=== PATIENT | male | born 1935 | race Caucasian/White ===

== ENCOUNTER → 2023-11-01 07:02 | Outpatient (REF) | payer MEDICARE, SELFPAY ==
[2023-11-01 10:55] LABS: Glycohemoglobin (HgbA1c) 6.3 % (4.0-5.6)
[2023-11-01 11:07] LABS: ALT (SGPT) 14 U/L (0-50); AST (SGOT) 21 U/L (17-59); Albumin 4.2 g/dl (3.5-5.0); Alkaline Phosphatase 99 U/L (38-126); Blood Urea Nitrogen 52 mg/dl (9-20); Carbon Dioxide 30 mmol/L (22-30); Chloride 99 mmol/L (98-107); Glucose 85 mg/dl (70-99); Potassium 3.8 mmol/L (3.5-5.1); Sodium 146 mmol/L (135-145); Total Bilirubin 0.6 mg/dl (0.2-1.3); Total Protein 7.4 g/dl (6.3-8.2); eGFR 8.48
== END ==
LOC: HWLAB 07:02
PROVIDERS: ATTENDING PHYSICIAN Internal Medicine Endocrinology, Diabetes & Metabolism; FAMILY PHYSICIAN Family Medicine
DX: E11.21 Type 2 diabetes mellitus with diabetic nephropathy (principal)
CPT/HCPCS: 36415; 80053; 83036

== ENCOUNTER → 2024-01-15 12:24 | Outpatient (REF) | payer MEDICARE, SELFPAY ==
[2024-01-15 16:26] LABS: % Basophils 0.5 % (0-2); % Eosinophils 5.8 % (0-6); % Immature Granulocytes 0.3 % (0-0.5); % Lymphocytes 18.8 % (20.5-51.1); % Monocytes 13.3 % (1.7-9.3); % Neutrophils 61.3 % (42.2-75.2); Absolute Eosinophils 0.4 10^3/uL (0-0.7); Absolute Lymphocytes 1.2 10^3/uL (1.2-3.4); Absolute Monocytes 0.9 10^3/uL (0.1-0.6); Absolute Neutrophils 3.9 10^3/uL (1.4-6.5); Hematocrit 33.4 % (39.0-52.0); Hemoglobin 10.6 g/dL (13.0-18.0); Mean Corp Hgb Conc. 31.7 g/dL (33.0-37.0); Mean Corpuscular Hgb 30.3 pg (27.0-31.0); Mean Corpuscular Volume 95.4 fL (80.0-94.0); Mean Platelet Volume 10.6 fL (7.4-10.4); Nucleated Red Blood Cells % 0 % (-); Platelet Count 210 10^3/uL (130-400); White Blood Cell Count 6.4 10^3/uL (4.8-10.8)
[2024-01-15 17:08] LABS: Erythrocyte Sed Rate 87 mm/hour (0-20)
[2024-01-18 01:30] LABS: ANA, IgG Reflex to HEp-2 None Detected (None Detected)
== END ==
LOC: HWLAB 12:24
PROVIDERS: ATTENDING PHYSICIAN Orthopaedic Surgery; FAMILY PHYSICIAN Family Medicine
DX: M25.562 Pain in left knee (principal); T84.84XA Pain due to internal orthopedic prosthetic devices, implants and grafts, initial encounter
CPT/HCPCS: 36415; 85025; 85652; 86038; 86140; 86618

== ENCOUNTER 2024-02-28 15:07 | Emergency (ER) | payer MEDICARE, SELFPAY ==
[2024-02-28 15:13] VITALS: BP 157/51
--- NOTE | 2024-02-28 16:09 | ED.GENMED ---
History of Present Illness
General
Chief Complaint: Skin Surface Trauma
Source: patient
Time Seen by Provider: 02/28/24 15:55
History of Present Illness
History of Present Illness:
88-year-old male brought to the emergency room by ambulance with a laceration to the left scalp. Patient states he was going with his to a doctor's appointment via ambulance. When he stepped up into the vehicle he hit the left side of his
head on a hinge of the door causing a laceration. He did not have loss of consciousness. He does not take any oral anticoagulation. He did not have a fall.
Past History
Past History
ED Past Medical History: HTN, Hypercholesterolemia, NIDDM, Renal failure and Other (Neuropathy, BPH, secondary hyperparathyroidism, anemia)
ED Past Surgical History: Orthopedic and Other (L arm fistula)
Social History
Tobacco: Former smoker
Living: with family
Phy Exam
Physical Exam
Physical Exam:
General: Awake, Alert, Oriented X3. No acute distress.
Vitals: Mildly hypotensive
Head: 2 cm laceration left parietal scalp
Eyes: Pupils equal, EOMI
Throat: Airway intact, no exudates
Neck: Trachea midline, no midline tenderness
Neuro: Nonfocal
Skin: Warm, dry, no rash
Extremities: pulses equal b/l, no edema
Course
Orders/Labs/Results
Orders:
Orders
02/28/24 16:09
Tetanus/Diphth/Acelpertussis [Adacel] 0.5 ml IM .ONCE ONE
Vital Signs
Initial and Last Documented VS:
Initial Vital Signs
Temp Pulse Resp BP Pulse Ox
98.0 F 54 16 157/51 98
02/28/24 15:13 02/28/24 15:13 02/28/24 15:13 02/28/24 15:13 02/28/24 15:13
Last Documented Vital Signs
Temp Pulse Resp BP Pulse Ox
98.0 F 54 16 157/51 98
02/28/24 15:13 02/28/24 15:13 02/28/24 15:13 02/28/24 15:13 02/28/24 15:13
Procedures
Laceration Closure
Left Scalp:
Status of Wound: clean
Size of Wound in cm: 2
Description of Wound Edges: sharp
Preparation: cleaned with saline
Anesthesia: 1% Lidocaine with epi
Revision/Debridement: routine- no revision
Wound exploration: explored to base- no FB
Type of Closure: single layer closure
Skin Closure Material: skin kayleen
Number of sutures: 6
MDM/Problems Addressed
Differential Diagnosis Includes:
Scalp laceration
MDM/Problems Addressed:
Matted hair cleaned with hydroperoxide to expose the full extent of the wound. No foreign body. Wound goes down into the subcutaneous tissue but not down to the galea. Wound closed with kayleen. Kayleen should be removed in 7 days.
*Pulse Oximetry
Patient hypoxic: no
*Critical Care Note
Total Time (30-74mins, 75-104mins- exclusive of procedures): Not Applicable
ED Attending Note
-
Portions of this chart may have been created with voice recognition software.� Occasional wrong word or��sound alike� substitutions may have occurred due to the inherent limitations of voice recognition software.
Discharge Plan
Departure
Patient Disposition: Home (Routine Discharge)
Date of Disposition: 02/28/24
Time of Disposition: 16:09
Patient with high blood pressure during this ER visit?: Yes
Condition: Good
Discharge Problem:
Laceration of scalp
Instructions: Laceration Repair With Hughes (DC), BLOOD PRESSURE
Prescriptions:
No Action
pantoprazole 40 MG tablet,delayed release (DR/EC)
40 mg PO DAILY
calcitriol 0.25 mcg Capsule
0.25 mcg PO MOFR
Rx Instructions:
2xweek
cyanocobalamin (vitamin B-12) 1,000 mcg Tablet
1,000 mcg PO DAILY
finasteride 5 mg Tablet
5 mg PO DAILY
omega 9-tcy-fht-fish oil [Fish Oil] 1,200 (144-216) mg Capsule
1 cap PO BID
pravastatin 40 mg Tablet
40 mg PO DAILY
gabapentin 100 mg Capsule
100 mg PO HS
cholecalciferol (vitamin D3) [Vitamin D3] 25 mcg (1,000 unit) Tablet
25 mcg PO DAILY
sevelamer carbonate 800 mg tablet
800 mg PO QPM
metoprolol succinate 50 mg Tablet Extended Release 24 Hr
50 mg PO DAILY 30 Days Qty: 30 0RF
Referrals:
Ramon Casas DO [Family Provider] -
Interventions
Interventions:
*Risk Screen - Suicide Last Done: 02/28/24 15:13
*Nursing Disposition Last Done: 02/28/24 16:42
ED-Skin Assessment Last Done: 02/28/24 16:41
Discharge Date and Time
Discharge Date/Time: 02/28/24 16:42
Print Language: MALTESE
[2024-02-28] MEDS: ADACEL 0.5 ML IM (16:37)
== END 2024-02-28 16:42 | disposition home or self-care (01) ==
LOC: EMR 15:07
PROVIDERS: EMERGENCY PHYSICIAN Emergency Medicine; FAMILY PHYSICIAN Family Medicine
DX: S01.01XA Laceration without foreign body of scalp, initial encounter (principal); V58.4XXA Person boarding or alighting a pick-up truck or van injured in noncollision transport accident, initial encounter; I10 Essential (primary) hypertension; E78.00 Pure hypercholesterolemia, unspecified; E11.9 Type 2 diabetes mellitus without complications; Z87.891 Personal history of nicotine dependence; Z23 Encounter for immunization
CPT/HCPCS: 12001; 90471; 99283; 90715

== ENCOUNTER 2024-03-04 20:04 | Emergency (ER) | payer BC, SELFPAY ==
[2024-03-04 20:09] VITALS: BP 150/55
[2024-03-04 20:27] LABS: % Basophils 0.4 % (0-2); % Immature Granulocytes 0.4 % (0-0.5); % Lymphocytes 4.8 % (20.5-51.1); % Neutrophils 85.4 % (42.2-75.2); Absolute Eosinophils 0.1 10^3/uL (0-0.7); Absolute Lymphocytes 0.4 10^3/uL (1.2-3.4); Absolute Monocytes 0.6 10^3/uL (0.1-0.6); Absolute Neutrophils 6.6 10^3/uL (1.4-6.5); Hematocrit 34.3 % (39.0-52.0); Hemoglobin 11.2 g/dL (13.0-18.0); Mean Corp Hgb Conc. 32.7 g/dL (33.0-37.0); Mean Corpuscular Hgb 30.2 pg (27.0-31.0); Mean Corpuscular Volume 92.5 fL (80.0-94.0); Mean Platelet Volume 9.9 fL (7.4-10.4); Nucleated Red Blood Cells % 0 % (-); Platelet Count 231 10^3/uL (130-400); Red Blood Cell Count 3.71 10^6/uL (4.70-6.10); Red Cell Dist. Width 13.7 % (11.5-14.5); White Blood Cell Count 7.7 10^3/uL (4.8-10.8)
[2024-03-04 20:50] LABS: ALT (SGPT) 15 U/L (0-50); AST (SGOT) 22 U/L (17-59); Albumin 4.4 g/dl (3.5-5.0); Alkaline Phosphatase 98 U/L (38-126); Blood Urea Nitrogen 101 mg/dl (9-20); Calcium 9.9 mg/dl (8.4-10.2); Carbon Dioxide 17 mmol/L (22-30); Chloride 102 mmol/L (98-107); Glucose 203 mg/dl (70-99); Lipase 216 U/L (23-300); Potassium 5.1 mmol/L (3.5-5.1); Sodium 140 mmol/L (135-145); Total Bilirubin 0.3 mg/dl (0.2-1.3); Total Protein 8.1 g/dl (6.3-8.2); eGFR 4.68
[2024-03-04 21:47] VITALS: BP 149/52
[2024-03-04 22:00] VITALS: BP 127/50
--- NOTE | 2024-03-04 22:16 | ED.GENMED ---
History of Present Illness
General
Chief Complaint: Abdominal Symptoms
Source: patient and family (Daughter)
Time Seen by Provider: 03/04/24 22:01
History of Present Illness
History of Present Illness:
88-year-old male presents to the emergency room complaining of nausea, vomiting, diarrhea and generalized weakness. Symptoms began this morning. Last time he vomited was shortly before he came to the emergency room at about 715. No sick contacts
that he knows of. Patient has end-stage renal disease and is on hemodialysis. He receives dialysis Tuesdays and . He did receive dialysis on Saturdays but has discontinued that day so only twice a week. Daughter states the patient did
have a temperature of 100.9. No blood in the vomitus or stool.
Past History
Past History
ED Past Medical History: HTN, Hypercholesterolemia, NIDDM, Renal failure and Other (Neuropathy, BPH, secondary hyperparathyroidism, anemia)
ED Past Surgical History: Orthopedic and Other (L arm fistula)
Social History
Tobacco: Former smoker
Living: with family
Phy Exam
Physical Exam
Physical Exam:
General: Awake, Alert, Oriented X3. No acute distress.
Vitals: unremarkable
Head: Atraumatic
Eyes: Pupils equal, EOMI
Throat: Airway intact, dry mucosa
Neck: Trachea midline
Lungs: Clear and equal b/l
Heart: Regular rate, no murmurs
Abd: Soft, Nontender, No pulsatile mass
Neuro: Nonfocal
Skin: Warm, dry, no rash
Extremities: pulses equal b/l, no edema
Course
Orders/Labs/Results
Orders:
Orders
03/04/24 20:20
Complete Blood Count/With Diff Urgent
Comprehensive Metabolic Panel Urgent
Lipase Urgent
Magnesium Urgent
Comment: ADD ON
Phosphorus Urgent
Comment: ADD ON
03/04/24 22:13
Ondansetron Injectable [Zofran] 4 mg IV NOW STA
03/04/24 22:14
Add On- LAB Urgent
Tests Added?: mag, phos
03/04/24 22:15
0.9% Sodium Chloride 1000 ml [Nss] 1,000 ml IV BOLUS
03/04/24 22:16
CR Chest - 2 Views Urgent
Comment:
Reason For Exam: fever, nausea/vomiting
03/04/24 22:18
Electrocardiogram (*1) Urgent
Reason for Study: Fatigue / Weakness
EKG- Treatment ONCE
03/04/24 22:54
COVID-19 Antigen Urgent
Source: Nasal Swab
Influenza A+B Rapid Molecular Urgent
ROB Source: Nasal Swab
Specimen Description:
03/04/24 22:55
Urinalysis Reflex To Culture Urgent
Date Specimen was Collected: 03/04/24
Time Specimen was Collected: 22:54
Urine Microscopic Reflex Cult Urgent
Abnormal Lab Results
03/04/24 03/04/24
20:20 22:55
RBC 3.71 L 10^6/uL
(4.70-6.10)
Hgb 11.2 L g/dL
(13.0-18.0)
Hct 34.3 L %
(39.0-52.0)
MCHC 32.7 L g/dL
(33.0-37.0)
Absolute Neuts (auto) 6.6 H 10^3/uL
(1.4-6.5)
Absolute Lymphs (auto) 0.4 L 10^3/uL
(1.2-3.4)
Neutrophils % 85.4 H %
(42.2-75.2)
Lymphocytes % 4.8 L %
(20.5-51.1)
Carbon Dioxide 17 L mmol/L
(22-30)
BUN 101 H* mg/dl
(9-20)
Creatinine 9.8 H* mg/dL
(0.7-1.3)
Glucose 203 H mg/dl
(70-99)
Phosphorus 5.6 H mg/dl
(2.5-4.5)
Ur Occult Blood Reflex 1+ A
(Negative)
Urine RBC 21-25 A /HPF
(0-2)
Urine Bacteria (Reflex) Few A
(Negative)
Urine Glucose 1+ A
(Negative)
Urine Albumin (Reflex) 3+ A
(Neg - Trace)
03/04/24 20:20
03/04/24 20:20
Vital Signs
Initial and Last Documented VS:
Initial Vital Signs
Temp Pulse Resp BP Pulse Ox
97.6 F 63 16 150/55 96
03/04/24 20:09 03/04/24 20:09 03/04/24 20:09 03/04/24 20:09 03/04/24 20:09
Last Documented Vital Signs
Temp Pulse Resp BP Pulse Ox
97.8 F 57 16 130/53 98
03/04/24 21:50 03/05/24 02:00 03/05/24 02:00 03/05/24 02:00 03/05/24 02:00
MDM/Problems Addressed
Differential Diagnosis Includes:
Viral gastroenteritis, uremia, dehydration, electrolyte abnormalities, COVID, flu
MDM/Problems Addressed:
Patient presents with nausea from diarrhea. He feels better after some IV fluids here. Labs show significant uremia. Potassium is not elevated. Patient is due for dialysis Monday morning. Given he does not have significantly elevated
potassium, he is tolerating oral intake and his mental status is intact I do not believe hospitalization would be beneficial. The patient is likely to get dialysis sooner if he is discharged and goes to his normal dialysis appointment. Patient
understands he should return if he starts feeling worse in any way.
*Radiology
Radiology exam reviewed: preliminary read by ED provider (Unchanged from chest x-ray of January 03, 2023)
*Pulse Oximetry
Patient hypoxic: no
*EKG
Interpreted by ED Provider?: Yes
Heart Rate: 60
Rate: normal
Rhythm: sinus
QRS Pattern: left vent hypertrophy
Ischemia: no ischemia
*Weight And Test Bar Clerk Interpretation
Rate: normal
Interpretation: normal
Rhythm: sinus
*Critical Care Note
Total Time (30-74mins, 75-104mins- exclusive of procedures): Not Applicable
Patient Management
Social determinants of health affecting care: Strong social support
ED Attending Note
-
Portions of this chart may have been created with voice recognition software.� Occasional wrong word or��sound alike� substitutions may have occurred due to the inherent limitations of voice recognition software.
Discharge Plan
Departure
Patient Disposition: Home (Routine Discharge)
Date of Disposition: 03/05/24
Time of Disposition: 01:39
Patient with high blood pressure during this ER visit?: No
Condition: Good
Discharge Problem:
Nausea & vomiting, Diarrhea, ESRD (end stage renal disease)
Instructions: Dehydration, Adult (DC), End-stage kidney disease (kidney failure)
Prescriptions:
No Action
pantoprazole 40 MG tablet,delayed release (DR/EC)
40 mg PO DAILY
cyanocobalamin (vitamin B-12) 1,000 mcg Tablet
1,000 mcg PO DAILY
finasteride 5 mg Tablet
5 mg PO DAILY
omega 0-lao-oup-fish oil [Fish Oil] 1,200 (144-216) mg Capsule
1 cap PO BID
pravastatin 40 mg Tablet
40 mg PO DAILY
gabapentin 100 mg Capsule
100 mg PO DAILY
cholecalciferol (vitamin D3) [Vitamin D3] 25 mcg (1,000 unit) Tablet
25 mcg PO DAILY
sevelamer carbonate 800 mg tablet
800 mg PO DAILY
metoprolol succinate 50 mg Tablet Extended Release 24 Hr
50 mg PO DAILY 30 Days Qty: 30 0RF
Rx Instructions:
take with 100mg for total of 150mg
metoprolol succinate 100 mg Tablet Extended Release 24 Hr
100 mg PO DAILY
Rx Instructions:
take with 50mg for total of 150mg
terazosin 1 mg Capsule
1 mg PO HS
amlodipine 5 mg Tablet
5 mg PO BID
furosemide 80 mg Tablet
80 mg PO DAILY
losartan 100 mg Tablet
100 mg PO DAILY
Referrals:
Ramon Casas DO [Family Provider] -
Activity Restrictions/Additional Instructions:
Your blood work shows that your kidney function test are high. I suspect this is due to some dehydration in combination with the being several days since her last dialysis treatment. Your potassium level is okay. Because you are able to tolerate
oral intake I think you will likely get dialysis more quickly by going to your dialysis center tomorrow then if you stayed in the hospital. Return if you are unable to get dialysis tomorrow for some reason or if you are getting worse.
Interventions
Interventions:
*Risk Screen - Suicide Last Done: 03/04/24 22:00
*General Assessment Last Done: 03/04/24 22:00
*Neglect/Abuse Screening Last Done: 03/04/24 22:00
ED- Fall Risk Assessment Last Done: 03/04/24 22:00
*ED COVID-19 Vaccine History Last Done: 03/04/24 22:00
*Nursing Disposition Last Done: 03/05/24 02:00
UR-Jvpscs-Pffnpvieql Assessment Last Done: 03/04/24 22:00
Discharge Date and Time
Discharge Date/Time: 03/05/24 02:00
Print Language: TAJIK
[2024-03-04 22:47] VITALS: BMI 24.7
[2024-03-04] MEDS: NSS 1000 IV (22:52)
[2024-03-04] MEDS: ZOFRAN 4 MG IV (22:53)
[2024-03-04 23:00] LABS: Magnesium 2.1 mg/dl (1.6-2.3); Phosphorus 5.6 mg/dl (2.5-4.5)
[2024-03-04 23:07] LABS: Urine Albumin 3+ (Neg - Trace); Urine Bilirubin Negative (Negative); Urine Character Clear (Clear); Urine Color Yellow; Urine Glucose 1+ (Negative); Urine Ketone Negative (Negative); Urine Leukocyte Negative (Negative); Urine Nitrite Negative (Negative); Urine Occult Blood 1+ (Negative); Urine Urobilinogen Negative (Neg - 1+); Urine pH 6.5 (5.0-9.0)
[2024-03-04 23:51] LABS: COVID-19 Antigen Negative (Negative)
[2024-03-05 00:17] LABS: Urine Amorphous Seen
[2024-03-05 00:18] LABS: Urine Bacteria Few (Negative); Urine Red Blood Cell 21-25 /HPF (0-2); Urine White Cell 0-2 /HPF (0-5)
[2024-03-05 00:19] LABS: Urine Mucus Few; Urine Urothelial Cell 0-2 /LPF (FEW)
[2024-03-05 00:56] VITALS: BP 133/55
[2024-03-05 01:00] VITALS: BP 138/53
[2024-03-05 02:00] VITALS: BP 130/53
== END 2024-03-05 02:00 | disposition home or self-care (01) ==
LOC: EMR 20:04
PROVIDERS: Emergency Medicine; EMERGENCY PHYSICIAN Emergency Medicine; FAMILY PHYSICIAN Family Medicine
DX: R11.2 Nausea with vomiting, unspecified (principal); R19.7 Diarrhea, unspecified; N18.6 End stage renal disease; R53.1 Weakness; I10 Essential (primary) hypertension; E78.00 Pure hypercholesterolemia, unspecified; E11.9 Type 2 diabetes mellitus without complications; N40.0 Benign prostatic hyperplasia without lower urinary tract symptoms; I12.0 Hypertensive chronic kidney disease with stage 5 chronic kidney disease or end stage renal disease; E11.22 Type 2 diabetes mellitus with diabetic chronic kidney disease; N25.81 Secondary hyperparathyroidism of renal origin; Z87.891 Personal history of nicotine dependence; Z99.2 Dependence on renal dialysis
CPT/HCPCS: 99283; 96374; 71046; 80053; 81003; 81015; 83690; 83735; 84100; 85025; 87502; 87811; 93005

== ENCOUNTER 2024-03-05 16:58 | Inpatient (IN) | payer OTHER, SELFPAY ==
[2024-03-05] VITALS (9 sets, daily range): BP systolic 100–150; BP diastolic 43–96
--- NOTE | 2024-03-05 12:28 | ED.GENMED ---
History of Present Illness
General
Chief Complaint: Fever
Time Seen by Provider: 03/05/24 12:28
History of Present Illness
History of Present Illness:
TIME OF INITIAL ENCOUNTER:
HPI: Patient came in by ambulance with concerns for fever. Seen in our ED last night. He apparently was at dialysis today and was sent here related to fever. I called [facility] to obtain history. I spoke to one of the
nurses there. The nurse that I spoke to is a pig lead melter helper nurse and does not know his baseline but when she spoke to another nurse she was told that he does not have any dementia. The patient was here in the emergency room till 3 in the morning
overnight went home and then went to dialysis at 8:30 AM. He was not feeling well. He had shaking chills had a Tmax at dialysis of 99+ and appeared lethargic. He could not stand. He was sent in here for further evaluation. I then called son,
Thomas, , no h/o dementia.
EXAM:
GENERAL: The patient is ill-appearing, appears encephalopathic, she is febrile
HEENT: Moist oral mucosa
CARDIOVASCULAR: No murmurs, normal heart rate, regular rhythm, No chest wall tenderness
PULMONARY: No respiratory distress, breath sounds are clear and equal
ABDOMEN: Soft with no peritoneal signs, no tenderness
NEUROLOGIC: Generalized weakness in all extremities, does not participate much with examination
PSYCHIATRIC: The patient cannot name the month, He is a very poor historian, he is very limited insight and judgment
EXTREMITIES: Nontender, no edema, moves all extremities equally, the patient has a fistula in the left upper extremity at the , he has no ports
SKIN: No rash, no lesions
NUMBER AND COMPLEXITY OF PROBLEMS ADDRESSED AT THE ENCOUNTER
� Chronic conditions affecting care: High blood pressure, GERD, CKD, IDDM
� Acute Exacerbation and/or Progression of Chronic Illness: This is an acute problem
� Differential Diagnosis includes: Viral syndrome, sepsis, bacteremia, no evidence of UTI based on last night's evaluation
AMOUNT AND/OR COMPLEXITY OF DATA TO BE REVIEWED AND ANALYZED
� I performed an independent evaluation of and my interpretation is:
EKG:
CT:
X-rays: Chest x-ray suggests right pleural effusion along with possible of pneumonia however it does not appear to be significant change from February 2022
Laboratory Studies: White count 8.2, hemoglobin 9.9, creatinine 5.9 which is lower than prior, lactic is 1.8
Other:
� Review of other/old records: I reviewed the notes from last night which indicated the patient had nausea, vomiting, and diarrhea along with generalized weakness. He was given some IV fluids last night.
� Clinical information was obtained by an independent historian: I spoke to sons at bedside as well as dialysis facility
� Prescriptions/Medications Considered but not given:
� Further testing considered but not performed:
RISK OF COMPLICATIONS AND/OR MORBIDITY OR MORTALITY OF PATIENT MANAGEMENT
� Social determinants of health affecting care: Lives at home, attends dialysis twice a week
� Discussion with other providers: I discussed case with Dr. Turner at 3 PM who accepts to his service
� Escalation of care including admission/observation vs risk of discharge considered: I spoke to the brother, Thomas over the phone, , he tells me that the patient does not have a history of dementia. However he did,
on his own decrease his dialysis frequency from 3 times a week to 2 times per week.
ANY OTHER UPDATES:
On reassessment, we talked about the possibly of pneumonia however the patient denies any shortness of breath or cough. Despite giving Tylenol for fever, he still appears encephalopathic. He appears very confused and has a headache and has
decreased range of motion of the flexion of the neck. I did voice some concern for the possible of meningitis. I spoke to the son at bedside who gives informed signed written consent.
2:50 PM: I am concerned for the possibility of sepsis due to the fever and change in mental status. He was only given a 250 mL fluid bolus as he is a dialysis patient. He was not tachycardic and never hypotensive. His lactic is normal.
Broad-spectrum antibiotics were given given his ill appearance.
6:30 PM: No evidence for meningitis on lumbar puncture results
Past History
Past History
ED Past Medical History: HTN, Hypercholesterolemia, NIDDM, Renal failure and Other (Neuropathy, BPH, secondary hyperparathyroidism, anemia)
ED Past Surgical History: Orthopedic and Other (L arm fistula)
Social History
Tobacco: Former smoker
Living: with family
Phy Exam
Physical Exam
Physical Exam:
See HPI
Sepsis
Sepsis Screening
Sepsis Assessment: Sepsis
Sepsis Screen
Sepsis Screen: Sepsis
Date: 03/05/24
Time: 20:00
Course
Orders/Labs/Results
Orders:
Orders
03/05/24 12:41
Acetaminophen [Tylenol] 1,000 mg PO NOW STA
03/05/24 12:51
Complete Blood Count/With Diff Urgent
Comprehensive Metabolic Panel Urgent
Lactic Acid Q4H
Comment: CANCEL 2nd LACTIC ACID IF 1st LACTIC ACID IS LESS THAN 2
Blood Culture Q30M
ROB Source: Blood/Venous
Specimen Description:
Blood Culture Q30M
ROB Source: Blood/Venous
Specimen Description:
03/05/24 12:52
CR Chest - 2 Views Urgent
Comment:
Reason For Exam: worse fever
03/05/24 12:54
0.9% Sodium Chloride 250 ml [Nss] 250 ml IV BOLUS
03/05/24 14:03
Cefepime HCl [Maxipime] 1,000 mg IV NOW STA
03/05/24 14:53
Vancomycin [Vancocin] 1,500 mg 0.9% Sodium Chloride 500 ml [Nss] 500 ml IV NOW
03/05/24 15:18
CSF Cell Count Urgent
Date Specimen was Collected: 03/05/24
Time Specimen was Collected: 15:09
CSF Tube Number: 1
Comment: Tube #1
Cryptococcal Antigen, CSF [S] Urgent
Date Specimen was Collected: 03/05/24
Time Specimen was Collected: 15:09
Spinal Fluid Glucose Urgent
Date Specimen was Collected: 03/05/24
Time Specimen was Collected: 15:09
CSF Tube Number: 1
Spinal Fluid Protein Urgent
Date Specimen was Collected: 03/05/24
Time Specimen was Collected: 15:09
CSF Tube Number: 1
CSF Culture with Gram Stain Urgent
ROB Source: Csf
Specimen Description:
Date Specimen was Collected: 03/05/24
Time Specimen was Collected: 15:09
03/05/24 16:21
Admit/Transfer Patient As Directed
Co-Sign Provider:
Level of Care: Inpatient admission
Assign to:: Telemetry
Physician / Group: Hospitalist
Diagnosis: Change of mental status
Reason for Telemetry: Chest Pain syndromes
Date to Stop Telemetry: 03/07/24
Time to Stop Telemetry: 11:00
Reason for Hospitalization: Change of mental status
Expected length of stay greater than two midnights?: Yes
ELOS- Estimated Length of Stay in days: 5
I certify the patient meets the requirements for IP care: Yes
PRN Pain Medication Management As Directed
May give lesser potent ordered pain med per pt: Yes
preference::
Protocol:: Medication orders for pain may be administered in a
manner that supports deferring to patient preference
when the pt is:
- Requesting an ordered lesser potent pain medication.
Least to most potent pain medications are defined
as: acetaminophen < NSAID < tramadol < opioids
(morphine, oxycodone, hydromorphone).
- Requesting a lesser dose of the same medication IF
ORDERED.
- Requesting a less intrusive route of administration
if both routes are prescribed by the provider (PO <
IV).
03/05/24 16:23
Code Status As Directed
Resuscitation Status: Full Code
03/05/24 17:52
Blood Culture Q30M
ROB Source: Blood/Venous
Specimen Description:
Comment: IF NOT OBTAINED IN ED
03/05/24 17:52
Consult Nephrology [NEPHROLOGY CONSULT] Routine
Consulting Provider: Kaz Lowe
Was physician already notified: Yes
Reason for consult: HD three days per week.
Urinalysis Reflex To Culture Urgent
Urinalysis Reflex To Culture Urgent
Respiratory Culture/Gram Stain Routine
ROB Source: Sputum
Specimen Description:
Comment: IF NOT OBTAINED IN ED
Activity As Directed
Activity Level: With Assistance
Intake/ Output As Directed
Frequency: Per unit guidelines
Vital Signs As Directed
Frequency: Per unit guidelines
DX Deep Vein Thrombosis Video Routine
03/05/24 18:22
Blood Culture Q30M
ROB Source: Blood/Venous
Specimen Description:
Comment: IF NOT OBTAINED IN ED
03/05/24 20:00
Amlodipine [Norvasc] 5 mg PO BID
Heparin 5,000 units SC Q12
03/05/24 22:00
Terazosin [Hytrin] 1 mg PO HS
03/06/24 Breakfast
NPO
Allow oral meds: Yes
Allow clear liquids: Sips of Clears
NPO with Ice Chips: Yes
Complete Blood Count/No Diff IN AM
Comprehensive Metabolic Panel IN AM
03/06/24 08:00
Finasteride [Proscar] 5 mg PO DAILY
Furosemide [Lasix] 80 mg PO DAILY
Metoprolol Xl [Toprol Xl] 100 mg PO DAILY
Metoprolol Xl [Toprol Xl] 50 mg PO DAILY
Pantoprazole [Protonix] 40 mg PO DAILY
Sevelamer Carbonate [Renvela] 800 mg PO DAILY
03/06/24 16:00
Cefepime HCl [Maxipime] 1,000 mg IV Q24H
03/07/24 11:00
DC Protocol for Telemetry ONCE
Abnormal Lab Results
03/05/24 03/05/24
12:51 15:18
RBC 3.32 L 10^6/uL
(4.70-6.10)
Hgb 9.9 L g/dL
(13.0-18.0)
Hct 29.9 L %
(39.0-52.0)
Absolute Lymphs (auto) 0.7 L 10^3/uL
(1.2-3.4)
Absolute Monos (auto) 1.1 H 10^3/uL
(0.1-0.6)
Neutrophils % 77.8 H %
(42.2-75.2)
Lymphocytes % 8.2 L %
(20.5-51.1)
Monocytes % 13.0 H %
(1.7-9.3)
Chloride 94 L mmol/L
(98-107)
BUN 59 H mg/dl
(9-20)
Creatinine 5.9 H* mg/dL
(0.7-1.3)
Glucose 142 H mg/dl
(70-99)
CSF Glucose 79 H mg/dl
(40-70)
CSF Total Protein 109 H mg/dl
(12-60)
03/05/24 12:51
03/05/24 12:51
Vital Signs
Initial and Last Documented VS:
Initial Vital Signs
Temp Pulse Resp BP Pulse Ox
39.6 C H 80 27 150/50 95
03/05/24 12:24 03/05/24 12:24 03/05/24 12:24 03/05/24 12:24 03/05/24 12:24
Last Documented Vital Signs
Temp Pulse Resp BP Pulse Ox
36.7 C 72 20 100/96 96
03/05/24 17:53 03/05/24 17:53 03/05/24 17:53 03/05/24 17:53 03/05/24 17:53
Procedures
Lumbar Puncture
Indication for procedure:: Fever, altered mental status
Procedure completed by: De, Dr. Degroot
Consent form signed: Yes
Anesthesia/sedation: 1% Lidocaine
Preparation: cleaned with Betadine
Position: decubitis
Needle Size: 22 gauge
Needle Type: Lumbar Needle
Number of attempts: 2
Dressing applied to puncture site: bandaid
Complications: none
*Critical Care Note
Total Time (30-74mins, 75-104mins- exclusive of procedures): Not Applicable
ED Attending Note
-
Portions of this chart may have been created with voice recognition software.� Occasional wrong word or��sound alike� substitutions may have occurred due to the inherent limitations of voice recognition software.
Discharge Plan
Departure
Patient Disposition: Admit
Date of Disposition: 03/05/24
Time of Disposition: 14:33
Presentation/result/management discussed w/ accepting MD/DO: Hospitalist
Discharge Problem:
Sepsis
Interventions
Interventions:
*Risk Screen - Suicide Last Done: 03/05/24 12:24
*General Assessment Last Done: 03/05/24 12:24
*Neglect/Abuse Screening Last Done: 03/05/24 12:24
ED- Fall Risk Assessment Last Done: 03/05/24 18:01
*ED COVID-19 Vaccine History Last Done: 03/05/24 17:50
*Nursing Disposition Last Done: 03/05/24 18:01
ED- Neurological Assessment Last Done: 03/05/24 12:39
ED-Skin Assessment Last Done: 03/05/24 12:39
Discharge Date and Time
Discharge Date/Time: 03/05/24 18:04
[2024-03-05] MEDS: TYLENOL 1000 MG PO (12:50)
[2024-03-05 13:05] LABS: % Basophils 0.4 % (0-2); % Eosinophils 0.2 % (0-6); % Immature Granulocytes 0.4 % (0-0.5); % Lymphocytes 8.2 % (20.5-51.1); % Neutrophils 77.8 % (42.2-75.2); Absolute Lymphocytes 0.7 10^3/uL (1.2-3.4); Absolute Monocytes 1.1 10^3/uL (0.1-0.6); Absolute Neutrophils 6.4 10^3/uL (1.4-6.5); Hematocrit 29.9 % (39.0-52.0); Hemoglobin 9.9 g/dL (13.0-18.0); Mean Corp Hgb Conc. 33.1 g/dL (33.0-37.0); Mean Corpuscular Hgb 29.8 pg (27.0-31.0); Mean Corpuscular Volume 90.1 fL (80.0-94.0); Mean Platelet Volume 10.1 fL (7.4-10.4); Nucleated Red Blood Cells % 0 % (-); Platelet Count 210 10^3/uL (130-400); Red Blood Cell Count 3.32 10^6/uL (4.70-6.10); Red Cell Dist. Width 13.9 % (11.5-14.5); White Blood Cell Count 8.2 10^3/uL (4.8-10.8)
[2024-03-05 13:17] LABS: Lactic Acid 1.8 mmol/L (0.7-2.0)
[2024-03-05 13:20] LABS: ALT (SGPT) 16 U/L (0-50); AST (SGOT) 25 U/L (17-59); Albumin 4.3 g/dl (3.5-5.0); Alkaline Phosphatase 85 U/L (38-126); Blood Urea Nitrogen 59 mg/dl (9-20); Calcium 9.2 mg/dl (8.4-10.2); Carbon Dioxide 27 mmol/L (22-30); Chloride 94 mmol/L (98-107); Glucose 142 mg/dl (70-99); Potassium 4.3 mmol/L (3.5-5.1); Sodium 136 mmol/L (135-145); Total Bilirubin 0.5 mg/dl (0.2-1.3); Total Protein 7.9 g/dl (6.3-8.2)
[2024-03-05] MEDS: NSS 250 IV (13:38)
--- NOTE | 2024-03-05 14:10 | PHANOTE ---
med rec note- patient not answer question properly and dandre his son in room does not know patient medication, called son Thomas and daughter marian but they do not know patient medication. patient has no ecw and [facility] does not know his
primary pcp
[2024-03-05] MEDS: MAXIPIME 1000 MG IV (15:09)
[2024-03-05] MEDS: VANCOCIN 530 MG IV (15:10)
--- NOTE | 2024-03-05 15:16 | HPS.HSE ---
Family Physician
-
Family Physician: INTERVIEWE UNKNOWN - PT NOT
Chief Complaint
-
Change of mental status
History of Present Illness
88 man with change of mental status. The Patient came in by ambulance today with concerns for fever. Of note, he was seen in our ED last night. He was discharged and went to dialysis today and was sent back here because of a fever. He also had
shaking chills had a Tmax at dialysis of 99+ and appeared lethargic. He could not stand. The patient has no h/o dementia. At the time of my exam, he was awake and responded to touch, but was not able to answer any questions. ER ordered lumbar
tap. Results of tap are pending. Patient was then placed on broad spectrum antibiotics, CXR showed:
There is moderate right-sided pleural effusion with associated pneumonia versus compressive atelectasis at the right lung base, stable compared with the prior study
The lungs are otherwise clear
Medical History
Past Medical History
Past Medical History: Reports Other
Additional Past Medical History:
Frequency of micturition
Neuromuscular dysfunction of bladder, unspecified
Chronic kidney disease (CKD) stage G5/A1, glomerular filtration rate (GFR) less than or equal to 15 mL/min
Breath shortness
Nocturia
Diabetes
Accelerated hypertension
Benign enlargement of prostate
btkr
knee surgery 2017
LUE AVF creation ([facility])
pneumonia 05/2022
heart rate problem 06/27/22
Past Surgical History: Reports Other
Additional Past Surgical History:
See above
Social History
Unable to obtain full social history at this time due to: Acuity
Family History
Family History: Not pertinent
Allergies / Home Medications
Allergies reflects when Allergies were last updated in [facility].
Home Medications with original date entered in [facility]
Allergy/Medication List:
Allergies
Allergy/AdvReac Type Severity Reaction Status Date / Time
No Known Allergies Allergy Verified 03/05/24 12:24
Home Medications
pantoprazole 40 mg tablet,delayed release 40 mg PO DAILY Gastrointestinal issue 02/08/12
cyanocobalamin (vitamin B-12) 1,000 mcg tablet 1,000 mcg PO DAILY Supplement 05/04/22
finasteride 5 mg tablet 5 mg PO DAILY Urinary issue 05/04/22
gabapentin 100 mg capsule 100 mg PO DAILY Pain 05/04/22
omega 2-ncv-xkr-fish oil 1,200 mg (144 mg-216 mg) capsule (Fish Oil) 1 cap PO BID High cholesterol 05/04/22
pravastatin 40 mg tablet 40 mg PO DAILY High cholesterol 05/04/22
cholecalciferol (vitamin D3) 25 mcg (1,000 unit) tablet (Vitamin D3) 25 mcg PO DAILY Supplement 07/29/22
sevelamer carbonate 800 mg tablet 800 mg PO DAILY Kidney Disease 01/03/23
metoprolol succinate 50 mg tablet,extended release 24 hr 50 mg PO DAILY 30 days #30 tabs 01/07/23
amlodipine 5 mg tablet 5 mg PO BID 03/04/24
furosemide 80 mg tablet 80 mg PO DAILY 03/04/24
losartan 100 mg tablet 100 mg PO DAILY 03/04/24
metoprolol succinate 100 mg tablet,extended release 24 hr 100 mg PO DAILY 03/04/24
terazosin 1 mg capsule 1 mg PO HS 03/04/24
Review of Systems
-
Unable to obtain full review of systems at this time due to: Acuity
Physical Exam
Vital Signs
Vital Signs
Temp Pulse Resp BP Pulse Ox
103.3 F H 73 34 128/43 94
03/05/24 12:24 03/05/24 14:15 03/05/24 14:15 03/05/24 14:00 03/05/24 14:15
Physical Exam
General: Well Developed, Well Nourished, No Apparent Distress, Comfortable and Other (confused and not answering questions or following commands)
HEENT: NormoCephalic, Nose Appears Normal and Ears Appear Normal
Respiratory: Clear and Decreased Breath Sounds
Cardiac: S1/S2 and Regular Rhythm
GI: Soft
Musculoskeletal: No Clubbing, No Cyanosis and No Edema
Skin: Warm and Dry
Neuro: Awake
Psych: Confused
Laboratory Results
-
03/05/24 12:51
03/05/24 12:51
Laboratory Results
Lactic Acid 1.8 mmol/L (0.7-2.0) 03/05/24 12:51
Total Bilirubin 0.5 mg/dl (0.2-1.3) 03/05/24 12:51
AST 25 U/L (17-59) 03/05/24 12:51
ALT 16 U/L (0-50) 03/05/24 12:51
Alkaline Phosphatase 85 U/L (38-126) 03/05/24 12:51
Data Reviewed
-
Lab Data: Labs Reviewed by me
Impression/Plan
-
IMPRESSION:
88 man on HD for ESRD comes with change of mental status and fever. Source and type of infection not obvious at this time.
Temp in ER 103.3
H/H 9.9/29.9
BUN/Creat 59/9.9
WBC 8.2
PLAN:
1. Change of mental status, likely delirium from metabolic encephalopathy from infection. No h/o dementia.
Await results of blood, urine and CSF cultures
In meantime, cover with broad spectrum antibiotics
Echo of heart
He has h/o enlarged prostate and bladder dysfunction.
2. ESRD on HD. Had HD today. Needs HD 3 days per week
Nephrology consult
3. H/O risk factors for CAD, inability to provide history
Check troponins
Telemetry monitoring
Code status: Full
VCD for DVTp
[2024-03-05 16:17] LABS: CSF Tube # 4
[2024-03-05 16:18] LABS: CSF Clarity Clear; CSF Color Colorless
[2024-03-05 16:30] LABS: Spinal Fluid Glucose 79 mg/dl (40-70); Spinal Fluid Protein 109 mg/dl (12-60)
[2024-03-05 16:58] LABS: Red Cell Count/CSF 3 mm^3; White Cell Count/CSF 1 mm^3 (0-5)
--- NOTE | 2024-03-05 17:04 | W.CON.NEPH ---
Consultation
-
Date/Time Consultation Requested: 03/05/2024 4 PM
Date/Time Consultation Performed: 03/05/2024 5 PM
Requesting Provider: Dr. Turner
Performing Provider: Dr. Lowe
Reason for Consultation: ESRD
Medical History
-
Chief Complaint: Mental status change, fever
History of Present Illness:
This is an 88-year-old gentleman who has end-stage renal disease on hemodialysis at [facility] Saturdays. His last dialysis was this morning from 10 12-01 12 by his report. He states that he had no issues on dialysis today
and did well. He does not recall any issues or being told to come to the emergency room. He actually has no recollection of how he got from dialysis to the emergency room today. He was in the ER yesterday complaining of nausea vomiting diarrhea.
He was not confused at that time and was able to maintain oral intake and was discharged ultimately at that time so that he could go to dialysis today.
Past Medical History
ESRD, hypertension, diabetes mellitus type 2, left upper extremity AV fistula, secondary hyperparathyroidism, hyperlipidemia, neuropathy, BPH
Social History
Tobacco: Former Smoker
Alcohol: None
Family History
Family History: Not Pertinent
Allergies / Home Medications
Allergy/AdvReac Type Severity Reaction Status Date / Time
No Known Allergies Allergy Verified 03/05/24 12:24
�Medication �Instructions �Recorded �Confirmed �Type
pantoprazole 40 mg tablet,delayed 40 mg PO DAILY Gastrointestinal 02/08/12 03/05/24 History
release issue
cyanocobalamin (vitamin B-12) 1,000 mcg PO DAILY Supplement 05/04/22 03/05/24 History
1,000 mcg tablet
finasteride 5 mg tablet 5 mg PO DAILY Urinary issue 05/04/22 03/05/24 History
gabapentin 100 mg capsule 100 mg PO DAILY Pain 05/04/22 03/05/24 History
omega 6-poc-ukf-fish oil 1,200 mg 1 cap PO BID High cholesterol 05/04/22 03/05/24 History
(144 mg-216 mg) capsule (Fish Oil)
pravastatin 40 mg tablet 40 mg PO DAILY High cholesterol 05/04/22 03/05/24 History
cholecalciferol (vitamin D3) 25 25 mcg PO DAILY Supplement 07/29/22 03/05/24 History
mcg (1,000 unit) tablet (Vitamin
D3)
sevelamer carbonate 800 mg tablet 800 mg PO DAILY Kidney Disease 01/03/23 03/05/24 History
metoprolol succinate 50 mg 50 mg PO DAILY 30 days #30 tabs 01/07/23 03/05/24 Rx
tablet,extended release 24 hr
amlodipine 5 mg tablet 5 mg PO BID 03/04/24 03/05/24 History
furosemide 80 mg tablet 80 mg PO DAILY 03/04/24 03/05/24 History
losartan 100 mg tablet 100 mg PO DAILY 03/04/24 03/05/24 History
metoprolol succinate 100 mg 100 mg PO DAILY 03/04/24 03/05/24 History
tablet,extended release 24 hr
terazosin 1 mg capsule 1 mg PO HS 03/04/24 03/05/24 History
Review of Systems
-
No chest pain or shortness of breath. He denies any issues with dialysis. No issues with his AV fistula. He still makes urine. No dysuria. No diarrhea.
All other systems: Negative unless noted
Physical Exam
Vital Signs
Vital Signs
Temp Pulse Resp BP Pulse Ox
103.3 F H 69 18 124/51 92
03/05/24 12:24 03/05/24 16:15 03/05/24 16:15 03/05/24 16:00 03/05/24 16:15
Lab Results
WBC 8.2 10^3/uL (4.8-10.8) 03/05/24 12:51
RBC 3.32 10^6/uL (4.70-6.10) L 03/05/24 12:51
Hgb 9.9 g/dL (13.0-18.0) L 03/05/24 12:51
Hct 29.9 % (39.0-52.0) L 03/05/24 12:51
Plt Count 210 10^3/uL (130-400) 03/05/24 12:51
Sodium 136 mmol/L (135-145) 03/05/24 12:51
Potassium 4.3 mmol/L (3.5-5.1) 03/05/24 12:51
Chloride 94 mmol/L (98-107) L 03/05/24 12:51
Carbon Dioxide 27 mmol/L (22-30) 03/05/24 12:51
BUN 59 mg/dl (9-20) H 03/05/24 12:51
Creatinine 5.9 mg/dL (0.7-1.3) H* 03/05/24 12:51
eGFR 8.60 03/05/24 12:51
Glucose 142 mg/dl (70-99) H 03/05/24 12:51
Calcium 9.2 mg/dl (8.4-10.2) 03/05/24 12:51
Albumin 4.3 g/dl (3.5-5.0) 03/05/24 12:51
Laboratory Tests
03/04/24 03/05/24
22:55 15:18
Urine RBC 21-25 A
Urine WBC (Reflex) 0-2
CSF Glucose 79 H
CSF Total Protein 109 H
Physical Exam
Patient is awake alert not oriented to place and in no distress. Mood and affect were pleasant, insight and judgment were poor. Pupils are equal round and reactive to light, extraocular movements are intact, sclera were anicteric. Hearing was
normal, ears and nose are intact. Oropharynx was clear. Neck was supple with trachea midline and no thyromegaly. Heart was regular rate and rhythm without rubs. Lower extremities without edema. Lungs were with decreased breath sounds at the base
to auscultation bilaterally and with normal excursion. Abdomen was soft, nontender, with normal active bowel sounds, and no hepatosplenomegaly. Skin was without rash and with normal turgor.
Data Reviewed
-
Radiology: Image Personally Visualized and interpreted (Chest x-ray on 03/05/2024 by my reading shows right-sided effusion, unchanged from prior x-rays)
Medical Tests (Nuc Med, Echo etc): Image Personally Visualized and interpreted (EKG on 03/04/2024 by read shows normal sinus rhythm first AV block)
Labs: Labs Reviewed by me
Old Records: Reviewed
Assessment/Plan
-
Assessment
ESRD
Right-sided effusion
Fever
Mental status change
BPH
Hypertension
Hyperlipidemia
Plan
Electrolytes are stable, next dialysis
Empiric antibiotics per primary team
Await results of spinal tap
Await culture results
--- NOTE | 2024-03-05 17:50 | PTCARENOTE ---
03/05- Patient transferred and oriented to unit without issue. AAOX3, flat affect, forgetful. Mild hand tremors observed. Skin CDI but pale. Telemetry #44, NSR currently. Patient denies any needs at this time.
[2024-03-05] MEDS: RENVELA 1600 MG PO (18:34)
[2024-03-05] MEDS: HEPARIN 5000 UNITS SC (20:06)
[2024-03-05] MEDS: NORVASC 5 MG PO (20:08)
[2024-03-05 22:10] LABS: Urine Albumin 3+ (Neg - Trace); Urine Bilirubin Negative (Negative); Urine Character Clear (Clear); Urine Color Yellow; Urine Glucose Trace (Negative); Urine Ketone Negative (Negative); Urine Leukocyte Negative (Negative); Urine Nitrite Negative (Negative); Urine Occult Blood 2+ (Negative); Urine Urobilinogen Negative (Neg - 1+)
[2024-03-05 22:17] LABS: Glucose - Point of Care 111 mg/dl (70-99)
[2024-03-05 22:29] LABS: Urine Red Blood Cell 16-20 /HPF (0-2); Urine White Cell 0-2 /HPF (0-5)
[2024-03-05] MEDS: HYTRIN 1 MG PO (22:36)
[2024-03-06] VITALS (7 sets, daily range): BP systolic 131–171; BP diastolic 55–72; PULSE 57; O2SAT 96; BMI 24.5
--- NOTE | 2024-03-06 00:45 | PTCARENOTE ---
Pt has had 3 instances of diarrhea since admission. Pt placed on enhanced precautions.
--- NOTE | 2024-03-06 02:10 | DOWNTIME ---
There was a [employer] Client Email Marketing Manager Downtime on 03/06/2024 from 0100 to 03/06/2023 at 0205 . Downtime documentation of patient's care, including medication administrations, has been reconciled in the electronic record per guidelines. Refer to the
patient's paper chart under the miscellaneous tab to see printed paper medication records and downtime forms.
[2024-03-06 06:19] LABS: Glucose - Point of Care 102 mg/dl (70-99)
[2024-03-06 07:28] LABS: Hematocrit 29.5 % (39.0-52.0); Hemoglobin 9.8 g/dL (13.0-18.0); Mean Corp Hgb Conc. 33.2 g/dL (33.0-37.0); Mean Corpuscular Hgb 30.2 pg (27.0-31.0); Mean Corpuscular Volume 90.8 fL (80.0-94.0); Mean Platelet Volume 9.8 fL (7.4-10.4); Platelet Count 176 10^3/uL (130-400); Red Blood Cell Count 3.25 10^6/uL (4.70-6.10); Red Cell Dist. Width 13.8 % (11.5-14.5); White Blood Cell Count 5.7 10^3/uL (4.8-10.8)
[2024-03-06] MEDS: HEPARIN 5000 UNITS SC ×2 (08:10→19:40)
[2024-03-06] MEDS: RENVELA 800 MG PO ×2 (08:10→11:56)
[2024-03-06] MEDS: PROTONIX 40 MG PO (08:11)
[2024-03-06] MEDS: PROSCAR 5 MG PO (08:11)
[2024-03-06] MEDS: TOPROL XL 50 MG PO (08:11)
[2024-03-06] MEDS: TOPROL XL 100 MG PO (08:11)
[2024-03-06] MEDS: NORVASC 5 MG PO ×2 (08:11→19:39)
[2024-03-06] MEDS: LASIX 80 MG PO (08:11)
[2024-03-06 08:26] LABS: ALT (SGPT) 14 U/L (0-50); AST (SGOT) 36 U/L (17-59); Albumin 3.5 g/dl (3.5-5.0); Alkaline Phosphatase 65 U/L (38-126); Blood Urea Nitrogen 65 mg/dl (9-20); Calcium 8.9 mg/dl (8.4-10.2); Carbon Dioxide 26 mmol/L (22-30); Chloride 97 mmol/L (98-107); Estimated Creatinine Clearance 6 ml/min; Glucose 94 mg/dl (70-99); Potassium 4.1 mmol/L (3.5-5.1); Sodium 137 mmol/L (135-145); Total Bilirubin 0.3 mg/dl (0.2-1.3); Total Protein 6.6 g/dl (6.3-8.2); eGFR 6.15
--- NOTE | 2024-03-06 11:08 | CHAP ---
Agricultural Economics Teacher request relayed to Monsignor Hammond who anticipates arriving today around noon. Mr. Buchanan is aware and grateful.
--- NOTE | 2024-03-06 12:15 | W.PN.HOSP.TC ---
Addendum entered and electronically signed by Maia Olivares MD 03/06/24 14:52:
I saw and evaluated the patient. I reviewed the resident�s note and agree with findings and plan as documented in the resident�s note.
A/P:
# Change in mental status, resolved. Likely acute metabolic encephalopathy with acute infection versus missed dialysis
MS returned to baseline, AOx3
concern for meningitis in the ED. S/p LP and CSF analysis was largely unrevealing, noted elevated CSF protein. CSF culture pending
CXR with persistent right pleural effusion, no change from prior in February 2022
Follow blood culture
Unclear cause of acute infection, patient was started on cefepime, continue
ID CS
Of note, C. diff neg, norovirus neg, COVID neg, Flu neg
# ESRD on HD TTS
Per family, patient has skipped dialysis himself, occasionally would go once or twice a week instead of his usual 3 times weekly schedule
Nephrology CS for HS needs
# Hypertension
Continue metoprolol, amlodipine and losartan
# Hyperlipidemia
Continue statin
# Scalp laceration
Patient is due for removal of his kayleen. Wound care consult
# BPH
Continue finasteride and terazosin
Original Note:
Today's Communication/Plan
-
Continue antibiotic for now
Monitor mental status
Cultures pending
Appreciate ID consult
Dialysis tomorrow
Assessment / Plan
Assessment / Plan
*88 y/o male with CKD on HD presenting with fever, diarrhea and change in mental status:
#Change in mental status
- Unclear etiology -- likely metabolic encephalopathy
- concern for meningitis in the ED -- CSF analysis shows no evidence for meningitis--CSF culture pending
- CXR -- right pleural effusion, no change from prior in February 2022 - PNA? - currently on cefepime -- appreciate ID consult
- lactic acid normal, no leukocytosis
- B/Cx, S/cx pending
- C. diff neg, norovirus neg, COVID neg, Flu neg
- Pt is alert and oriented to place, person and time this AM.
- Cr 9.8-->5.9-->7.8. last dialysis on Monday. Next dialysis scheduled tomorrow.
#CKD on HD
- Cr 9.8-->5.9-->7.8. last dialysis on Monday. Next dialysis scheduled tomorrow.
- Nephrology following
# Hypertension
- Continue metoprolol, amlodipine and losartan
# Hyperlipidemia
- Continue statin
Scalp laceration
- Patient is due for removal of his kayleen today
- Wound care consult
#BPH
- Continue finasteride and terazosin
Patient has been missing dialysis appointments on Saturdays for the past couple months. Family at bedside concerned about this, answered their questions, would like to see the coin box inspector as well. Nephrology informed.
Anticipated Discharge: 24 - 48 hours
Subjective/Interval History
-
Date of Service: March 06, 2024
Objective Data
-
Labs:
Laboratory Results
03/06/24
07:14
WBC 5.7
Hgb 9.8 L
Hct 29.5 L
Plt Count 176
Sodium 137
Potassium 4.1
Chloride 97 L
Carbon Dioxide 26
BUN 65 H
Creatinine 7.8 H*
Glucose 94
Calcium 8.9
Total Bilirubin 0.3
AST 36
ALT 14
Alkaline Phosphatase 65
Vital Signs:
Vital Signs
Temp Pulse Resp BP Pulse Ox
98.5 F 56 18 144/57 95
03/06/24 11:09 03/06/24 11:09 03/06/24 11:09 03/06/24 11:09 03/06/24 11:09
I&O
03/05/24 03/06/24 03/07/24
06:59 06:59 06:59
Output Total
Balance -
Review of Systems
-
History Source: Patient
Constitutional: Reports No Symptoms
EENT: Reports No Symptoms Reported
Respiratory: Reports No Symptoms
Cardiac: Reports No Symptoms
Abdomen/GI: Reports Diarrhea
Breast: Reports No Symptoms
Genitourinary: Reports No Symptoms
Musculoskeletal: Reports No Symptoms
Skin: Reports No Symptoms
Neuro: Reports No Symptoms
Endocrine: Reports No Symptoms
Hematologic / Lymphatic: Reports No Symptoms
Allergy / Immunology: Reports No Symptoms
Physical Exam
-
General: Well Developed, Well Nourished, No Apparent Distress and Comfortable
HEENT: Normocephalic
Respiratory: Decreased Breath Sounds (on lower right lung)
Cardiac: Regular Rhythm and S1/S2
GI: Soft, Nontender, Nondistended and Normal Bowel Sounds
Genito-urinary: No Costovertebral Tender
Musculoskeletal: No Clubbing, No Cyanosis and No Edema
Neuro: Awake, Alert and Oriented
Hematologic / Lymphatic: No Lymphadenopathy
Psych: Calm
--- NOTE | 2024-03-06 12:31 | CM ---
CM reviewed chart, patient seen bedside. Patient two children visiting, stepped in hallway for privacy. Patient reports he resides with his in a bi-level home, no steps to enter, chair lift to second floor. Patient reports he has two walkers at
home, multiple canes. Patient reports he goes to HD twice a week, (not , , Sat 8:30-11:30 ) patient reports he goes 6:30-10:30/11:00 a.m . Patient reports VN in past after knee surgery, unsure with who, denies SNF. Patient
reports his is currently at [facility] for SNF. Patient PCP Dr. Ramon Casas, pharmacy [facility] in [place], confirms prescription coverage.
CM met with patients son (Dylon Nieves) and daughter in the hallway. Family concerned about patient returning home, reports patient is supposed to go to HD three times a week, patient only going twice a week, concerned about patient falling at home, does
not use DME, is still driving and has noticed several dings on patients car. Son reports patient is a vet and [facility] is meeting with [facility]. Patients is currently at [facility] for rehab after surgery, hopeful patient will qualify for SNF
and then look into options for patient/. TT to Resident for PT orders. CM will continue to follow for all discharge planning needs.
Plan; family hopeful for SNF, watch for PT evaluations.
--- NOTE | 2024-03-06 14:00 | CHAP ---
Msgr. Thomas Hammond of [facility] in [place] anointed Mr. Buchanan and gave him Holy Communion. Time uncertain.
--- NOTE | 2024-03-06 15:30 | W.PN.NEPH.PH ---
Today's Communication / Plan
-
dialysis tomorrow
Assessment/Plan
-
Assessment
ESRD
Right-sided effusion
Fever
Mental status change
BPH
Hypertension
Hyperlipidemia
Plan
Electrolytes are stable, next dialysis
Empiric antibiotics per primary team
Status post spinal tap not convincing of infection
Await culture results.
no acute for dialysis today
-
-
Date of Service: March 06, 2024
CC / HPI / ROS
-
Chief Complaint:
altered mental status
History of Present Illness:
ESRD presents with altered mental status
appears to have improved
awaiting final cultures
Review of Systems: .
No chest pain shortness of breath nausea or vomiting
Labs
-
Labs:
WBC 5.7 10^3/uL (4.8-10.8) 03/06/24 07:14
RBC 3.25 10^6/uL (4.70-6.10) L 03/06/24 07:14
Hgb 9.8 g/dL (13.0-18.0) L 03/06/24 07:14
Hct 29.5 % (39.0-52.0) L 03/06/24 07:14
Plt Count 176 10^3/uL (130-400) 03/06/24 07:14
Sodium 137 mmol/L (135-145) 03/06/24 07:14
Potassium 4.1 mmol/L (3.5-5.1) 03/06/24 07:14
Chloride 97 mmol/L (98-107) L 03/06/24 07:14
Carbon Dioxide 26 mmol/L (22-30) 03/06/24 07:14
BUN 65 mg/dl (9-20) H 03/06/24 07:14
Creatinine 7.8 mg/dL (0.7-1.3) H* 03/06/24 07:14
eGFR 6.15 03/06/24 07:14
Glucose 94 mg/dl (70-99) 03/06/24 07:14
Calcium 8.9 mg/dl (8.4-10.2) 03/06/24 07:14
Albumin 3.5 g/dl (3.5-5.0) 03/06/24 07:14
Physical Exam
-
Vital Signs:
Vital Signs
Temp Pulse Resp BP Pulse Ox
98.3 F 58 18 141/64 99
03/06/24 15:21 03/06/24 15:21 03/06/24 15:21 03/06/24 15:21 03/06/24 15:21
Cardiovascular:: Regular rate and rhythm
Respiratory:: Bilateral: Coarse
Lung Excursion:: Normal
Abdomen:: Nontender and Soft
Bowel Sounds:: Normal
Extremity Edema:: None: Bilateral:
[2024-03-06] MEDS: RENVELA 1600 MG PO (16:34)
[2024-03-06] MEDS: MAXIPIME 1000 MG IV (16:35)
[2024-03-06] MEDS: STERILE WATER FOR INJECTION 10 ML IV (16:35)
[2024-03-06] MEDS: HYTRIN 1 MG PO (19:40)
[2024-03-06] MEDS: TYLENOL 650 MG PO (19:41)
[2024-03-07] VITALS (7 sets, daily range): BP systolic 129–184; BP diastolic 57–80; BMI 23.8
--- NOTE | 2024-03-07 07:46 | W.PN.HOSP.TC ---
Addendum entered and electronically signed by Maia Olivares MD 03/07/24 11:16:
I saw and evaluated the patient. I reviewed the resident�s note and agree with findings and plan as documented in the resident�s note.
A/P:
# Change in mental status, resolved. Likely acute metabolic encephalopathy with acute infection versus missed dialysis
MS returned to baseline, AOx3
Concern for meningitis in the ED. S/p LP and CSF analysis was largely unrevealing, noted elevated CSF protein. CSF culture no growth.
CXR with persistent right pleural effusion, no change from prior in February 2022
Follow blood cultures, so far no growth.
Unclear source of acute infection, patient was started on cefepime, continue for now
ID CS
Of note, C. diff neg, norovirus neg, COVID neg, Flu neg
# ESRD on HD TTS
Per family, patient has skipped dialysis himself, occasionally would go once or twice a week (instead of his usual 3 times weekly schedule)
Nephrology on board for HD needs
# Hypertension
Continue metoprolol, amlodipine and losartan
# Hyperlipidemia
Continue statin
# Scalp laceration
Patient is due for removal of his kayleen. Wound care consult
# BPH
Continue finasteride and terazosin
Original Note:
Today's Communication/Plan
-
Appreciate ID consult
Continue Antibiotic
Dialysis today
Assessment / Plan
Assessment / Plan
*88 y/o male with CKD on HD presenting with fever, diarrhea and change in mental status:
#Change in mental status
- Unclear etiology -- likely metabolic encephalopathy
- concern for meningitis in the ED -- CSF analysis shows no evidence for meningitis--CSF culture no growth in 24 hrs
- CXR -- right pleural effusion, no change from prior in February 2022 - PNA? - currently on cefepime -- appreciate ID consult
- lactic acid normal, no leukocytosis
- B/Cx no grwoth in 24 hrs, S/cx pending
- C. diff neg, norovirus neg, COVID neg, Flu neg
- Pt is awake, alert and oriented
- Cr 9.8-->5.9-->7.8. last dialysis on Monday. Dialysis scheduled today.
#CKD on HD
- Cr 9.8-->5.9-->7.8 --> 8.6. last dialysis on Monday. Dialysis scheduled today.
- Nephrology following
# Hypertension
- Continue metoprolol, amlodipine and losartan
# Hyperlipidemia
- Continue statin
# Scalp laceration
- Wound care consulted
- kayleen removed
# Headache
- pt states headache is similar to his usual headaches
- Tylenol
#BPH
- Continue finasteride and terazosin
Patient has been missing dialysis appointments on Saturdays for the past couple months. Family at bedside concerned about this, answered their questions, would like to see the signaling project engineer as well. Nephrology informed.
Anticipated Discharge: Within 24 hours
Subjective/Interval History
-
Date of Service: March 07, 2024
Objective Data
-
Labs:
Laboratory Results
03/07/24
07:05
WBC Pending
Hgb Pending
Hct Pending
Plt Count Pending
Sodium Pending
Potassium Pending
Chloride Pending
Carbon Dioxide Pending
BUN Pending
Creatinine Pending
Glucose Pending
Calcium Pending
Vital Signs:
Vital Signs
Temp Pulse Resp BP Pulse Ox
97.7 F 54 16 169/66 98
03/07/24 07:26 03/07/24 07:26 03/07/24 07:26 03/07/24 07:26 03/07/24 07:26
I&O
03/06/24 03/07/24 03/08/24
06:59 06:59 06:59
Intake Total 480 / 480
Output Total
Balance - / -4 480 / 480
[2024-03-07 08:11] LABS: Hemoglobin 10.1 g/dL (13.0-18.0); Mean Corp Hgb Conc. 32.6 g/dL (33.0-37.0); Mean Corpuscular Hgb 29.4 pg (27.0-31.0); Mean Corpuscular Volume 90.4 fL (80.0-94.0); Platelet Count 163 10^3/uL (130-400); Red Blood Cell Count 3.43 10^6/uL (4.70-6.10); Red Cell Dist. Width 13.9 % (11.5-14.5); White Blood Cell Count 5.4 10^3/uL (4.8-10.8)
[2024-03-07 08:25] LABS: Blood Urea Nitrogen 77 mg/dl (9-20); Carbon Dioxide 21 mmol/L (22-30); Chloride 99 mmol/L (98-107); Estimated Creatinine Clearance 5 ml/min; Glucose 93 mg/dl (70-99); Potassium 3.8 mmol/L (3.5-5.1); Sodium 136 mmol/L (135-145); eGFR 5.47
[2024-03-07 09:25] LABS: Absolute Neutrophils -Man Diff 3.4 10^3/uL (1.4-6.5); Band Neutrophils 8 % (0-3); Lymphocytes 26 % (20-51); Monocytes 11 % (2-9); Normal RBC Morphology Yes; Platelets Checked Yes; Segmented Neutrophils 55 % (42-75); Total Cells Counted 100
[2024-03-07] MEDS: RENVELA 800 MG PO (09:28)
[2024-03-07] MEDS: HEPARIN 5000 UNITS SC ×2 (09:28→19:41)
[2024-03-07] MEDS: PROTONIX 40 MG PO (09:28)
[2024-03-07] MEDS: TOPROL XL PO ×2 (10:14)
[2024-03-07] MEDS: NORVASC PO (10:14)
[2024-03-07] MEDS: TYLENOL 650 MG PO ×3 (10:20→19:43)
--- NOTE | 2024-03-07 10:55 | PN.CDI ---
CDI
- -
CDI:
Physician Documentation Request
Admit Date: 03/05/24 16:58
Dear Doctor Johanna,
Please review the following and provide your response in the progress notes.
Clinical Indicators:
Documentation in the ER record on 03/05/24 includes the diagnosis of sepsis. The following clinical information was noted in the record:
Selected Entries
03/05/24
12:24 03/05/24
17:00 03/05/24
17:25
Temp 103.3 F H 100.4 F H
Resp Rate 27 31
Sepsis
- Systemic manifestations of infection, with 2 or more SIRS criteria which include:
- Fever >100.4 degrees F or hypothermia < 96.8 degrees F
- Leukocytosis - WBC > 12,000 or leukopenia - WBC < 4,000 or > 10% bands
- Tachycardia > 90 beats per minute
- Tachypnea - RR > 20 breaths per minute or PaCO2 , 32mmHg
Source: Merck Manual 2013
- Indicate if a suspected bacterial infection of unknown source
Based on the above information and the recognized standard SIRS criteria, please clarify if sepsis is still an accurate diagnosis, and reflective of the patient�s condition, to ensure quality of the medical record.
Please clarify in the Progress Notes:
Sepsis is/was present and is a clinical diagnosis
After study sepsis has been ruled out
Other
Use of terms such as suspected, likely, concern for, or probable (associated with a specific diagnosis that is being evaluated, monitored, or treated as if it exists) are acceptable and can be coded in the inpatient setting, when documented at the
time of discharge.
Thank you,
Faith Daigle RN, BSN
CDI Specialist
Available via [employer]
Please use your independent medical judgment in providing your response.
[2024-03-07] MEDS: RENVELA PO ×2 (11:28→18:08)
--- NOTE | 2024-03-07 11:40 | CM ---
CM reviewed chart, spoke with patients son, Dylon, regarding PT recommendation of SNF. Son requesting referral to [facility] as patients is there. Per [facility], family would be responsible for transportation (financially) to/from HD, no beds
available at this time until likely next week. Son updated, would like patient to be added to wait list at [facility]. Son agreeable to referrals placed to [facility], [facility], and [facility]. Patient will need insurance auth for
SNF. CM will continue to follow for all discharge planning needs.
Plan; SNF once facility found, will require insurance auth, HD at facility.
--- NOTE | 2024-03-07 15:07 | W.PN.NEPH.HD ---
Progress Note - Hemodialysis
-
Date of Service: March 07, 2024
Duration: 30 minutes and 3 hours
Potassium Bath: 3
Calcium Bath: 2.5
Opti-Dialyzer: 160
Ultrafiltration: Other (u/f .5kg)
Blood Flow: 350
Dialysate Flow: 600
Heparin: 500 times two
EPO: 2K plus iron
--- NOTE | 2024-03-07 17:05 | CON.ID ---
Consultation
-
Date/Time Consultation Requested: 03/06/2024 0901
Date/Time Consultation Performed: 03/07/2024 1600
Requesting Provider: Dr. Spencer
Performing Provider: Dr. Wang
Reason for Consultation: Change in mental status
Chief Complaint / Past History
History of Present Illness
Thomas Buchanan is an 88-year-old man with a significant past medical history of ESRD on HD being evaluated regarding change in mental status. History is obtained from chart review, along with patient interview.
The patient was seen in the ER on the evening of 03/08 significant nausea, vomiting and diarrhea, along with feeling quite weak. Symptoms began earlier that a.m. After some time in the emergency room, he ultimately was discharged to home early in
the morning of 03/05. Per reviewed notes, the patient was up early the next day and was at dialysis at 8:30 AM, where he reportedly developed shaking chills. He was transported to the emergency room, where a rectal temperature was obtained and was
found to be 103 degrees. He defervesced quickly, and has remained afebrile since that time. He evidently did not recall being brought over to the emergency room, and there was concern for central encephalopathy, and an LP was performed.
At this time, he reports feeling well, although tired following his dialysis session today. He denies any current fevers or chills. He denies any headache. He denies any cough or congestion. Denies any abdominal pain, nausea or vomiting present.
Past History
Additional Past Medical History:
ESRD�HD
DM
Dyslipidemia
HTN
Secondary hyperparathyroidism
Neuropathy
Additional Past Surgical History:
Left arm AV fistula
Bilateral knee replacement
Allergy History:
No Known Allergies Allergy (Verified 03/05/24 12:24)
Medications Reviewed: Yes
Current Antibiotics:
Cefepime 1 g IV every 24 hours
Social History
Tobacco: Former Smoker
Alcohol: None
Drug: None
Personal:
Living: With Family
Family History
Family History: Not Pertinent
Review of Systems
Vital Signs
Temp Pulse Resp BP Pulse Ox
97.4 F 51 16 129/57 98
03/07/24 15:19 03/07/24 15:19 03/07/24 15:19 03/07/24 15:19 03/07/24 15:19
Physical Exam
Physical Exam
Constitutional: No Acute Distress, Comfortable and Non-toxic
Eyes: Pupils Equal, Pupils Round, No Conjunctival Hemorrhage and Sclera Anicteric
Oral: No Thrush and No Ulcers
Cardiovascular: Regular Rate and S1/S2; Negative S3/S4
Pulmonary: Clear; Negative Wheezes, Rales or Rhonchi
Gastrointestinal: Soft, Non Tender, Non Distended and Normal Bowel Sounds
Extremities: Other (Left upper extremity AV fistula with positive bruit and thrill); Negative Edema, Cyanosis or Erythema
Skin: Warm and Dry; Negative Rash or Jaundice
Neurological: Awake and Alert; Negative Meningeal Signs
Lab / Diagnostic Study Results
03/07/24 07:05
03/07/24 07:05
Abs Immat Gran (auto) 0.0 10^3/uL (0-0.05) 03/05/24 12:51
Absolute Neuts (auto) 6.4 10^3/uL (1.4-6.5) 03/05/24 12:51
Absolute Lymphs (auto) 0.7 10^3/uL (1.2-3.4) L 03/05/24 12:51
Absolute Monos (auto) 1.1 10^3/uL (0.1-0.6) H 03/05/24 12:51
Absolute Basos (auto) 0.0 10^3/uL (0-0.2) 03/05/24 12:51
Total Counted 100 03/07/24 07:05
Immature Gran % 0.4 % (0-0.5) 03/05/24 12:51
Neutrophils % 77.8 % (42.2-75.2) H 03/05/24 12:51
Lymphocytes % 8.2 % (20.5-51.1) L 03/05/24 12:51
Monocytes % 13.0 % (1.7-9.3) H 03/05/24 12:51
Eosinophils % 0.2 % (0-6) 03/05/24 12:51
Basophils % 0.4 % (0-2) 03/05/24 12:51
Abs Neuts (Manual) 3.4 10^3/uL (1.4-6.5) 03/07/24 07:05
Segmented Neutrophils 55 % (42-75) 03/07/24 07:05
Band Neutrophils 8 % (0-3) H 03/07/24 07:05
Lymphocytes (Manual) 26 % (20-51) 03/07/24 07:05
Lactic Acid Cancelled 03/05/24 21:52
Ur Squamous Epith Cells 3-5 /LPF (Few) 03/05/24 21:53
Microbiology Results
Micro:
03/05/24 12:51 Blood Culture - Preliminary
Blood/Venous No Growth in 48 hours- Final report to follow
03/05/24 12:51 Blood Culture - Preliminary
Blood/Venous No Growth in 48 hours- Final report to follow
03/05/24 15:18 CSF Culture - Preliminary
Csf No Growth After 48 Hours
Gram Stain - Preliminary
03/05/24 18:41 MRSA Screen - Final
Nose No Methicillin Resistant Staphylococcus aureus isolated.
03/05/24 21:15 Blood Culture - Preliminary
Blood/Venous No Growth in 24 hours- Final report to follow
03/05/24 21:01 Blood Culture - Preliminary
Blood/Venous No Growth in 24 hours- Final report to follow
03/06/24 06:12 C. difficile GDH Antigen & Toxins - Final
Feces/Stool Negative for toxigenic C.difficile
- Final
Negative for Norovirus GI and GII.
Laboratory Tests
03/05/24
15:18
CSF Appearance Clear
CSF Color Colorless
CSF WBC 1
CSF RBC 3
CSF Cell Count Tube # 4
CSF Glucose 79 H
CSF Total Protein 109 H
Imaging:
03/05/2024 CXR (2 view): Moderate right-sided pleural effusion with associated pneumonia versus compressive atelectasis of the right lung base, stable when compared to prior studies. Lungs are otherwise clear.
Assessment / Plan
Change in mental status; improved
Fever; resolved
ESRD�HD
DM
Dyslipidemia
HTN
Secondary hyperparathyroidism
Neuropathy
Recommendations:
Fevers have resolved. Cultures are negative (including CSF), and patient appears cognitively intact, although not sure of baseline.
Would discontinue further cefepime and observe.
Monitor white count and temperature curve.
[2024-03-07] MEDS: LASIX PO (18:07)
[2024-03-07] MEDS: PROSCAR PO (18:07)
[2024-03-07] MEDS: MAXIPIME IV (18:09)
[2024-03-07] MEDS: STERILE WATER FOR INJECTION IV (18:09)
--- NOTE | 2024-03-07 18:40 | W.DCSUMMARY ---
Addendum entered and electronically signed by Inga Stevenson MD 03/14/24 19:04:
Read, reviewed, and agree. See same day progress note for additional details. Time spent coordinating care, DC planning, review of DC plan of care with resident, transition of care, review of records in EMR, med rec, consults, notes, d/w
consultants, nursing, family, and CM = 29 minutes
Original Note:
Discharge Summary
Discharge Data
Date of Admission: 03/05/24
Date of Discharge: 03/13/24
-
Pending Results: No
Hospital Course
Discharging Physician : Dr. Inga Stevenson, Dr. Estrella Spencer
Disposition : Home
Principal Discharge diagnosis :
Altered mental status, likely acute metabolic encephalopathy
End-stage renal disease on hemodialysis
Chronic Discharge diagnosis :
Hypertension
Secondary hyperparathyroidism
Neuropathy
Hyperlipidemia
Benign prostate hyperplasia
Gastroesophageal reflux disease
Hospital Course : 88-year-old male with past medical history of ESRD on hemodialysis (Monday) who was brought to the ED due to change in mental status, fever and diarrhea. Chest x-ray showed right pleural effusion similar to
prior in February 2022. Patient was febrile but did not meet criteria for sepsis upon arrival to the ED. There was concern for meningitis. Lumbar puncture was performed in the ED, however CSF analysis was not suggestive of an infection. CSF
culture, blood culture, COVID, flu, C. difficile and norovirus were all negative. Patient was started on antibiotics (cefepime). Infectious disease was consulted. Patient was alert awake and oriented on the second day of his hospital day. With
improvement in cognitive status and fevers resolving, antibiotics were DC'd. Patient underwent hemodialysis on , 03/07/2024. Per family, patient has skipped dialysis himself on Saturdays. Patient was advised to complete 3 days of dialysis
each week. Per PT OT evaluation, patient will need skilled rehab after discharge.
With overall improvement in patient's cognitive status and stable hemodynamics, patient is medically stable for discharge to SNF with no change in [employer]IV[employer] CONTRO[employer] home medications. Hemodialysis was switched to MWF in anticipation of discharge to [facility].
Important imaging findings :
CXR (03/04/24): There is small-moderate right pleural effusion with underlying pneumonia versus atelectasis at the right base. Cardiomegaly without associated pulmonary edema.
Discharge Plan
-
Patient Disposition: [facility]NF
Discharge Diagnosis/Procedures: Altered mental status, likely acute metabolic encephalopathy
End-stage renal disease on hemodialysis
Hypertension
Secondary hyperparathyroidism
Neuropathy
Hyperlipidemia
Benign prostate hyperplasia
Gastroesophageal reflux disease
Diet: Low Cholesterol and Low Sodium
Activity: As tolerated
Driving Restrictions: As prior to admission
Bathing Restrictions: OK to Shower
Referrals:
UNKNOWN - PT NOT,INTERVIEWE [Family Provider] -
Prescriptions:
Continued
pantoprazole 40 MG tablet,delayed release (DR/EC)
40 mg PO DAILY
cyanocobalamin (vitamin B-12) 1,000 mcg Tablet
1,000 mcg PO DAILY
finasteride 5 mg Tablet
5 mg PO DAILY
omega [id number]-[id number]-fish oil [Fish Oil] 1,200 (144-216) mg Capsule
1 cap PO BID
pravastatin 40 mg Tablet
40 mg PO DAILY
gabapentin 100 mg Capsule
100 mg PO DAILY
cholecalciferol (vitamin D3) [Vitamin D3] 25 mcg (1,000 unit) Tablet
25 mcg PO DAILY
sevelamer carbonate 800 mg tablet
800 mg PO DAILY
metoprolol succinate 50 mg Tablet Extended Release 24 Hr
50 mg PO DAILY 30 Days Qty: 30 0RF
Rx Instructions:
take with 100mg for total of 150mg
metoprolol succinate 100 mg Tablet Extended Release 24 Hr
100 mg PO DAILY
Rx Instructions:
take with 50mg for total of 150mg
terazosin 1 mg Capsule
1 mg PO HS
amlodipine 5 mg Tablet
5 mg PO BID
furosemide 80 mg Tablet
80 mg PO DAILY
losartan 100 mg Tablet
100 mg PO DAILY
Discharge Orders:
Discharge Patient (As Directed); Ordered 03/13/24
Ordered By: Estrella Brooke
Discharge Date and Time
Discharge Date/Time: 03/13/24 17:45
Print Language: KAZAKH
[2024-03-07] MEDS: NORVASC 5 MG PO (19:42)
[2024-03-07] MEDS: HYTRIN 1 MG PO (22:21)
[2024-03-07] MEDS: MELATONIN 5 MG PO (22:27)
[2024-03-08 03:30] VITALS: BP 146/70
[2024-03-08 04:26] LABS: C.neoformans Antigen Negative (Negative)
[2024-03-08 06:00] VITALS: BMI 23.2
[2024-03-08 07:23] LABS: % Basophils 0.3 % (0-2); % Eosinophils 0.8 % (0-6); % Immature Granulocytes 0.5 % (0-0.5); % Lymphocytes 24.9 % (20.5-51.1); % Monocytes 18.6 % (1.7-9.3); % Neutrophils 54.9 % (42.2-75.2); Absolute Monocytes 0.7 10^3/uL (0.1-0.6); Absolute Neutrophils 2.2 10^3/uL (1.4-6.5); Hematocrit 31.6 % (39.0-52.0); Hemoglobin 10.9 g/dL (13.0-18.0); Mean Corp Hgb Conc. 34.5 g/dL (33.0-37.0); Mean Corpuscular Hgb 29.9 pg (27.0-31.0); Mean Corpuscular Volume 86.6 fL (80.0-94.0); Mean Platelet Volume 9.9 fL (7.4-10.4); Nucleated Red Blood Cells % 0 % (-); Platelet Count 140 10^3/uL (130-400); Red Blood Cell Count 3.65 10^6/uL (4.70-6.10); Red Cell Dist. Width 13.7 % (11.5-14.5)
[2024-03-08 08:03] VITALS: BP 146/58
[2024-03-08 08:04] LABS: Blood Urea Nitrogen 42 mg/dl (9-20); Calcium 8.9 mg/dl (8.4-10.2); Carbon Dioxide 26 mmol/L (22-30); Chloride 94 mmol/L (98-107); Estimated Creatinine Clearance 9 ml/min; Glucose 99 mg/dl (70-99); Potassium 3.5 mmol/L (3.5-5.1); Sodium 134 mmol/L (135-145); eGFR 9.78
[2024-03-08] MEDS: HEPARIN 5000 UNITS SC ×2 (09:48→20:27)
[2024-03-08] MEDS: RENVELA 800 MG PO ×2 (09:49→12:27)
[2024-03-08] MEDS: NORVASC 5 MG PO ×2 (09:50→20:27)
[2024-03-08] MEDS: LASIX 80 MG PO (09:50)
[2024-03-08] MEDS: PROTONIX 40 MG PO (09:51)
[2024-03-08] MEDS: PROSCAR 5 MG PO (09:51)
[2024-03-08] MEDS: TOPROL XL 50 MG PO (09:51)
[2024-03-08] MEDS: TOPROL XL 100 MG PO (09:52)
[2024-03-08 12:55] VITALS: BP 152/108; PULSE 55; O2SAT 99
--- NOTE | 2024-03-08 13:00 | W.PN.HOSP.TC ---
Today's Communication/Plan
-
see A/P
Assessment / Plan
Assessment / Plan
A/P:
# Change in mental status, resolved.
# Likely acute metabolic encephalopathy 2/2 missed dialysis
MS returned to baseline, AOx3
Initial concern for meningitis in the ED, hence s/p LP and CSF analysis largely unrevealing, CSF culture no growth.
CXR with persistent right pleural effusion, no change from prior in February 2022
blood cultures x2 negative.
Initial diarrhea resolved; C. diff neg, norovirus neg, COVID neg, Flu neg
No clear evidence of acute infection, empiric cefepime stopped by ID
Appreciate ID
# ESRD on HD TTS
Per family, patient has skipped dialysis himself, occasionally would go once or twice a week (instead of his usual 3 times weekly schedule) for months.
Counselled pt on the importance of continuing regular HD schedule.
Nephrology on board for HD needs
# Hypertension
Continue INCIDENT MANAGER metoprolol, amlodipine, losartan, lasix with holding parameters
# Hyperlipidemia
Continue statin
# Scalp laceration
Angela removed by planer setter
# BPH
Continue finasteride and terazosin
DVT ppx: HSQ
FC
Dipso: SNF per PT OT recc
Anticipated Discharge: 24 - 48 hours
Subjective/Interval History
-
Date of Service: March 08, 2024
Objective Data
-
Labs:
Laboratory Results
03/08/24
07:06
WBC 4.0 L
Hgb 10.9 L
Hct 31.6 L
Plt Count 140
Sodium 134 L
Potassium 3.5
Chloride 94 L
Carbon Dioxide 26
BUN 42 H
Creatinine 5.3 H*
Glucose 99
Calcium 8.9
Vital Signs:
Vital Signs
Temp Pulse Resp BP Pulse Ox
36.4 C 55 15 146/58 97
03/08/24 11:55 03/08/24 11:55 03/08/24 11:55 03/08/24 09:50 03/08/24 11:55
I&O
03/07/24 03/08/24 03/09/24
06:59 06:59 06:59
Intake Total 480 / 480 420 / 420
Balance 480 / 480 420 / 420
Review of Systems
-
All other systems: Reviewed and negative
Physical Exam
-
General: Well Developed, Well Nourished, No Apparent Distress, Comfortable and Conversant
HEENT: Normocephalic
Respiratory: Clear to Auscultation and Non Labored Respirations; Negative Accessory Resp Muscle Use
Cardiac: Regular Rhythm and S1/S2
GI: Soft, Nontender, Nondistended and Normal Bowel Sounds
Genito-urinary: No Costovertebral Tender
Musculoskeletal: No Clubbing, No Cyanosis and No Edema
Neuro: Awake and Alert
Psych: Calm and Intact Judgement/Insight
Data Reviewed
-
Labs: Labs Reviewed by me
--- NOTE | 2024-03-08 13:05 | CM ---
Addendum entered by Fatou Clifton 03/08/24 14:58:
CM spoke with [facility], will fax patients labs to CM to provide to SNF.
Addendum entered by Fatou Clifton 03/08/24 13:54:
[facility]
Original Note:
CM reviewed chart, patient seen bedside with daughter and son. Discussed accepting SNF at this time, [facility]. Family and patient agreeable to [facility] SNF and would like to transition patient to [facility] once able. Patient will
require insurance auth for SNF approval. CM discussed with admissions at [facility], will need dialysis information/clinicals sent to [facility], will fax. [facility] able to accept Monday. Family asking if MA-51 form can be
signed/completed by Physician for patient to transition to [facility], TT to Resident. CM will continue to follow for all discharge planning needs.
Plan; [facility] SNF can accept Monday, will need insurance auth.
--- NOTE | 2024-03-08 13:06 | W.PN.NEPH.PH ---
Today's Communication / Plan
-
HD tomorrow
Assessment/Plan
-
Assessment
ESRD
Right-sided effusion
Fever
Mental status change
BPH
Hypertension
Hyperlipidemia
Plan
HD tomorrow
rehab placement
I told patient he should not skip treatments
-
-
Date of Service: March 08, 2024
CC / HPI / ROS
-
Chief Complaint:
altered mental status
History of Present Illness:
BP stable
tolerated HD yesterday
off abx
Review of Systems: .
No chest pain shortness of breath nausea or vomiting
Labs
-
Labs:
WBC 4.0 10^3/uL (4.8-10.8) L 03/08/24 07:06
RBC 3.65 10^6/uL (4.70-6.10) L 03/08/24 07:06
Hgb 10.9 g/dL (13.0-18.0) L 03/08/24 07:06
Hct 31.6 % (39.0-52.0) L 03/08/24 07:06
Plt Count 140 10^3/uL (130-400) 03/08/24 07:06
Sodium 134 mmol/L (135-145) L 03/08/24 07:06
Potassium 3.5 mmol/L (3.5-5.1) 03/08/24 07:06
Chloride 94 mmol/L (98-107) L 03/08/24 07:06
Carbon Dioxide 26 mmol/L (22-30) 03/08/24 07:06
BUN 42 mg/dl (9-20) H 03/08/24 07:06
Creatinine 5.3 mg/dL (0.7-1.3) H* 03/08/24 07:06
eGFR 9.78 01/24/25 07:06
Glucose 99 mg/dl (70-99) 03/08/24 07:06
Calcium 8.9 mg/dl (8.4-10.2) 03/08/24 07:06
Albumin 3.5 g/dl (3.5-5.0) 03/06/24 07:14
Physical Exam
-
Vital Signs:
Vital Signs
Temp Pulse Resp BP Pulse Ox
97.5 F 55 15 146/58 97
03/08/24 11:55 03/08/24 11:55 03/08/24 11:55 03/08/24 09:50 03/08/24 11:55
Cardiovascular:: Regular rate and rhythm
Respiratory:: Bilateral: CTA
Lung Excursion:: Normal
Abdomen:: Nontender and Soft
Bowel Sounds:: Normal
Extremity Edema:: None: Bilateral:
[2024-03-08] MEDS: TYLENOL 650 MG PO (13:49)
[2024-03-08 15:00] VITALS: BP 142/58
--- NOTE | 2024-03-08 15:01 | W.PN.ID1 ---
Date of Service
Date of Service: March 08, 2024
Today's Communication
Observe off abx.
Assessment / Plan
Change in mental status; improved
Fever; resolved
ESRD�HD
DM
Dyslipidemia
HTN
Secondary hyperparathyroidism
Neuropathy
Recommendations:
Fevers have resolved. Cultures are negative (including CSF), and patient appears cognitively intact, although not sure of baseline.
Observe off abx.
Monitor white count and temperature curve.
Chief Complaint
-: Other (Weakness)
Subjective / Review of Systems
Feels weak.
No cough.
Had diarrhea this morning, but now soft.
Vital Signs / Physical Exam
Vital Signs
Vital Signs
Temp Pulse Resp BP Pulse Ox
97.3 F 54 18 142/58 99
03/08/24 15:00 03/08/24 15:00 03/08/24 15:00 03/08/24 15:00 03/08/24 15:00
Physical Exam
Constitutional: Chronically Ill
Cardiovascular: Regular Rate and S1/S2
Pulmonary: Clear
Gastrointestinal: Soft, Non Tender, Non Distended and Normal Bowel Sounds
Extremities: Negative Edema
Neurological: AO x 3
Objective Data
Lab Data
Lab Results
03/08/24 07:06
03/08/24 07:06
Estimated Creat Clear 9 ml/min 03/08/24 07:06
Lactic Acid Cancelled 03/05/24 21:52
Total Bilirubin 0.3 mg/dl (0.2-1.3) 03/06/24 07:14
AST 36 U/L (17-59) 03/06/24 07:14
ALT 14 U/L (0-50) 03/06/24 07:14
Alkaline Phosphatase 65 U/L (38-126) 03/06/24 07:14
Most recent labs reviewed.
Micro Results:
03/08/24 13:16 Salmonella/Shigella Culture - Pending
Feces/Stool Campylobacter Culture - Pending
Shiga Toxin Test - Pending
03/05/24 12:51 Blood Culture - Preliminary
Blood/Venous No Growth in 72 hours- Final report to follow
03/05/24 12:51 Blood Culture - Preliminary
Blood/Venous No Growth in 72 hours- Final report to follow
03/05/24 15:18 CSF Culture - Preliminary
Csf No Growth After 72 Hours
Gram Stain - Preliminary
03/05/24 21:01 Blood Culture - Preliminary
Blood/Venous No Growth in 48 hours- Final report to follow
03/05/24 21:15 Blood Culture - Preliminary
Blood/Venous No Growth in 48 hours- Final report to follow
03/05/24 18:41 MRSA Screen - Final
Nose No Methicillin Resistant Staphylococcus aureus isolated.
03/06/24 06:12 C. difficile GDH Antigen & Toxins - Final
Feces/Stool Negative for toxigenic C.difficile
- Final
Negative for Norovirus GI and GII.
Laboratory Tests
03/05/24
15:18
CSF Appearance Clear
CSF Color Colorless
CSF WBC 1
CSF RBC 3
CSF Cell Count Tube # 4
CSF Glucose 79 H
CSF Total Protein 109 H
Imaging:
03/05/2024 CXR (2 view): Moderate right-sided pleural effusion with associated pneumonia versus compressive atelectasis of the right lung base, stable when compared to prior studies. Lungs are otherwise clear.
[2024-03-08] MEDS: ZOFRAN 4 MG PO (17:13)
[2024-03-08] MEDS: RENVELA 1600 MG PO (17:13)
[2024-03-08 19:45] VITALS: BP 141/65
[2024-03-08] MEDS: MELATONIN 5 MG PO (22:09)
[2024-03-08] MEDS: HYTRIN 1 MG PO (22:09)
[2024-03-08 23:22] VITALS: BP 140/57
[2024-03-09 06:00] VITALS: BMI 22.6
[2024-03-09 07:15] VITALS: BP 144/57
[2024-03-09] MEDS: PROTONIX 40 MG PO (09:06)
[2024-03-09] MEDS: RENVELA 800 MG PO (09:06)
[2024-03-09] MEDS: HEPARIN 5000 UNITS SC ×2 (09:07→21:13)
[2024-03-09] MEDS: LASIX 80 MG PO (09:07)
[2024-03-09] MEDS: COZAAR 100 MG PO (09:08)
[2024-03-09] MEDS: NORVASC 5 MG PO ×2 (09:08→21:13)
[2024-03-09] MEDS: TOPROL XL PO ×2 (09:17)
[2024-03-09] MEDS: PROSCAR 5 MG PO (09:18)
[2024-03-09] MEDS: TYLENOL 650 MG PO (09:20)
--- NOTE | 2024-03-09 09:46 | W.PN.HOSP.TC ---
Today's Communication/Plan
-
dispo planning
Assessment / Plan
Assessment / Plan
A/P:
# Change in mental status, resolved.
# Likely acute metabolic encephalopathy 2/2 missed dialysis
MS returned to baseline, AOx3
There was initial concern for meningitis in the ED, hence LP performed; CSF analysis largely unrevealing, CSF culture no growth.
CXR with persistent right pleural effusion, no change from prior in February 2022
blood cultures x2 negative.
Initial diarrhea resolved; C. diff neg, norovirus neg, COVID neg, Flu neg
No clear evidence of acute infection, empiric cefepime stopped by ID
Appreciate ID
# ESRD on HD TTS
Per family, patient has skipped dialysis himself, occasionally would go once or twice a week (instead of his usual 3 times weekly schedule) for months.
Counselled pt on the importance of continuing regular HD schedule.
Nephrology on board for HD needs
# Hypertension
Continue CREDIT CARD ASSOCIATE metoprolol, amlodipine, losartan, lasix with holding parameters
# Hyperlipidemia
Continue statin
# Scalp laceration
Angela removed by children's lunchroom supervisor
# BPH
Continue finasteride and terazosin
DVT ppx: HSQ
FC
Dipso: SNF per PT OT recc
Anticipated Discharge: 24 - 48 hours
Subjective/Interval History
-
Date of Service: March 09, 2024
Objective Data
-
Labs:
Laboratory Results
03/09/24
07:00
Hgb Pending
Hct Pending
Sodium Pending
Potassium Pending
Chloride Pending
Carbon Dioxide Pending
BUN Pending
Creatinine Pending
Glucose Pending
Calcium Pending
Vital Signs:
Vital Signs
Temp Pulse Resp BP Pulse Ox
36.4 C 50 18 144/57 97
03/09/24 07:15 03/09/24 09:17 03/09/24 07:15 03/09/24 09:17 03/09/24 07:15
I&O
03/08/24 03/09/24 03/10/24
06:59 06:59 06:59
Intake Total 420 / 420 240 / 240
Balance 420 / 420 240 / 240
Review of Systems
-
All other systems: Reviewed and negative
Physical Exam
-
General: Well Developed, Well Nourished, No Apparent Distress, Comfortable and Conversant
HEENT: Normocephalic
Respiratory: Clear to Auscultation and Non Labored Respirations; Negative Accessory Resp Muscle Use
Cardiac: Regular Rhythm and S1/S2
GI: Soft, Nontender, Nondistended and Normal Bowel Sounds
Musculoskeletal: No Clubbing, No Cyanosis and No Edema
Neuro: Awake and Alert
Psych: Calm and Intact Judgement/Insight
Data Reviewed
-
Labs: Labs Reviewed by me
[2024-03-09] MEDS: RENVELA PO (12:44)
--- NOTE | 2024-03-09 12:58 | CM ---
Spoke with Nereida kowalski from from [facility]
They are still awaiting Approval from [facility] and they are closed over weekend.
per previous note information/clinicals were sent to [facility].
MA-51 forms signed inside chart
PLAN: [facility] can accept Monday, PENDING APPROVAL FROM [facility] - WILL NEED TO OBTAIN AUTH
Report #: [phone]
Fax #: [phone]
[2024-03-09 13:03] LABS: Hematocrit 31.1 % (39.0-52.0); Hemoglobin 10.4 g/dL (13.0-18.0)
[2024-03-09 13:29] LABS: Blood Urea Nitrogen 57 mg/dl (9-20); Carbon Dioxide 25 mmol/L (22-30); Chloride 98 mmol/L (98-107); Estimated Creatinine Clearance 7 ml/min; Glucose 140 mg/dl (70-99); Potassium 3.6 mmol/L (3.5-5.1); Sodium 137 mmol/L (135-145); eGFR 7.13
[2024-03-09 15:15] VITALS: BP 128/56
--- NOTE | 2024-03-09 16:07 | W.PN.NEPH.HD ---
Assessment
-
Seen on dialysis, no complaints, vital signs stable, Access good
Progress Note - Hemodialysis
-
Date of Service: March 09, 2024
Duration: 30 minutes and 3 hours
Potassium Bath: 2
Calcium Bath: 2.5
Opti-Dialyzer: 160
Ultrafiltration: Other (2kg)
Blood Flow: 400
Dialysate Flow: 600
Heparin: no
EPO: no
[2024-03-09] MEDS: RENVELA 1600 MG PO (17:08)
[2024-03-09] MEDS: HYTRIN 1 MG PO (21:13)
[2024-03-09] MEDS: MELATONIN PO (21:21)
[2024-03-09 23:00] VITALS: BP 115/44
[2024-03-10 07:58] VITALS: BP 161/64
[2024-03-10 08:47] LABS: Blood Urea Nitrogen 33 mg/dl (9-20); Calcium 9.2 mg/dl (8.4-10.2); Carbon Dioxide 29 mmol/L (22-30); Chloride 96 mmol/L (98-107); Estimated Creatinine Clearance 9 ml/min; Glucose 100 mg/dl (70-99); Potassium 3.8 mmol/L (3.5-5.1); Sodium 138 mmol/L (135-145); eGFR 10.49
--- NOTE | 2024-03-10 09:18 | W.PN.HOSP.TC ---
Today's Communication/Plan
-
pending SNF
Assessment / Plan
Assessment / Plan
A/P:
# Change in mental status, resolved.
# Likely acute metabolic encephalopathy 2/2 missed dialysis
MS returned to baseline, AOx3
There was initial concern for meningitis in the ED, hence LP performed; CSF analysis largely unrevealing, CSF culture no growth.
CXR with persistent right pleural effusion, no change from prior in February 2022
blood cultures x2 negative.
Initial diarrhea resolved; C. diff neg, norovirus neg, COVID neg, Flu neg
No clear evidence of acute infection, empiric cefepime stopped by ID
Appreciate ID
# ESRD on HD TTS
Per family, patient has skipped dialysis himself, occasionally would go once or twice a week (instead of his usual 3 times weekly schedule) for months.
Counselled pt on the importance of continuing regular HD schedule.
Nephrology on board for HD needs
# Hypertension
Continue DISTANCE LEARNING TECHNICIAN metoprolol, amlodipine, losartan, lasix with holding parameters
# Hyperlipidemia
Continue statin
# Scalp laceration
[place] removed by virtualization engineer
# BPH
Continue finasteride and terazosin
DVT ppx: HSQ
FC
Dispo: SNF per PT OT recc
Anticipated Discharge: 24 - 48 hours
Subjective/Interval History
-
Date of Service: March 10, 2024
Objective Data
-
Labs:
Laboratory Results
03/10/24
07:46
Sodium 138
Potassium 3.8
Chloride 96 L
Carbon Dioxide 29
BUN 33 H
Creatinine 5.0 H*
Glucose 100 H
Calcium 9.2
Vital Signs:
Vital Signs
Temp Pulse Resp BP Pulse Ox
37.0 C 53 14 115/44 97
03/09/24 23:00 03/09/24 23:00 03/09/24 23:00 03/09/24 23:00 03/09/24 23:00
I&O
03/09/24 03/10/24 03/11/24
06:59 06:59 06:59
Intake Total 240 / 240 300 / 300
Balance 240 / 240 300 / 300
Review of Systems
-
All other systems: Reviewed and negative
Physical Exam
-
General: Well Developed, Well Nourished, No Apparent Distress, Comfortable and Conversant
HEENT: Normocephalic
Respiratory: Clear to Auscultation and Non Labored Respirations; Negative Accessory Resp Muscle Use
Cardiac: Regular Rhythm and S1/S2
GI: Soft, Nontender, Nondistended and Normal Bowel Sounds
Musculoskeletal: No Clubbing, No Cyanosis and No Edema
Neuro: Awake and Alert
Psych: Calm and Intact Judgement/Insight
Data Reviewed
-
Labs: Labs Reviewed by me
[2024-03-10] MEDS: TOPROL XL 100 MG PO (09:45)
[2024-03-10] MEDS: TOPROL XL 50 MG PO (09:45)
[2024-03-10] MEDS: COZAAR 100 MG PO (09:45)
[2024-03-10] MEDS: LASIX 80 MG PO (09:45)
[2024-03-10] MEDS: NORVASC 5 MG PO ×2 (09:45→21:24)
[2024-03-10] MEDS: HEPARIN 5000 UNITS SC ×2 (09:45→21:24)
[2024-03-10] MEDS: PROTONIX 40 MG PO (09:45)
[2024-03-10] MEDS: RENVELA 800 MG PO ×2 (09:45→14:23)
[2024-03-10] MEDS: PROSCAR 5 MG PO (09:46)
--- NOTE | 2024-03-10 11:43 | W.PN.NEPH.PH ---
Today's Communication / Plan
-
HD tomorrow
Assessment/Plan
-
Assessment
ESRD
Right-sided effusion
Fever
Mental status change
BPH
Hypertension
Hyperlipidemia
Plan
HD tomorrow, switch to MWF in anticipation of [facility]
rehab placement
I told patient he should not skip treatments
-
-
Date of Service: March 10, 2024
CC / HPI / ROS
-
Chief Complaint:
altered mental status
History of Present Illness:
BP stable
tolerated HD yesterday
off abx
Review of Systems: .
No chest pain shortness of breath nausea or vomiting
Labs
-
Labs:
WBC 4.0 10^3/uL (4.8-10.8) L 03/08/24 07:06
RBC 3.65 10^6/uL (4.70-6.10) L 03/08/24 07:06
Hgb 10.4 g/dL (13.0-18.0) L 03/09/24 12:30
Hct 31.1 % (39.0-52.0) L 03/09/24 12:30
Plt Count 140 10^3/uL (130-400) 03/08/24 07:06
Sodium 138 mmol/L (135-145) 03/10/24 07:46
Potassium 3.8 mmol/L (3.5-5.1) 03/10/24 07:46
Chloride 96 mmol/L (98-107) L 03/10/24 07:46
Carbon Dioxide 29 mmol/L (22-30) 03/10/24 07:46
BUN 33 mg/dl (9-20) H 03/10/24 07:46
Creatinine 5.0 mg/dL (0.7-1.3) H* 03/10/24 07:46
eGFR 10.49 03/10/24 07:46
Glucose 100 mg/dl (70-99) H 03/10/24 07:46
Calcium 9.2 mg/dl (8.4-10.2) 03/10/24 07:46
Albumin 3.5 g/dl (3.5-5.0) 03/06/24 07:14
Physical Exam
-
Vital Signs:
Vital Signs
Temp Pulse Resp BP Pulse Ox
98.3 F 56 16 161/64 99
03/10/24 07:58 03/10/24 07:58 03/10/24 07:58 03/10/24 07:58 03/10/24 07:58
Cardiovascular:: Regular rate and rhythm
Respiratory:: Bilateral: Coarse
Lung Excursion:: Normal
Abdomen:: Nontender and Soft
Bowel Sounds:: Normal
Extremity Edema:: None: Bilateral:
[2024-03-10 15:57] VITALS: BP 163/58
[2024-03-10] MEDS: RENVELA 1600 MG PO (17:27)
[2024-03-10] MEDS: MELATONIN PO (21:20)
[2024-03-10] MEDS: HYTRIN 1 MG PO (21:24)
[2024-03-10 23:26] VITALS: BP 142/60
[2024-03-11 06:00] VITALS: BMI 22.5
[2024-03-11 08:10] VITALS: BP 171/66
[2024-03-11 08:59] LABS: Blood Urea Nitrogen 53 mg/dl (9-20); Calcium 9.6 mg/dl (8.4-10.2); Carbon Dioxide 27 mmol/L (22-30); Chloride 97 mmol/L (98-107); Estimated Creatinine Clearance 8 ml/min; Glucose 136 mg/dl (70-99); Potassium 3.8 mmol/L (3.5-5.1); Sodium 136 mmol/L (135-145); eGFR 8.78
--- NOTE | 2024-03-11 09:02 | PN.CDI ---
CDI
- -
CDI:
Physician Documentation Request
Admit Date: 03/05/24 16:58
Dear Doctor,
Please review the following and provide your response in the progress notes.
Clinical Indicators:
Documentation in the ER record on 03/05/24 includes the diagnosis of sepsis. The following clinical information was noted in the record:
Selected Entries
03/05/24
12:24 03/05/24
17:00 03/05/24
17:25
Temp 103.3 F H 100.4 F H
Resp Rate 27 31
Sepsis
- Systemic manifestations of infection, with 2 or more SIRS criteria which include:
- Fever >100.4 degrees F or hypothermia < 96.8 degrees F
- Leukocytosis - WBC > 12,000 or leukopenia - WBC < 4,000 or > 10% bands
- Tachycardia > 90 beats per minute
- Tachypnea - RR > 20 breaths per minute or PaCO2 , 32mmHg
Source: Merck Manual 2013
- Indicate if a suspected bacterial infection of unknown source
Based on the above information and the recognized standard SIRS criteria, please clarify if sepsis is still an accurate diagnosis, and reflective of the patient�s condition, to ensure quality of the medical record.
Please clarify in the Progress Notes:
Sepsis is/was present and is a clinical diagnosis
After study sepsis has been ruled out
Other
Use of terms such as suspected, likely, concern for, or probable (associated with a specific diagnosis that is being evaluated, monitored, or treated as if it exists) are acceptable and can be coded in the inpatient setting, when documented at the
time of discharge.
Thank you,
Faith Daigle RN, BSN
CDI Specialist
[place] [facility]
Please use your independent medical judgment in providing your response.
--- NOTE | 2024-03-11 09:51 | W.PN.NEPH.HD ---
Assessment
-
pt seen during HD
vital stable
UF as tolerates
AVF functions well
plan rehab at [facility] schedule
Progress Note - Hemodialysis
-
Date of Service: March 11, 2024
Duration: 30 minutes and 3 hours
Potassium Bath: 3
Calcium Bath: 2.5
Opti-Dialyzer: 160
Ultrafiltration: Other (1-1.5kg)
Blood Flow: 400
Dialysate Flow: 600
Heparin: no
EPO: no
[2024-03-11] MEDS: TYLENOL 650 MG PO ×2 (11:43→18:07)
[2024-03-11] MEDS: LASIX 80 MG PO (11:49)
[2024-03-11] MEDS: NORVASC 5 MG PO ×2 (11:50→20:21)
[2024-03-11] MEDS: COZAAR 100 MG PO (11:50)
[2024-03-11] MEDS: TOPROL XL 50 MG PO (11:50)
[2024-03-11] MEDS: TOPROL XL 100 MG PO (11:52)
[2024-03-11] MEDS: PROTONIX 40 MG PO (11:52)
[2024-03-11] MEDS: PROSCAR 5 MG PO (11:52)
[2024-03-11] MEDS: HEPARIN 5000 UNITS SC ×2 (11:53→20:16)
[2024-03-11] MEDS: RENVELA 800 MG PO (11:56)
--- NOTE | 2024-03-11 13:22 | W.PN.HOSP.TC ---
Addendum entered and electronically signed by Maia Olivares MD 03/11/24 14:29:
I saw and evaluated the patient. I reviewed the resident�s note and agree with findings and plan as documented in the resident�s note.
A/P:
# Change in mental status, resolved.
# Likely acute metabolic encephalopathy 2/2 missed dialysis
MS returned to baseline, AOx3
There was initial concern for meningitis in the ED, hence LP performed; CSF analysis largely unrevealing, CSF culture no growth.
CXR with persistent right pleural effusion, no change from prior in February 2022
blood cultures x2 negative.
Initial diarrhea resolved; C. diff neg, norovirus neg, COVID neg, Flu neg
No clear evidence of acute infection, empiric Abx cefepime stopped by ID
Appreciate ID
# ESRD on HD TTS
Per family, patient has skipped dialysis himself, occasionally would go once or twice a week (instead of his usual 3 times weekly schedule) for months.
Counselled pt on the importance of continuing regular HD schedule.
Nephrology on board for HD needs
# Hypertension
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
# Hyperlipidemia
Continue statin
# Scalp laceration
Angela removed by pulmonary function technician
# BPH
Continue finasteride and terazosin
DVT ppx: HSQ
FC
Dispo: SNF per PT OT recc
Original Note:
Today's Communication/Plan
-
Discharge planning
Awaiting HepB panel for SNF placement per caser in
Hemodialysis today
Assessment / Plan
Assessment / Plan
88 y/o male with CKD on HD with:
# Change in mental status
- Now resolved
- Likely acute metabolic encephalopathy 2/2 missed dialysis
- MS returned to baseline, AOx3
- No clear evidence of acute infection, empiric cefepime stopped by ID
- Dialysis scheduled for today
# ESRD on HD
- TTS INHALATION THERAPY AIDES TEACHER
- Per family, patient has skipped dialysis himself, occasionally would go once or twice a week (instead of his usual 3 times weekly schedule) for months.
- Counselled pt on the importance of continuing regular HD schedule.
- Nephrology on board, dialysis scheduled for today
- Switch to MWF in anticipation of [facility]
# Hypertension
- Continue INHALATION THERAPY AIDES TEACHER metoprolol, amlodipine, losartan, lasix with holding parameters
# Hyperlipidemia
- Continue statin
# BPH
- Continue finasteride and terazosin
DVT ppx: HSQ
Full code
Anticipated Discharge: Today
Subjective/Interval History
-
Date of Service: March 11, 2024
Objective Data
-
Labs:
Laboratory Results
03/11/24
07:38
Sodium 136
Potassium 3.8
Chloride 97 L
Carbon Dioxide 27
BUN 53 H
Creatinine 5.8 H*
Glucose 136 H
Calcium 9.6
Vital Signs:
Vital Signs
Temp Pulse Resp BP Pulse Ox
97.4 F 48 18 158/62 99
03/11/24 08:10 03/11/24 08:10 03/11/24 08:10 03/11/24 11:49 03/11/24 08:10
I&O
03/10/24 03/11/24 03/12/24
06:59 06:59 06:59
Intake Total 300 / 300 240 / 240
Balance 300 / 300 240 / 240
Review of Systems
-
History Source: Patient
Constitutional: Reports No Symptoms
EENT: Reports No Symptoms Reported
Respiratory: Reports No Symptoms
Cardiac: Reports No Symptoms
Abdomen/GI: Reports No Symptoms
Breast: Reports No Symptoms
Genitourinary: Reports No Symptoms
Musculoskeletal: Reports No Symptoms
Skin: Reports No Symptoms
Neuro: Reports No Symptoms
Endocrine: Reports No Symptoms
Hematologic / Lymphatic: Reports No Symptoms
Allergy / Immunology: Reports No Symptoms
Physical Exam
-
General: Well Developed and Well Nourished
HEENT: Normocephalic
Respiratory: Clear to Auscultation
Cardiac: Regular Rhythm and S1/S2
GI: Soft, Nontender, Nondistended and Normal Bowel Sounds
Genito-urinary: No Costovertebral Tender
Musculoskeletal: No Clubbing, No Cyanosis and No Edema
Skin: Warm
Neuro: Awake, Alert and Oriented
Hematologic / Lymphatic: No Lymphadenopathy
Psych: Calm
[2024-03-11 16:04] VITALS: BP 146/64
[2024-03-11] MEDS: RENVELA PO (18:04)
[2024-03-11] MEDS: RENVELA 1600 MG PO (18:07)
[2024-03-11 18:21] LABS: Hepatitis B Surface Antigen Negative (Negative)
[2024-03-11 18:38] LABS: Hepatitis B Surface Antibody Positive
[2024-03-11] MEDS: HYTRIN 1 MG PO (22:43)
[2024-03-11] MEDS: MELATONIN 5 MG PO (22:43)
[2024-03-11 23:25] VITALS: BP 128/56
[2024-03-12 06:00] VITALS: BMI 22.4
[2024-03-12 07:10] VITALS: BP 130/59
--- NOTE | 2024-03-12 08:19 | W.PN.HOSP.TC ---
Addendum entered and electronically signed by Inga Stevenson MD 03/12/24 17:24:
I saw and evaluated the patient independently. I reviewed the resident�s note and agree with findings and plan as documented by Dr. Spencer.
GENERAL: well developed, well nourished, male in no apparent distress
HEENT: NC/AT
HEART: regular rate and rhythm, +S1, +S2
LUNGS : clear to auscultation bilaterally
ABDOM: soft, nontender, nondistended, + bowel sounds
EXT: no cyanosis, clubbing, or edema
NEUROLOGIC: grossly intact
Change in mental status--likely due to missed HD with acute metabolic encephalopathy--doing well--no signs infection--stopping abx--hopeful back to SNF after HD tomorrow
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
continuing regular HD schedule- Nephrology on board, dialysis tomorrow
Essential Hypertension- Continue MUSIC VIDEO PRODUCER metoprolol, amlodipine, losartan, lasix with holding parameters
Hyperlipidemia- Continue statin
BPH- Continue finasteride and terazosin
DVT proph
code status--Full code
Original Note:
Today's Communication/Plan
-
Discharge planning
OT eval
Assessment / Plan
Assessment / Plan
88 y/o male with CKD on HD with:
# Change in mental status
- Now resolved
- Likely acute metabolic encephalopathy 2/2 missed dialysis
- MS returned to baseline, AOx3
- No clear evidence of acute infection, empiric cefepime stopped by ID
- Dialysis tomorrow
# ESRD on HD
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
- Per family, patient has skipped dialysis himself, occasionally would go once or twice a week (instead of his usual 3 times weekly schedule) for months.
- Counselled pt on the importance of continuing regular HD schedule.
- Nephrology on board, dialysis tomorrow
# Hypertension
- Continue MUSIC VIDEO PRODUCER metoprolol, amlodipine, losartan, lasix with holding parameters
# Hyperlipidemia
- Continue statin
# BPH
- Continue finasteride and terazosin
DVT ppx: HSQ
Full code
Anticipated Discharge: Within 24 hours
Subjective/Interval History
-
Date of Service: March 12, 2024
Objective Data
-
Labs:
Laboratory Results
03/12/24
07:39
Sodium Pending
Potassium Pending
Chloride Pending
Carbon Dioxide Pending
BUN Pending
Creatinine Pending
Glucose Pending
Calcium Pending
Vital Signs:
Vital Signs
Temp Pulse Resp BP Pulse Ox
97.7 F 51 18 130/59 98
03/12/24 07:10 03/12/24 07:10 03/12/24 07:10 03/12/24 07:10 03/12/24 07:10
I&O
03/11/24 03/12/24 03/13/24
06:59 06:59 06:59
Intake Total 240 / 240 420 / 420
Balance 240 / 240 420 / 420
Review of Systems
-
History Source: Patient
Constitutional: Reports No Symptoms
EENT: Reports No Symptoms Reported
Respiratory: Reports No Symptoms
Cardiac: Reports No Symptoms
Abdomen/GI: Reports No Symptoms
Breast: Reports No Symptoms
Genitourinary: Reports No Symptoms
Musculoskeletal: Reports No Symptoms
Skin: Reports No Symptoms
Neuro: Reports No Symptoms
Endocrine: Reports No Symptoms
Hematologic / Lymphatic: Reports No Symptoms
Allergy / Immunology: Reports No Symptoms
Physical Exam
-
General: Well Developed, Well Nourished, No Apparent Distress and Comfortable
HEENT: Normocephalic
Respiratory: Clear to Auscultation
Cardiac: Regular Rhythm and S1/S2
GI: Soft, Nontender, Nondistended and Normal Bowel Sounds
Genito-urinary: No Costovertebral Tender
Musculoskeletal: No Clubbing, No Cyanosis and No Edema
Skin: Warm
Neuro: Awake, Alert and Oriented
Hematologic / Lymphatic: No Lymphadenopathy
Psych: Calm
[2024-03-12 08:56] LABS: Blood Urea Nitrogen 40 mg/dl (9-20); Calcium 9.5 mg/dl (8.4-10.2); Carbon Dioxide 29 mmol/L (22-30); Chloride 96 mmol/L (98-107); Estimated Creatinine Clearance 8 ml/min; Glucose 119 mg/dl (70-99); Potassium 3.8 mmol/L (3.5-5.1); Sodium 136 mmol/L (135-145); eGFR 9.36
[2024-03-12] MEDS: TOPROL XL 100 MG PO (08:59)
[2024-03-12] MEDS: TOPROL XL 50 MG PO (09:00)
[2024-03-12] MEDS: RENVELA 800 MG PO ×2 (09:00→15:08)
[2024-03-12] MEDS: PROSCAR 5 MG PO (09:00)
[2024-03-12] MEDS: HEPARIN 5000 UNITS SC ×2 (09:01→20:12)
[2024-03-12] MEDS: PROTONIX 40 MG PO (09:02)
[2024-03-12] MEDS: LASIX 80 MG PO (09:05)
[2024-03-12] MEDS: COZAAR 100 MG PO (09:05)
[2024-03-12] MEDS: NORVASC 5 MG PO ×2 (09:05→20:11)
[2024-03-12 12:04] VITALS: BP 120/51; PULSE 51; O2SAT 99
[2024-03-12 14:42] VITALS: BP 120/52; PULSE 50; O2SAT 99
--- NOTE | 2024-03-12 15:01 | CM ---
Patient accepted at [facility] for Skilled rehab.
Insurance authorization initiated with [facility] ([facility])
Clinicals faxed to [phone]
Await determination.
--- NOTE | 2024-03-12 15:22 | W.PN.ID1 ---
Date of Service
Date of Service: March 12, 2024
Today's Communication
Sign off
Assessment / Plan
Change in mental status; improved
Fever; resolved
ESRD�HD
DM
Dyslipidemia
HTN
Secondary hyperparathyroidism
Neuropathy
Recommendations:
Fevers have resolved. Cultures are negative (including CSF), and patient appears cognitively intact, although not sure of baseline.
Continue off antibiotics.
Little more to offer from a Infectious Disease standpoint.
Will see again at your request.
Chief Complaint
-: Other (Weakness)
Subjective / Review of Systems
Review of Systems: No Fever
Vital Signs / Physical Exam
Vital Signs
Vital Signs
Temp Pulse Resp BP Pulse Ox
97.7 F 60 18 130/59 98
03/12/24 07:10 03/12/24 08:59 03/12/24 07:10 03/12/24 07:10 03/12/24 07:10
Physical Exam
Constitutional: Chronically Ill
Pulmonary: Non Labored
Gastrointestinal: Non Distended
Extremities: Negative Edema
Psychological: Calm
Objective Data
Lab Data
Lab Results
03/09/24 12:30
03/12/24 07:39
Estimated Creat Clear 8 ml/min 03/12/24 07:39
Lactic Acid Cancelled 03/05/24 21:52
Total Bilirubin 0.3 mg/dl (0.2-1.3) 03/06/24 07:14
AST 36 U/L (17-59) 03/06/24 07:14
ALT 14 U/L (0-50) 03/06/24 07:14
Alkaline Phosphatase 65 U/L (38-126) 03/06/24 07:14
Most recent labs reviewed.
Micro Results:
03/08/24 13:16 Salmonella/Shigella Culture - Final
Feces/Stool No Salmonella, Shigella, Aeromonas or Plesiomonas species
isolated.
Campylobacter Culture - Final
No Campylobacter species isolated.
Shiga Toxin Test - Final
No E. coli Shiga Toxin 1 or 2 detected.
03/05/24 21:01 Blood Culture - Final
Blood/Venous No Growth - Final Report
03/05/24 21:15 Blood Culture - Final
Blood/Venous No Growth - Final Report
03/05/24 15:18 CSF Culture - Final
Csf NO GROWTH-FINAL REPORT
Gram Stain - Final
03/05/24 12:51 Blood Culture - Final
Blood/Venous No Growth - Final Report
03/05/24 12:51 Blood Culture - Final
Blood/Venous No Growth - Final Report
03/05/24 18:41 MRSA Screen - Final
Nose No Methicillin Resistant Staphylococcus aureus isolated.
03/06/24 06:12 C. difficile GDH Antigen & Toxins - Final
Feces/Stool Negative for toxigenic C.difficile
- Final
Negative for Norovirus GI and GII.
Laboratory Tests
03/05/24
15:18
CSF Appearance Clear
CSF Color Colorless
CSF WBC 1
CSF RBC 3
CSF Cell Count Tube # 4
CSF Glucose 79 H
CSF Total Protein 109 H
Imaging:
03/05/2024 CXR (2 view): Moderate right-sided pleural effusion with associated pneumonia versus compressive atelectasis of the right lung base, stable when compared to prior studies. Lungs are otherwise clear.
[2024-03-12 15:41] VITALS: BP 123/49
--- NOTE | 2024-03-12 15:58 | CM ---
Patient seen at bedside with physicians. Patient son also present and CM provided IMM form to review. Patient updated about need for OT and authorization. Per OT note in chart and auth started per Colleague. CM will continue to follow for discharge
planning needs.
Plan; pending auth and accepted [facility]
--- NOTE | 2024-03-12 16:01 | CM ---
Patient seen at bedside with physicians. Patient son also present and CM provided IMM form to review. Patient updated about need for OT and authorization. Per OT note in chart and auth started per Colleague. Liaison updated regarding need for care.
CM will continue to follow for discharge planning needs.
Plan; pending auth and accepted to [facility]
--- NOTE | 2024-03-12 16:20 | W.PN.NEPH.PH ---
Today's Communication / Plan
-
HD tomorrow
Assessment/Plan
-
Assessment
ESRD
Right-sided effusion
Fever
Mental status change
BPH
Hypertension
Hyperlipidemia
Plan
HD tomorrow, switched to MWF in anticipation of [facility] at d/c
BP stable on meds
-
-
Date of Service: March 12, 2024
CC / HPI / ROS
-
Chief Complaint:
altered mental status
History of Present Illness:
BP stable
tolerated HD yesterday
no fever
Review of Systems: .
No chest pain shortness of breath nausea or vomiting
Labs
-
Labs:
WBC 4.0 10^3/uL (4.8-10.8) L 03/08/24 07:06
RBC 3.65 10^6/uL (4.70-6.10) L 03/08/24 07:06
Hgb 10.4 g/dL (13.0-18.0) L 03/09/24 12:30
Hct 31.1 % (39.0-52.0) L 03/09/24 12:30
Plt Count 140 10^3/uL (130-400) 03/08/24 07:06
Sodium 136 mmol/L (135-145) 03/12/24 07:39
Potassium 3.8 mmol/L (3.5-5.1) 03/12/24 07:39
Chloride 96 mmol/L (98-107) L 03/12/24 07:39
Carbon Dioxide 29 mmol/L (22-30) 03/12/24 07:39
BUN 40 mg/dl (9-20) H 03/12/24 07:39
Creatinine 5.5 mg/dL (0.7-1.3) H* 03/12/24 07:39
eGFR 9.36 03/12/24 07:39
Glucose 119 mg/dl (70-99) H 03/12/24 07:39
Calcium 9.5 mg/dl (8.4-10.2) 03/12/24 07:39
Albumin 3.5 g/dl (3.5-5.0) 03/06/24 07:14
Physical Exam
-
Vital Signs:
Vital Signs
Temp Pulse Resp BP Pulse Ox
98.6 F 50 18 123/49 99
03/12/24 15:41 03/12/24 15:41 03/12/24 15:41 03/12/24 15:41 03/12/24 15:41
Cardiovascular:: Regular rate and rhythm
Respiratory:: Bilateral: CTA
Lung Excursion:: Normal
Abdomen:: Nontender and Soft
Extremity Edema:: None: Bilateral:
Carrillo Catheter: No
[2024-03-12] MEDS: RENVELA 1600 MG PO (18:27)
[2024-03-12 19:36] VITALS: BP 128/52
[2024-03-12] MEDS: HYTRIN 1 MG PO (22:11)
[2024-03-12] MEDS: MELATONIN 5 MG PO (22:11)
[2024-03-12 23:43] VITALS: BP 138/54
[2024-03-13 03:54] VITALS: BMI 22.9
[2024-03-13 07:30] VITALS: BP 155/62
[2024-03-13 08:41] LABS: Hematocrit 31.9 % (39.0-52.0); Hemoglobin 10.6 g/dL (13.0-18.0); Mean Corp Hgb Conc. 33.2 g/dL (33.0-37.0); Mean Corpuscular Hgb 29.3 pg (27.0-31.0); Mean Corpuscular Volume 88.1 fL (80.0-94.0); Mean Platelet Volume 10.3 fL (7.4-10.4); Platelet Count 203 10^3/uL (130-400); Red Blood Cell Count 3.62 10^6/uL (4.70-6.10); Red Cell Dist. Width 13.8 % (11.5-14.5); White Blood Cell Count 8.2 10^3/uL (4.8-10.8)
[2024-03-13] MEDS: MANNITOL 25% 12.5 GRAMS IV ×2 (09:05→10:25)
--- NOTE | 2024-03-13 09:05 | W.PN.HOSP.TC ---
Addendum entered and electronically signed by Inga Stevenson MD 03/13/24 16:19:
I saw and evaluated the patient independently. I reviewed the resident�s note and agree with findings and plan as documented by Dr. Spencer.
GENERAL: well developed, well nourished, male in no apparent distress
HEENT: NC/AT
HEART: regular rate and rhythm, +S1, +S2
LUNGS : clear to auscultation bilaterally
ABDOM: soft, nontender, nondistended, + bowel sounds
EXT: no cyanosis, clubbing, or edema
NEUROLOGIC: grossly intact
Change in mental status--likely due to missed HD with acute metabolic encephalopathy--doing well--no signs infection--stopping abx--hopeful back to SNF after HD tomorrow
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- Per family, patient has skipped dialysis himself, occasionally would go once or twice a week (instead of his usual 3 times weekly schedule) for months- Counselled pt on the importance of
continuing regular HD schedule- Nephrology on board, dialysis tomorrow
Essential Hypertension- Continue CATALYST OPERATOR GASOLINE metoprolol, amlodipine, losartan, lasix with holding parameters
Hyperlipidemia- Continue statin
BPH- Continue finasteride and terazosin
DVT proph
code status--Full code
OK for D/C
Original Note:
Today's Communication/Plan
-
Bed available at [facility]
Discharge today after hemodialysis
Assessment / Plan
Assessment / Plan
88 y/o male with CKD on HD with:
# Change in mental status
- Now resolved
- Likely acute metabolic encephalopathy 2/2 missed dialysis
- MS returned to baseline, AOx3
- No clear evidence of acute infection, empiric cefepime stopped by ID
- Patient on dialysis this morning
# ESRD on HD
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
- Per family, patient has skipped dialysis himself, occasionally would go once or twice a week (instead of his usual 3 times weekly schedule) for months.
- Counselled pt on the importance of continuing regular HD schedule.
- Nephrology on board, patient on dialysis this morning
# Hypertension
- Continue CATALYST OPERATOR GASOLINE metoprolol, amlodipine, losartan, lasix with holding parameters
# Hyperlipidemia
- Continue statin
# BPH
- Continue finasteride and terazosin
DVT ppx: HSQ
Full code
Anticipated Discharge: Today
Subjective/Interval History
-
Date of Service: March 13, 2024
Objective Data
-
Labs:
Laboratory Results
03/13/24
08:20
WBC 8.2
Hgb 10.6 L
Hct 31.9 L
Plt Count 203 D
Sodium Pending
Potassium Pending
Chloride Pending
Carbon Dioxide Pending
BUN Pending
Creatinine Pending
Glucose Pending
Calcium Pending
Vital Signs:
Vital Signs
Temp Pulse Resp BP Pulse Ox
97.5 F 49 22 155/62 96
03/13/24 07:30 03/13/24 07:30 03/13/24 07:30 03/13/24 07:30 03/13/24 07:30
I&O
03/12/24 03/13/24 03/14/24
06:59 06:59 06:59
Intake Total 420 / 420 900 / 900
Balance 420 / 420 900 / 900
Physical Exam
-
General: Well Developed, Well Nourished, No Apparent Distress and Comfortable
HEENT: Normocephalic
Respiratory: Clear to Auscultation
Cardiac: Regular Rhythm and S1/S2
GI: Soft, Nontender, Nondistended and Normal Bowel Sounds
Genito-urinary: No Costovertebral Tender
Musculoskeletal: No Clubbing, No Cyanosis and No Edema
Skin: Warm
Neuro: Awake, Alert and Oriented
Hematologic / Lymphatic: No Lymphadenopathy
Psych: Calm
[2024-03-13] MEDS: FLEXBUMIN 25% FOR HEMODIALYSIS 12.5 GRAMS IV ×2 (09:10→10:33)
[2024-03-13 09:18] LABS: Blood Urea Nitrogen 56 mg/dl (9-20); Calcium 9.7 mg/dl (8.4-10.2); Carbon Dioxide 23 mmol/L (22-30); Chloride 97 mmol/L (98-107); Estimated Creatinine Clearance 7 ml/min; Glucose 192 mg/dl (70-99); Potassium 4.1 mmol/L (3.5-5.1); Sodium 134 mmol/L (135-145); eGFR 7.26
[2024-03-13] MEDS: TYLENOL 650 MG PO (09:22)
--- NOTE | 2024-03-13 10:56 | W.PN.NEPH.HD ---
Assessment
-
Seen on HD> no complaints. VSS< access ok
says he wants to go home instead of rehab
Progress Note - Hemodialysis
-
Date of Service: March 13, 2024
Duration: 30 minutes and 3 hours
Potassium Bath: 3
Calcium Bath: 2.5
Opti-Dialyzer: 160
Ultrafiltration: Other (kg)
Blood Flow: 400
Dialysate Flow: 600
Heparin: no
EPO: no
[2024-03-13] MEDS: COZAAR PO (12:40)
[2024-03-13] MEDS: LASIX PO (12:40)
[2024-03-13] MEDS: HEPARIN SC (12:40)
[2024-03-13] MEDS: RENVELA PO (12:41)
[2024-03-13] MEDS: TOPROL XL PO ×2 (12:41→12:42)
[2024-03-13] MEDS: NORVASC PO (12:41)
[2024-03-13] MEDS: PROTONIX PO (12:42)
[2024-03-13] MEDS: PROSCAR PO (12:42)
[2024-03-13] MEDS: RENVELA 800 MG PO (12:42)
--- NOTE | 2024-03-13 13:32 | CM ---
Patient seen at bedside with physicians. Patient pending auth. CM will review IMM and arrange for transfer to [facility] today. CM will continue to follow for discharge planning needs.
Plan; SNF when medically appropriate
--- NOTE | 2024-03-13 13:33 | CM ---
TC from [facility] from [employer].
Approved skilled rehab, appr 14 days
Auth number [id number]
Updates on admission to facility to [facility] at [phone] x [phone]
Approved 03/13/24 with NRD 03/26/24
Updates to [facility] at above number and fax# [phone]
Nereida from [facility] updated.
--- NOTE | 2024-03-13 13:36 | CM ---
Addendum entered by Tanya Gastelum 03/13/24 15:17:
Patient for wheelchair transfer and CM called to patient son and he was given phone numbers for payment. awaiting time for transfer. CM will continue to follow for discharge planning needs.
Addendum entered by Tanya Gastelum 03/13/24 13:41:
please call report to [phone]/fax [phone].
Original Note:
Patient seen at bedside with physicians. CM spoke with patient son Dylon and he reviewed IMM with CM. email for to [email or web address]. Patient for transfer via ambulance. CM will send ambulance forms to floor. CM will continue to follow for
discharge planning needs.
Plan; [facility]
[2024-03-13 15:00] VITALS: BP 160/62
[2024-03-13] MEDS: RENVELA 1600 MG PO (16:14)
== END 2024-03-13 17:45 | DRG 70 ==
LOC: 4 WEST ACU 16:58
PROVIDERS: Internal Medicine; Internal Medicine Nephrology; ADMITTING PHYSICIAN Internal Medicine; ATTENDING PHYSICIAN Internal Medicine; CONSULT PHYSICIAN Specialist; EMERGENCY PHYSICIAN Emergency Medicine; OTHER PHYSICIAN Internal Medicine Infectious Disease
PROC: 5A1D70Z Performance of Urinary Filtration, Intermittent, Less than 6 Hours Per Day (ICD-10-PCS; 2024-03-07)
DX: G93.41 Metabolic encephalopathy (principal); N18.6 End stage renal disease; N25.81 Secondary hyperparathyroidism of renal origin; J90 Pleural effusion, not elsewhere classified; Z87.891 Personal history of nicotine dependence; E78.00 Pure hypercholesterolemia, unspecified
CPT/HCPCS: 62270; 71046; 80048; 80053; 81003; 81015; 82945; 82962; 83605; 84157; 85014; 85018; 85025; 85027; 86706; 87015; 87040; 87045; 87046; 87070; 87205; 87324; 87327; 87340; 87427; 87449; 87798; 89051; 96365; 96366; 96375; 97116; 97162; 97166; 99285; G0257; P9047

== ENCOUNTER → 2024-04-08 06:02 | Outpatient (REF) | payer OTHER, SELFPAY ==
[2024-04-08 09:54] LABS: ALT (SGPT) 13 U/L (0-50); AST (SGOT) 22 U/L (17-59); Albumin 4.3 g/dl (3.5-5.0); Alkaline Phosphatase 126 U/L (38-126); Blood Urea Nitrogen 52 mg/dl (9-20); Calcium 10.1 mg/dl (8.4-10.2); Carbon Dioxide 32 mmol/L (22-30); Chloride 94 mmol/L (98-107); Glucose 181 mg/dl (70-99); Potassium 4.8 mmol/L (3.5-5.1); Sodium 137 mmol/L (135-145); Total Bilirubin 0.8 mg/dl (0.2-1.3); Total Protein 7.6 g/dl (6.3-8.2); eGFR 7.39
[2024-04-08 09:54] LABS: Glycohemoglobin (HgbA1c) 6.3 % (4.0-5.6)
== END ==
LOC: HWLAB 06:02
PROVIDERS: ATTENDING PHYSICIAN Internal Medicine Endocrinology, Diabetes & Metabolism; FAMILY PHYSICIAN Family Medicine
DX: E11.21 Type 2 diabetes mellitus with diabetic nephropathy (principal)
CPT/HCPCS: 36415; 80053; 83036

== ENCOUNTER 2024-06-18 15:07 | Inpatient (IN) | payer OTHER, SELFPAY ==
[2024-06-18] VITALS (11 sets, daily range): BP systolic 130–163; BP diastolic 56–77; BMI 25.1; BMI 21.4
--- NOTE | 2024-06-18 09:59 | ED.GENMED ---
History of Present Illness
<Flip Bradley PA-C - Last Filed: 06/18/24 14:50>
General
Chief Complaint: Abdominal Symptoms
Source: patient
Time Seen by Provider: 06/18/24 09:47
History of Present Illness
History of Present Illness:
88-year-old male with past medical history of end-stage renal disease (dialysis Monday, , Monday), insulin-dependent diabetes, hypertension presenting to the emergency department via EMS from his dialysis center where 1 hour into his
dialysis session patient became acutely ill with EMS reporting nausea and vomiting and patient stating 'I just do not feel well' patient missed his dialysis on Monday due to what he reports as needing to take care of his at home who is
disabled. When asked in particular if patient is having any chest pain, shortness of breath, abdominal pain, current nausea, urinary symptoms, bowel changes, bloody stools or dark stools patient states no to all of this. No reported fevers at
home. Patient reports that prior to his dialysis he felt well and drove himself to the facility
Past History
<Flip Bradley PA-C - Last Filed: 06/18/24 14:50>
Past History
ED Past Medical History: HTN, Hypercholesterolemia, NIDDM, Renal failure and Other (Neuropathy, BPH, secondary hyperparathyroidism, anemia)
ED Past Surgical History: Orthopedic and Other (L arm fistula)
Social History
Tobacco: Former smoker
Alcohol: None
Drug: None
Personal:
Living: with family
Review of Systems
<Flip Bradley PA-C - Last Filed: 06/18/24 14:50>
Review of Systems
All Other Systems: ROS reviewed and negative except as documented in HPI and ROS
Phy Exam
<Flip Bradley PA-C - Last Filed: 06/18/24 14:50>
Physical Exam
Physical Exam:
GENERAL: Alert , in no apparent distress, Somewhat pale, seems a little lethargic but awakens to verbal and tactile stimuli
HEAD: NCAT
EYE: clear conjunctiva
NECK: Supple
ENT: mmm.
CARDIAC: Regular rate and rhythm .
LUNGS: Clear breath sounds bilaterally, no acute respiratory distress, no wheezes/rales/rhonchi
ABDOMEN: Soft, without focal tenderness, no r/g, no cvat
NEUROLOGICAL: Alert and oriented
SKIN: Warm and dry, skin intact.
MUSCULOSKELETAL: No edema, well perfused. 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
PSYCH: Normal and appropriate interaction.
Scores
<Flip Bradley PA-C - Last Filed: 06/18/24 14:50>
Heart Failure Risk
Heart Failure Risk Score: Not Applicable
Heart Score for Chest Pain Patients
STEMI patient?: Not applicable
Withdrawal Assessment of Alcohol
Withdrawal Assessment Completed?: Not applicable
Course
<Flip Bradley PA-C - Last Filed: 06/18/24 14:50>
Orders/Labs/Results
Orders:
Orders
06/18/24 09:54
Bedside Glucose- Treatment ONCE
06/18/24 09:56
Electrocardiogram (*1) Urgent
Reason for Study: Abnormal EKG
EKG- Treatment ONCE
06/18/24 09:57
Urinalysis Reflex To Culture Urgent
06/18/24 10:05
COVID-19 Antigen Urgent
Source: Nasal Swab
Complete Blood Count/With Diff Urgent
Comprehensive Metabolic Panel Urgent
Magnesium Urgent
Troponin I Urgent
Influenza A+B Rapid Molecular Urgent
ROB Source: Nasal Swab
Specimen Description:
06/18/24 10:32
Lactic Acid Q4H
Comment: CANCEL 2nd LACTIC ACID IF 1st LACTIC ACID IS LESS THAN 2
Blood Culture Q30M
ROB Source: Blood/Venous
Specimen Description:
Blood Culture Q30M
ROB Source: Blood/Venous
Specimen Description:
06/18/24 10:59
Heparin 4,000 units IV NOW STA
Nursing to Place Non Medication Order As Directed
Physician Order: PTT 6 hours after initial start of Heparin infusion
06/18/24 11:00
Heparin [id number] Units/250 ml 25,000 units in 250 ml IV PER PROTOCOL
Weight to be used for heparin protocol in kilograms (kg):: 70.4
Protocol:: Cardiac Tx/Acute Coronary
PTT Goal Range to be used:: PTT 73 to 111 seconds
Order type:: Initial
INITIAL Infusion Dose (UNITS/KG/hr) & then follow protocol:: 12 units/kg/hr
Infusion Dose in UNITS/hr & then follow protocol (UNITS/hr):: 850
INFUSION RATE in mL/hr & then follow protocol (mL/hr):: 8.5
PTT less than or equal to 64 seconds:: Increase rate by 200 units/hr (+ 2 mL/hr)
PTT 64.1 to 72.9 seconds:: Increase rate by 100 units/hr (+ 1 mL/hr)
PTT 73 to 111 seconds:: Target Range. No change in rate.
PTT 111.1 to 130.9 seconds:: Decrease rate by 100 units/hr (- 1 mL/hr)
PTT 131 to 199.9 seconds:: HOLD for 1 hr. Then decrease rate by 200 units/hr (- 2 mL/hr)
PTT greater than or equal to 200 seconds:: HOLD for 2 hrs & Notify Provider. Then decrease by 200 units/hr (-
2 mL/hr)
Lab follow-up:: Each change, PTT q6h until 2 consecutive are therapeutic. Then PTT
daily.
06/18/24 11:06
Aspirin Chewable [Low Strength Aspirin] 324 mg PO NOW STA
06/18/24 11:14
Aspirin 325 mg PO NOW STA
06/18/24 11:22
PTT Urgent
Comment: Obtain baseline before beginning heparin infusion if not already collected
06/18/24 12:12
Echo 2D MMode Color/Doppler [Echo 2D MMode Color/Doppler] Urgent
Reason for Study: Troponin elevation
06/18/24 12:21
EKG [Electrocardiogram (*1)] Urgent
Reason for Study: Abnormal EKG
06/18/24 16:00
Troponin I Q6H
06/18/24 17:45
PTT Urgent
06/18/24 22:00
Troponin I Q6H
Abnormal Lab Results
06/18/24 06/18/24
10:05 10:08
RBC 3.39 L 10^6/uL
(4.70-6.10)
Hgb 10.3 L g/dL
(13.0-18.0)
Hct 30.6 L %
(39.0-52.0)
RDW 14.6 H %
(11.5-14.5)
MPV 10.8 H fL
(7.4-10.4)
Absolute Lymphs (auto) 0.6 L 10^3/uL
(1.2-3.4)
Lymphocytes % 12.0 L %
(20.5-51.1)
Monocytes % 9.6 H %
(1.7-9.3)
BUN 48 H mg/dl
(9-20)
Creatinine 5.4 H* mg/dL
(0.7-1.3)
Glucose 164 H mg/dl
(70-99)
Troponin I 0.330 H* ng/ml
Albumin 3.4 L g/dl
(3.5-5.0)
POC Glucose 163 H mg/dl
(70-99)
06/18/24 10:05
06/18/24 10:05
Vital Signs
Initial and Last Documented VS:
Initial Vital Signs
Pulse Resp BP Pulse Ox
68 16 163/68 97
06/18/24 09:50 06/18/24 09:50 06/18/24 09:50 06/18/24 09:50
Last Documented Vital Signs
Pulse Resp BP Pulse Ox
56 12 130/60 98
06/18/24 11:30 06/18/24 11:30 06/18/24 11:00 06/18/24 11:30
Cruise Consultant consulted with Physician
Cruise Consultant consulted with physician?: Yes
Name of Physician Consulted: Parmjit
<Calvin Parnell MD - Last Filed: 06/18/24 11:06>
Orders/Labs/Results
Orders:
Orders
06/18/24 09:54
Bedside Glucose- Treatment ONCE
06/18/24 09:56
Electrocardiogram (*1) Urgent
Reason for Study: Abnormal EKG
EKG- Treatment ONCE
06/18/24 09:57
Urinalysis Reflex To Culture Urgent
06/18/24 10:05
COVID-19 Antigen Urgent
Source: Nasal Swab
Complete Blood Count/With Diff Urgent
Comprehensive Metabolic Panel Urgent
Magnesium Urgent
Troponin I Urgent
Influenza A+B Rapid Molecular Urgent
ROB Source: Nasal Swab
Specimen Description:
06/18/24 10:32
Lactic Acid Q4H
Comment: CANCEL 2nd LACTIC ACID IF 1st LACTIC ACID IS LESS THAN 2
Blood Culture Q30M
ROB Source: Blood/Venous
Specimen Description:
Blood Culture Q30M
ROB Source: Blood/Venous
Specimen Description:
06/18/24 10:59
Heparin 4,000 units IV NOW STA
Nursing to Place Non Medication Order As Directed
Physician Order: PTT 6 hours after initial start of Heparin infusion
06/18/24 11:00
Heparin [id number] Units/250 ml 25,000 units in 250 ml IV PER PROTOCOL
Weight to be used for heparin protocol in kilograms (kg):: 70.4
Protocol:: Cardiac Tx/Acute Coronary
PTT Goal Range to be used:: PTT 73 to 111 seconds
Order type:: Initial
INITIAL Infusion Dose (UNITS/KG/hr) & then follow protocol:: 12 units/kg/hr
Infusion Dose in UNITS/hr & then follow protocol (UNITS/hr):: 850
INFUSION RATE in mL/hr & then follow protocol (mL/hr):: 8.5
PTT less than or equal to 64 seconds:: Increase rate by 200 units/hr (+ 2 mL/hr)
PTT 64.1 to 72.9 seconds:: Increase rate by 100 units/hr (+ 1 mL/hr)
PTT 73 to 111 seconds:: Target Range. No change in rate.
PTT 111.1 to 130.9 seconds:: Decrease rate by 100 units/hr (- 1 mL/hr)
PTT 131 to 199.9 seconds:: HOLD for 1 hr. Then decrease rate by 200 units/hr (- 2 mL/hr)
PTT greater than or equal to 200 seconds:: HOLD for 2 hrs & Notify Provider. Then decrease by 200 units/hr (-
2 mL/hr)
Lab follow-up:: Each change, PTT q6h until 2 consecutive are therapeutic. Then PTT
daily.
06/18/24 11:06
Aspirin Chewable [Low Strength Aspirin] 324 mg PO NOW STA
06/18/24 11:14
Aspirin 325 mg PO NOW STA
06/18/24 11:22
PTT Urgent
Comment: Obtain baseline before beginning heparin infusion if not already collected
06/18/24 12:12
Echo 2D MMode Color/Doppler [Echo 2D MMode Color/Doppler] Urgent
Reason for Study: Troponin elevation
06/18/24 12:21
EKG [Electrocardiogram (*1)] Urgent
Reason for Study: Abnormal EKG
06/18/24 16:00
Troponin I Q6H
06/18/24 17:45
PTT Urgent
06/18/24 22:00
Troponin I Q6H
Abnormal Lab Results
06/18/24 06/18/24
10:05 10:08
RBC 3.39 L 10^6/uL
(4.70-6.10)
Hgb 10.3 L g/dL
(13.0-18.0)
Hct 30.6 L %
(39.0-52.0)
RDW 14.6 H %
(11.5-14.5)
MPV 10.8 H fL
(7.4-10.4)
Absolute Lymphs (auto) 0.6 L 10^3/uL
(1.2-3.4)
Lymphocytes % 12.0 L %
(20.5-51.1)
Monocytes % 9.6 H %
(1.7-9.3)
BUN 48 H mg/dl
(9-20)
Creatinine 5.4 H* mg/dL
(0.7-1.3)
Glucose 164 H mg/dl
(70-99)
Troponin I 0.330 H* ng/ml
Albumin 3.4 L g/dl
(3.5-5.0)
POC Glucose 163 H mg/dl
(70-99)
06/18/24 10:05
06/18/24 10:05
Vital Signs
Initial and Last Documented VS:
Initial Vital Signs
Pulse Resp BP Pulse Ox
68 16 163/68 97
06/18/24 09:50 06/18/24 09:50 06/18/24 09:50 06/18/24 09:50
Last Documented Vital Signs
Pulse Resp BP Pulse Ox
56 12 130/60 98
06/18/24 11:30 06/18/24 11:30 06/18/24 11:00 06/18/24 11:30
<Flip Bradley PA-C - Last Filed: 06/18/24 14:50>
MDM/Problems Addressed
Differential Diagnosis Includes:
Hyperkalemia or other electrolyte disturbance, viral syndrome, urinary tract infection, pneumonia
MDM/Problems Addressed:
88-year-old male presenting to the ER via EMS from his dialysis center due to sudden onset of nausea and vomiting 1 hour into his dialysis session. EMS found the patient to be bradycardic although noted his heart rate was around 54 and gave him a
dose of atropine as well as a dose of droperidol for the vomiting noting that he had a QTc of 496 and wanted to avoid Zofran. No reported fevers. Patient without a specific complaint other than just states 'I do not feel well'. Noted to be mildly
hypothermic at 95.8. Will initiate septic workup. COVID and flu ordered. Disposition pending.
Chronic conditions affecting care: Kidney disease
Acute Exacerbation and/or Progression of Chronic Illness: Kidney disease
<Flip Bradley PA-C - Last Filed: 06/18/24 14:50>
*Pulse Oximetry
Patient hypoxic: no
*Critical Care Note
Total Time (30-74mins, 75-104mins- exclusive of procedures): 30
comment:
Critical care statement: A total of 30 minutes of critical care time was provided for this patient. This includes management of unstable vital signs, evaluation of the patient at bedside, reviewing the patient's pertinent medical records, discussion
with consultants, review of old EKGs and review of pertinent medical records. This time with separate from time utilized to perform the aforementioned documented procedures
Data Reviewed
Review of Other/Old Records Reveals: Labs and Records
<Flip Bradley PA-C - Last Filed: 06/18/24 14:50>
Patient Management
Discussion with other providers: Hospitalist and General Warehouse Worker
Escalation/DeEscalation of care consider admission/obs:
Patient had a significantly elevated troponin at 0.330. Only troponin on record previously was back in 2022 which was 0.08. Given patient's presenting symptoms combined with chronic medical condition concern for NSTEMI. I discussed with
cardiology who is in agreement to initiate treatment with heparin and 325 mg of aspirin. They will see the patient in consult. Hospitalist team was also notified and accepts for continued evaluation and treatment. Patient remained stable, without
any chest pain at this time.
ED Attending Note
<Flip Bradley PA-C - Last Filed: 06/18/24 14:50>
-
Portions of this chart may have been created with voice recognition software.� Occasional wrong word or��sound alike� substitutions may have occurred due to the inherent limitations of voice recognition software.
<Calvin Parnell MD - Last Filed: 06/18/24 11:06>
ED Attending Note
Patient seen and examined by attending physician: Yes
I performed the substantive portion of visit, reviewed & personally made and approve the management plan that is documented in note by myself or [facility].: Yes
ED Attending Note:
88-year-old male history of dialysis. [place] perfectly fine going to dialysis. About an hour and developed sudden severe diaphoresis some nausea and general weakness. No chest pain shortness of breath unusual headache or other symptoms. Patient
was mildly bradycardic however typically is bradycardic. Was given atropine prehospital. Also given droperidol for nausea. Currently states he feels at baseline
GENERAL: Alert and oriented in no apparent distress
EYE: Orbits normal.
NECK: Supple
CARDIAC: Regular rate and rhythm without any obvious murmurs.
LUNGS: Clear breath sounds,normal
ABDOMEN: Soft, without focal tenderness or distention
NEUROLOGICAL: Alert and oriented , grossly non-focal
SKIN: Warm and dry
PSYCH: Normal and appropriate interaction.
Nonspecific sudden symptoms during dialysis. Possible near syncope. Possible cardiac. Nothing clinically to support infection but would have to consider sepsis. Workup in progress. Medically stable at this time
1100... Troponin indeterminant but near positive. With patient's history and symptoms warrants inpatient management for presumed non-STEMI VT.
Discharge Plan
Departure
Patient Disposition: Admit
Date of Disposition: 06/18/24
Time of Disposition: 11:00
Presentation/result/management discussed w/ accepting MD/DO: Hospitalist
Discharge Problem:
Acute non-ST elevation myocardial infarction (NSTEMI), CKD (chronic kidney disease)
Prescriptions:
No Action
pantoprazole 40 MG tablet,delayed release (DR/EC)
40 mg PO DAILY
cyanocobalamin (vitamin B-12) 1,000 mcg Tablet
1,000 mcg PO DAILY
finasteride 5 mg Tablet
5 mg PO DAILY
omega 8-[id number]-sjl-fish oil [Fish Oil] 1,200 (144-216) mg Capsule
1 cap PO BID
pravastatin 40 mg Tablet
40 mg PO DAILY
gabapentin 100 mg Capsule
100 mg PO DAILY
cholecalciferol (vitamin D3) [Vitamin D3] 25 mcg (1,000 unit) Tablet
25 mcg PO DAILY
sevelamer carbonate 800 mg tablet
800 mg PO AC
metoprolol succinate 50 mg Tablet Extended Release 24 Hr
50 mg PO DAILY 30 Days Qty: 30 0RF
Rx Instructions:
take with 100mg for total of 150mg
metoprolol succinate 100 mg Tablet Extended Release 24 Hr
100 mg PO DAILY
Rx Instructions:
take with 50mg for total of 150mg
terazosin 1 mg Capsule
1 mg PO HS
amlodipine 5 mg Tablet
5 mg PO BID
furosemide 80 mg Tablet
80 mg PO SUTUTHSA
losartan 100 mg Tablet
100 mg PO DAILY
Referrals:
UNKNOWN,NO INTERVIEW [Family Provider] -
Interventions
Interventions:
*Risk Screen - Suicide Last Done: 06/18/24 09:50
*General Assessment Last Done: 06/18/24 09:50
*Neglect/Abuse Screening Last Done: 06/18/24 09:50
*ED COVID-19 Vaccine History Last Done: 06/18/24 09:50
KB-Jedk[facility]-Ijocxbngym Assessment Last Done: 06/18/24 09:50
Discharge Date and Time
Print Language: RUSSIAN
[2024-06-18 10:09] LABS: Glucose - Point of Care 163 mg/dl (70-99)
[2024-06-18 10:19] LABS: % Basophils 0.6 % (0-2); % Eosinophils 3.1 % (0-6); % Immature Granulocytes 0.4 % (0-0.5); % Monocytes 9.6 % (1.7-9.3); % Neutrophils 74.3 % (42.2-75.2); Absolute Eosinophils 0.2 10^3/uL (0-0.7); Absolute Lymphocytes 0.6 10^3/uL (1.2-3.4); Absolute Monocytes 0.5 10^3/uL (0.1-0.6); Absolute Neutrophils 3.6 10^3/uL (1.4-6.5); Hematocrit 30.6 % (39.0-52.0); Hemoglobin 10.3 g/dL (13.0-18.0); Mean Corp Hgb Conc. 33.7 g/dL (33.0-37.0); Mean Corpuscular Hgb 30.4 pg (27.0-31.0); Mean Corpuscular Volume 90.3 fL (80.0-94.0); Mean Platelet Volume 10.8 fL (7.4-10.4); Nucleated Red Blood Cells % 0 % (-); Platelet Count 153 10^3/uL (130-400); Red Blood Cell Count 3.39 10^6/uL (4.70-6.10); Red Cell Dist. Width 14.6 % (11.5-14.5); White Blood Cell Count 4.9 10^3/uL (4.8-10.8)
[2024-06-18 10:39] LABS: ALT (SGPT) 14 U/L (0-50); AST (SGOT) 28 U/L (17-59); Albumin 3.4 g/dl (3.5-5.0); Alkaline Phosphatase 77 U/L (38-126); Blood Urea Nitrogen 48 mg/dl (9-20); Calcium 8.6 mg/dl (8.4-10.2); Carbon Dioxide 30 mmol/L (22-30); Chloride 98 mmol/L (98-107); Estimated Creatinine Clearance 9 ml/min; Glucose 164 mg/dl (70-99); Magnesium 1.9 mg/dl (1.6-2.3); Potassium 3.6 mmol/L (3.5-5.1); Sodium 139 mmol/L (135-145); Total Bilirubin 0.8 mg/dl (0.2-1.3); Total Protein 6.8 g/dl (6.3-8.2); eGFR 9.57
[2024-06-18 10:49] LABS: COVID-19 Antigen Negative (Negative)
[2024-06-18 10:58] LABS: Lactic Acid 1.5 mmol/L (0.7-2.0)
[2024-06-18] MEDS: ASPIRIN 325 MG PO (11:25)
[2024-06-18] MEDS: HEPARIN 4000 UNITS IV (11:44)
[2024-06-18] MEDS: HEPARIN 25000 UNITS/250 ML IV (11:45)
--- NOTE | 2024-06-18 12:25 | CON.CAR ---
Addendum entered and electronically signed by Domingo Valdez MD 06/18/24 14:13:
I saw and examined the patient.
Dr. Box's note was reviewed and I agree with the note.
Comment:
88-year-old man with ESRD on HD, diabetes, hyperlipidemia who presents from dialysis after an episode of profuse sweating, nausea and vomiting. He missed dialysis on Monday due to 's illness and when he got dialysis today he developed
sweating, nausea, and vomiting. He denies chest pain, shortness of breath, or palpitations at that time. He has never had this happen before. It resolved in the ambulance on the way to the ER. EMS reported he was also bradycardic and required 1
dose of atropine. Prior to today he had been in his usual state of health. At the time of my exam he reports he is back to baseline. Physical exam reveals RRR, no murmurs, no lower extremity edema, bilateral crackles at the lung bases. Labs are
notable for initial troponin 0.330. ECG shows normal sinus rhythm, LVH with repolarization abnormalities, and mild [address] depressions in the lateral leads with T wave flattening in the inferior leads. Differential for his elevated troponin
includes NSTEMI versus nonischemic myocardial injury in the setting of ESRD. We will trend his troponins to peak with ECGs. In the meantime, we will medically manage for possible NSTEMI with IV heparin. He has already received aspirin 325 mg. He
will continue on his pravastatin for now. Add on lipids and A1c to admission labs. We will get an echocardiogram to look for any changes in EF or new regional wall motion abnormalities. Depending on his troponin trend, echocardiogram, and
symptoms we will decide about further management.
Original Note:
Consultation
Consultation Request
Date/Time Consultation Requested: 06/18/2024/10:59am
Date/Time Consultation Performed: 06/18/2024/11:00am
Requesting Provider: Barak Hines PA-C
Performing Provider: Dr. Domingo Valdez
Reason for Consultation: Elevated troponin, abnormal EKG
Medical History
-
Chief Complaint: Malaise, nausea/vomiting
History of Present Illness:
88-year-old male with history of ESRD on HD TuThSa, hypertension, hyperlipidemia, diabetes mellitus, secondary hyperparathyroidism, neuropathy, BPH, GERD, who was brought to [facility] from dialysis center after he started to feel unwell during dialysis
session. He reported nausea/vomiting, diaphoresis, and generally feeling unwell. He did not feel any pain at the time. He missed dialysis on Monday because he had to take care of his who recently returned from rehab. He has missed dialysis
in the past before without suffering similar illness. He states that his BP device at home would occasionally report irregular heartbeats without further information, and this happened when he took his BP this morning. He has never had chest pain or
palpitations, has no known cardiac history, denies history of stroke/PAD/CAD, does not see a bleaching machine operator, and has had no specific cardiac testing to his knowledge. Not on PDE inhibitor.
He currently denies chest pain/pressure, palpitations, nausea/vomiting.
Past Medical History
Past Medical History: GERD, HTN, Hypercholesterolemia, Renal Failure (on HD TuThSa) and Other (Diabetes mellitus, neuropathy, secondary hyperparathyroidism)
Past Surgical History: Orthopedic (Bilateral total knee replacement)
Social History
Personal:
Family History
Family History: Reviewed & Not Pertinent
Allergies / Home Medications
Allergy/AdvReac Type Severity Reaction Status Date / Time
No Known Allergies Allergy Verified 03/05/24 12:24
�Medication �Instructions �Recorded �Confirmed �Type
pantoprazole 40 mg tablet,delayed 40 mg PO DAILY Gastrointestinal 02/08/12 06/18/24 History
release issue
cyanocobalamin (vitamin B-12) 1,000 mcg PO DAILY Supplement 05/04/22 06/18/24 History
1,000 mcg tablet
finasteride 5 mg tablet 5 mg PO DAILY Urinary issue 05/04/22 06/18/24 History
gabapentin 100 mg capsule 100 mg PO DAILY Pain 05/04/22 06/18/24 History
omega 9-iqh-hrp-fish oil 1,200 mg 1 cap PO BID High cholesterol 05/04/22 06/18/24 History
(144 mg-216 mg) capsule (Fish Oil)
pravastatin 40 mg tablet 40 mg PO DAILY High cholesterol 05/04/22 06/18/24 History
cholecalciferol (vitamin D3) 25 25 mcg PO DAILY Supplement 07/29/22 06/18/24 History
mcg (1,000 unit) tablet (Vitamin
D3)
sevelamer carbonate 800 mg tablet 800 mg PO AC Kidney Disease 01/03/23 06/18/24 History
metoprolol succinate 50 mg 50 mg PO DAILY 30 days #30 tabs 01/07/23 06/18/24 Rx
tablet,extended release 24 hr
amlodipine 5 mg tablet 5 mg PO BID 03/04/24 06/18/24 History
furosemide 80 mg tablet 80 mg PO SUTUTHSA 03/04/24 06/18/24 History
losartan 100 mg tablet 100 mg PO DAILY 03/04/24 06/18/24 History
metoprolol succinate 100 mg 100 mg PO DAILY 03/04/24 06/18/24 History
tablet,extended release 24 hr
terazosin 1 mg capsule 1 mg PO HS 03/04/24 06/18/24 History
Review of Systems
-
History Source: Patient
Constitutional: Fever and Fatigue
Respiratory: Other (no dyspnea)
Cardiac: Other (No chest pain, no palpitations, no lightheadedness)
Abdomen/GI: Other (No abdominal pain, no nausea/vomiting)
Physical Exam
Vital Signs
Pulse Resp BP Pulse Ox
56 12 130/60 98
06/18/24 11:30 06/18/24 11:30 06/18/24 11:00 06/18/24 11:30
Lab Results
06/18/24 10:05
06/18/24 10:05
Troponin I 0.330 ng/ml H* 06/18/24 10:05
Physical Exam
General: Well Developed, Well Nourished, No Apparent Distress, Comfortable and Other (Appears tired)
HEENT: Normocephalic, Anicteric and Moist Mucous Membranes
Respiratory: Clear and Non Labored Respirations; Negative Wheezes, Crackles or Rhonchi
Cardiac: S1/S2 and Regular Rhythm; Negative Murmur, Rub, Peripheral Edema, Calf Tenderness, Daniel's Sign or JVD
GI: Soft, Non Tender, Non Distended and Normal Bowel Sounds
Musculoskeletal: No Clubbing, No Cyanosis and No Edema
Skin: Warm and Dry
Neuro: Awake and Alert
Psych: Calm
Impression / Plan
-
88-year-old male with history of ESRD on HD TuThSa, hypertension, hyperlipidemia, diabetes mellitus, secondary hyperparathyroidism, neuropathy, BPH, GERD, who presents with malaise/nausea/vomiting, elevated troponin with abnormal EKG. Trop 0.330
Elevated troponin:
T-wave inversion in lateral leads
- Atypical symptoms
- Remains hemodynamically stable. In sinus rhythm. No ongoing chest pain
- Was given Asp 325mg, Start heparin drip. will treat as NSTEMI at this time and monitor.
- Serial EKGs, trend trops
- Get echo
- Continue metoprolol and statin
Hypertension:
- Continue metoprolol succinate home dosing, amlodipine
ESRD:
- On HD TuThSa
- Does not appear currently fluid overloaded
Pulmonary artery hypertension:
Noted on prior Echo
Data
EKG 06/18/2024: Normal sinus rhythm, left ventricular hypertrophy with liberalization abnormality, prolonged QT, nonspecific T wave abnormality.
Echo 01/04/23:
1. Left ventricle: Normal size and function. The estimated ejection fraction
is 55-60%. Stage II diastolic dysfunction.
2. Right ventricle: Normal
3. Atria: Mild biatrial dilation
4. Mitral valve: Mild to moderate mitral regurgitation
5. Aortic valve: No aortic stenosis or aortic insufficiency
6. Tricuspid valve: Moderate tricuspid regurgitation with estimated pulmonary
artery systolic pressures of 62 mmHg consistent with severe pulmonary
hypertension
--- NOTE | 2024-06-18 14:56 | HPS.HSE ---
Family Physician
-
Family Physician: NO INTERVIEW UNKNOWN
Chief Complaint
-
Diaphoresis, nausea, vomiting
History of Present Illness
88-year-old male with past medical history of ESRD on HD, diabetes, hyperlipidemia, hypertension secondary hyperparathyroidism, BPH, GERD now presents from dialysis center after feeling unwell with reports of nausea/vomiting and diaphoresis during
HD. Patient did miss dialysis on Monday, due to taking care of his who returned from rehab. Denies chest pain, palpitations, shortness of breath. Patient symptoms resolved en route to hospital. Did require 1 dose atropine for bradycardia.
Pulse 53, respiratory rate low teens, blood pressure 141/56, 97% on room air. Patient appears to be in no acute distress although has mild bilateral crackles at the bases. No lower extremity edema. ECG shows normal sinus rhythm, LVH with
repolarization abnormalities, and mild [address] depressions in the lateral leads with T wave flattening in the inferior leads. Initial troponin 0.33, creatinine elevated at 5.4. Cardiology consulted. Started on heparin drip, given aspirin.
Medical History
Past Medical History
Past Medical History: Reports Other
Additional Past Medical History:
Frequency of micturition
Neuromuscular dysfunction of bladder, unspecified
Chronic kidney disease (CKD) stage G5/A1, glomerular filtration rate (GFR) less than or equal to 15 mL/min
Breath shortness
Nocturia
Diabetes
Accelerated hypertension
Benign enlargement of prostate
btkr
knee surgery 2017
LUE AVF creation ([facility])
pneumonia 05/2022
heart rate problem 06/27/22
Past Surgical History: Reports Other
Additional Past Surgical History:
See above
Social History
Tobacco: Former Smoker
Alcohol: None
Personal:
Family History
Family History: Not pertinent
Allergies / Home Medications
Allergies reflects when Allergies were last updated in [facility].
Home Medications with original date entered in [facility]
Allergy/Medication List:
Allergies
Allergy/AdvReac Type Severity Reaction Status Date / Time
No Known Allergies Allergy Verified 03/05/24 12:24
Home Medications
pantoprazole 40 mg tablet,delayed release 40 mg PO DAILY Gastrointestinal issue 02/08/12
cyanocobalamin (vitamin B-12) 1,000 mcg tablet 1,000 mcg PO DAILY Supplement 05/04/22
finasteride 5 mg tablet 5 mg PO DAILY Urinary issue 05/04/22
gabapentin 100 mg capsule 100 mg PO DAILY Pain 05/04/22
omega 3-lsa-nvz-fish oil 1,200 mg (144 mg-216 mg) capsule (Fish Oil) 1 cap PO BID High cholesterol 05/04/22
pravastatin 40 mg tablet 40 mg PO DAILY High cholesterol 05/04/22
cholecalciferol (vitamin D3) 25 mcg (1,000 unit) tablet (Vitamin D3) 25 mcg PO DAILY Supplement 07/29/22
sevelamer carbonate 800 mg tablet 800 mg PO AC Kidney Disease 01/03/23
metoprolol succinate 50 mg tablet,extended release 24 hr 50 mg PO DAILY 30 days #30 tabs 01/07/23
amlodipine 5 mg tablet 5 mg PO BID 03/04/24
furosemide 80 mg tablet 80 mg PO SUTUTHSA 03/04/24
losartan 100 mg tablet 100 mg PO DAILY 03/04/24
metoprolol succinate 100 mg tablet,extended release 24 hr 100 mg PO DAILY 03/04/24
terazosin 1 mg capsule 1 mg PO HS 03/04/24
Review of Systems
-
History Source: Patient
A 12 point ROS was completed and negative except as noted: Yes
Physical Exam
Vital Signs
Vital Signs
Pulse Resp BP Pulse Ox
53 9 141/56 97
06/18/24 14:45 06/18/24 14:45 06/18/24 14:00 06/18/24 14:45
Physical Exam
General: Well Developed and Well Nourished
HEENT: NormoCephalic
Respiratory: Crackles (bases bilaterally)
Cardiac: S1/S2 and Bradycardia
GI: Non Tender
Musculoskeletal: No Clubbing
Skin: Warm and Dry
Neuro: Awake, Alert, Oriented and AO x 3
Hematologic/Lymphatic: No Lymphadenopathy
Laboratory Results
-
06/18/24 10:05
06/18/24 10:05
Laboratory Results
APTT 29.0 Sec (23.4-35.0) 06/18/24 11:22
Lactic Acid Cancelled 06/18/24 14:00
Total Bilirubin 0.8 mg/dl (0.2-1.3) 06/18/24 10:05
AST 28 U/L (17-59) 06/18/24 10:05
ALT 14 U/L (0-50) 06/18/24 10:05
Alkaline Phosphatase 77 U/L (38-126) 06/18/24 10:05
Troponin I 0.330 ng/ml H* 06/18/24 10:05
Data Reviewed
-
Lab Data: Labs Reviewed by me
Impression/Plan
-
IMPRESSION:
88-year-old male with past medical history of ESRD on HD, diabetes, hyperlipidemia, hypertension secondary hyperparathyroidism, BPH, GERD now presents from dialysis center after feeling unwell with reports of nausea/vomiting and diaphoresis during
HD. Troponin noted to be elevated.
PLAN:
# Elevated troponin
� Most likely nonischemic microinjury in setting of ESRD versus NSTEMI
-ECG shows normal sinus rhythm, LVH with repolarization abnormalities, and mild [address] depressions in the lateral leads with T wave flattening in the inferior leads.
� Trend troponins
� Heparin drip for now
� Aspirin 325 mg given, continue aspirin 81 mg
� Continue statin
� Follow-up echo
� Follow-up A1c, lipid panel
� Continue beta-martín for now, monitor blood pressure
� Cardiology consulted
#Nausea/vomiting/diaphoresis
� Possibly vagal reaction versus cardiac issue
� Trend troponins
� See plan as above
� Continue to monitor on telemetry
� Symptomatic control if continues
�Follow-up chest x-ray and abdominal imaging
# ESRD on HD
� Consulted nephro for dialysis needed
#Essential hypertension
� Continue metoprolol
Hold amlodipine, losartan, diuretics for now
#Hyperlipidemia
#BPH
� Continue home regimen
#DVT prophylaxis
� Heparin drip
#Full code
[2024-06-18 15:37] LABS: HDL Cholesterol 33 mg/dl; LDL Cholesterol, Calculated 50 mg/dl; Total Cholesterol 99 mg/dl (50-199); Triglyceride 84 mg/dl (10-149); Very Low Density Lipoprotein 16 mg/dl (0-30)
[2024-06-18 17:04] LABS: Urine Albumin 3+ (Neg - Trace); Urine Bilirubin Negative (Negative); Urine Character Clear (Clear); Urine Color Yellow; Urine Glucose 2+ (Negative); Urine Ketone Negative (Negative); Urine Leukocyte Negative (Negative); Urine Nitrite Negative (Negative); Urine Occult Blood 2+ (Negative); Urine Specific Gravity 1.015 (<1.030); Urine Urobilinogen Negative (Neg - 1+)
[2024-06-18 17:20] LABS: Urine Bacteria Few (Negative); Urine White Cell 0-2 /HPF (0-5)
[2024-06-18 18:43] LABS: APTT 179.8 Sec (23.4-35.0)
[2024-06-18 18:53] LABS: Troponin I 0.323 ng/ml
--- NOTE | 2024-06-18 20:02 | W.CON.NEPH ---
Consultation
-
Date/Time Consultation Requested: 06/18/2024 3 PM
Date/Time Consultation Performed: 06/18/2024 4 PM
Requesting Provider: Dr. Whitten
Performing Provider: Dr. Lowe
Reason for Consultation: ESRD
Medical History
-
Chief Complaint: Mental status change, fever
History of Present Illness:
This is an 88-year-old gentleman who has end-stage renal disease on hemodialysis at [facility] Saturdays. He has been only going for 2 and half hours each treatment because he is concerned that his is home alone with
dementia. His son tries to tell him that he needs to complete his full treatment each time but he still leaves early. He did not go to dialysis on Monday because he was taking care of his . He did go today but about 1 hour into treatment he
apparently became confused hemodynamically unstable. There is report that he may have been nauseous and vomited. He was taken off dialysis and sent to emergency room. Here he is cognizant and awake. He does not recall the events at dialysis
clearly. Evaluation in the emergency room disclosed laterally depression on the EKG with elevated troponin 0.33. Heparin drip was started.
Past Medical History
ESRD, hypertension, diabetes mellitus type 2, left upper extremity AV fistula, secondary hyperparathyroidism, hyperlipidemia, neuropathy, BPH
Social History
Tobacco: Former Smoker
Alcohol: None
Family History
Family History: Not Pertinent
Allergies / Home Medications
Allergy/AdvReac Type Severity Reaction Status Date / Time
No Known Allergies Allergy Verified 03/05/24 12:24
�Medication �Instructions �Recorded �Confirmed �Type
pantoprazole 40 mg tablet,delayed 40 mg PO DAILY Gastrointestinal 02/08/12 06/18/24 History
release issue
cyanocobalamin (vitamin B-12) 1,000 mcg PO DAILY Supplement 05/04/22 06/18/24 History
1,000 mcg tablet
finasteride 5 mg tablet 5 mg PO DAILY Urinary issue 05/04/22 06/18/24 History
gabapentin 100 mg capsule 100 mg PO DAILY Pain 05/04/22 06/18/24 History
omega 5-ksv-qut-fish oil 1,200 mg 1 cap PO BID High cholesterol 05/04/22 06/18/24 History
(144 mg-216 mg) capsule (Fish Oil)
pravastatin 40 mg tablet 40 mg PO DAILY High cholesterol 05/04/22 06/18/24 History
cholecalciferol (vitamin D3) 25 25 mcg PO DAILY Supplement 07/29/22 06/18/24 History
mcg (1,000 unit) tablet (Vitamin
D3)
sevelamer carbonate 800 mg tablet 800 mg PO AC Kidney Disease 01/03/23 06/18/24 History
metoprolol succinate 50 mg 50 mg PO DAILY 30 days #30 tabs 01/07/23 06/18/24 Rx
tablet,extended release 24 hr
amlodipine 5 mg tablet 5 mg PO BID 03/04/24 06/18/24 History
furosemide 80 mg tablet 80 mg PO SUTUTHSA 03/04/24 06/18/24 History
losartan 100 mg tablet 100 mg PO DAILY 03/04/24 06/18/24 History
metoprolol succinate 100 mg 100 mg PO DAILY 03/04/24 06/18/24 History
tablet,extended release 24 hr
terazosin 1 mg capsule 1 mg PO HS 03/04/24 06/18/24 History
Review of Systems
-
No chest pain or shortness of breath
No issues with oral intake
All other systems: Negative unless noted
Physical Exam
Vital Signs
Vital Signs
Temp Pulse Resp BP Pulse Ox
97.6 F 48 11 146/63 97
06/18/24 17:08 06/18/24 17:45 06/18/24 17:45 06/18/24 17:08 06/18/24 17:45
Lab Results
WBC 4.9 10^3/uL (4.8-10.8) 06/18/24 10:05
RBC 3.39 10^6/uL (4.70-6.10) L 06/18/24 10:05
Hgb 10.3 g/dL (13.0-18.0) L 06/18/24 10:05
Hct 30.6 % (39.0-52.0) L 06/18/24 10:05
Plt Count 153 10^3/uL (130-400) 06/18/24 10:05
Sodium 139 mmol/L (135-145) 06/18/24 10:05
Potassium 3.6 mmol/L (3.5-5.1) 06/18/24 10:05
Chloride 98 mmol/L (98-107) 06/18/24 10:05
Carbon Dioxide 30 mmol/L (22-30) 06/18/24 10:05
BUN 48 mg/dl (9-20) H 06/18/24 10:05
Creatinine 5.4 mg/dL (0.7-1.3) H* 06/18/24 10:05
eGFR 9.57 06/18/24 10:05
Glucose 164 mg/dl (70-99) H 06/18/24 10:05
Calcium 8.6 mg/dl (8.4-10.2) 06/18/24 10:05
Albumin 3.4 g/dl (3.5-5.0) L 06/18/24 10:05
Laboratory Tests
04/08/24 06/18/24
06:13 10:05
Potassium 4.8
Troponin I 0.330 H*
Physical Exam
Patient is awake alert oriented and in no distress. Mood and affect were pleasant, insight and judgment were good. Pupils are equal round and reactive to light, extraocular movements are intact, sclera were anicteric. Hearing was normal, ears and
nose are intact. Oropharynx was clear. Neck was supple with trachea midline and no thyromegaly. Heart was regular rate and rhythm without rubs. Lower extremities without edema. Lungs were clear to auscultation bilaterally and with normal
excursion. Abdomen was soft, nontender, with normal active bowel sounds, and no hepatosplenomegaly. Skin was without rash and with normal turgor. Left upper extremity AV fistula with good thrill and bruit
Data Reviewed
-
Radiology: Image Personally Visualized and interpreted (Chest x-ray 06/18/2024 by my reading low lung volumes, cardiomegaly lower lobe atelectasis)
Medical Tests (Nuc Med, Echo etc): Image Personally Visualized and interpreted (EKG 06/18/2024 tolerating sinus bradycardia septal Q) and Report Reviewed by me (Echocardiogram 06/18/2024 EF 50% global hypokinesis moderate MR TR MN)
Labs: Labs Reviewed by me
Old Records: Reviewed
Assessment/Plan
-
Assessment
ESRD
Confusion at dialysis
BPH
Hypertension
Hyperlipidemia
Noncompliance with dialysis treatments
Elevated troponin
Plan
Labs currently stable
Cardiology evaluation progress for elevated troponin and initial abnormal EKG
No urgent dialysis required at this time
Will determine timing of next treatment based on cardiology evaluation
Discussed with patient and son
[2024-06-18] MEDS: PRAVACHOL 40 MG PO (20:21)
[2024-06-18] MEDS: RENVELA 800 MG PO (20:21)
--- NOTE | 2024-06-18 21:53 | PTCARENOTE ---
Rec'd pt as admission at change of shift from ED. Pt AAO*3, VSS, and sinus ruiz on TELE monitor. Admission complete. Pt denies any pain or discomfort. Pt updated on plan of care. Pt resting with call barry in reach and plan of care ongoing.
[2024-06-18] MEDS: HYTRIN 1 MG PO (23:06)
[2024-06-18 23:46] LABS: Troponin I 0.306 ng/ml
[2024-06-19] VITALS (8 sets, daily range): BP systolic 152–173; BP diastolic 65–91; BMI 21.4
[2024-06-19 00:37] LABS: Glucose - Point of Care 153 mg/dl (70-99)
[2024-06-19 02:35] LABS: Hematocrit 31.6 % (39.0-52.0); Hemoglobin 10.4 g/dL (13.0-18.0); Mean Corp Hgb Conc. 32.9 g/dL (33.0-37.0); Mean Corpuscular Hgb 29.8 pg (27.0-31.0); Mean Corpuscular Volume 90.5 fL (80.0-94.0); Mean Platelet Volume 10.5 fL (7.4-10.4); Platelet Count 154 10^3/uL (130-400); Red Blood Cell Count 3.49 10^6/uL (4.70-6.10); Red Cell Dist. Width 14.6 % (11.5-14.5); White Blood Cell Count 5.7 10^3/uL (4.8-10.8)
[2024-06-19 02:45] LABS: APTT 65.6 Sec (23.4-35.0)
[2024-06-19 03:13] LABS: ALT (SGPT) 14 U/L (0-50); AST (SGOT) 28 U/L (17-59); Albumin 3.8 g/dl (3.5-5.0); Alkaline Phosphatase 80 U/L (38-126); Blood Urea Nitrogen 56 mg/dl (9-20); Calcium 9.2 mg/dl (8.4-10.2); Carbon Dioxide 28 mmol/L (22-30); Chloride 101 mmol/L (98-107); Estimated Creatinine Clearance 6 ml/min; Glucose 133 mg/dl (70-99); Potassium 4.3 mmol/L (3.5-5.1); Sodium 140 mmol/L (135-145); Total Bilirubin 0.6 mg/dl (0.2-1.3); eGFR 6.66
[2024-06-19 06:56] LABS: Glucose - Point of Care 108 mg/dl (70-99)
--- NOTE | 2024-06-19 09:16 | W.PN.CD ---
Addendum entered and electronically signed by Jose Allen MD 06/19/24 10:43:
I interviewed and examined the patient with resident MD Dr Box present. I agree with the assessment/plan, with any changes/additions noted.
88 yo male with PMH of ESRD on HD, HTN, DM, is admitted following malaise/n/v during HD. We are consulted for abnormal troponin. There is no chest pain. Exam with RRR, II/ systolic murmur at apex, no edema. TnI peak was 0.33. EKG: shows sinus
and nonspecific ST abnormality. Echo shows normal LVEF, normal wall motion, moderate valve disease.
Elevated troponin. Acute nonischemic myocardial injury. Likely in setting of missed HD and hemodynamic shifts at following session. Stop heparin drip.
HTN. Chronic. Continue metoprolol.
Original Note:
Today's Communication / Plan
-
Stop heparin drip.
LDL at goal with pravastatin 40mg daily. Continue
Continue Metoprolol at current dose
Add Asp 81mg
Okay to discharge from cardiology perspective.
Impression / Plan
-
88-year-old male with history of ESRD on HD [facility], hypertension, hyperlipidemia, diabetes mellitus, secondary hyperparathyroidism, neuropathy, BPH, GERD, who presents with malaise/nausea/vomiting, elevated troponin with abnormal EKG. Trop 0.330
Nonischemic myocardial injury:
Likely from dialysis after missing prior scheduled HD
Trop peak 0.330, no EKG evidence of ischemia. No recurrent symptoms
- Remains hemodynamically stable. no chest pain. Echo with no new wall motion abnormality
- Okay to stop heparin drip
- Continue metoprolol and statin
- DC with Asp 81mg daily
Hypertension:
- Continue metoprolol succinate home dosing, amlodipine
ESRD:
- On HD Tu[facility]
- Does not appear currently fluid overloaded. HD need per nephro
Pulmonary artery hypertension
Data
EKG 06/18/2024: Normal sinus rhythm, left ventricular hypertrophy with liberalization abnormality, prolonged QT, nonspecific T wave abnormality.
Echo 06/18/2022:
Normal left ventricular chamber size.
Mild concentric left ventricular hypertrophy.
Low normal left ventricular systolic function.
Left ventricular ejection fraction is 50-55% by Lawrence's method of discs.
Mild global hypokinesis.
Normal right ventricular size and function.
Severely dilated left atrium.
Indexed LA volume is severely abnormal (> 48 mL/m2).
Mildly dilated right atrium.
Moderate mitral regurgitation.
Moderate tricuspid regurgitation.
Estimated pulmonary artery pressure of 64 mmHg assuming a right atrial pressure
of 8 mmHg.
Moderate pulmonic regurgitation.
Normal pericardium without effusion.
Mildly dilated aortic root.
Sinus of Valsalva measures 3.9 cm.
The IVC is of normal size but does not collapse.
Since 2022 echocardiogram valvular regurgitationis now moderate in the mitral
valve and the atrial dilation is now severe in the left atrium.
Physical Exam
Vital Signs/Labs
Vital Signs
Temp Pulse Resp BP Pulse Ox
97.5 F 58 18 152/82 98
06/19/24 08:03 06/19/24 08:04 06/19/24 08:03 06/19/24 08:04 06/19/24 08:03
06/18/24 06/19/24 06/20/24
06:59 06:59 06:59
Actual Weight 65.6 kg
06/19/24 02:24
06/19/24 02:24
APTT 65.6 Sec (23.4-35.0) H 06/19/24 02:24
Magnesium 1.9 mg/dl (1.6-2.3) 06/18/24 10:05
Triglycerides 84 mg/dl (10-149) 06/18/24 10:05
LDL Cholesterol, Calc 50 mg/dl 06/18/24 10:05
VLDL Cholesterol, Calc 16 mg/dl (0-30) 06/18/24 10:05
HDL Cholesterol 33 mg/dl 06/18/24 10:05
LAB Results
06/18/24 06/18/24 06/18/24
10:05 18:18 23:08
Troponin I 0.330 H* 0.323 H* 0.306 H*
Physical Exam
Constitutional: No acute distress and Comfortable
EENT: Anicteric and Moist mucous membranes
Cardiovascular: S1S2 is normal, Murmur/rub/gallop absent and Other (HR mildly ruiz, normal rhythm)
Respiratory: Respiratory effort normal, Lungs clear to auscul., Wheeze Absent, Crackles Absent and Rhonchi Absent
GI: Soft, Distention absent, Flat, Non tender and Normal bowel sounds
Neuro/Psych: Alert and Oriented
Data Reviewed
-
Date of Service: June 19, 2024
[2024-06-19 09:44] LABS: APTT 66.9 Sec (23.4-35.0)
[2024-06-19] MEDS: RENVELA 800 MG PO ×2 (09:58→14:10)
[2024-06-19] MEDS: PROTONIX 40 MG PO (09:58)
[2024-06-19] MEDS: NEURONTIN 100 MG PO (09:58)
[2024-06-19] MEDS: VITAMIN D3 (cholecalciferol) 25 MCG PO (09:58)
[2024-06-19] MEDS: PRAVACHOL 40 MG PO (09:58)
[2024-06-19] MEDS: TOPROL XL 100 MG PO (09:59)
[2024-06-19] MEDS: VITAMIN B-12 1000 MCG PO (09:59)
[2024-06-19] MEDS: ASPIR LOW (ENTERIC COATED) 81 MG PO (09:59)
[2024-06-19] MEDS: PROSCAR 5 MG PO (09:59)
--- NOTE | 2024-06-19 10:14 | W.PN.NEPH.PH ---
Today's Communication / Plan
-
Dialysis tomorrow
Assessment/Plan
-
Assessment
ESRD
Confusion at dialysis
BPH
Hypertension
Hyperlipidemia
Noncompliance with dialysis treatments
Elevated troponin
Plan
Labs currently stable
Off heparin drip
Dialysis tomorrow
No acute need for dialysis today
-
-
Date of Service: June 19, 2024
CC / HPI / ROS
-
Chief Complaint:
Altered mental status
History of Present Illness:
ESRD elevated troponins
Review of Systems:
No chest pain or shortness of breath
Labs
-
Labs:
WBC 5.7 10^3/uL (4.8-10.8) 06/19/24 02:24
RBC 3.49 10^6/uL (4.70-6.10) L 06/19/24 02:24
Hgb 10.4 g/dL (13.0-18.0) L 06/19/24 02:24
Hct 31.6 % (39.0-52.0) L 06/19/24 02:24
Plt Count 154 10^3/uL (130-400) 06/19/24 02:24
Sodium 140 mmol/L (135-145) 06/19/24 02:24
Potassium 4.3 mmol/L (3.5-5.1) 06/19/24 02:24
Chloride 101 mmol/L (98-107) 06/19/24 02:24
Carbon Dioxide 28 mmol/L (22-30) 06/19/24 02:24
BUN 56 mg/dl (9-20) H 06/19/24 02:24
Creatinine 7.3 mg/dL (0.7-1.3) H* 06/19/24 02:24
eGFR 6.66 06/19/24 02:24
Glucose 133 mg/dl (70-99) H 06/19/24 02:24
Calcium 9.2 mg/dl (8.4-10.2) 06/19/24 02:24
Albumin 3.8 g/dl (3.5-5.0) 06/19/24 02:24
Physical Exam
-
Vital Signs:
Vital Signs
Temp Pulse Resp BP Pulse Ox
97.5 F 58 18 152/80 98
06/19/24 08:03 06/19/24 08:04 06/19/24 08:03 06/19/24 09:59 06/19/24 09:53
Cardiovascular:: Regular rate and rhythm
Respiratory:: Bilateral: CTA
Lung Excursion:: Normal
Abdomen:: Nontender and Soft
Extremity Edema:: None: Bilateral:
Carrillo Catheter: No
[2024-06-19 10:19] LABS: Glycohemoglobin (HgbA1c) 7.1 % (4.0-5.6)
--- NOTE | 2024-06-19 11:16 | CM ---
Chart reviewed. 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 Patient goes to [facility] , Mon. Plan is for the patient to return home. CM to follow
[2024-06-19] MEDS: TOPROL XL 50 MG PO (11:28)
[2024-06-19 12:07] LABS: Glucose - Point of Care 222 mg/dl (70-99)
--- NOTE | 2024-06-19 13:37 | W.PN.HOSP.TC ---
Addendum entered and electronically signed by Moo Whitten MD 06/19/24 16:07:
[id number]
Original Note:
Today's Communication/Plan
-
ASA 81
f/u CBC, CMP outpt
F/u nephro, HD, PCP, cards outpt
Assessment / Plan
Assessment / Plan
Physical Exam
Constitutional: No acute distress and Comfortable
EENT: Anicteric and Moist mucous membranes
Cardiovascular: S1S2 is normal, Murmur/rub/gallop absent and Other (HR mildly ruiz, normal rhythm)
Respiratory: Respiratory effort normal, Lungs clear to auscul., Wheeze Absent, Crackles Absent and Rhonchi Absent
GI: Soft, Distention absent, Flat, Non tender and Normal bowel sounds
Neuro/Psych: Alert and Oriented
# Elevated troponin
� Most likely nonischemic microinjury in setting of ESRD
-ECG shows normal sinus rhythm, LVH with repolarization abnormalities, and mild [address] depressions in the lateral leads with T wave flattening in the inferior leads.
� Trend troponins - flat
� Heparin drip can be dced
� Aspirin 325 mg given, continue aspirin 81 mg on DC
� Continue statin
� F/u Cards outpt
Echo shows normal LVEF, normal wall motion, moderate valve disease.
� Follow-up A1c 7.1, lipid panel - 50 LDL
� Continue beta-martín for now, monitor blood pressure
� Cardiology consulted - F/u Outpatient
#Nausea/vomiting/diaphoresis
� Possibly vagal reaction with missed HD and rapid fluid shifts v GI viral illness
-improved
-no issues on tele
� See plan as above
� Continue to monitor on telemetry
� Symptomatic control if continues
�Follow-up chest x-ray and abdominal imaging - grossly unremarkable; no clinical symptoms of pneumonia
# ESRD on HD
� Consulted nephro for dialysis needed
#Essential hypertension
� Continue metoprolol
- amlodipine, losartan, diuretics for now
#Hyperlipidemia
#BPH
� Continue home regimen
#DVT prophylaxis
#Full code
More than 30 minutes spent in discharge including
Final examination of the patient
Summarizing hospital stay
Instructions for continuing care to all relevant caregivers
Preparation of discharge records, prescriptions, and referral forms
Total time spent (in minutes): 36
Anticipated Discharge: Today
Subjective/Interval History
-
Date of Service: June 19, 2024
no acute events. feels well
Objective Data
-
Labs:
Laboratory Results
06/19/24 06/19/24
02:24 09:26
WBC 5.7
Hgb 10.4 L
Hct 31.6 L
Plt Count 154
APTT 65.6 H 66.9 H
Sodium 140
Potassium 4.3
Chloride 101
Carbon Dioxide 28
BUN 56 H
Creatinine 7.3 H*
Glucose 133 H
Calcium 9.2
Total Bilirubin 0.6
AST 28
ALT 14
Alkaline Phosphatase 80
Vital Signs:
Vital Signs
Temp Pulse Resp BP Pulse Ox
98.4 F 62 18 157/59 98
06/19/24 11:03 06/19/24 12:00 06/19/24 11:03 06/19/24 11:28 06/19/24 11:03
I&O
06/18/24 06/19/24 06/20/24
06:59 06:59 06:59
Intake Total 480 / 480
Output Total 300 / 300 700 / 700
Balance 180 / 180 -700 / -700
Review of Systems
-
History Source: Patient
All other systems: Not reviewed unless documented
Physical Exam
-
General: Well Developed, Well Nourished, No Apparent Distress and Comfortable
HEENT: Normocephalic
Respiratory: Clear to Auscultation
Cardiac: Regular Rhythm and S1/S2
GI: Soft, Nontender, Nondistended and Normal Bowel Sounds
Genito-urinary: No Costovertebral Tender
Musculoskeletal: No Clubbing, No Cyanosis and No Edema
Skin: Warm
Neuro: Awake, Alert and Oriented
Hematologic / Lymphatic: No Lymphadenopathy
Psych: Calm
--- NOTE | 2024-06-19 13:46 | W.DS.TRANS ---
DC Summary - Control Room Agent
-
Discharge Instructions:
Discharge Diagnosis/Procedures Nausea, Vomiting
nonischemic myocardial injury
Diet Low Cholesterol,Low Fat,Restrict fluids to 48 oz
Activity As tolerated
Blood Work cbc and CMP in 2-3 days with PCP
Instructions:
Stand-Alone Forms:
Changes to Home Medications: Yes
Discharge Medications:
DC Medications w/original date entered in [facility]
pantoprazole 40 mg tablet,delayed release 40 mg PO DAILY Gastrointestinal issue 02/08/12
cyanocobalamin (vitamin B-12) 1,000 mcg tablet 1,000 mcg PO DAILY Supplement 05/04/22
finasteride 5 mg tablet 5 mg PO DAILY Urinary issue 05/04/22
gabapentin 100 mg capsule 100 mg PO DAILY Pain 05/04/22
omega 6-olk-rms-fish oil 1,200 mg (144 mg-216 mg) capsule (Fish Oil) 1 cap PO BID High cholesterol 05/04/22
pravastatin 40 mg tablet 40 mg PO DAILY High cholesterol 05/04/22
cholecalciferol (vitamin D3) 25 mcg (1,000 unit) tablet (Vitamin D3) 25 mcg PO DAILY Supplement 07/29/22
sevelamer carbonate 800 mg tablet 800 mg PO AC Kidney Disease 01/03/23
metoprolol succinate 50 mg tablet,extended release 24 hr 50 mg PO DAILY 30 days #30 tabs 01/07/23
amlodipine 5 mg tablet 5 mg PO BID 03/04/24
furosemide 80 mg tablet 80 mg PO SUTUTHSA 03/04/24
losartan 100 mg tablet 100 mg PO DAILY 03/04/24
metoprolol succinate 100 mg tablet,extended release 24 hr 100 mg PO DAILY 03/04/24
terazosin 1 mg capsule 1 mg PO HS 03/04/24
aspirin 81 mg tablet,delayed release 81 mg PO DAILY 30 days #30 tabs 06/19/24
Home Medication Changes
aspirin 81 mg tablet,delayed release 81 mg PO DAILY 30 days #30 tabs 06/19/24
Pending Results: No
--- NOTE | 2024-06-19 17:10 | PTCARENOTE ---
Pt seen by Garfield Corcoran and Alejandro. Telemetry and IV devices removed.Pt assisted to take a shower. Discharge instructions reviewed with pt regarding medications and their doses and possible side effects, activity guidelines, reproting
cares and concerns and follow up appt's. Pt very hazy on prior doses of his meds, he was unable to name a single Dr. All this information separately reviewed with his daughter who stated excellent understanding and she stated she will oversee all
the instructions. Pt escorted out via wheelchair and discharged to home.
== END 2024-06-19 16:20 | disposition home or self-care (01) | DRG 280 ==
LOC: IVU 15:07
PROVIDERS: Physician Assistant Medical; Student in an Organized Health Care Education/Training Program; ADMITTING PHYSICIAN Internal Medicine; CONSULT PHYSICIAN Specialist; CONSULT PHYSICIAN Student in an Organized Health Care Education/Training Program; EMERGENCY PHYSICIAN Emergency Medicine
DX: I21.4 Non-ST elevation (NSTEMI) myocardial infarction (principal); N18.6 End stage renal disease; I12.0 Hypertensive chronic kidney disease with stage 5 chronic kidney disease or end stage renal disease; N25.81 Secondary hyperparathyroidism of renal origin; E11.22 Type 2 diabetes mellitus with diabetic chronic kidney disease; Z99.2 Dependence on renal dialysis; E78.00 Pure hypercholesterolemia, unspecified; K21.9 Gastro-esophageal reflux disease without esophagitis; N40.0 Benign prostatic hyperplasia without lower urinary tract symptoms; Z87.891 Personal history of nicotine dependence; Z79.82 Long term (current) use of aspirin; Z79.899 Other long term (current) drug therapy; Z91.158 Patient's noncompliance with renal dialysis for other reason; D63.1 Anemia in chronic kidney disease; E11.40 Type 2 diabetes mellitus with diabetic neuropathy, unspecified; Z96.653 Presence of artificial knee joint, bilateral; Z11.52 Encounter for screening for COVID-19
CPT/HCPCS: 71046; 74018; 80053; 80061; 81003; 81015; 82962; 83036; 83605; 83735; 84484; 85025; 85027; 85730; 87040; 87070; 87502; 87811; 93005; 93306; 96374; 96376; 99291; Q5106

== ENCOUNTER → 2024-09-04 10:04 | Outpatient (REF) | payer OTHER, SELFPAY ==
[2024-09-04 12:23] LABS: Urine Character Clear (Clear)
[2024-09-04 12:52] LABS: Urine Squamous Cell 0-2 /LPF (Few)
== END ==
LOC: HWLAB 10:04
DX: R30.0 Dysuria (principal)
CPT/HCPCS: 81003; 81015; 87086

== ENCOUNTER 2024-11-07 08:15 | Emergency (ER) | payer OTHER, SELFPAY ==
--- NOTE | 2024-11-07 08:25 | ED.GENMED ---
Addendum entered and electronically signed by Héctor Pickett, 11/07/24 12:42:
Patient seen evaluated by admitting team he feels well enough to go home. No signs of UTI patient has dialysis scheduled for tomorrow. Stable for discharge. Unclear elevation of troponin but doubt ACS or PE.
Original Note:
History of Present Illness
General
Chief Complaint: Fatigue
Source: patient and ambulance crew
Exam Limitations: none
Time Seen by Provider: 11/07/24 08:24
Nursing documentation reviewed up to this point in time: agreed with
History of Present Illness
History of Present Illness:
Note:
CHIEF COMPLAINT(S)
Shortness of breath and headache.
HISTORY OF PRESENT ILLNESS
The patient is an 88-year-old male who presented with complaints of shortness of breath and headache. He has been experiencing these symptoms prior to the visit and has not had any episodes of falls or head trauma. The patient has a history of
dialysis, performed thrice weekly on Monday, , and Monday. During the examination, the patient appeared oriented and capable of following commands, such as lifting arms, opening eyes, and showing teeth, which suggests an intact
neurological status. The patient mentioned his headache, but did not specify the exact location or characteristic. There was no indication of any recent medication intake for these symptoms.
CHRONIC MEDICAL CONDITIONS SIGNIFICANTLY AFFECTING CARE
End-stage renal disease on dialysis.
REVIEW OF SYSTEMS
- Respiratory: Shortness of breath.
- Neurological: Headache, patient oriented to person and place, some confusion about the year.
PHYSICAL EXAM
General: Alert, no acute distress.
Skin: Warm, dry.
Head: Normocephalic, atraumatic.
Neck: Supple, trachea midline.
Eye Ears, nose, mouth and throat: Oral mucosa moist.
Cardiovascular: Normal peripheral perfusion, no edema.
Respiratory: Respirations are non-labored.
Gastrointestinal: Abdomen nondistended.
Back: Normal range of motion, Normal alignment.
Musculoskeletal: Normal range of motion, normal strength. palpable thrill left arm, av fistula noted
Neurological: Alert and oriented to person and place, no focal neurological deficit observed, able to follow commands.
Psychiatric: Cooperative, appropriate mood and affect.
PLAN
1. Check the patients electrolytes to assess for any imbalances due to dialysis.
2. Perform a chest X-ray to evaluate respiratory status.
3. Conduct a CT scan of the head to investigate the cause of the headache.
4. Administer medication for headache relief.
DIFFERENTIAL DIAGNOSIS
The Differential Diagnosis includes, in no particular order and is not limited to:
1. Electrolyte imbalance
2. Dehydration
3. Hypertension
4. Anemia
5. Hypertensive encephalopathy
6. Intracranial lesion
7. Chronic kidney disease complications
8. Urinary tract infection
9. Congestive heart failure
10. Pulmonary embolism
CARE-UPDATE
11/07/24 - 10:15
The patients electrolytes are stable despite kidney failure. Troponin levels show a slight elevation, consistent with previous records from two years ago, suggesting possible cardiac stress. The head CT scan is unremarkable, and no clear explanation
for the patients weakness was identified; chronic conditions and kidney failure are considered contributing factors. The plan is to admit the patient overnight for observation and dialysis management. Despite initial concern about a urinary tract
infection, the urinalysis is negative, and there is confusion about current antibiotic use; it appears there is no need for antibiotics at this time. Confirm with the patients records to ensure accuracy regarding any prescribed medications.
EKG
My independent EKG interpretation is:
- Rhythm: Sinus rhythm with occasional premature ventricular contractions (PVCs)
- Heart Rate: 76 beats per minute
- [employer]: Left axis deviation
- Abnormalities: Left ventricular hypertrophy
- Note: Change from June 19, 2024 due to the presence of PVCs
Disposition:
SUMMARY OF ENCOUNTER
The patient, an 88-year-old male with a known history of end-stage renal disease on dialysis, presented to the emergency department with complaints of shortness of breath and headache. During the evaluation, no signs of acute distress or focal
neurological deficits were observed. Troponin levels were slightly elevated, suggestive of potential cardiac stress, but consistent with prior findings from two years ago. A CT scan of the head was unremarkable. Concerns of urinary tract infection
were dismissed following a negative urinalysis. After the initial assessment, the decision was made to admit the patient for observation and dialysis management.
DISPOSITION
Admit
ASSESSMENT
The patients condition suggests weakness and possible fluid overload secondary to chronic kidney disease and hypertension. Elevated troponin levels may indicate cardiac stress. Given his chronic conditions and the current presentation, admission for
further evaluation and management is warranted.
PLAN
The patient will be admitted for further evaluation and management, including dialysis and observation. Careful monitoring of his condition, withhold anticoagulation therapy such as heparin until further lab results are available.
INDEPENDENT REVIEW OF LABS AND INTERPRETATION OF TESTS
My independent review indicates stable electrolytes despite kidney failure. Slightly elevated troponin levels are consistent with previous records.
My independent CT scan of the head interpretation is unremarkable, with no indication of intracranial hemorrhage.
MEDICATION RECONCILIATION
Medications include withholding heparin pending repeat lab evaluations.
MEDICAL DECISION MAKING
-Complexity of Data Reviewed: Chronic conditions affecting care [end-stage renal disease on dialysis, hypertension]. Differential diagnosis includes: Electrolyte imbalance, dehydration, hypertension, anemia, hypertensive encephalopathy, intracranial
lesion, chronic kidney disease complications, urinary tract infection, congestive heart failure, pulmonary embolism.
-Data:
Category 1
My independent interpretation of labs shows a slight elevation in troponin levels, consistent with prior results from two years ago.
My independent review of CT scan of the head is unremarkable.
Category 3
Discussion of management with hospitalist for patient admission.
DIAGNOSIS
-Fluid overload (ICD-10: E87.70)
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
-Hypertension (ICD-10: I10)
-Elevated troponin (ICD-10: R74.8)
Past History
Past History
ED Past Medical History: HTN, Hypercholesterolemia, NIDDM, Renal failure and Other (Neuropathy, BPH, secondary hyperparathyroidism, anemia)
ED Past Surgical History: Orthopedic and Other (L arm fistula)
Social History
Tobacco: Former smoker
Alcohol: None
Drug: None
Personal:
Living: with family
Phy Exam
Physical Exam
Physical Exam:
.
Course
Orders/Labs/Results
Orders:
Orders
11/07/24 08:24
Electrocardiogram (*1) Urgent
Reason for Study: Fatigue / Weakness
11/07/24 08:25
EKG- Treatment ONCE
11/07/24 08:33
IV Insert/Care/Rem.- Treatment PRN
11/07/24 08:34
CT Head W/o Iv Contrast Urgent
Comment:
Reason For Exam: frontal headache
11/07/24 08:35
CR Chest - 2 Views Urgent
Comment:
Reason For Exam: lethargic
11/07/24 08:41
Complete Blood Count/With Diff Urgent
Comprehensive Metabolic Panel Urgent
NT-proBNP Urgent
Troponin I Urgent
11/07/24 09:16
Acetaminophen [Tylenol] 650 mg .ROUTE .STK-MED ONE
Acetaminophen [Tylenol] 650 mg PO NOW STA
11/07/24 09:19
Urinalysis Reflex To Culture Urgent
Date Specimen was Collected: 11/07/24
Time Specimen was Collected: 09:17
Urine Microscopic Reflex Cult Urgent
Abnormal Lab Results
11/07/24 11/07/24
08:41 09:19
RBC 4.08 L 10^6/uL
(4.70-6.10)
Hgb 12.5 L g/dL
(13.0-18.0)
Hct 37.1 L %
(39.0-52.0)
MPV 11.0 H fL
(7.4-10.4)
Absolute Lymphs (auto) 1.1 L 10^3/uL
(1.2-3.4)
Absolute Monos (auto) 0.9 H 10^3/uL
(0.1-0.6)
Lymphocytes % 17.2 L %
(20.5-51.1)
Monocytes % 14.6 H %
(1.7-9.3)
BUN 52 H mg/dl
(9-20)
Creatinine 6.3 H* mg/dL
(0.7-1.3)
Glucose 100 H mg/dl
(70-99)
Calcium 10.3 H mg/dl
(8.4-10.2)
Troponin I 0.257 H* ng/ml
Ur Occult Blood Reflex 2+ A
(Negative)
Urine RBC 7-10 A /HPF
(0-2)
Urine Bacteria (Reflex) Few A
(Negative)
Urine Glucose 2+ A
(Negative)
Urine Albumin (Reflex) 3+ A
(Neg - Trace)
11/07/24 08:41
11/07/24 08:41
Vital Signs
Initial and Last Documented VS:
Initial Vital Signs
Temp Pulse Resp BP Pulse Ox
97.6 F 75 17 164/85 98
11/07/24 08:28 11/07/24 08:28 11/07/24 08:28 11/07/24 08:28 11/07/24 08:28
Last Documented Vital Signs
Temp Pulse Resp BP Pulse Ox
97.6 F 75 17 164/85 98
11/07/24 08:28 11/07/24 08:28 11/07/24 08:28 11/07/24 08:28 11/07/24 08:28
*Pulse Oximetry
SaO2: 98
Patient hypoxic: no
*Critical Care Note
Total Time (30-74mins, 75-104mins- exclusive of procedures): Not Applicable
ED Attending Note
-
Portions of this chart may have been created with voice recognition software.� Occasional wrong word or��sound alike� substitutions may have occurred due to the inherent limitations of voice recognition software.
Discharge Plan
Departure
Patient Disposition: Admit
Date of Disposition: 11/07/24
Time of Disposition: 10:09
Admit to: Telemetry
Presentation/result/management discussed w/ accepting MD/DO: Hospitalist
Patient with high blood pressure during this ER visit?: Yes
Condition: Fair
Discharge Problem:
Weakness, Fluid overload, CKD (chronic kidney disease) stage 5, GFR less than 15 ml/min, Hypertension, Elevated troponin, Headache
Prescriptions:
No Action
pantoprazole 40 MG tablet,delayed release (DR/EC)
40 mg PO DAILY
cyanocobalamin (vitamin B-12) 1,000 mcg Tablet
1,000 mcg PO DAILY
finasteride 5 mg Tablet
5 mg PO DAILY
pravastatin 40 mg Tablet
40 mg PO DAILY
gabapentin 100 mg Capsule
100 mg PO DAILY
cholecalciferol (vitamin D3) [Vitamin D3] 25 mcg (1,000 unit) Tablet
25 mcg PO DAILY
terazosin 1 mg Capsule
1 mg PO HS
amlodipine 5 mg Tablet
5 mg PO BID
furosemide 80 mg Tablet
80 mg PO SUMOWEFR
losartan 100 mg Tablet
100 mg PO DAILY
aspirin 81 mg Tablet,Delayed Release (Dr/Ec)
81 mg PO DAILY 30 Days Qty: 30 0RF
levofloxacin 250 mg Tablet
500 mg PO DIRECTED
Rx Instructions:
take 2 tablets q48h for 7 days on non diaylsis days starting after diaylsis
Referrals:
UNKNOWN - PT DOES,NOT KNOW [Family Provider]
Interventions
Interventions:
*Risk Screen - Suicide Last Done: 11/07/24 08:28
*General Assessment Last Done: 11/07/24 08:28
*Neglect/Abuse Screening Last Done: 11/07/24 08:28
*ED- Fall Risk Assessment Last Done: 11/07/24 08:38
Discharge Date and Time
Print Language: AMHARIC
[2024-11-07 08:28] VITALS: BP 164/85
[2024-11-07 08:37] VITALS: BMI 20.4
[2024-11-07 08:48] LABS: Hematocrit 37.1 % (39.0-52.0); Hemoglobin 12.5 g/dL (13.0-18.0); Mean Corp Hgb Conc. 33.7 g/dL (33.0-37.0); Mean Corpuscular Volume 90.9 fL (80.0-94.0); Nucleated Red Blood Cells % 0 % (-); Platelet Count 149 10^3/uL (130-400); Red Cell Dist. Width 13.0 % (11.5-14.5)
[2024-11-07 09:16] LABS: AST (SGOT) 19 U/L (17-59); Albumin 3.6 g/dl (3.5-5.0); Alkaline Phosphatase 65 U/L (38-126); Blood Urea Nitrogen 52 mg/dl (9-20); Calcium 10.3 mg/dl (8.4-10.2); Carbon Dioxide 23 mmol/L (22-30); Chloride 106 mmol/L (98-107); Estimated Creatinine Clearance 7 ml/min; Glucose 100 mg/dl (70-99); Potassium 4.8 mmol/L (3.5-5.1); Sodium 139 mmol/L (135-145); Total Protein 6.9 g/dl (6.3-8.2); eGFR 7.95
[2024-11-07] MEDS: TYLENOL 650 MG PO (09:18)
[2024-11-07 09:19] LABS: Troponin I 0.257 ng/ml
[2024-11-07 09:39] LABS: Urine Character Clear (Clear)
[2024-11-07 09:47] LABS: ALT (SGPT) < 10 U/L (0-50)
[2024-11-07 09:51] LABS: Urine White Cell 0-2 /HPF (0-5)
[2024-11-07 10:00] VITALS: BP 163/58
[2024-11-07 11:00] VITALS: BP 166/62
--- NOTE | 2024-11-07 11:40 | EDCM ---
CM reviewed chart and met with pt and his bedside in ED. Lives with his , bilevel home, no FIDE through garage.
Independent in ADLs, personal care and ambulation at baseline. Uses cane, also has RW and wheelchair. Has stair glide.
Receives dialysis T-TH-S at [facility], chair time 530, drives himself to treatments.
Confirms prescription coverage.
HX VN [facility], also hx SNF at [facility] and [facility]
PCP: Warren Carrasco
Pharmacy: [facility]
CM will continue to follow for all discharge planning needs.
--- NOTE | 2024-11-07 11:52 | CON.HOSP ---
Addendum entered and electronically signed by Elfego Rosenberg MD 11/07/24 22:25:
addendum-
ACP
Patient consented to discuss, was with daughter and , time spent explanation of advance directives, changes in health status, patient�s health care wishes if the patient becomes unable to make health decisions, goals of care, code status, and
prognosis 'yes i want to be DNR'- 16 minutes
total time documented for consult is exclusive of any additional time listed that was spent in advance care planning discussion.
Addendum entered and electronically signed by Elfego Rosenberg MD 11/07/24 22:19:
Attending Addendum-
I performed a history and physical exam of the patient and discussed his management with the resident. I reviewed the resident's note and agree with the documented findings and plan of care CC/HPI- came to ED due to not sleeping well and having
headache with mild nausea. currently resolved. [place] SOB palps CP Full 12 point ROS reviewed and negative except as documented Exam- vitals reviewed in EMR GEN-NAD heart RRR lungs clear abd soft LE no edema
Plan:
# Nausea- f/u as OP with PCP resolved cont pantoprazole
# ESRD- no urgent need for HD, missed HD today TTS schedule
- euvolemic with elevated BNP (due to ESRD)
- patient set up for HD in am as OP
# PN- cont gabpentin
# HTN- cont amlodipine and losartan
# BPH-cont finasteride
# HLD cont pravastatin
# DM- not on meds
Overall patient non toxic appearing no obvious reason for IP admission.
Time spent coordinating care, DC from ED planning, review of DC plan of care with resident, transition of group home, review of records, med rec/scripts sent electronically, notes, D/W nursing, family, and ED physician�82 mins >50% of this time was
devoted to counseling and coordination of care
Original Note:
Consultation
-
Date/Time Consultation Requested: 11/07/2024, 10:30 AM.
Date/Time Consultation Performed: 11/07/2024, 11:00 AM
Requesting Provider: Héctor Pickett DO
Performing Provider: Melissa Fishman MD, for Elfego Rosenberg MD
Reason for Consultation: Elevated troponins
Family Physician
-
Family Physician: NOT KNOW UNKNOWN - PT DOES
Homes services - Warren Arcos MD
Chief Complaint
-
Fatigue, weakness.
History of Present Illness
88-year-old male with PMHx significant for ESRD on hemodialysis, type 2 diabetes mellitus, essential hypertension, BPH with LUTS, GERD, neurogenic bladder, hyperlipidemia, secondary hyperparathyroidism presents for evaluation of generalized weakness
and headache. Patient reports feeling fatigued since yesterday night, per daughter -mother called the son saying patient had an episode of vomiting and 2 episodes of diarrhea, and experiences overall fatigue. Patient does not recall having an
episode of vomiting and or diarrhea. When inquired into the number of bowel movements he had yesterday, he states to in 24 hours, and solid and well-formed. He reports to have headaches that started yesterday night, his headaches are frontal, and
are not associated with any nausea, blurring of vision, vomitings, sore throat, runny nose, fevers, chills, jaw pain. He reports no specific triggers for these headaches, and states his headaches are intermittent. Extra-strength Tylenol helped
improve his headaches in the ER.
He states that his generalized fatigue is chronic and has been progressively worse over the last 1 year. Nothing changed overnight except for ' vomiting and diarrhea' that they do not recall now. Upon review of systems he denies having chest pain,
abdominal pain, shortness of breath on exertion or shortness of breath, orthopnea, PND, palpitations, change in bowel habits, blood in the stool, change in bladder habits, focal weakness.
He admits to having numbness in his left hand for about 2 weeks now with decreased sensation. However he denies having any falls or injuries.
He has Occupational Therapy, and home care coming and helping him. His baseline mobility status is with a walker.
Unfortunately patient and his both have cognitive impairment and both live together independently in the same house.
Medical History
Past Medical History
Past Medical History: Reports Other (ESRD on hemodialysis, (Monday and Monday), essential hypertension, BPH with LUTS, GERD, neurogenic bladder, hyperlipidemia, secondary hyperparathyroidism.)
Past Surgical History: Reports Other (Bilateral knee replacements, knee arthroscopy, left upper extremity AVF creation,-December 2022)
Social History
Tobacco: Non-smoker
Alcohol: Occasional
Drug: None
Personal:
Living: With Family
Employment: Retired
Family History
Family History: Reviewed & Not Pertinent
Allergies / Home Medications
Allergies reflects when Allergies were last updated in [facility].
Home Medications with original date entered in [facility]
Allergy/Medication List:
Allergies
Allergy/AdvReac Type Severity Reaction Status Date / Time
No Known Allergies Allergy Verified 11/07/24 08:27
Home Medications
pantoprazole 40 mg tablet,delayed release 40 mg PO DAILY Gastrointestinal issue 02/08/12
cyanocobalamin (vitamin B-12) 1,000 mcg tablet 1,000 mcg PO DAILY Supplement 05/04/22
finasteride 5 mg tablet 5 mg PO DAILY Urinary issue 05/04/22
gabapentin 100 mg capsule 100 mg PO DAILY Pain 05/04/22
pravastatin 40 mg tablet 40 mg PO DAILY High cholesterol 05/04/22
cholecalciferol (vitamin D3) 25 mcg (1,000 unit) tablet (Vitamin D3) 25 mcg PO DAILY Supplement 07/29/22
amlodipine 5 mg tablet 5 mg PO BID 03/04/24
furosemide 80 mg tablet 80 mg PO SUMOWEFR 03/04/24
losartan 100 mg tablet 100 mg PO DAILY 03/04/24
terazosin 1 mg capsule 1 mg PO HS 03/04/24
aspirin 81 mg tablet,delayed release 81 mg PO DAILY 30 days #30 tabs 06/19/24
levofloxacin 250 mg tablet 500 mg PO DIRECTED 11/07/24
Review of Systems
-
Constitutional: Reports Fatigue
EENT: Reports No Symptoms
Respiratory: Reports No Symptoms
Cardiac: Reports No Symptoms
Abdomen/GI: Reports No Symptoms
: Reports No Symptoms
Musculoskeletal: Reports No Symptoms
Skin: Reports No Symptoms
Neurological: Reports Numbness (In left hand.)
Hematologic/Lymphatic: Reports No Symptoms
Psych: Reports No Symptoms
Physical Exam
Vital Signs
Vital Signs
Temp Pulse Resp BP Pulse Ox
97.6 F 75 17 164/85 98
11/07/24 08:28 11/07/24 08:28 11/07/24 08:28 11/07/24 08:28 11/07/24 10:23
Physical Exam
General: No Apparent Distress and Comfortable
HEENT: Moist Mucous Membranes
Respiratory: Clear; Negative Wheezes, Rales or Rhonchi
Cardiac: S1/S2, Regular Rhythm and Murmur (2/6 systolic murmur best heard in the apex); Negative Rub, Peripheral Edema, JVD or HJR
GI: Soft, Non Tender, Non Distended and Normal Bowel Sounds
Genito-urinary: No Costovertebral Tend
Musculoskeletal: Other (Tinel sign negative, osteoarthritic changes in the wrist and first metacarpal joint of left hand, possibly carpal tunnel from osteoarthritis.)
Skin: Warm
Neuro: AO x 3, No Motor Deficits and Other (Decreased cold touch sensation in left hand compared to right hand, strength 5/5 in bilateral upper and lower lower extremities, )
Psych: Calm
Laboratory Results
-
Laboratory Results
11/07/24 08:41
11/07/24 08:41
Total Bilirubin 0.7 mg/dl (0.2-1.3) 11/07/24 08:41
AST 19 U/L (17-59) 11/07/24 08:41
ALT < 10 U/L (0-50) 11/07/24 08:41
Alkaline Phosphatase 65 U/L (38-126) 11/07/24 08:41
Troponin I 0.257 ng/ml H* 11/07/24 08:41
Data Reviewed
-
Diagnostic Radiology: Image personally visualized and interpreted, Report Reviewed by Me, Discussed with Physician, Discussed with Patient and Discussed with Family
Medical Tests (Nuc Med, Echo, EKG etc): Image personally visualized and interpreted, Report Reviewed by Me, Discussed with Physician, Discussed with Patient and Discussed with Family
Lab Data: Labs Reviewed, Discussed with Physician, Discussed with Patient and Discussed with Family
Impression / Plan
-
IMPRESSION: 88-year-old male with PMHx significant for ESRD on hemodialysis, BPH with LUTS, GERD, neurogenic bladder, hyperlipidemia, secondary hyperparathyroidism, GERD presents for evaluation of fatigue and headaches.
PLAN:
His symptomatology is vague, all his laboratory values including electrolytes look stable. Troponin is elevated at 0.257, proBNP > 27,000. Patient is due for his dialysis today. It is common for proBNP elevation in dialysis patients as proBNP is
not actively being cleared by kidneys. Patient still makes some urine but is unclear about his urine output. He never quantified his urine output. Lasix 80 mg at this point of time is less likely beneficial for this patient given patient is on
hemodialysis.
EKG changes are nonspecific except for left ventricular hypertrophy.
We reviewed clinical presentation, lack of pertinent positive physical examination findings-currently euvolemic, and chest x-ray, EKG, lab findings with the patient and the family. We reviewed the risks versus benefits of admitting the patient to
the hospital, and there is no significant indication for inpatient management of patient's health condition at this point of time. We also recommended that the patient should add physical therapy for fatigue and strength training, stay compliant
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
Syncope, near syncopal episodes, chest pain, shortness of breath on exertion, orthopnea, PND, pedal edema would be some of the indications for the patient to present back to the ER. Reviewed the symptoms with patient and his family who are in
agreement with the plan.
[2024-11-07 12:00] VITALS: BP 162/73
== END 2024-11-07 13:27 | disposition home or self-care (01) ==
LOC: EMR 08:15
PROVIDERS: EMERGENCY PHYSICIAN Emergency Medicine
DX: R53.1 Weakness (principal); E87.70 Fluid overload, unspecified; R51.9 Headache, unspecified; R79.89 Other specified abnormal findings of blood chemistry; I13.11 Hypertensive heart and chronic kidney disease without heart failure, with stage 5 chronic kidney disease, or end stage renal disease; E11.22 Type 2 diabetes mellitus with diabetic chronic kidney disease; N18.6 End stage renal disease; Z99.2 Dependence on renal dialysis
CPT/HCPCS: 99285; 70450; 71046; 80053; 81003; 81015; 83880; 84484; 85025; 93005

== ENCOUNTER 2024-11-22 13:24 | Emergency (ER) | payer OTHER, SELFPAY ==
[2024-11-22 13:33] VITALS: BP 170/73
[2024-11-22 13:36] VITALS: BMI 21.5
[2024-11-22 13:50] LABS: Urine Character Clear (Clear)
[2024-11-22 13:51] LABS: Hematocrit 36.1 % (39.0-52.0); Hemoglobin 12.3 g/dL (13.0-18.0); Mean Corp Hgb Conc. 34.1 g/dL (33.0-37.0); Mean Corpuscular Volume 88.0 fL (80.0-94.0); Nucleated Red Blood Cells % 0 % (-); Platelet Count 175 10^3/uL (130-400); Red Cell Dist. Width 13.1 % (11.5-14.5)
[2024-11-22 14:04] LABS: Urine Red Blood Cell 0-2 /HPF (0-2); Urine Squamous Cell 0-2 /LPF (Few); Urine Urothelial Cell 0-2 /LPF (FEW); Urine White Cell 0-2 /HPF (0-5)
[2024-11-22 14:07] LABS: Blood Urea Nitrogen 49 mg/dl (9-20); Estimated Creatinine Clearance 10 ml/min; Glucose 127 mg/dl (70-99); eGFR 11.60
[2024-11-22 14:08] LABS: Calcium 10.4 mg/dl (8.4-10.2); Carbon Dioxide 30 mmol/L (22-30); Chloride 99 mmol/L (98-107); Sodium 137 mmol/L (135-145)
[2024-11-22] MEDS: OMNIPAQUE 50 ML PO (14:42)
--- NOTE | 2024-11-22 14:45 | ED.GENMED ---
History of Present Illness
General
Chief Complaint: Abdominal Pain
Source: patient and records
Time Seen by Provider: 11/22/24 14:13
History of Present Illness
History of Present Illness:
88-year-old male with past medical history of end-stage renal disease (dialysis Monday, and Monday), insulin-dependent diabetes, hypertension and hyperlipidemia presenting to the emergency department reporting that he has had abdominal
pain over the course of the last month, symptoms slightly worse today and when asked what exactly was worse about the symptoms patient stated the quality of the pain, denies any change in oral intake, nausea or vomiting, bowel changes or urinary
symptoms. Patient states that he was here for similar about 2-1/2 weeks ago but upon record review patient record had discussed he was experiencing headache and chest discomfort, denies any chest discomfort today and states still will
intermittently have headaches but does not have any currently. Patient states that the pain is in the lower abdomen when he presses on his abdomen but is feeling the pain also within the sternal region/upper abdomen. Has not attempted any
medications for relief. Did not follow-up with his medical providers following initial ER visit.
Past History
Past History
ED Past Medical History: HTN, Hypercholesterolemia, NIDDM, Renal failure and Other (Neuropathy, BPH, secondary hyperparathyroidism, anemia)
ED Past Surgical History: Orthopedic and Other (L arm fistula)
Social History
Tobacco: Former smoker
Alcohol: None
Drug: None
Personal:
Living: with family
Review of Systems
Review of Systems
All Other Systems: ROS reviewed and negative except as documented in HPI and ROS
Phy Exam
Physical Exam
Physical Exam:
GENERAL: Alert , in no apparent distress
HEAD: Normocephalic atraumatic
EYE: clear conjunctiva
NECK: Supple
ENT: o/p clr, mmm.
CARDIAC: Regular rate and rhythm .
LUNGS: Clear breath sounds bilaterally, no acute respiratory distress, no wheezes/rales/rhonchi
ABDOMEN: Soft, left lower quadrant tenderness, no r/g, no cvat
NEUROLOGICAL: Alert and oriented
SKIN: Warm and dry, skin intact.
MUSCULOSKELETAL: well perfused.
PSYCH: Normal and appropriate interaction.
Scores
Heart Failure Risk
Heart Failure Risk Score: Not Applicable
Heart Score for Chest Pain Patients
STEMI patient?: Not applicable
Withdrawal Assessment of Alcohol
Withdrawal Assessment Completed?: Not applicable
Course
Orders/Labs/Results
Orders:
Orders
11/22/24 13:39
Basic Metabolic Panel Urgent
Complete Blood Count/With Diff Urgent
Lipase Urgent
Urinalysis Reflex To Culture Urgent
Date Specimen was Collected: 11/22/24
Time Specimen was Collected: 13:37
Urine Microscopic Reflex Cult Urgent
11/22/24 14:19
Electrocardiogram (*1) Urgent
Reason for Study: Abdominal Pain
CT Abd/pel (oral only)-DH Only Urgent
Comment:
Reason For Exam: upper abd pain and LLQ abd pain
EKG- Treatment ONCE
Iohexol [Omnipaque] See Protocol PO NOW STA
11/22/24 14:53
Troponin I Urgent
Abnormal Lab Results
11/22/24 11/22/24
13:39 14:53
RBC 4.10 L 10^6/uL
(4.70-6.10)
Hgb 12.3 L g/dL
(13.0-18.0)
Hct 36.1 L %
(39.0-52.0)
MPV 10.8 H fL
(7.4-10.4)
Absolute Lymphs (auto) 0.9 L 10^3/uL
(1.2-3.4)
Absolute Monos (auto) 1.0 H 10^3/uL
(0.1-0.6)
Lymphocytes % 12.5 L %
(20.5-51.1)
Monocytes % 13.2 H %
(1.7-9.3)
BUN 49 H mg/dl
(9-20)
Creatinine 4.6 H* mg/dL
(0.7-1.3)
Glucose 127 H mg/dl
(70-99)
Calcium 10.4 H mg/dl
(8.4-10.2)
Troponin I 0.363 H* ng/ml
Urine Glucose 3+ A
(Negative)
Urine Albumin (Reflex) 3+ A
(Neg - Trace)
11/22/24 13:39
11/22/24 13:39
Vital Signs
Initial and Last Documented VS:
Initial Vital Signs
Temp Pulse Resp BP Pulse Ox
98.1 F 73 18 170/73 97
11/22/24 13:33 11/22/24 13:33 11/22/24 13:33 11/22/24 13:33 11/22/24 13:33
Last Documented Vital Signs
Temp Pulse Resp BP Pulse Ox
98.1 F 72 16 183/76 99
11/22/24 13:33 11/22/24 18:00 11/22/24 18:00 11/22/24 18:00 11/22/24 18:00
MDM/Problems Addressed
Differential Diagnosis Includes:
GERD
Gastritis
Pancreatitis
Diverticulitis
atypical ACS
PUD
Colitis
MDM/Problems Addressed:
88-year-old male presented to the ER for evaluation of abdominal discomfort, states that he feels a pain in the upper part of his abdomen but when palpating the pain is in the left lower quadrant. Patient was recently seen at this facility couple
of weeks ago, reports that his symptoms were the same but did not discuss any abdominal pain at the time of that evaluation. He was noted to have a slightly elevated troponin which was thought to be related to demand ischemia/chronically elevated
from his end-stage renal disease. Will repeat labs including troponin. Given the left lower quadrant abdominal pain will obtain CT scan with oral contrast only given patient's known end-stage renal disease
Chronic conditions affecting care: Kidney disease
*Pulse Oximetry
SaO2: 97
Oxygen Mode of Delivery: Room air
Patient hypoxic: no
*EKG
Heart Rate: 68
Rate: normal
Rhythm: sinus and PVC's
[place]: left axis deviation
Ischemia: no ischemia
*Inspector Automatic Typewriter Interpretation
Rate: normal
Heart Rate: 65
Rhythm: sinus
*Critical Care Note
Total Time (30-74mins, 75-104mins- exclusive of procedures): Not Applicable
Data Reviewed
Review of Other/Old Records Reveals: Labs and Records
Comment
Comment:
Patient's troponin elevated at 0.363. He has had similar troponin elevation in the past, again do not suspect ACS as cause for patient's symptoms and suspect this is related to patient's known renal disease
ED Attending Note
-
Portions of this chart may have been created with voice recognition software.� Occasional wrong word or��sound alike� substitutions may have occurred due to the inherent limitations of voice recognition software.
Discharge Plan
Departure
Patient Disposition: Home (Routine Discharge)
Date of Disposition: 11/22/24
Time of Disposition: 18:05
Patient with high blood pressure during this ER visit?: Yes
Discharge Problem:
Abdominal pain, CKD (chronic kidney disease)
Instructions: Abdominal Pain
Prescriptions:
No Action
pantoprazole 40 MG tablet,delayed release (DR/EC)
40 mg PO DAILY
cyanocobalamin (vitamin B-12) 1,000 mcg Tablet
1,000 mcg PO DAILY
finasteride 5 mg Tablet
5 mg PO DAILY
pravastatin 40 mg Tablet
40 mg PO DAILY
gabapentin 100 mg Capsule
100 mg PO DAILY
cholecalciferol (vitamin D3) [Vitamin D3] 25 mcg (1,000 unit) Tablet
25 mcg PO DAILY
terazosin 1 mg Capsule
1 mg PO HS
amlodipine 5 mg Tablet
5 mg PO BID
furosemide 80 mg Tablet
80 mg PO SUMOWEFR
losartan 100 mg Tablet
100 mg PO DAILY
aspirin 81 mg Tablet,Delayed Release (Dr/Ec)
81 mg PO DAILY 30 Days Qty: 30 0RF
levofloxacin 250 mg Tablet
500 mg PO DIRECTED
Rx Instructions:
take 2 tablets q48h for 7 days on non diaylsis days starting after diaylsis
Referrals:
UNKNOWN - PT DOES,NOT KNOW [Family Provider]
Interventions
Interventions:
*Risk Screen - Suicide Last Done: 11/22/24 13:33
*General Assessment Last Done: 11/22/24 13:33
*Neglect/Abuse Screening Last Done: 11/22/24 13:33
*Nursing Disposition Last Done: 11/22/24 22:41
MT-Gqbips-Xnrsogirnv Assessment Last Done: 11/22/24 14:10
Discharge Date and Time
Discharge Date/Time: 11/22/24 22:42
Print Language: NICARAGUAN
[2024-11-22 15:07] LABS: Lipase 173 U/L (23-300)
[2024-11-22 15:33] LABS: Troponin I 0.363 ng/ml
[2024-11-22 16:28] VITALS: BP 188/76
[2024-11-22 18:00] VITALS: BP 183/76
== END 2024-11-22 22:42 | disposition home or self-care (01) ==
LOC: EMR 13:24
PROVIDERS: Physician Assistant Medical; EMERGENCY PHYSICIAN Emergency Medicine
DX: R10.9 Unspecified abdominal pain (principal); I13.11 Hypertensive heart and chronic kidney disease without heart failure, with stage 5 chronic kidney disease, or end stage renal disease; N18.6 End stage renal disease; E11.22 Type 2 diabetes mellitus with diabetic chronic kidney disease; E11.40 Type 2 diabetes mellitus with diabetic neuropathy, unspecified; E78.00 Pure hypercholesterolemia, unspecified; N25.81 Secondary hyperparathyroidism of renal origin; N40.0 Benign prostatic hyperplasia without lower urinary tract symptoms; Z87.891 Personal history of nicotine dependence; Z99.2 Dependence on renal dialysis
CPT/HCPCS: 99284; 74176; 80048; 81003; 81015; 83690; 84484; 85025; 93005

== ENCOUNTER 2024-11-23 13:48 | Observation (INO) | payer OTHER, SELFPAY ==
[2024-11-23] VITALS (9 sets, daily range): BP systolic 121–178; BP diastolic 58–93; BMI 20.4
--- NOTE | 2024-11-23 09:19 | ED.GENMED ---
History of Present Illness
General
Chief Complaint: Abdominal Pain
Source: patient
Exam Limitations: none
Time Seen by Provider: 11/23/24 09:04
History of Present Illness
History of Present Illness:
88-year-old male recurrent episodes of abdominal pain. This episode occurred during dialysis. Was here yesterday for same. Does not always happen during dialysis however. Describes it as vague mid abdominal area. No radiation. No chest pain or
shortness of breath. States he was somewhat out of it during this episode. Feels moderately improved at this time no definitive cause on previous workups would include a CT scan done yesterday
Past History
Past History
ED Past Medical History: HTN, Hypercholesterolemia, NIDDM, Renal failure and Other (Neuropathy, BPH, secondary hyperparathyroidism, anemia)
ED Past Surgical History: Orthopedic and Other (L arm fistula)
Social History
Tobacco: Former smoker
Alcohol: None
Drug: None
Personal:
Living: with family
Review of Systems
Review of Systems
All Other Systems: Not applicable
Constitutional: Denies fever
Respiratory: Reports no symptoms
Cardiac: Reports no symptoms
Phy Exam
Physical Exam
Physical Exam:
GENERAL: Alert and oriented in no apparent distress
EYE: Orbits normal.
NECK: Supple
CARDIAC: Regular rate and rhythm without any obvious murmurs.
LUNGS: Clear breath sounds,normal
ABDOMEN: Soft, very minimal mid abdominal tenderness. Nonlocalizing. No rebound or guarding no mass or hernia
NEUROLOGICAL: Alert and oriented , grossly non-focal
SKIN: Warm and dry, no rash or lesion, no discoloration, skin intact.
MUSCULOSKELETAL: No edema,no deformity.Good color. Shunt left arm. Good thrill.
PSYCH: Normal and appropriate interaction.
Course
Orders/Labs/Results
Orders:
Orders
11/23/24 09:18
Cardiac Monitoring- Treatment ONCE
IV Insert/Care/Rem.- Treatment PRN
11/23/24 09:19
Electrocardiogram (*1) Stat
Reason for Study: Abdominal Pain
EKG- Treatment ONCE
11/23/24 09:33
Urinalysis Reflex To Culture Urgent
Date Specimen was Collected: 11/23/24
Time Specimen was Collected: 09:24
Urine Microscopic Reflex Cult Urgent
11/23/24 09:41
Complete Blood Count/With Diff Urgent
Comprehensive Metabolic Panel Urgent
Lactic Acid Urgent
Lipase Urgent
Troponin I Urgent
11/23/24 13:25
Admit/Transfer Patient As Directed
Co-Sign Provider:
Level of Care: Observation services
Assign to:: Telemetry
Physician / Group: Dannie
Diagnosis: abdominal pain
Reason for Telemetry: Chest Pain syndromes
Date to Stop Telemetry: 11/25/24
Time to Stop Telemetry: 11:00
CARDIOLOGY CONSULT Routine
Consulting Provider: Shravan Huston
Was physician already notified: Yes
Reason for consult: elevated trop
11/23/24 13:26
PRN Pain Medication Management As Directed
May give lesser potent ordered pain med per pt: Yes
preference::
Protocol:: Medication orders for pain may be administered in a
manner that supports deferring to patient preference
when the pt is:
- Requesting an ordered lesser potent pain medication.
Least to most potent pain medications are defined
as: acetaminophen < NSAID < tramadol < opioids
(morphine, oxycodone, hydromorphone).
- Requesting a lesser dose of the same medication IF
ORDERED.
- Requesting a less intrusive route of administration
if both routes are prescribed by the provider (PO <
IV).
11/23/24 13:27
Code Status As Directed
Resuscitation Status: Full Code
11/23/24 13:32
NEPHROLOGY CONSULT Routine
Consulting Provider: Kaz Lowe
Was physician already notified: Yes
Reason for consult: ESRD for CTA
11/23/24 13:34
Aspirin 325 mg PO NOW STA
11/23/24 13:35
Echo 2D MMode Color/Doppler Routine
Reason for Study: elevated trop
Heparin Protocol- PTT Orders As Directed
PTT per Heparin protocol: -Obtain CBC and baseline PTT - if not already collected.
-Obtain PTT 6 hours from start of infusion. Then, every 6 hours until 2 consecutive
PTT's are therapeutic. Then, PTT Daily.
-With each rate change, obtain PTT every 6 hours until 2 consecutive PTT's are
therapeutic. Then, PTT Daily.
Notify MD As Directed
Notify physician if: PTT is greater than or equal to 200.
11/23/24 13:38
Complete Blood Count/No Diff Urgent
Comment: Obtain baseline before beginning heparin infusion if not already collected
PTT Urgent
Comment: Obtain baseline before beginning heparin infusion if not already collected
Troponin I Urgent
11/23/24 13:45
Heparin 46107 Units/250 ml 25,000 units in 250 ml IV PER PROTOCOL
Weight to be used for heparin protocol in kilograms (kg):: 60.7
Protocol:: Cardiac Tx/Acute Coronary
PTT Goal Range to be used:: PTT 73 to 111 seconds
Order type:: Initial
INITIAL Infusion Dose (UNITS/KG/hr) & then follow protocol:: 12 units/kg/hr
Infusion Dose in UNITS/hr & then follow protocol (UNITS/hr):: 750
INFUSION RATE in mL/hr & then follow protocol (mL/hr):: 7.5
PTT less than or equal to 64 seconds:: Increase rate by 200 units/hr (+ 2 mL/hr)
PTT 64.1 to 72.9 seconds:: Increase rate by 100 units/hr (+ 1 mL/hr)
PTT 73 to 111 seconds:: Target Range. No change in rate.
PTT 111.1 to 130.9 seconds:: Decrease rate by 100 units/hr (- 1 mL/hr)
PTT 131 to 199.9 seconds:: HOLD for 1 hr. Then decrease rate by 200 units/hr (- 2 mL/hr)
PTT greater than or equal to 200 seconds:: HOLD for 2 hrs & Notify Provider. Then decrease by 200 units/hr (-
2 mL/hr)
Lab follow-up:: Each change, PTT q6h until 2 consecutive are therapeutic. Then PTT
daily.
11/25/24 06:00
Complete Blood Count/No Diff Q2D
Comment: Notify MD if platelet count is <130,000 or decreases by 50% from baseline
11/25/24 11:00
DC Protocol for Telemetry ONCE
11/27/24 06:00
Complete Blood Count/No Diff Q2D
Comment: Notify MD if platelet count is <130,000 or decreases by 50% from baseline
11/29/24 06:00
Complete Blood Count/No Diff Q2D
Comment: Notify MD if platelet count is <130,000 or decreases by 50% from baseline
12/01/24 06:00
Complete Blood Count/No Diff Q2D
Comment: Notify MD if platelet count is <130,000 or decreases by 50% from baseline
12/03/24 06:00
Complete Blood Count/No Diff Q2D
Comment: Notify MD if platelet count is <130,000 or decreases by 50% from baseline
12/05/24 06:00
Complete Blood Count/No Diff Q2D
Comment: Notify MD if platelet count is <130,000 or decreases by 50% from baseline
12/07/24 06:00
Complete Blood Count/No Diff Q2D
Comment: Notify MD if platelet count is <130,000 or decreases by 50% from baseline
12/09/24 06:00
Complete Blood Count/No Diff Q2D
Comment: Notify MD if platelet count is <130,000 or decreases by 50% from baseline
Abnormal Lab Results
11/23/24 11/23/24 11/23/24
09:41 13:38
RBC 4.16 L 10^6/uL 3.70 L 10^6/uL
(4.70-6.10) (4.70-6.10)
Hgb 12.4 L g/dL 11.0 L g/dL
(13.0-18.0) (13.0-18.0)
Hct 37.1 L % 32.8 L %
(39.0-52.0) (39.0-52.0)
Absolute Lymphs (auto) 1.0 L 10^3/uL
(1.2-3.4)
Absolute Monos (auto) 0.8 H 10^3/uL
(0.1-0.6)
Lymphocytes % 14.8 L %
(20.5-51.1)
Monocytes % 12.0 H %
(1.7-9.3)
Chloride 95 L mmol/L
(98-107)
Carbon Dioxide 35 H mmol/L
(22-30)
BUN 36 H mg/dl
(9-20)
Creatinine 4.0 H mg/dL
(0.7-1.3)
Glucose 129 H mg/dl
(70-99)
Troponin I 0.416 H* ng/ml 0.375 H* ng/ml
Ur Occult Blood Reflex 1+ A
(Negative)
Urine Glucose 2+ A
(Negative)
Urine Albumin (Reflex) 3+ A
(Neg - Trace)
11/23/24 13:38
11/23/24 09:41
Vital Signs
Initial and Last Documented VS:
Initial Vital Signs
Pulse Pulse Ox
78 98
11/23/24 09:07 11/23/24 09:07
Last Documented Vital Signs
Temp Pulse Resp BP Pulse Ox
97.9 F 68 12 159/93 98
11/23/24 09:11 11/23/24 13:00 11/23/24 13:00 11/23/24 13:00 11/23/24 11:45
MDM/Problems Addressed
Differential Diagnosis Includes:
Patient with recurrent mid abdominal symptoms that wax and wane. Clinically a nonsurgical abdomen at this time. Previous CT scan done yesterday was unremarkable. Labs have shown a colonic troponin elevation. Differential would include clued
atypical cardiac symptoms, nonspecific abdominal pain. Would have to consider bowel ischemia. Will check lactic acid labs cardiac testing. Check urine. No indication for emergent radiologic testing at this moment
*Pulse Oximetry
Patient hypoxic: no (98)
*EKG
Interpreted by ED Provider?: Yes
Interpretation: abnormal
Comparison EKG: changes noted
Heart Rate: 76
Rate: normal
Rhythm: sinus and PVC's
[place]: left axis deviation
Interval: normal interval
QRS Pattern: normal QRS
Ischemia: non-specific ST changes
*Mobile Ui Designer Interpretation
Rate: normal
Interpretation: normal
Heart Rate: 78
Rhythm: sinus
*Critical Care Note
Total Time (30-74mins, 75-104mins- exclusive of procedures): Not Applicable
Data Reviewed
Review of Other/Old Records Reveals: Labs, Records, Radiology Studies and Testing
ED Attending Note
-
Portions of this chart may have been created with voice recognition software.� Occasional wrong word or��sound alike� substitutions may have occurred due to the inherent limitations of voice recognition software.
Discharge Plan
Departure
Patient Disposition: Admit
Date of Disposition: 11/23/24
Time of Disposition: 11:00
Presentation/result/management discussed w/ accepting MD/DO: Hospitalist
Discharge Problem:
Recurrent vague abdominal pain/nausea, Elevated troponin, History of renal failure
Interventions
Interventions:
*Risk Screen - Suicide Last Done: 11/23/24 09:11
*General Assessment Last Done: 11/23/24 09:11
*Neglect/Abuse Screening Last Done: 11/23/24 09:11
*ED- Fall Risk Assessment Last Done: 11/23/24 09:11
FC-Azmmuf-Tmovibanso Assessment Last Done: 11/23/24 09:11
[2024-11-23 09:53] LABS: Hematocrit 37.1 % (39.0-52.0); Hemoglobin 12.4 g/dL (13.0-18.0); Mean Corp Hgb Conc. 33.4 g/dL (33.0-37.0); Mean Corpuscular Volume 89.2 fL (80.0-94.0); Nucleated Red Blood Cells % 0 % (-); Platelet Count 174 10^3/uL (130-400); Red Cell Dist. Width 13.2 % (11.5-14.5)
[2024-11-23 09:58] LABS: Urine Character Clear (Clear)
[2024-11-23 10:06] LABS: ALT (SGPT) 14 U/L (0-50); AST (SGOT) 25 U/L (17-59); Albumin 3.9 g/dl (3.5-5.0); Alkaline Phosphatase 75 U/L (38-126); Blood Urea Nitrogen 36 mg/dl (9-20); Calcium 10.0 mg/dl (8.4-10.2); Carbon Dioxide 35 mmol/L (22-30); Chloride 95 mmol/L (98-107); Estimated Creatinine Clearance 11 ml/min; Glucose 129 mg/dl (70-99); Lipase 185 U/L (23-300); Potassium 3.8 mmol/L (3.5-5.1); Sodium 138 mmol/L (135-145); Total Protein 7.4 g/dl (6.3-8.2); eGFR 13.72
[2024-11-23 10:24] LABS: Troponin I 0.416 ng/ml
[2024-11-23 10:26] LABS: Urine Red Blood Cell 0-2 /HPF (0-2); Urine Squamous Cell 0-2 /LPF (Few); Urine White Cell 0-2 /HPF (0-5)
--- NOTE | 2024-11-23 13:29 | HPS.HSE ---
Family Physician
-
Family Physician: NOT KNOW UNKNOWN - PT DOES
Chief Complaint
-
abdominal pain
History of Present Illness
88yo M with ESRD on HD (TTS), HTN, HLD, DM sent from HD [facility] unit with onset of L lower abdominal pain similar to the one thqat he had a day prior. Pain non-radiating. Resolved upon arrival to ED. On exam - pain is reproducible when palpating
small abdominal hernias on LLQ of abdominal wall, however size of the hernias are subcentimeter and not striangulated. Lipase WNL, lactate WNL - no concern for acute pancreatitis or acute ischemic bowel. As per patient this pain is recurrent,
happening 2-3 times per week and started approximately 2 years before.
Also c/o burning during urination however UA showed no signs of infection.
Troponin elevated to 0.416 with uptrend previous numbers in June 2024 0.330-0.323-0.306, however no SOB and no chest pain noted
ALso c/o cold feet b/l for past year. He thought that its normal.
Medical History
Past Medical History
Past Medical History: Reports Other
Additional Past Medical History:
See above
Past Surgical History: Reports Other
Additional Past Surgical History:
see above
Social History
Tobacco: Non-smoker
Alcohol: None
Drug: None
Family History
Family History: Not pertinent
Allergies / Home Medications
Allergies reflects when Allergies were last updated in [facility].
Home Medications with original date entered in [facility]
Allergy/Medication List:
Allergies
Allergy/AdvReac Type Severity Reaction Status Date / Time
No Known Allergies Allergy Verified 11/07/24 08:27
Home Medications
pantoprazole 40 mg tablet,delayed release 40 mg PO DAILY Gastrointestinal issue 02/08/12
cyanocobalamin (vitamin B-12) 1,000 mcg tablet 1,000 mcg PO DAILY Supplement 05/04/22
finasteride 5 mg tablet 5 mg PO DAILY Urinary issue 05/04/22
gabapentin 100 mg capsule 100 mg PO DAILY Pain 05/04/22
pravastatin 40 mg tablet 40 mg PO DAILY High cholesterol 05/04/22
cholecalciferol (vitamin D3) 25 mcg (1,000 unit) tablet (Vitamin D3) 25 mcg PO DAILY Supplement 07/29/22
amlodipine 5 mg tablet 5 mg PO BID 03/04/24
furosemide 80 mg tablet 80 mg PO SUMOWEFR 03/04/24
losartan 100 mg tablet 100 mg PO DAILY 03/04/24
terazosin 1 mg capsule 1 mg PO HS 03/04/24
aspirin 81 mg tablet,delayed release 81 mg PO DAILY 30 days #30 tabs 06/19/24
levofloxacin 250 mg tablet 500 mg PO DIRECTED 11/07/24
Review of Systems
-
History Source: Patient
A 12 point ROS was completed and negative except as noted: Yes
Physical Exam
Vital Signs
Vital Signs
Temp Pulse Resp BP Pulse Ox
97.9 F 68 12 159/93 98
11/23/24 09:11 11/23/24 13:00 11/23/24 13:00 11/23/24 13:00 11/23/24 11:45
Physical Exam
General: Well Developed, Well Nourished and No Apparent Distress
HEENT: NormoCephalic, Anicteric and Moist mucous membranes
Respiratory: Clear; No Wheezes or Crackles
Cardiac: S1/S2 and Regular Rhythm; No Tachycardia
GI: Soft, Non Tender, Non Distended and Normal Bowel Sounds
Musculoskeletal: No Clubbing, No Cyanosis and No Edema
Skin: Warm; No Jaundice
Neuro: Awake, Alert, Oriented and AO x 3
Psych: Calm
Laboratory Results
-
11/23/24 09:41
11/23/24 09:41
Laboratory Results
Lactic Acid 1.8 mmol/L (0.7-2.0) 11/23/24 09:41
Total Bilirubin 0.9 mg/dl (0.2-1.3) 11/23/24 09:41
AST 25 U/L (17-59) 11/23/24 09:41
ALT 14 U/L (0-50) 11/23/24 09:41
Alkaline Phosphatase 75 U/L (38-126) 11/23/24 09:41
Troponin I 0.416 ng/ml H* 11/23/24 09:41
Lipase 185 U/L (23-300) 11/23/24 09:41
Data Reviewed
-
Lab Data: Labs Reviewed by me
Impression/Plan
-
A/P:
#Recurrent chronic abdominal pain most likely 2/2 abdominal hernia, cannot r/o chronic bowel ischemia
no clinical signs of acute ischemia
avoid hypoperfusion
cont ASA, statin
CTA abd if agreed with special needs nanny
#Troponin elevation
without chest pain and in the settings ESRD - no direct indication of ACS
follow serial trop and cardiology consult
#b/l LE numbness
cronic
Recommend outpatient US arteial - son bedside agreeable and understanding instrcutions
#ESRD on HD
cont HD - nephro consult
Had only 1 hour into HD on the day of admisison
#BPH
#Essential HTN
#Neuropathy
#HLD
Cont home meds
DVT ppx hep
FUll code
I have spent at least 78min reviewing chart, test results, communication with consultants and providing direct patient care
--- NOTE | 2024-11-23 13:34 | W.PN.UPDATE ---
Update Note
Progress Note Update
As per communication with cardiology - will currently treat as NSTEMI
[2024-11-23 13:58] LABS: Hematocrit 32.8 % (39.0-52.0); Hemoglobin 11.0 g/dL (13.0-18.0); Mean Corp Hgb Conc. 33.5 g/dL (33.0-37.0); Mean Corpuscular Volume 88.6 fL (80.0-94.0); Platelet Count 159 10^3/uL (130-400); Red Cell Dist. Width 13.1 % (11.5-14.5)
[2024-11-23 14:03] LABS: APTT 30.4 Sec (23.4-35.0)
[2024-11-23 14:17] LABS: Troponin I 0.375 ng/ml
--- NOTE | 2024-11-23 14:21 | CM ---
Addendum entered by Tanya Gastelum 11/23/24 15:37:
OBS form provided and signed form placed with ED in file.
Original Note:
Patient seen at bedside in ED with patient son. Patient states that he does not know why he is staying in the hospital. Patient does not remember name of his PCP. Patient lives with in a split level home. Patient has a walker and a wheelchair.
Patient was here recently for assessment in ED and referral made to [facility] who is to start next week per patient. CM spoke with son and he indicated that he would call insurance to clarify costs for patient as obs/javier status. Patient given
OBS/JAVIER form and form reviewed with patient and son both. Patient indicated that [facility] was to come to see him next week. CM will continue to follow for discharge planning needs.
Plan; SNF vs home with VN; [facility] for [facility]; need referral to confirm patient status if VN needed.
--- NOTE | 2024-11-23 14:45 | CON.CAR ---
Consultation
Consultation Request
Date/Time Consultation Requested: 11/23/2024 1330
Date/Time Consultation Performed: 11/23/2024 1400
Requesting Provider: Dannie
Performing Provider: Betzaida
Reason for Consultation: Troponin
Medical History
-
Chief Complaint: Abdominal pain
History of Present Illness:
Patient is an 88-year-old male with a past medical history significant for hypertension, diabetes mellitus type 2, end-stage renal disease on dialysis, dyslipidemia who presented from dialysis due to left lower quadrant abdominal pain. He reported
experiencing that pain which was nonradiating and reproducible to palpation. Additionally, he had reported burning with urination and foul-smelling urine which have been going on for 1-2 weeks as well as shaking chills during dialysis. On
evaluation in the emergency department, patient's EKG demonstrated sinus rhythm with PVC without significant ST-T abnormality; LVH noted repeat EKG today demonstrates sinus rhythm with PAC PVC with evidence of LVH again. Initial troponin was
elevated at 0.363 which increased to 0.416 and down trended to 0.375. Patient's prior admissions demonstrated elevated troponin in a similar range with prior peaks of 0.330. In discussion with patient, he denies any chest pain, shortness of
breath, palpitations, lightheadedness, dizziness, near-syncope, syncope, weakness. Patient had undergone echocardiography 06/18/2024 which demonstrated mild concentric LVH EF of 50-55% with mild global hypokinesis and severely dilated left atrium
with moderate MR moderate TR and a PASP of 64 mmHg. Patient is a non-smoker, rare alcohol, no illicits. Patient admitted by hospitalist service for treatment of abdominal discomfort and possible infection. Cardiology consulted for abnormal
troponin.
Past Medical History
Past Medical History: Other (See HPI)
Past Surgical History: Other (AVF creation, knee surgery, tendinitis, BTKR)
Social History
Tobacco: Non-Smoker
Alcohol: None
Drug: None
Personal:
Living: With Family
Employment: Retired
Family History
Family History: Reviewed & Not Pertinent
Allergies / Home Medications
Allergy/AdvReac Type Severity Reaction Status Date / Time
No Known Allergies Allergy Verified 11/07/24 08:27
�Medication �Instructions �Recorded �Confirmed �Type
pantoprazole 40 mg tablet,delayed 40 mg PO DAILY Gastrointestinal 02/08/12 11/23/24 History
release issue
cyanocobalamin (vitamin B-12) 1,000 mcg PO DAILY Supplement 05/04/22 11/23/24 History
1,000 mcg tablet
finasteride 5 mg tablet 5 mg PO DAILY Urinary issue 05/04/22 11/23/24 History
gabapentin 100 mg capsule 100 mg PO DAILY Pain 05/04/22 11/23/24 History
pravastatin 40 mg tablet 40 mg PO DAILY High cholesterol 05/04/22 11/23/24 History
cholecalciferol (vitamin D3) 25 25 mcg PO DAILY Supplement 07/29/22 11/23/24 History
mcg (1,000 unit) tablet (Vitamin
D3)
amlodipine 5 mg tablet 5 mg PO BID 03/04/24 11/23/24 History
furosemide 80 mg tablet 80 mg PO SUMOWEFR 03/04/24 11/23/24 History
losartan 100 mg tablet 100 mg PO DAILY 03/04/24 11/23/24 History
terazosin 1 mg capsule 1 mg PO HS 03/04/24 11/23/24 History
aspirin 81 mg tablet,delayed 81 mg PO DAILY 30 days #30 tabs 06/19/24 11/23/24 Rx
release
levofloxacin 250 mg tablet 500 mg PO DIRECTED 11/07/24 11/23/24 History
Review of Systems
-
History Source: Patient and Family
Constitutional: No Symptoms
EENT: No Symptoms
Respiratory: No Symptoms
Cardiac: No Symptoms
Abdomen/GI: Abdominal Pain
: No Symptoms
Musculoskeletal: No Symptoms
Skin: No Symptoms
Neurological: No Symptoms
Endocrine: No Symptoms
Hematologic/Lymphatic: No Symptoms
Physical Exam
Vital Signs
Temp Pulse Resp BP Pulse Ox
97.9 F 68 12 159/93 98
11/23/24 09:11 11/23/24 13:00 11/23/24 13:00 11/23/24 13:00 11/23/24 11:45
Lab Results
11/23/24 13:38
11/23/24 09:41
Troponin I 0.375 ng/ml H* 11/23/24 13:38
GENERAL: no acute distress
EYE: sclera anicteric
NECK: Supple, no JVD, no carotid bruit appreciated
ENT: normal nose, moist mucosal membranes
CARDIAC: Regular rate and rhythm, +S1/S2, no murmur, rubs, or gallops
CHEST/PULMONARY: Normal effort, clear breath sounds
ABDOMEN: Soft, left lower quadrant tenderness, no distention
NEUROLOGICAL: Alert and oriented x3
SKIN: Warm and dry, no rash
PSYCH: Normal and appropriate interaction.
Telemetry shows sinus rhythm
Impression / Plan
-
PCP: Dr. Calvin Pollard
Home School Liaison Officer: Dr. Matthew Stout
Impression:
Nonischemic myocardial injury likely related to incomplete hemodialysis
� EKG sinus rhythm with LVH no significant ST-T abnormality
� Troponin peak 0.416 downtrending
� No reported chest pain, shortness of breath, palpitations, syncope
� Echocardiogram June 2024 LVEF 50-55% without regional wall motion abnormality noted valvular heart disease
� On aspirin, amlodipine, losartan, pravastatin; not on beta-martín due to prior bradycardia
Severe pulmonary pretension likely related to end-stage renal disease
End-stage renal disease on hemodialysis, managed by nephrology
Hypertension
Hyperlipidemia
Diabetes mellitus type 2
Echo 01/04/2023: Normal LV size and function, EF 55 to 60%, grade 2 diastolic dysfunction, normal RV size and function, mild biatrial dilation, mild to moderate MR, moderate TR PASP 62 mmHg
Echo 06/18/2024: Normal LV size, mild concentric LVH, low normal LV systolic function EF 50 to 55%, mild global hypokinesis, normal RV size and function, severe left atrial dilation, mild right atrial dilation, moderate MR, moderate TR with PASP 64
mmHg
Recommendations:
� Repeat echocardiogram to assess cardiac size, shape, function, and valvular anatomy
� Workup regarding abdominal discomfort, abnormal urine per primary service
� Troponin downtrending from peak likely again nonischemic myocardial injury as no reported chest pain or shortness of breath at rest or with activity or exertion; will likely need ischemic evaluation given repeat admission for similar complaint
� Monitor on telemetry
� Resume home medications when able per primary service
� Defer fluid management and electrolytes to nephrology with dialysis
Discussed with patient, family, hospitalist
Data Reviewed
-
EKG: Tracing Personally Visualized and interpreted
Radiology: Report Reviewed by me
Medical Tests (Nuc Med, Echo etc): Report Reviewed by me
Labs: Labs Reviewed by me
Old Records: Reviewed
--- NOTE | 2024-11-23 15:20 | W.CON.NEPH ---
Consultation
-
Date/Time Consultation Requested: 11/23/2024 1 PM
Date/Time Consultation Performed: 11/23/2024 2 PM
Requesting Provider: Dr. Pelaez
Performing Provider: Dr. Lowe
Reason for Consultation: ESRD
Medical History
-
Chief Complaint: Mental status change, fever
History of Present Illness:
This is an 88-year-old gentleman who has end-stage renal disease on hemodialysis at [facility] S[facility]. He has been only going for 2 and half hours each treatment because he is concerned that his is home alone with
dementia. His son tries to tell him that he needs to complete his full treatment each time but he still leaves early. He was at dialysis today but only got into an hour of treatment before he complained of significant abdominal pain. This was
apparently severe enough that they took him off the machine and sent him to the emergency room. He says that he does have abdominal pain intermittently and this is not unusual for him. He downplayed the events of this morning at the dialysis unit.
He does feel somewhat disoriented however at this time as he is trying to figure out how he will be able to go home to return to taking care of his . He is on a multidrug regimen for hypertension which is typically well-controlled, statin
therapy for hyperlipidemia which is well-controlled. He still makes some urine and takes Lasix on nondialysis days.
Past Medical History
ESRD, hypertension, diabetes mellitus type 2, left upper extremity AV fistula, secondary hyperparathyroidism, hyperlipidemia, neuropathy, BPH
Social History
Tobacco: Former Smoker
Alcohol: None
Family History
Family History: Not Pertinent
Allergies / Home Medications
Allergy/AdvReac Type Severity Reaction Status Date / Time
No Known Allergies Allergy Verified 11/07/24 08:27
�Medication �Instructions �Recorded �Confirmed �Type
pantoprazole 40 mg tablet,delayed 40 mg PO DAILY Gastrointestinal 02/08/12 11/23/24 History
release issue
cyanocobalamin (vitamin B-12) 1,000 mcg PO DAILY Supplement 05/04/22 11/23/24 History
1,000 mcg tablet
finasteride 5 mg tablet 5 mg PO DAILY Urinary issue 05/04/22 11/23/24 History
gabapentin 100 mg capsule 100 mg PO DAILY Pain 05/04/22 11/23/24 History
pravastatin 40 mg tablet 40 mg PO DAILY High cholesterol 05/04/22 11/23/24 History
cholecalciferol (vitamin D3) 25 25 mcg PO DAILY Supplement 07/29/22 11/23/24 History
mcg (1,000 unit) tablet (Vitamin
D3)
amlodipine 5 mg tablet 5 mg PO BID 03/04/24 11/23/24 History
furosemide 80 mg tablet 80 mg PO SUMOWEFR 03/04/24 11/23/24 History
losartan 100 mg tablet 100 mg PO DAILY 03/04/24 11/23/24 History
terazosin 1 mg capsule 1 mg PO HS 03/04/24 11/23/24 History
aspirin 81 mg tablet,delayed 81 mg PO DAILY 30 days #30 tabs 06/19/24 11/23/24 Rx
release
levofloxacin 250 mg tablet 500 mg PO DIRECTED 11/07/24 11/23/24 History
Review of Systems
-
Mild abdominal pain
All other systems: Negative unless noted
Physical Exam
Vital Signs
Vital Signs
Temp Pulse Resp BP Pulse Ox
97.9 F 70 18 155/71 100
11/23/24 09:11 11/23/24 15:08 11/23/24 15:08 11/23/24 15:08 11/23/24 15:08
Lab Results
WBC 5.0 10^3/uL (4.8-10.8) 11/23/24 13:38
RBC 3.70 10^6/uL (4.70-6.10) L 11/23/24 13:38
Hgb 11.0 g/dL (13.0-18.0) L 11/23/24 13:38
Hct 32.8 % (39.0-52.0) L 11/23/24 13:38
Plt Count 159 10^3/uL (130-400) 11/23/24 13:38
Sodium 138 mmol/L (135-145) 11/23/24:41
Potassium 3.8 mmol/L (3.5-5.1) 11/23/24:
Chloride 95 mmol/L (98-107) L 11/23/24:41
Carbon Dioxide 35 mmol/L (22-30) H 11/23/24:
BUN 36 mg/dl (9-20) H 11/23/24
Creatinine 4.0 mg/dL (0.7-1.3) H 11/23/24:
eGFR 13.72 11/23/24:
Glucose 129 mg/dl (70-99) H 11/23/24:41
Calcium 10.0 mg/dl (8.4-10.2) 11/23/24:
Albumin 3.9 g/dl (3.5-5.0) 11/23/24:41
Physical Exam
Patient is awake alert oriented and in no distress. Mood and affect were pleasant, insight and judgment were good. Pupils are equal round and reactive to light, extraocular movements are intact, sclera were anicteric. Hearing was normal, ears and
nose are intact. Oropharynx was clear. Neck was supple with trachea midline and no thyromegaly. Heart was regular rate and rhythm without rubs. Lower extremities without edema. Lungs were clear to auscultation bilaterally and with normal
excursion. Abdomen was soft, slightly tender, with normal active bowel sounds, and no hepatosplenomegaly. Skin was without rash and with normal turgor.
Data Reviewed
-
CT Scan: Report Reviewed by me (CT abdomen and pelvis 11/22/2024 no acute disease)
Medical Tests (Nuc Med, Echo etc): Image Personally Visualized and interpreted (EKG 11/23/2024 by my reading normal sinus rhythm PVCs septal Q prolonged QT)
Labs: Labs Reviewed by me
Old Records: Reviewed
Assessment/Plan
-
Assessment
ESRD
Abdominal pain at dialysis
BPH
Hypertension
Hyperlipidemia
Noncompliance with dialysis treatments
Elevated troponin
Plan
Electrolytes are currently controlled
No acute need for dialysis today
Cardiology evaluation given elevated troponin
Will determine dialysis needs tomorrow morning
[2024-11-23] MEDS: HEPARIN 5000 UNITS SC (15:23)
[2024-11-23] MEDS: ASPIRIN 325 MG PO (15:23)
[2024-11-23] MEDS: NORVASC 5 MG PO (20:23)
[2024-11-23 20:40] LABS: Troponin I 0.391 ng/ml
[2024-11-23] MEDS: HYTRIN 1 MG PO (22:38)
[2024-11-24] MEDS: HEPARIN 5000 UNITS SC ×2 (00:12→09:09)
[2024-11-24 03:00] VITALS: BP 127/63
[2024-11-24 03:19] LABS: Troponin I 0.381 ng/ml
[2024-11-24 06:00] VITALS: BMI 20.1
[2024-11-24 07:45] VITALS: BP 127/53
[2024-11-24 08:23] VITALS: BP 127/53
[2024-11-24 08:39] LABS: Hematocrit 33.5 % (39.0-52.0); Hemoglobin 11.4 g/dL (13.0-18.0); Mean Corp Hgb Conc. 34.0 g/dL (33.0-37.0); Mean Corpuscular Volume 88.6 fL (80.0-94.0); Platelet Count 145 10^3/uL (130-400); Red Cell Dist. Width 13.1 % (11.5-14.5)
[2024-11-24 09:05] LABS: Troponin I 0.404 ng/ml
[2024-11-24 09:07] LABS: ALT (SGPT) 12 U/L (0-50); AST (SGOT) 23 U/L (17-59); Albumin 3.4 g/dl (3.5-5.0); Alkaline Phosphatase 67 U/L (38-126); Blood Urea Nitrogen 46 mg/dl (9-20); Calcium 10.0 mg/dl (8.4-10.2); Carbon Dioxide 31 mmol/L (22-30); Chloride 97 mmol/L (98-107); Estimated Creatinine Clearance 8 ml/min; Glucose 121 mg/dl (70-99); Potassium 4.1 mmol/L (3.5-5.1); Sodium 137 mmol/L (135-145); Total Protein 6.5 g/dl (6.3-8.2); eGFR 9.57
[2024-11-24] MEDS: PROTONIX 40 MG PO (09:10)
[2024-11-24] MEDS: COZAAR 100 MG PO (09:10)
[2024-11-24] MEDS: PRAVACHOL 40 MG PO (09:10)
[2024-11-24] MEDS: NORVASC 5 MG PO (09:10)
[2024-11-24] MEDS: ASPIR LOW (ENTERIC COATED) 81 MG PO (09:10)
[2024-11-24] MEDS: PROSCAR 5 MG PO (09:10)
[2024-11-24] MEDS: NEURONTIN 100 MG PO (09:15)
[2024-11-24 09:33] LABS: TSH 4.99 uIU/ml (0.47-4.68)
--- NOTE | 2024-11-24 11:13 | W.PN.CARDCBS ---
Addendum entered and electronically signed by Shravan Huston DO 11/24/24 12:21:
Initial troponin peak 0.416 which downtrended and has remained stable however repeat today 0.404 which is without significant difference from prior. Troponin is likely related to incomplete clearance in the setting of end-stage renal disease on
dialysis. Please repeat to ensure downtrending. In discussion with patient, no episodes of chest discomfort and no EKG changes noted. Echocardiography performed today demonstrates no significant change from prior echocardiogram with LVEF 50-55%
without regional wall motion abnormality. Pulmonary pressures are improved from prior. Recommend patient undergo ischemic evaluation but this can be done as outpatient with his primary starting gate driver, Dr. Matthew Stout unless troponin continues
to rise or If new or worsening symptoms.
Original Note:
Today's Communication / Plan
-
Echocardiogram pending today
Impression / Plan
-
PCP: Dr. Calvin Pollard
Principal Electrical Engineer: Dr. Matthew Stout
Impression:
Nonischemic myocardial injury likely related to incomplete hemodialysis
� EKG sinus rhythm with LVH no significant ST-T abnormality
� Troponin peak 0.416 downtrending
� No reported chest pain, shortness of breath, palpitations, syncope
� Echocardiogram June 2024 LVEF 50-55% without regional wall motion abnormality noted valvular heart disease
� On aspirin, amlodipine, losartan, pravastatin; not on beta-martín due to prior bradycardia
Severe pulmonary pretension likely related to end-stage renal disease
End-stage renal disease on hemodialysis, managed by nephrology
Hypertension
Hyperlipidemia
Diabetes mellitus type 2
Echo 01/04/2023: Normal LV size and function, EF 55 to 60%, grade 2 diastolic dysfunction, normal RV size and function, mild biatrial dilation, mild to moderate MR, moderate TR PASP 62 mmHg
Echo 06/18/2024: Normal LV size, mild concentric LVH, low normal LV systolic function EF 50 to 55%, mild global hypokinesis, normal RV size and function, severe left atrial dilation, mild right atrial dilation, moderate MR, moderate TR with PASP 64
mmHg
Recommendations:
� Repeat echocardiogram to assess cardiac size, shape, function, and valvular anatomy, pending today
� Workup regarding abdominal discomfort, abnormal urine per primary service
� Troponin downtrending from peak likely again nonischemic myocardial injury as no reported chest pain or shortness of breath at rest or with activity or exertion; will likely need ischemic evaluation given repeat admission for similar complaint; if
echocardiogram without abnormality, this can be done as outpatient, if change in EF or dysfunction, would recommend in-patient testing
� Monitor on telemetry
� Resume home medications when able per primary service
� Defer fluid management and electrolytes to nephrology with dialysis
Discussed with patient, nursing, hospitalist
Progress Note - Principal Electrical Engineer
Subjective
Date of Service: November 24, 2024
Patient seen and examined. No acute event overnight per patient resting comfortably in bed. Denies chest pain, shortness of breath, palpitations, lightheadedness, dizziness, near-syncope syncope or weakness. No further episodes of abdominal
discomfort.
Objective
Labs:
11/24/24 08:02
11/24/24 08:02
Labs
Hgb 11.4 g/dL (13.0-18.0) L 11/24/24 08:02
Hct 33.5 % (39.0-52.0) L 11/24/24 08:02
Plt Count 145 10^3/uL (130-400) 11/24/24 08:02
APTT 30.4 Sec (23.4-35.0) 11/23/24 13:38
Sodium 137 mmol/L (135-145) 11/24/24 08:02
Potassium 4.1 mmol/L (3.5-5.1) 11/24/24 08:02
BUN 46 mg/dl (9-20) H 11/24/24 08:02
Creatinine 5.4 mg/dL (0.7-1.3) H* 11/24/24 08:02
Glucose 121 mg/dl (70-99) H 11/24/24 08:02
Troponins
11/23/24 11/23/24 11/23/24
09:41 13:38 19:57
Troponin I 0.416 H* 0.375 H* 0.391 H*
11/24/24 11/24/24
02:00 08:02
Troponin I 0.381 H* 0.404 H*
Vital Signs and I&O:
Vital Signs
Temp Pulse Resp BP Pulse Ox
97.7 F 71 17 127/53 98
11/24/24 07:45 11/24/24 07:45 11/24/24 07:45 11/24/24 07:45 11/24/24 07:45
Vital Signs
Temp Pulse Resp BP Pulse Ox
97.7 F 71 17 127/53 98
11/24/24 07:45 11/24/24 07:45 11/24/24 07:45 11/24/24 07:45 11/24/24 07:45
Intake & Output
11/22/24 11/23/24 11/24/24 11/25/24
06:59 06:59 06:59 06:59
Intake Total 480 / 480
Output Total 100 / 100
Balance 380 / 380
Physical Exam
Physical Exam
GENERAL: no acute distress
EYE: sclera anicteric
NECK: Supple, no JVD, no carotid bruit appreciated
ENT: normal nose, moist mucosal membranes
CARDIAC: Regular rate and rhythm, +S1/S2, no murmur, rubs, or gallops
CHEST/PULMONARY: Normal effort, clear breath sounds
ABDOMEN: Soft, left lower quadrant tenderness, no distention
NEUROLOGICAL: Alert and oriented x3
SKIN: Warm and dry, no rash
PSYCH: Normal and appropriate interaction.
Telemetry shows sinus rhythm
[2024-11-24 11:27] VITALS: BP 138/44
--- NOTE | 2024-11-24 11:52 | W.PN.HOSP.TC ---
Addendum entered and electronically signed by Danny Pandey MD 11/24/24 14:35:
Dont use billing under this PN, use d/c summary instead
Original Note:
Today's Communication/Plan
-
Echo pending
Pulm consult pending
possible d/c afterwards
Assessment / Plan
Assessment / Plan
88yo M with ESRD on HD (TTS), HTN, HLD, DM sent from HD [facility] unit with onset of L lower abdominal pain similar to the one thqat he had a day prior. Pain non-radiating. Resolved upon arrival to ED. On exam - pain is reproducible when palpating
small abdominal hernias on LLQ of abdominal wall, however size of the hernias are subcentimeter and not striangulated. Lipase WNL, lactate WNL - no concern for acute pancreatitis or acute ischemic bowel. As per patient this pain is recurrent,
happening 2-3 times per week and started approximately 2 years before.
A/P:
#Recurrent chronic abdominal pain most likely 2/2 abdominal hernia, cannot r/o chronic bowel ischemia
no clinical signs of acute ischemia
Mild tenderness to deep palpation in RLQ
avoid hypoperfusion
cont ASA, statin
no symptoms while hospitalized
Previous CT abd/pelvis without acute findings
Lactate WNL - no currnt concern for acute bowel ischemia
#Troponin elevation
without chest pain and in the settings ESRD - no direct indication of ACS
follow serial trop and cardiology consult
#loculated small R pleural effusion
Pulm consult
#b/l LE numbness
cronic
Recommend outpatient US arteial - son bedside agreeable and understanding instructions
#ESRD on HD
cont HD - nephro consult
Had only 1 hour into HD on the day of admisison
#BPH
#Essential HTN
#Neuropathy
#HLD
Cont home meds
#TSH elevated
4.99 - can be normal for 88yo M
Check FT3 and FT4
DVT ppx hep
FUll code
I have spent at least 78min reviewing chart, test results, communication with consultants, daughter bedside and providing direct patient care
Anticipated Discharge: Within 24 hours
Subjective/Interval History
-
Date of Service: November 24, 2024
Objective Data
-
Labs:
Laboratory Results
11/24/24
08:02
WBC 4.7 L
Hgb 11.4 L
Hct 33.5 L
Plt Count 145
Sodium 137
Potassium 4.1
Chloride 97 L
Carbon Dioxide 31 H
BUN 46 H
Creatinine 5.4 H*
Glucose 121 H
Calcium 10.0
Total Bilirubin 0.7
AST 23
ALT 12
Alkaline Phosphatase 67
Vital Signs:
Vital Signs
Temp Pulse Resp BP Pulse Ox
97.5 F 71 16 138/44 97
11/24/24 11:27 11/24/24 11:27 11/24/24 11:27 11/24/24 11:27 11/24/24 11:27
I&O
11/23/24 11/24/24 11/25/24
06:59 06:59 06:59
Intake Total 480 / 480
Output Total 100 / 100
Balance 380 / 380
Review of Systems
-
History Source: Patient
All other systems: Reviewed and negative
Physical Exam
-
General: No Apparent Distress
HEENT: Normocephalic
GI: Soft, Nontender and Nondistended
Musculoskeletal: No Clubbing, No Cyanosis and No Edema
Psych: Calm
[2024-11-24 13:22] LABS: Free T3 3.22 pg/ml (2.77-5.27)
--- NOTE | 2024-11-24 13:25 | W.PN.NEPH.PH ---
Today's Communication / Plan
-
dc planning
Assessment/Plan
-
Assessment
ESRD
Abdominal pain at dialysis
BPH
Hypertension
Hyperlipidemia
Noncompliance with dialysis treatments
Elevated troponin
Plan
Electrolytes are currently controlled
No acute need for dialysis today
i would avoid CTA if possible with residual renal function
-
-
Date of Service: November 24, 2024
CC / HPI / ROS
-
Chief Complaint:
ESRD
History of Present Illness:
BP stable
no abdominal pain
K controlled
Review of Systems:
no CP/SOB
Labs
-
Labs:
WBC 4.7 10^3/uL (4.8-10.8) L 11/24/24 08:02
RBC 3.78 10^6/uL (4.70-6.10) L 11/24/24 08:02
Hgb 11.4 g/dL (13.0-18.0) L 11/24/24 08:02
Hct 33.5 % (39.0-52.0) L 11/24/24 08:02
Plt Count 145 10^3/uL (130-400) 11/24/24 08:02
Sodium 137 mmol/L (135-145) 11/24/24 08:02
Potassium 4.1 mmol/L (3.5-5.1) 11/24/24 08:02
Chloride 97 mmol/L (98-107) L 11/24/24 08:02
Carbon Dioxide 31 mmol/L (22-30) H 11/24/24 08:02
BUN 46 mg/dl (9-20) H 11/24/24 08:02
Creatinine 5.4 mg/dL (0.7-1.3) H* 11/24/24 08:02
eGFR 9.57 11/24/24 08:02
Glucose 121 mg/dl (70-99) H 11/24/24 08:02
Calcium 10.0 mg/dl (8.4-10.2) 11/24/24 08:02
Albumin 3.4 g/dl (3.5-5.0) L 11/24/24 08:02
Physical Exam
-
Vital Signs:
Vital Signs
Temp Pulse Resp BP Pulse Ox
97.5 F 71 16 138/44 97
11/24/24 11:27 11/24/24 11:27 11/24/24 11:27 11/24/24 11:27 11/24/24 11:27
Cardiovascular:: Regular rate and rhythm
Respiratory:: Bilateral: CTA
Lung Excursion:: Normal
Abdomen:: Nontender and Soft
Bowel Sounds:: Normal
Extremity Edema:: None: Bilateral:
--- NOTE | 2024-11-24 14:12 | CON.PUL ---
Consultation
Consultation Request
Date/Time Consultation Requested: 11/24/2024
Date/Time Consultation Performed: 11/24/2024- 2 PM
Requesting Provider: Dr. Pandey
Performing Provider: Dr. Bryon Silver
Medical History
-
History of Present Illness:
88-year-old male with past medical history significant for hypertension, diabetes mellitus 2, end-stage renal disease on dialysis, dyslipidemia presented from dialysis complaining of left lower quadrant abdominal pain.
Reports burning to urination with foul-smelling odor. For the last 2 weeks also chills during dialysis.
Initial troponins were elevated. Deemed to be noncardiac. Partial clearance due to chronic kidney disease on hemodialysis.Repeat echocardiogram showed no abnormalities to suggest ischemia-pulmonary hypertension is chronic.
Part of the evaluation for the abdominal pain included CT abdomen pelvis that demonstrated loculated right pleural effusion. We were consulted for evaluation of pleural effusion.
Past Medical History
Past Medical History: Other (See assessment and plan)
Social History
Tobacco: Non-smoker
Alcohol: None
Drug: None
Personal:
Living: With Family
Family History
Family History: Reviewed & Not Pertinent
Allergies / Home Medications
Allergies
Allergy/AdvReac Type Severity Reaction Status Date / Time
No Known Allergies Allergy Verified 11/07/24 08:27
Home Medications
�Medication �Instructions �Recorded �Confirmed �Last Taken �Type
pantoprazole 40 mg tablet,delayed 40 mg PO DAILY Gastrointestinal 02/08/12 11/23/24 06/18/24 History
release issue
cyanocobalamin (vitamin B-12) 1,000 mcg PO DAILY Supplement 05/04/22 11/23/24 06/18/24 History
1,000 mcg tablet
finasteride 5 mg tablet 5 mg PO DAILY Urinary issue 05/04/22 11/23/24 06/18/24 History
gabapentin 100 mg capsule 100 mg PO DAILY Pain 05/04/22 11/23/24 06/18/24 History
pravastatin 40 mg tablet 40 mg PO DAILY High cholesterol 05/04/22 11/23/24 06/18/24 History
cholecalciferol (vitamin D3) 25 25 mcg PO DAILY Supplement 07/29/22 11/23/24 06/18/24 History
mcg (1,000 unit) tablet (Vitamin
D3)
amlodipine 5 mg tablet 5 mg PO BID 03/04/24 11/23/24 06/18/24 History
furosemide 80 mg tablet 80 mg PO SUMOWEFR 03/04/24 11/23/24 06/18/24 History
losartan 100 mg tablet 100 mg PO DAILY 03/04/24 11/23/24 06/18/24 History
terazosin 1 mg capsule 1 mg PO HS 03/04/24 11/23/24 Unknown History
aspirin 81 mg tablet,delayed 81 mg PO DAILY 30 days #30 tabs 06/19/24 11/23/24 Unknown Rx
release
levofloxacin 250 mg tablet 500 mg PO DIRECTED 11/07/24 11/23/24 Unknown History
Review of Systems
-
History Source: Patient
All other systems: Negative unless noted
Vitals / Labs / Diagnostic Testing
Vital Signs
Temp Pulse Resp BP Pulse Ox
97.5 F 71 16 138/44 97
11/24/24 11:27 11/24/24 11:27 11/24/24 11:27 11/24/24 11:27 11/24/24 11:27
Lab Data
11/24/24 08:02
11/24/24 08:02
Diagnostic Testing:
Physical Exam
-
HEENT: Normocephalic
Cardiovascular: S1/S2
Respiratory: Clear and Non-Labored Respirations
GI: Soft and Non Distended
Neurology: Awake
Skin: Warm
General: Comfortable
Assessment
-
Right pleural effusion-small loculated incidental finding on CT abdomen pelvis.
CT abdomen pelvis lung cuts reviewed 11/22/2024: Small loculated pleural effusion.
Positive troponins
Abdominal pain
Conditions present prior admission:
Hypertension
Hyperlipidemia
BPH
Type 2 diabetes
End-stage renal disease on hemodialysis
Data review:
Echo 06/18/2024: Normal LV size, mild concentric LVH, low normal LV systolic function EF 50 to 55%, mild global hypokinesis, normal RV size and function, severe left atrial dilation, mild right atrial dilation, moderate MR, moderate TR with PASP 64
mmHg
Assessment and plan:
Incidental right lower lobe pleural effusion on CT abdomen pelvis.
No signs for infection. Afebrile without leukocytosis.
No recent trauma
Former smoker who quit m longer than 40 years ago. No COPD diagnosis.
No previous pulmonary disease.
-
In reviewing prior images particularly chest x-rays.
Pleural effusion has been present since at least December 2022.
Patient states that that time is around when he started dialysis.
Suspect related to chronic kidney disease.
Given lack of symptoms and/or signs of infection I recommend outpatient follow-up.
This could be followed with serial imaging and symptomatically.
Pleural effusion too small for thoracentesis at this point
-
I will leave information in the chart regarding follow-up
-
Patient advised to seek medical attention if there is any fevers or signs of infection suggestive of pulmonary involvement.
and daughter at the bedside.
-
Okay to discharge from my perspective.
[2024-11-24 14:17] LABS: Troponin I 0.328 ng/ml
[2024-11-24] MEDS: LASIX 80 MG PO (14:33)
--- NOTE | 2024-11-24 14:33 | W.DCSUMMARY ---
Discharge Summary
Discharge Data
Date of Admission: 11/23/24
Date of Discharge: 11/24/24
-
Pending Results: No
Hospital Course
88yo M with ESRD on HD (TTS), HTN, HLD, DM sent from HD [facility] unit with onset of L lower abdominal pain similar to the one thqat he had a day prior. Pain non-radiating. Resolved upon arrival to ED. On exam - pain is reproducible when palpating
small abdominal hernias on LLQ of abdominal wall, however size of the hernias are subcentimeter and not striangulated. Lipase WNL, lactate WNL - no concern for acute pancreatitis or acute ischemic bowel. As per patient this pain is recurrent,
happening 2-3 times per week and started approximately 2 years before. Did not reoccur while in the hospital. Echo EF 50-55% with grade 2 diastolic dysfunction, not significantly changed from june 2024. 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
- medically stabel for outpatient follow up. Ingot Weigher will follow in the clinic for small R pleural effusion. With no signs of infection - Abx were not indicated. Can be d/c home.
I have spent at least 78min reviewing chart, test results, communication with consultants, daughter bedside and providing direct patient care
Patient was managed for:
#Recurrent chronic abdominal pain most likely 2/2 abdominal hernia, cannot r/o chronic bowel ischemia
#Troponin elevation 2/2 ESRD, non-ischemic myocardial injury
#loculated small R pleural effusion
#b/l LE numbness, caludication - VascSx follow up
#ESRD on HD
#BPH
#Essential HTN
#Neuropathy
#HLD
#Subclinical hypothyroidism
Discharge Plan
-
Patient Disposition: Home (Routine Discharge)
Discharge Diagnosis/Procedures: Abdominal pain
Diet: Low Sodium
Activity: As tolerated
Referrals:
Bryon Monk MD [Active, Pulmonary Medicine] - in one to two weeks
Referral Note: for loculated pleural effusion
Jim Garcia MD [Active, Vascular Surgery] - in three to four weeks
Referral Note: claudication, for US Arterial
UNKNOWN - PT DOES,NOT KNOW [Family Provider]
Shravan Huston, DO [Active, Cardiology] - in less than 1 week
Referral Note: for cardiac workup
Prescriptions:
Continued
pantoprazole 40 MG tablet,delayed release (DR/EC)
40 mg PO DAILY
cyanocobalamin (vitamin B-12) 1,000 mcg Tablet
1,000 mcg PO DAILY
finasteride 5 mg Tablet
5 mg PO DAILY
pravastatin 40 mg Tablet
40 mg PO DAILY
gabapentin 100 mg Capsule
100 mg PO DAILY
cholecalciferol (vitamin D3) [Vitamin D3] 25 mcg (1,000 unit) Tablet
25 mcg PO DAILY
terazosin 1 mg Capsule
1 mg PO HS
amlodipine 5 mg Tablet
5 mg PO BID
furosemide 80 mg Tablet
80 mg PO SUMOWEFR
losartan 100 mg Tablet
100 mg PO DAILY
aspirin 81 mg Tablet,Delayed Release (Dr/Ec)
81 mg PO DAILY 30 Days Qty: 30 0RF
levofloxacin 250 mg Tablet
500 mg PO DIRECTED
Rx Instructions:
take 2 tablets q48h for 7 days on non diaylsis days starting after diaylsis
Discharge Orders:
Discharge Patient (As Directed); Ordered 11/24/24
Ordered By: Danny Pandey
Discharge Date and Time
Print Language: ARABIC
--- NOTE | 2024-11-24 14:45 | CM ---
SW spoke with son via phone to discuss dc planning.
Per son, pt will dc with no needs.
Visiting [place] will be visiting the home on Monday to set up care moving forward.
Daughter will provide transport to home. Pt has dialysis Monday
No additional needs identified.
[2024-11-24 15:09] VITALS: BP 122/58
== END 2024-11-24 15:20 | disposition home or self-care (01) ==
LOC: 2 NORTH 13:48
PROVIDERS: ADMITTING PHYSICIAN Internal Medicine; CONSULT PHYSICIAN Internal Medicine Cardiovascular Disease; CONSULT PHYSICIAN Internal Medicine Critical Care Medicine; CONSULT PHYSICIAN Specialist; EMERGENCY PHYSICIAN Emergency Medicine
DX: R10.9 Unspecified abdominal pain (principal); K46.9 Unspecified abdominal hernia without obstruction or gangrene; J90 Pleural effusion, not elsewhere classified; G89.29 Other chronic pain; N40.0 Benign prostatic hyperplasia without lower urinary tract symptoms; E78.00 Pure hypercholesterolemia, unspecified; I13.11 Hypertensive heart and chronic kidney disease without heart failure, with stage 5 chronic kidney disease, or end stage renal disease; E11.22 Type 2 diabetes mellitus with diabetic chronic kidney disease; N25.81 Secondary hyperparathyroidism of renal origin; N18.6 End stage renal disease; E11.40 Type 2 diabetes mellitus with diabetic neuropathy, unspecified; R30.9 Painful micturition, unspecified; I5A Non-ischemic myocardial injury (non-traumatic); R50.9 Fever, unspecified; R41.82 Altered mental status, unspecified; I70.0 Atherosclerosis of aorta; I49.3 Ventricular premature depolarization; I77.810 Thoracic aortic ectasia; I08.3 Combined rheumatic disorders of mitral, aortic and tricuspid valves; E03.8 Other specified hypothyroidism; Z99.2 Dependence on renal dialysis; Z87.891 Personal history of nicotine dependence; Z63.6 Dependent relative needing care at home; Z79.82 Long term (current) use of aspirin; Z79.899 Other long term (current) drug therapy; Z91.158 Patient's noncompliance with renal dialysis for other reason
CPT/HCPCS: 80053; 81003; 81015; 83605; 83690; 84439; 84443; 84481; 84484; 85025; 85027; 85730; 87070; 93005; 93306; 99285; G0378

== ENCOUNTER 2024-11-28 10:17 | Emergency (ER) | payer OTHER, SELFPAY ==
[2024-11-28 10:19] VITALS: BP 145/96
[2024-11-28 10:20] VITALS: BMI 19.3
[2024-11-28 10:27] VITALS: BP 145/96
--- NOTE | 2024-11-28 10:54 | ED.GENMED ---
History of Present Illness
General
Chief Complaint: Numbness
Time Seen by Provider: 11/28/24 10:33
Nursing documentation reviewed up to this point in time: agreed with
History of Present Illness
History of Present Illness:
89-year-old male presents to the ER for evaluation of bilateral lower extremity numbness and tingling which started while he was on dialysis treatment this morning. Patient has been a long-term dialysis patient. He states that the symptoms have
improved, he now only has mild tingling to his bilateral ankles. He denies any recent illness. He had been in the hospital last week due to left lower quadrant abdominal pain. He has no abdominal pain at the current time. He reports that he has
been eating and drinking without difficulty. No chest pain. No shortness of breath. No injury or trauma.
Past History
Past History
ED Past Medical History: HTN, Hypercholesterolemia, NIDDM, Renal failure and Other (Neuropathy, BPH, secondary hyperparathyroidism, anemia)
ED Past Surgical History: Orthopedic and Other (L arm fistula)
Social History
Tobacco: Former smoker
Alcohol: None
Drug: None
Personal:
Living: with family
Review of Systems
Review of Systems
Allergies reviewed?: Yes
Phy Exam
Physical Exam
Physical Exam:
Patient is awake, alert, appears in no acute distress, head is NCAT, PERRL, wearing glasses, EOMI mucous membranes moist, conjunctiva pink, heart regular rate and rhythm without murmurs or ectopy, lungs are clear to auscultation without wheezes
rales or rhonchi, no JVD, abdomen is soft and nontender on palpation, extremities without edema, fistula present left upper extremity with positive thrill and dialysis clamp still present, bilateral lower extremities with 2+ DP pulses symmetric,
brisk cap refill present to the toes, intact sensation to light touch symmetric, GCS is 15
Course
Orders/Labs/Results
Orders:
Orders
11/28/24 11:13
Lower Ext Arterial & ANGIE US [US Periph Art LOWER Ext w ANGIE] Urgent
Comment:
Reason For Exam: tingling
Vital Signs
Initial and Last Documented VS:
Initial Vital Signs
BP
145/96
11/28/24 10:19
Last Documented Vital Signs
Pulse Resp BP Pulse Ox
75 18 121/98 98
11/28/24 12:24 11/28/24 12:00 11/28/24 12:23 11/28/24 10:55
*Pulse Oximetry
SaO2: 98
Oxygen Mode of Delivery: Room air
Patient hypoxic: no
*Critical Care Note
Total Time (30-74mins, 75-104mins- exclusive of procedures): Not Applicable
Data Reviewed
Review of Other/Old Records Reveals: Discharge Summary (I reviewed discharge summary from Dr. Pandey dated 11/24/2024-patient admitted for evaluation of left lower quadrant abdominal pain with incidental elevation in troponin, right pleural
effusion. On his discharge diagnoses include bilateral lower extremity claudication)
Update Note
Update Note:
I reviewed full pt presentation and exam with Dr Bautista, compensation and benefits manager nephro, who reviewed record and would recommend that pt have ANGIE performed (had been ordered as an outpt but not yet complete). Await results. Pt ambulating to BR with Walker
Patient resting comfortably. In no distress, resolution of symptoms. Eating and drinking without difficulty. Patient provided with local vascular referral information for outpatient follow-up. He agrees with plan for discharge.
ED Attending Note
-
Portions of this chart may have been created with voice recognition software.� Occasional wrong word or��sound alike� substitutions may have occurred due to the inherent limitations of voice recognition software.
Discharge Plan
Departure
Patient Disposition: Home (Routine Discharge)
Date of Disposition: 11/28/24
Time of Disposition: 12:57
Patient with high blood pressure during this ER visit?: Yes
Discharge Problem:
Claudication
Instructions: Peripheral artery disease and claudication, BLOOD PRESSURE
Prescriptions:
No Action
pantoprazole 40 MG tablet,delayed release (DR/EC)
40 mg PO DAILY
cyanocobalamin (vitamin B-12) 1,000 mcg Tablet
1,000 mcg PO DAILY
finasteride 5 mg Tablet
5 mg PO DAILY
pravastatin 40 mg Tablet
40 mg PO DAILY
gabapentin 100 mg Capsule
100 mg PO DAILY
cholecalciferol (vitamin D3) [Vitamin D3] 25 mcg (1,000 unit) Tablet
25 mcg PO DAILY
terazosin 1 mg Capsule
1 mg PO HS
amlodipine 5 mg Tablet
5 mg PO BID
furosemide 80 mg Tablet
80 mg PO SUMOWEFR
losartan 100 mg Tablet
100 mg PO DAILY
aspirin 81 mg Tablet,Delayed Release (Dr/Ec)
81 mg PO DAILY 30 Days Qty: 30 0RF
Referrals:
Sagar Carrasco MD [Family Provider, Internal Medicine]
Jim Garcia MD [Active, Vascular Surgery] - Next open appointment
Activity Restrictions/Additional Instructions:
Continue your current medications. Return to the ER for any concerns
Interventions
Interventions:
*Risk Screen - Suicide Last Done: 11/28/24 10:27
*General Assessment Last Done: 11/28/24 10:27
*Neglect/Abuse Screening Last Done: 11/28/24 10:27
*ED- Fall Risk Assessment Last Done: 11/28/24 10:34
*ED COVID-19 Vaccine History Last Done: 11/28/24 10:36
*ED Influenza Vaccine History Last Done: 11/28/24 10:36
ED- Neurological Assessment Last Done: 11/28/24 10:38
Discharge Date and Time
Print Language: JAPANESE
[2024-11-28 11:01] VITALS: BP 167/77
[2024-11-28 12:23] VITALS: BP 121/98
[2024-11-28 13:05] VITALS: BP 171/62
== END 2024-11-28 14:12 | disposition home or self-care (01) ==
LOC: EMR 10:17
PROVIDERS: EMERGENCY PHYSICIAN Emergency Medicine; FAMILY PHYSICIAN Pediatrics
DX: I73.9 Peripheral vascular disease, unspecified (principal); E11.40 Type 2 diabetes mellitus with diabetic neuropathy, unspecified; E11.22 Type 2 diabetes mellitus with diabetic chronic kidney disease; I12.0 Hypertensive chronic kidney disease with stage 5 chronic kidney disease or end stage renal disease; N18.6 End stage renal disease; Z99.2 Dependence on renal dialysis; E78.00 Pure hypercholesterolemia, unspecified; Z87.891 Personal history of nicotine dependence
CPT/HCPCS: 99284; 93922; 93925

== ENCOUNTER 2024-11-29 13:50 | Emergency (ER) | payer OTHER, SELFPAY ==
[2024-11-29 13:52] VITALS: BP 154/70
[2024-11-29 13:55] VITALS: BP 154/70
[2024-11-29 14:11] LABS: Hematocrit 37.1 % (39.0-52.0); Hemoglobin 12.0 g/dL (13.0-18.0); Mean Corp Hgb Conc. 32.3 g/dL (33.0-37.0); Mean Corpuscular Volume 92.1 fL (80.0-94.0); Nucleated Red Blood Cells % 0 % (-); Platelet Count 157 10^3/uL (130-400); Red Cell Dist. Width 13.2 % (11.5-14.5)
[2024-11-29 14:41] LABS: Blood Urea Nitrogen 44 mg/dl (9-20); Calcium 10.3 mg/dl (8.4-10.2); Carbon Dioxide 31 mmol/L (22-30); Chloride 98 mmol/L (98-107); Glucose 151 mg/dl (70-99); Sodium 138 mmol/L (135-145); eGFR 10.68
--- NOTE | 2024-11-29 14:52 | ED.GENMED ---
History of Present Illness
<Tyson Tejeda, DO - Last Filed: 11/29/24 14:54>
General
Chief Complaint: Abdominal Pain
Time Seen by Provider: 11/29/24 14:46
<Ap Devi MD, Resident - Last Filed: 11/29/24 15:26>
General
Source: patient
Exam Limitations: none
History of Present Illness
History of Present Illness:
88-year-old male with past medical history significant for hypertension, diabetes mellitus 2, end-stage renal disease on dialysis, dyslipidemia presented from dialysis complaining of periumbilical abdominal pain and numbness/ tingling in his b/l
hands and feet. The abdominal pain is constant, dull, and non radiating, no aggravating or relieving factors. The numbness and tingling is intermittent, not associated with weakness. No headache, fever, chills, nausea, vomiting, diarrhea, chest
pain, manager financial services weakness, diaphoresis, acute neurological deficits. He has presented with similar symptoms the previous [address] abdomen/ pelvis on previous admission was negative for any significant intraabdominal pathology.
Past History
<Ap Devi MD, Resident - Last Filed: 11/29/24 15:26>
Past History
ED Past Medical History: HTN, Hypercholesterolemia, NIDDM, Renal failure and Other (Neuropathy, BPH, secondary hyperparathyroidism, anemia)
ED Past Surgical History: Orthopedic and Other (L arm fistula)
Social History
Tobacco: Former smoker
Alcohol: None
Drug: None
Personal:
Living: with family
Review of Systems
<Ap Devi MD, Resident - Last Filed: 11/29/24 15:26>
Review of Systems
Allergies reviewed?: Yes
All Other Systems: ROS reviewed and negative except as documented in HPI and ROS
Phy Exam
<Ap Devi MD, Resident - Last Filed: 11/29/24 15:26>
General Physical Exam
General Presentation: well appearing
General Skin: warm
General Habitus: normal
General Mental: alert
Cardiovascular Exam
Cardiovascular Exam: regular rate/rhythm
Pulmonary Exam
Pulmonary Exam: lungs clear and no respiratory distress
Gastrointestinal Exam
Gastrointestinal Exam: normal bowel sounds, non tender, soft and non distended
Neurological Exam
Neurological Exam: alert, oriented x3, no motor deficits, normal reflexs, no sensory deficits, speech normal and other (numbness and tingling on palpation of his b/l upper and lower extremities, no tenderness to touch.)
Musculoskeletal Exam
Musculoskeletal Exam: full ROM
Course
<Tyson Tejeda, DO - Last Filed: 11/29/24 14:54>
Orders/Labs/Results
Orders:
Orders
11/29/24 13:55
Electrocardiogram (*1) Urgent
Reason for Study: Abdominal Pain
EKG- Treatment ONCE
11/29/24 14:02
Basic Metabolic Panel Urgent
Complete Blood Count/With Diff Urgent
Lipase Urgent
11/29/24 15:21
Gabapentin [Neurontin] 300 mg PO NOW STA
11/29/24 15:22
Gabapentin [Neurontin] 200 mg PO NOW STA
Abnormal Lab Results
11/29/24
14:02
RBC 4.03 L 10^6/uL
(4.70-6.10)
Hgb 12.0 L g/dL
(13.0-18.0)
Hct 37.1 L %
(39.0-52.0)
MCHC 32.3 L g/dL
(33.0-37.0)
MPV 11.0 H fL
(7.4-10.4)
Absolute Lymphs (auto) 0.9 L 10^3/uL
(1.2-3.4)
Absolute Monos (auto) 0.8 H 10^3/uL
(0.1-0.6)
Lymphocytes % 16.2 L %
(20.5-51.1)
Monocytes % 13.8 H %
(1.7-9.3)
Carbon Dioxide 31 H mmol/L
(22-30)
BUN 44 H mg/dl
(9-20)
Creatinine 4.9 H* mg/dL
(0.7-1.3)
Glucose 151 H mg/dl
(70-99)
Calcium 10.3 H mg/dl
(8.4-10.2)
11/29/24 14:02
11/29/24 14:02
Vital Signs
Initial and Last Documented VS:
Initial Vital Signs
Temp Pulse Resp Pulse Ox
97.7 F 63 20 100
11/29/24 13:51 11/29/24 13:51 11/29/24 13:51 11/29/24 13:51
Last Documented Vital Signs
Temp Pulse Resp BP Pulse Ox
97.7 F 63 20 154/70 100
11/29/24 13:51 11/29/24 13:51 11/29/24 13:51 11/29/24 13:55 11/29/24 14:54
<Ap Devi MD, Resident - Last Filed: 11/29/24 15:26>
Orders/Labs/Results
Orders:
Orders
11/29/24 13:55
Electrocardiogram (*1) Urgent
Reason for Study: Abdominal Pain
EKG- Treatment ONCE
11/29/24 14:02
Basic Metabolic Panel Urgent
Complete Blood Count/With Diff Urgent
Lipase Urgent
11/29/24 15:21
Gabapentin [Neurontin] 300 mg PO NOW STA
11/29/24 15:22
Gabapentin [Neurontin] 200 mg PO NOW STA
Abnormal Lab Results
11/29/24
14:02
RBC 4.03 L 10^6/uL
(4.70-6.10)
Hgb 12.0 L g/dL
(13.0-18.0)
Hct 37.1 L %
(39.0-52.0)
MCHC 32.3 L g/dL
(33.0-37.0)
MPV 11.0 H fL
(7.4-10.4)
Absolute Lymphs (auto) 0.9 L 10^3/uL
(1.2-3.4)
Absolute Monos (auto) 0.8 H 10^3/uL
(0.1-0.6)
Lymphocytes % 16.2 L %
(20.5-51.1)
Monocytes % 13.8 H %
(1.7-9.3)
Carbon Dioxide 31 H mmol/L
(22-30)
BUN 44 H mg/dl
(9-20)
Creatinine 4.9 H* mg/dL
(0.7-1.3)
Glucose 151 H mg/dl
(70-99)
Calcium 10.3 H mg/dl
(8.4-10.2)
11/29/24 14:02
11/29/24 14:02
Vital Signs
Initial and Last Documented VS:
Initial Vital Signs
Temp Pulse Resp Pulse Ox
97.7 F 63 20 100
11/29/24 13:51 11/29/24 13:51 11/29/24 13:51 11/29/24 13:51
Last Documented Vital Signs
Temp Pulse Resp BP Pulse Ox
97.7 F 63 20 154/70 100
11/29/24 13:51 11/29/24 13:51 11/29/24 13:51 11/29/24 13:55 11/29/24 14:54
<Ap Devi MD, Resident - Last Filed: 11/29/24 15:26>
MDM/Problems Addressed
Differential Diagnosis Includes:
- Peripheral neuropathy, vitamin deficiencies, hypothyroidism, spinal cord compression, liver/ kidney disease, dialysis related peripheral neruopathy
MDM/Problems Addressed:
- cbc: shows hgb of 12 but otherwise unremarkable
- cmp: shows creatinine of 4.9
will discharge patient home with diagnosis of peripheral neuropathy and gabapentin
<Ap Devi MD, Resident - Last Filed: 11/29/24 15:26>
*Pulse Oximetry
SaO2: 100
Oxygen Mode of Delivery: Room air
Patient hypoxic: no
*Critical Care Note
Total Time (30-74mins, 75-104mins- exclusive of procedures): Not Applicable
ED Attending Note
<Tyson Tejeda, DO - Last Filed: 11/29/24 14:54>
ED Attending Note
Patient seen and examined by attending physician: Yes
I performed a history and physical exam of patient and discussed management with resident, I reviewed resident's note and agree with documented findings and plan of care.: Yes
ED Attending Note:
I have seen and evaluated the patient with a [id number] encounter. I have spoken to the resident and involved in the medical history, the physical exam, medical decision making.
Evaluation and management service: agree unless noted differently below.
Results interpretation: agree unless noted differently below.
Focused HPI: 89-year-old male presenting back to the emergency department for evaluation of tingling in his hands in his feet patient has been evaluated for this in the past with negative workup. He is end-stage renal and his last dialysis session
was yesterday. Patient denies any recent trauma or bowel or bladder issues
Physical exam: Very mild sensory deficit to distal feet and legs bilaterally. Abdomen soft nontender. Distal pulses in all extremities otherwise intact
Medical Decision Making: We discussed the diagnosis of neuropathy. Will start a low-dose of gabapentin with a thought of PCP continuing this prescription and increasing the dose if it helps
<Ap Devi MD, Resident - Last Filed: 11/29/24 15:26>
-
Portions of this chart may have been created with voice recognition software.� Occasional wrong word or��sound alike� substitutions may have occurred due to the inherent limitations of voice recognition software.
Discharge Plan
Departure
Patient Disposition: Home (Routine Discharge)
Date of Disposition: 11/29/24
Time of Disposition: 15:13
Patient with high blood pressure during this ER visit?: No
Condition: Good
Discharge Problem:
Peripheral neuropathy
Instructions: Peripheral neuropathy
Prescriptions:
No Action
pantoprazole 40 MG tablet,delayed release (DR/EC)
40 mg PO DAILY
cyanocobalamin (vitamin B-12) 1,000 mcg Tablet
1,000 mcg PO DAILY
finasteride 5 mg Tablet
5 mg PO DAILY
pravastatin 40 mg Tablet
40 mg PO DAILY
gabapentin 100 mg Capsule
100 mg PO DAILY
cholecalciferol (vitamin D3) [Vitamin D3] 25 mcg (1,000 unit) Tablet
25 mcg PO DAILY
terazosin 1 mg Capsule
1 mg PO HS
amlodipine 5 mg Tablet
5 mg PO BID
furosemide 80 mg Tablet
80 mg PO SUMOWEFR
losartan 100 mg Tablet
100 mg PO DAILY
aspirin 81 mg Tablet,Delayed Release (Dr/Ec)
81 mg PO DAILY 30 Days Qty: 30 0RF
Referrals:
Sagar Carrasco MD [Family Provider, Internal Medicine] - Follow up in 5-7 days
Activity Restrictions/Additional Instructions:
You were seen for evaluation of peripheral neuropathy. Please take gabapentin at a dose of 200 mg once a day. Please follow up with pcp within 5 days. Consult with PCP for an increase in dosage if symptoms are still persistent.
Thank you for visiting the Emergency Department at [facility].
1. Please schedule a follow up appointment as directed. Call first thing tomorrow morning to make an appointment.
2. If indicated, please take your medications as instructed and indicated on discharge paperwork.
3. If any of your symptoms do not improve, or persist, or become more severe within 6-12 hours, please return to the emergency department for further care.
4. Please return to the emergency department if you develop a headache, neck pain/stiffness, fever greater than 100.4F, chest pain, shortness of breath, persistent nausea, vomiting, slurred speech, difficulty walking, numbness/tingling, weakness,
signs of infection or any other symptoms that are worrisome to you.
Please call [phone] if you have any questions.
Interventions
Interventions:
*Risk Screen - Suicide Last Done: 11/29/24 13:51
*General Assessment Last Done: 11/29/24 13:51
*Neglect/Abuse Screening Last Done: 11/29/24 13:51
Discharge Date and Time
Print Language: ESTONIAN
[2024-11-29 15:00] VITALS: BP 103/79
[2024-11-29] MEDS: NEURONTIN 200 MG PO (15:43)
[2024-11-29 15:58] LABS: Lipase 265 U/L (23-300)
[2024-11-29 16:01] VITALS: BP 164/83
[2024-11-29 17:00] VITALS: BP 148/117
[2024-11-29 18:00] VITALS: BP 139/60
== END 2024-11-29 18:35 | disposition home or self-care (01) ==
LOC: EMR 13:50
PROVIDERS: EMERGENCY PHYSICIAN Student in an Organized Health Care Education/Training Program; FAMILY PHYSICIAN Pediatrics
DX: E11.42 Type 2 diabetes mellitus with diabetic polyneuropathy (principal); E11.22 Type 2 diabetes mellitus with diabetic chronic kidney disease; I12.0 Hypertensive chronic kidney disease with stage 5 chronic kidney disease or end stage renal disease; N18.6 End stage renal disease; E78.00 Pure hypercholesterolemia, unspecified; N25.81 Secondary hyperparathyroidism of renal origin; N40.0 Benign prostatic hyperplasia without lower urinary tract symptoms; Z79.82 Long term (current) use of aspirin; Z99.2 Dependence on renal dialysis; Z87.891 Personal history of nicotine dependence
CPT/HCPCS: 99284; 80048; 83690; 85025; 93005

== ENCOUNTER 2024-12-04 14:14 | Emergency (ER) | payer OTHER, SELFPAY ==
[2024-12-04 14:16] VITALS: BP 160/56
[2024-12-04 14:37] LABS: Hematocrit 36.4 % (39.0-52.0); Hemoglobin 11.1 g/dL (13.0-18.0); Mean Corp Hgb Conc. 30.5 g/dL (33.0-37.0); Mean Corpuscular Volume 96.6 fL (80.0-94.0); Nucleated Red Blood Cells % 0 % (-); Platelet Count 160 10^3/uL (130-400); Red Cell Dist. Width 13.6 % (11.5-14.5)
[2024-12-04 14:59] LABS: ALT (SGPT) 11 U/L (0-50); AST (SGOT) 21 U/L (17-59); Albumin 3.6 g/dl (3.5-5.0); Alkaline Phosphatase 63 U/L (38-126); Blood Urea Nitrogen 78 mg/dl (9-20); Calcium 10.6 mg/dl (8.4-10.2); Carbon Dioxide 19 mmol/L (22-30); Chloride 106 mmol/L (98-107); Glucose 131 mg/dl (70-99); Potassium 5.2 mmol/L (3.5-5.1); Sodium 134 mmol/L (135-145); Total Protein 6.9 g/dl (6.3-8.2); eGFR 6.21
[2024-12-04 16:46] VITALS: BP 162/61
--- NOTE | 2024-12-04 16:49 | ED.GENMED ---
History of Present Illness
General
Chief Complaint: Weakness
Source: patient
Exam Limitations: none
Time Seen by Provider: 12/04/24 16:40
History of Present Illness
History of Present Illness:
89-year-old male Monday dialysis patient presents with generalized weakness abdominal discomfort and nausea. He is not sure if he had dialysis yesterday or not. He was recently admitted for elevated troponins. He came from home
where he lives with his . There has been no vomiting. He still makes urine. He denies chest pain. No measurable fever. No other complaints
Past History
Past History
ED Past Medical History: HTN, Hypercholesterolemia, NIDDM, Renal failure and Other (Neuropathy, BPH, secondary hyperparathyroidism, anemia)
ED Past Surgical History: Orthopedic and Other (L arm fistula)
Social History
Tobacco: Former smoker
Alcohol: None
Drug: None
Personal:
Living: with family
Phy Exam
Physical Exam
Physical Exam:
General: Well-appearing male no acute respiratory distress
HEENT normal cephalic atraumatic
Heart: Regular rate and rhythm
Lungs: Clear no wheeze
Abdomen is soft tender to the mid abdomen no guarding nondistended
Skin is warm no rash
Extremities without edema
Course
Orders/Labs/Results
Orders:
Orders
12/04/24 14:19
Electrocardiogram (*1) Urgent
Reason for Study: Fatigue / Weakness
EKG- Treatment ONCE
12/04/24 14:29
Complete Blood Count/With Diff Urgent
Comprehensive Metabolic Panel Urgent
12/04/24 16:49
Ondansetron Injectable [Zofran] 4 mg IV NOW STA
12/04/24 17:00
Troponin I Urgent
Urinalysis Reflex To Culture Urgent
Date Specimen was Collected: 12/04/24
Time Specimen was Collected: 16:56
Urine Microscopic Reflex Cult Urgent
12/04/24 17:43
CT Abd/pel Without Iv Or Oral Urgent
Comment:
Reason For Exam: abdominal pain
12/04/24 19:44
Cefdinir [Omnicef] 300 mg PO NOW STA
Abnormal Lab Results
12/04/24 12/04/24
14:29 17:00
RBC 3.77 L 10^6/uL
(4.70-6.10)
Hgb 11.1 L g/dL
(13.0-18.0)
Hct 36.4 L %
(39.0-52.0)
MCV 96.6 H fL
(80.0-94.0)
MCHC 30.5 L g/dL
(33.0-37.0)
Absolute Lymphs (auto) 0.9 L 10^3/uL
(1.2-3.4)
Lymphocytes % 16.4 L %
(20.5-51.1)
Monocytes % 10.2 H %
(1.7-9.3)
Sodium 134 L mmol/L
(135-145)
Potassium 5.2 H mmol/L
(3.5-5.1)
Carbon Dioxide 19 L mmol/L
(22-30)
BUN 78 H mg/dl
(9-20)
Creatinine 7.7 H* mg/dL
(0.7-1.3)
Glucose 131 H mg/dl
(70-99)
Calcium 10.6 H mg/dl
(8.4-10.2)
Troponin I 0.243 H* ng/ml
Ur Occult Blood Reflex 1+ A
(Negative)
Urine RBC 3-6 A /HPF
(0-2)
Urine Bacteria (Reflex) Few A
(Negative)
Urine Glucose 2+ A
(Negative)
Urine Albumin (Reflex) 3+ A
(Neg - Trace)
12/04/24 14:29
12/04/24 14:29
Vital Signs
Initial and Last Documented VS:
Initial Vital Signs
Temp Pulse Resp BP Pulse Ox
98.0 F 58 18 160/56 99
12/04/24 14:16 12/04/24 14:16 12/04/24 14:16 12/04/24 14:16 12/04/24 14:16
Last Documented Vital Signs
Temp Pulse Resp BP Pulse Ox
97.7 F 73 15 160/78 100
12/04/24 19:17 12/04/24 19:30 12/04/24 19:30 12/04/24 19:17 12/04/24 19:17
MDM/Problems Addressed
Differential Diagnosis Includes:
Patient with generalized weakness nausea and abdominal pain. Not sure if he went to dialysis yesterday. Will check labs and electrolytes. Treat symptoms with Zofran. Will order CT given the tenderness on exam.
*Pulse Oximetry
SaO2: 99
Oxygen Mode of Delivery: Room air
Patient hypoxic: no
*Critical Care Note
Total Time (30-74mins, 75-104mins- exclusive of procedures): Not Applicable
Update Note
Update Note:
Patient has elevated creatinine today consistent with someone who is 2 dialysis patient. He is due for dialysis tomorrow. Potassium 5.2. Appears well overall. Urine questionable for infection CT shows possible cystitis but afebrile here with
stable vital signs. Will start on Omnicef for coverage pending culture no indication for admission I believe he would be best suited for discharge so he can receive his dialysis in the morning there is a bump in his troponin however this is
improved from prior values. He is not having any chest pain.
ED Attending Note
-
Portions of this chart may have been created with voice recognition software.� Occasional wrong word or��sound alike� substitutions may have occurred due to the inherent limitations of voice recognition software.
Discharge Plan
Departure
Patient Disposition: Home (Routine Discharge)
Date of Disposition: 12/04/24
Time of Disposition: 19:46
Patient with high blood pressure during this ER visit?: No
Discharge Problem:
Weakness
Instructions: Urinary tract infection (DC)
Prescriptions:
New
cefdinir 300 mg capsule
300 mg PO BID Qty: 14 0RF
No Action
pantoprazole 40 MG tablet,delayed release (DR/EC)
40 mg PO DAILY
cyanocobalamin (vitamin B-12) 1,000 mcg Tablet
1,000 mcg PO DAILY
finasteride 5 mg Tablet
5 mg PO DAILY
pravastatin 40 mg Tablet
40 mg PO DAILY
gabapentin 100 mg Capsule
100 mg PO DAILY
cholecalciferol (vitamin D3) [Vitamin D3] 25 mcg (1,000 unit) Tablet
25 mcg PO DAILY
terazosin 1 mg Capsule
1 mg PO HS
amlodipine 5 mg Tablet
5 mg PO BID
furosemide 80 mg Tablet
80 mg PO SUMOWEFR
losartan 100 mg Tablet
100 mg PO DAILY
aspirin 81 mg Tablet,Delayed Release (Dr/Ec)
81 mg PO DAILY 30 Days Qty: 30 0RF
Referrals:
Sagar Carrasco MD [Family Provider, Internal Medicine]
Activity Restrictions/Additional Instructions:
Take antibiotics as directed. Resume dialysis as scheduled for tomorrow. Return if worse otherwise follow-up with your doctor
Interventions
Interventions:
*Risk Screen - Suicide Last Done: 12/04/24 17:07
*General Assessment Last Done: 12/04/24 14:16
*Neglect/Abuse Screening Last Done: 12/04/24 17:07
*ED- Fall Risk Assessment Last Done: 12/04/24 17:07
*ED COVID-19 Vaccine History Last Done: 12/04/24 17:07
*ED Influenza Vaccine History Last Done: 12/04/24 17:07
ED- Cardiac Assessment Last Done: 12/04/24 17:24
ED- Neurological Assessment Last Done: 12/04/24 17:24
ED- Pulmonary Assessment Last Done: 12/04/24 17:24
Discharge Date and Time
Print Language: GREEK
[2024-12-04 17:01] VITALS: BMI 20.6
[2024-12-04] MEDS: ZOFRAN 4 MG IV (17:06)
[2024-12-04 17:12] LABS: Urine Character Clear (Clear)
[2024-12-04 17:27] LABS: Urine White Cell 0-2 /HPF (0-5)
[2024-12-04 17:42] LABS: Troponin I 0.243 ng/ml
[2024-12-04 19:14] VITALS: BP 160/78
[2024-12-04 19:17] VITALS: BP 160/78
[2024-12-04 20:00] VITALS: BP 171/74
[2024-12-04] MEDS: OMNICEF 300 MG PO (20:21)
== END 2024-12-04 20:35 | disposition home or self-care (01) ==
LOC: EMR 14:14
PROVIDERS: Emergency Medicine; Physician Assistant; EMERGENCY PHYSICIAN Emergency Medicine; FAMILY PHYSICIAN Pediatrics
DX: R53.1 Weakness (principal); E11.22 Type 2 diabetes mellitus with diabetic chronic kidney disease; I12.0 Hypertensive chronic kidney disease with stage 5 chronic kidney disease or end stage renal disease; N18.6 End stage renal disease; Z99.2 Dependence on renal dialysis; E11.40 Type 2 diabetes mellitus with diabetic neuropathy, unspecified; E78.00 Pure hypercholesterolemia, unspecified; N25.81 Secondary hyperparathyroidism of renal origin; N40.0 Benign prostatic hyperplasia without lower urinary tract symptoms; Z79.82 Long term (current) use of aspirin; Z87.891 Personal history of nicotine dependence
CPT/HCPCS: 99284; 96374; 74176; 80053; 81003; 81015; 84484; 85025; 93005

== ENCOUNTER 2025-01-29 15:00 | Inpatient (IN) | payer OTHER, SELFPAY ==
[2025-01-29] VITALS (14 sets, daily range): BP systolic 120–207; BP diastolic 70–111
--- NOTE | 2025-01-29 14:02 | ED.GENMED ---
History of Present Illness
<Kaz Pritchett PA-C - Last Filed: 01/29/25 19:38>
General
Chief Complaint: Catheter/Tube Problem
Time Seen by Provider: 01/29/25 13:57
History of Present Illness
History of Present Illness:
89-year-old male presents to the emergency department for evaluation of issues with his left upper extremity dialysis fistula. Dialysis center was not able to access his catheter yesterday. Last full treatment was Monday. Denies any fevers or
chills. Has no other complaints.
Past History
<Kaz Pritchett PA-C - Last Filed: 01/29/25 19:38>
Past History
ED Past Medical History: HTN, Hypercholesterolemia, NIDDM, Renal failure and Other (Neuropathy, BPH, secondary hyperparathyroidism, anemia)
ED Past Surgical History: Orthopedic and Other (L arm fistula)
Social History
Tobacco: Former smoker
Alcohol: None
Drug: None
Personal:
Living: with family
Review of Systems
<Kaz Pritchett PA-C - Last Filed: 01/29/25 19:38>
Review of Systems
Allergies reviewed?: Yes
All Other Systems: ROS reviewed and negative except as documented in HPI and ROS
Phy Exam
<Kaz Pritchett PA-C - Last Filed: 01/29/25 19:38>
Physical Exam
Physical Exam:
GEN: Well appearing, NAD, WDWN
HEENT: Oral mucosa moist, no scleral icterus
Cardiac: Regular rate
Lung: No respiratory distress, no tachypnea
MSK: No gross deformity or injuries. Left upper extremity dialysis fistula with no palpable thrill
Skin: Good color, no pallor or jaundice, no rashes
Neuro: AO x3, moves all extremities freely
Psych: Calm, cooperative
Course
<Kaz Pritchett PA-C - Last Filed: 01/29/25 19:38>
Orders/Labs/Results
Orders:
Orders
01/29/25 Breakfast
NPO
Allow oral meds: Yes
Allow clear liquids: 4hrs prior to procedure
Comment: may have unrestricted clear liquid up to 4 hrs prior to scheduled procedure
01/29/25 12:38
US Hemodialysis Graft Urgent
Comment:
Reason For Exam: clotted graft
01/29/25 14:04
Vascular Surgery Consult Urgent
Consulting Provider: Jim Garcia
Was physician already notified: Yes
01/29/25 14:11
Complete Blood Count/No Diff Urgent
01/29/25 14:25
Electrocardiogram (*1) Urgent
Reason for Study: QTc Monitoring
EKG- Treatment ONCE
Heparin Sodium,Porcine/Ns/Pf [Heparin 2000 Units/1000 ml] 2,000 unit in 1,000 ml .ROUTE .STK-MED
Lidocaine HCl/Pf [Xylocaine-Mpf 1% Vial] 50 mg .ROUTE .STK-MED ONE
01/29/25 14:27
Fentanyl Citrate/Pf [Sublimaze] 100 mcg .ROUTE .STK-MED ONE
Lidocaine 2% Mpf [Xylocaine Mpf 2%] 100 mg .ROUTE .STK-MED ONE
Phenylephrine [Richard-Synephrine] 10 mg .ROUTE .STK-MED ONE
Propofol [Diprivan] 20 ml .ROUTE .STK-MED
01/29/25 14:35
Comprehensive Metabolic Panel Urgent
01/29/25 14:46
NEPHROLOGY CONSULT Routine
Consulting Provider: Blaise Serrano V.
Was physician already notified: Yes
01/29/25 14:49
Admit/Transfer Patient As Directed
Co-Sign Provider:
Level of Care: Inpatient admission
Assign to:: Medical/Surgical
Physician / Group: Angyy
Diagnosis: Thrombosed AV Fistula
Reason for Hospitalization: AV fistula thrombosis
Expected length of stay greater than two midnights?: Yes
ELOS- Estimated Length of Stay in days: 3
I certify the patient meets the requirements for IP care: Yes
01/29/25 14:50
PRN Pain Medication Management As Directed
May give lesser potent ordered pain med per pt: Yes
preference::
Protocol:: Medication orders for pain may be administered in a
manner that supports deferring to patient preference
when the pt is:
- Requesting an ordered lesser potent pain medication.
Least to most potent pain medications are defined
as: acetaminophen < NSAID < tramadol < opioids
(morphine, oxycodone, hydromorphone).
- Requesting a lesser dose of the same medication IF
ORDERED.
- Requesting a less intrusive route of administration
if both routes are prescribed by the provider (PO <
IV).
01/29/25 14:51
Code Status As Directed
Resuscitation Status: Full Code
01/29/25 18:19
Acetaminophen [Tylenol] 650 mg PO Q4HPRN PRN
Dextrose 50%-Water [Dextrose 50% Syringe] 12.5 grams IV [id number] PRN
Furosemide [Lasix] 80 mg PO SuMoWeFr@0800
Glucagon [GlucaGen] 1 mg IM PRN PRN
Insulin Aspart Corrective Low [Novolog Flexpen-Low Resistance] See Protocol SC AC
01/29/25 18:19
Activity As Directed
Activity Level: Out of Bed-Early Mobility
With Assistance
Bedside Glucose Monitoring As Directed
Frequency: AC&HS
Additional Instructions:: Change to q6h if pt on TPN, tube feeding or not eating
I&O [Intake/ Output] As Directed
Frequency: q12h
Vital Signs As Directed
Frequency: Per unit guidelines
Weight As Directed
Frequency: Daily
DX Deep Vein Thrombosis Video Routine
01/29/25 20:00
Amlodipine [Norvasc] 5 mg PO BID
01/29/25 22:00
Terazosin [Hytrin] 1 mg PO HS
01/30/25 00:00
Heparin 5,000 units SC Q8
01/30/25 06:00
Basic Metabolic Panel IN AM
Complete Blood Count/No Diff IN AM
Glycohemoglobin (HgbA1c) IN AM
Magnesium IN AM
Phosphorus IN AM
01/30/25 08:00
Aspirin Low Dose EC [Aspir Low (Enteric Coated)] 81 mg PO DAILY
Finasteride [Proscar] 5 mg PO DAILY
Gabapentin [Neurontin] 100 mg PO DAILY
Losartan [Cozaar] 100 mg PO DAILY
Pravastatin Sodium [Pravachol] 40 mg PO DAILY
Abnormal Lab Results
01/29/25 01/29/25
14:11 14:35
RBC 4.18 L 10^6/uL
(4.70-6.10)
Hct 38.7 L %
(39.0-52.0)
MCH 32.1 H pg
(27.0-31.0)
MPV 10.7 H fL
(7.4-10.4)
BUN 76 H mg/dl
(9-20)
Creatinine 8.4 H* mg/dL
(0.7-1.3)
Glucose 111 H mg/dl
(70-99)
Calcium 11.3 H mg/dl
(8.4-10.2)
01/29/25 14:11
01/29/25 14:35
Vital Signs
Initial and Last Documented VS:
Initial Vital Signs
Temp Pulse Resp BP Pulse Ox
98.4 F 68 16 177/89 98
01/29/25 12:06 01/29/25 12:06 01/29/25 12:06 01/29/25 12:06 01/29/25 12:06
Last Documented Vital Signs
Temp Pulse Resp BP Pulse Ox
97.5 F 59 15 173/79 100
01/29/25 18:07 01/29/25 19:00 01/29/25 19:00 01/29/25 19:00 01/29/25 19:00
<Onel Rubin MD - Last Filed: 01/29/25 15:31>
Orders/Labs/Results
Orders:
Orders
01/29/25 Breakfast
NPO
Allow oral meds: Yes
Allow clear liquids: 4hrs prior to procedure
Comment: may have unrestricted clear liquid up to 4 hrs prior to scheduled procedure
01/29/25 12:38
US Hemodialysis Graft Urgent
Comment:
Reason For Exam: clotted graft
01/29/25 14:04
Vascular Surgery Consult Urgent
Consulting Provider: Jim Garcia
Was physician already notified: Yes
01/29/25 14:11
Complete Blood Count/No Diff Urgent
01/29/25 14:25
Electrocardiogram (*1) Urgent
Reason for Study: QTc Monitoring
EKG- Treatment ONCE
Heparin Sodium,Porcine/Ns/Pf [Heparin 2000 Units/1000 ml] 2,000 unit in 1,000 ml .ROUTE .STK-MED
Lidocaine HCl/Pf [Xylocaine-Mpf 1% Vial] 50 mg .ROUTE .STK-MED ONE
01/29/25 14:27
Fentanyl Citrate/Pf [Sublimaze] 100 mcg .ROUTE .STK-MED ONE
Lidocaine 2% Mpf [Xylocaine Mpf 2%] 100 mg .ROUTE .STK-MED ONE
Phenylephrine [Richard-Synephrine] 10 mg .ROUTE .STK-MED ONE
Propofol [Diprivan] 20 ml .ROUTE .STK-MED
01/29/25 14:35
Comprehensive Metabolic Panel Urgent
01/29/25 14:46
NEPHROLOGY CONSULT Routine
Consulting Provider: Blaise Serrano V.
Was physician already notified: Yes
01/29/25 14:49
Admit/Transfer Patient As Directed
Co-Sign Provider:
Level of Care: Inpatient admission
Assign to:: Medical/Surgical
Physician / Group: Angyy
Diagnosis: Thrombosed AV Fistula
Reason for Hospitalization: AV fistula thrombosis
Expected length of stay greater than two midnights?: Yes
ELOS- Estimated Length of Stay in days: 3
I certify the patient meets the requirements for IP care: Yes
01/29/25 14:50
PRN Pain Medication Management As Directed
May give lesser potent ordered pain med per pt: Yes
preference::
Protocol:: Medication orders for pain may be administered in a
manner that supports deferring to patient preference
when the pt is:
- Requesting an ordered lesser potent pain medication.
Least to most potent pain medications are defined
as: acetaminophen < NSAID < tramadol < opioids
(morphine, oxycodone, hydromorphone).
- Requesting a lesser dose of the same medication IF
ORDERED.
- Requesting a less intrusive route of administration
if both routes are prescribed by the provider (PO <
IV).
01/29/25 14:51
Code Status As Directed
Resuscitation Status: Full Code
01/29/25 18:19
Acetaminophen [Tylenol] 650 mg PO Q4HPRN PRN
Dextrose 50%-Water [Dextrose 50% Syringe] 12.5 grams IV [id number] PRN
Furosemide [Lasix] 80 mg PO SuMoWeFr@0800
Glucagon [GlucaGen] 1 mg IM PRN PRN
Insulin Aspart Corrective Low [Novolog Flexpen-Low Resistance] See Protocol SC AC
01/29/25 18:19
Activity As Directed
Activity Level: Out of Bed-Early Mobility
With Assistance
Bedside Glucose Monitoring As Directed
Frequency: AC&HS
Additional Instructions:: Change to q6h if pt on TPN, tube feeding or not eating
I&O [Intake/ Output] As Directed
Frequency: q12h
Vital Signs As Directed
Frequency: Per unit guidelines
Weight As Directed
Frequency: Daily
DX Deep Vein Thrombosis Video Routine
01/29/25 20:00
Amlodipine [Norvasc] 5 mg PO BID
01/29/25 22:00
Terazosin [Hytrin] 1 mg PO HS
01/30/25 00:00
Heparin 5,000 units SC Q8
01/30/25 06:00
Basic Metabolic Panel IN AM
Complete Blood Count/No Diff IN AM
Glycohemoglobin (HgbA1c) IN AM
Magnesium IN AM
Phosphorus IN AM
01/30/25 08:00
Aspirin Low Dose EC [Aspir Low (Enteric Coated)] 81 mg PO DAILY
Finasteride [Proscar] 5 mg PO DAILY
Gabapentin [Neurontin] 100 mg PO DAILY
Losartan [Cozaar] 100 mg PO DAILY
Pravastatin Sodium [Pravachol] 40 mg PO DAILY
Abnormal Lab Results
01/29/25 01/29/25
14:11 14:35
RBC 4.18 L 10^6/uL
(4.70-6.10)
Hct 38.7 L %
(39.0-52.0)
MCH 32.1 H pg
(27.0-31.0)
MPV 10.7 H fL
(7.4-10.4)
BUN 76 H mg/dl
(9-20)
Creatinine 8.4 H* mg/dL
(0.7-1.3)
Glucose 111 H mg/dl
(70-99)
Calcium 11.3 H mg/dl
(8.4-10.2)
01/29/25 14:11
01/29/25 14:35
Vital Signs
Initial and Last Documented VS:
Initial Vital Signs
Temp Pulse Resp BP Pulse Ox
98.4 F 68 16 177/89 98
01/29/25 12:06 01/29/25 12:06 01/29/25 12:06 01/29/25 12:06 01/29/25 12:06
Last Documented Vital Signs
Temp Pulse Resp BP Pulse Ox
97.5 F 59 15 173/79 100
01/29/25 18:07 01/29/25 19:00 01/29/25 19:00 01/29/25 19:00 01/29/25 19:00
<Kaz Pritchett PA-C - Last Filed: 01/29/25 19:38>
MDM/Problems Addressed
MDM/Problems Addressed:
Imaging confirms thrombosed AV fistula. Vascular surgery saw the patient in the ED and will take to the OR for intervention. Due to missed dialysis session will require admission for dialysis
<Kaz Pritchett PA-C - Last Filed: 01/29/25 19:38>
*Pulse Oximetry
SaO2: 98
Oxygen Mode of Delivery: Room air
Patient hypoxic: no
*Critical Care Note
Total Time (30-74mins, 75-104mins- exclusive of procedures): Not Applicable
ED Attending Note
<Kaz Pritchett PA-C - Last Filed: 01/29/25 19:38>
-
Portions of this chart may have been created with voice recognition software.� Occasional wrong word or��sound alike� substitutions may have occurred due to the inherent limitations of voice recognition software.
<Onel Rubin MD - Last Filed: 01/29/25 15:31>
ED Attending Note
Patient seen and examined by attending physician: Yes
ED Attending Note:
I have seen and evaluated the patient with a [id number] encounter. I have spoken to the advance practicer provider and involved in the medical history, the physical exam, medical decision making.
Evaluation and management service: agree unless noted differently below.
Results interpretation: agree unless noted differently below.
Focused HPI: 89-year-old male with a history as noted presents for clotted fistula. Apparently fistula nonfunctional when he went for dialysis, sent for evaluation here. He has not had dialysis since Monday. He says he has some tingling in his
left arm but denies any other acute complaints.
Physical exam: Awake and alert, nontoxic-appearing. Left upper extremity AV fistula no thrill noted.
Medical Decision Makin-year-old male presents with nonfunctioning AV fistula in the left upper extremity. Ultrasound shows thrombosed fistula. Discussed with vascular surgery, plan for OR. Admit pending OR, will need dialysis thereafter.
Discharge Plan
Departure
Patient Disposition: Admit
Date of Disposition: 01/29/25
Time of Disposition: 14:25
Admit to: Telemetry
Presentation/result/management discussed w/ accepting MD/DO: Hospitalist
Discharge Problem:
AV fistula thrombosis
Interventions
Interventions:
*General Assessment Last Done: 01/29/25 12:06
*Neglect/Abuse Screening Last Done: 01/29/25 12:06
*ED COVID-19 Vaccine History Last Done: 01/29/25 12:06
*ED Influenza Vaccine History Last Done: 01/29/25 12:06
[facility] Risk Assessment Tool Last Done: 01/29/25 15:53
*Risk Screen - Suicide (C-SSRS) Last Done: 01/29/25 12:06
*Nursing Disposition Last Done: 01/29/25 15:53
FG-Vovcff-Fqclrcfrdt Assessment Last Done: 01/29/25 14:20
ED-Male Genitourinary Assessment Last Done: 01/29/25 14:20
Discharge Date and Time
Discharge Date/Time: 01/29/25 15:55
--- NOTE | 2025-01-29 14:20 | W.PN.UPDATE ---
Update Note
Progress Note Update
89-year-old male with history of end-stage renal disease on hemodialysis. Known to me status post left brachiocephalic AV fistula creation in 2022. Sent to emergency room due to nonfunctioning fistula. It is unclear to me when he last had
dialysis. Patient says it was last on Monday. I am not sure when this stopped working, but he was sent to the emergency room today. On exam/the fistula has no thrill. Hand is pink and warm with palpable radial pulse at the wrist.
Duplex demonstrates occlusion of the fistula as suspected.
Plan/ Occluded left upper extremity AV access. Cannot guarantee that this is amenable to thrombectomy but discussed with patient trying. I do not know the time course and therefore it may not be easy to thrombectomized. Discussed with him if
unable to thrombectomize will likely need a catheter. Discussed with him procedure of endovascular, possible open thrombectomy. Hopefully we can do endovascularly. Discussed procedure. Discussed risks. Risks include but not limited to bleeding,
infection, central venous embolization, distal brachial embolization. He understands all these risks and wishes to proceed. Will try to get this thrombectomized today so that he can proceed with dialysis as needed.
[2025-01-29 14:21] LABS: Hematocrit 38.7 % (39.0-52.0); Hemoglobin 13.4 g/dL (13.0-18.0); Mean Corp Hgb Conc. 34.6 g/dL (33.0-37.0); Mean Corpuscular Volume 92.6 fL (80.0-94.0); Platelet Count 167 10^3/uL (130-400); Red Cell Dist. Width 14.0 % (11.5-14.5)
--- NOTE | 2025-01-29 14:22 | CON.VAS ---
Consultation
Consultation Request
Date/Time Consultation Performed: 01/29/25 @ 2pm
Performing Provider: Jose
Reason for Consultation: Thrombosed Fistula
Medical History
-
Chief Complaint: HD access issue
History of Present Illness:
89-year-old male with history of end-stage renal disease on hemodialysis. Known to me status post left brachiocephalic AV fistula creation in 2022. Sent to emergency room due to nonfunctioning fistula. It is unclear to me when he last had
dialysis. Patient says it was last on Monday. I am not sure when this stopped working, but he was sent to the emergency room today.
Duplex demonstrates occlusion of the fistula as suspected.
Past Medical History
Past Medical History: Other (HTN, Hypercholesterolemia, NIDDM, Renal failure (TTS), Neuropathy, BPH, secondary hyperparathyroidism, anemia)
Past Surgical History: Other (LUE AVF)
Social History
Tobacco: Non-Smoker
Family History
Family History: Reviewed & Not Pertinent
Allergies / Home Medications
Allergy/AdvReac Type Severity Reaction Status Date / Time
No Known Allergies Allergy Verified 01/29/25 12:09
�Medication �Instructions �Recorded �Confirmed �Type
pantoprazole 40 mg tablet,delayed 40 mg PO DAILY Gastrointestinal 02/08/12 01/29/25 History
release issue
cyanocobalamin (vitamin B-12) 1,000 mcg PO DAILY Supplement 05/04/22 01/29/25 History
1,000 mcg tablet
finasteride 5 mg tablet 5 mg PO DAILY Urinary issue 05/04/22 01/29/25 History
gabapentin 100 mg capsule 100 mg PO DAILY Pain 05/04/22 01/29/25 History
pravastatin 40 mg tablet 40 mg PO DAILY High cholesterol 05/04/22 01/29/25 History
cholecalciferol (vitamin D3) 25 25 mcg PO DAILY Supplement 07/29/22 01/29/25 History
mcg (1,000 unit) tablet (Vitamin
D3)
amlodipine 5 mg tablet 5 mg PO BID 03/04/24 01/29/25 History
furosemide 80 mg tablet 80 mg PO SUMOWEFR 03/04/24 01/29/25 History
losartan 100 mg tablet 100 mg PO DAILY 03/04/24 01/29/25 History
terazosin 1 mg capsule 1 mg PO HS 03/04/24 01/29/25 History
aspirin 81 mg tablet,delayed 81 mg PO DAILY 30 days #30 tabs 06/19/24 01/29/25 Rx
release
Review of Systems
-
History Source: Patient
All other systems: Negative unless noted
Constitutional: Reports No Symptoms
EENT: Reports No Symptoms
Respiratory: Reports No Symptoms
Cardiac: Reports No Symptoms
Abdomen/GI: Reports No Symptoms
: Reports No Symptoms
Musculoskeletal: Reports No Symptoms
Skin: Reports No Symptoms
Physical Exam
Vital Signs
Temp Pulse Resp BP Pulse Ox
98.4 F 64 18 168/76 98
01/29/25 12:06 01/29/25 14:22 01/29/25 14:22 01/29/25 14:22 01/29/25 14:22
Lab Results
01/29/25 14:11
Physical Exam
General: No Apparent Distress
HEENT: Normocephalic and Atraumatic
Respiratory: Non Labored Respirations
Cardiac: Negative JVD
GI: Soft
Musculoskeletal: No Clubbing, No Cyanosis and No Edema
Skin: Warm and Other (palp radial pulse, NO thrill at AVF, hand warm and pink)
Neuro: Awake, Alert and Oriented
Assessment / Plan
-
Plan/ Occluded left upper extremity AV access. Cannot guarantee that this is amenable to thrombectomy but discussed with patient trying. I do not know the time course and therefore it may not be easy to thrombectomized. Discussed with him if
unable to thrombectomize will likely need a catheter. Discussed with him procedure of endovascular, possible open thrombectomy. Hopefully we can do endovascularly. Discussed procedure. Discussed risks. Risks include but not limited to bleeding,
infection, central venous embolization, distal brachial embolization. He understands all these risks and wishes to proceed. Will try to get this thrombectomized today so that he can proceed with dialysis as needed.
Data Reviewed
-
Ultrasound: Discussed with Patient
Labs: Labs Reviewed by me
--- NOTE | 2025-01-29 14:44 | HPS.HSE ---
Family Physician
-
Family Physician: INTERVIEWE UNKNOWN - PT NOT
Chief Complaint
-
Malfunctioning AV Fistula
History of Present Illness
Patient is a 89-year-old male past med history of ESRD on HD, hypertension, hyperlipidemia, diabetes, diabetic neuropathy and BPH who presents with malfunctioning left upper extremity AV fistula. Patient reports he underwent normal dialysis
treatment on Monday, but yesterday he was unable to have dialysis due to malfunctioning AV fistula. Patient presented to the emergency department today for evaluation. He denies shortness of breath or lower extremity edema.
Medical History
Past Medical History
Past Medical History: Reports Other
Additional Past Medical History:
ESRD on HD
Essential Hypertension
Hyperlipidemia
Diabetes Mellitus, Type II
Diabetic Neuropathy
BPH
Past Surgical History: Reports Other
Additional Past Surgical History:
Bilateral Knee Replacement
Left Upper Extremity AV Fistula
Social History
Tobacco: Former Smoker (Quit smoking 50+ years ago.)
Alcohol: Former (Quit drinking 50+ years ago.)
Family History
Family History: Other (Patient is unaware of any familial health issues.)
Allergies / Home Medications
Allergies reflects when Allergies were last updated in [facility].
Home Medications with original date entered in [facility]
Allergy/Medication List:
Allergies
Allergy/AdvReac Type Severity Reaction Status Date / Time
No Known Allergies Allergy Verified 01/29/25 12:09
Home Medications
pantoprazole 40 mg tablet,delayed release 40 mg PO DAILY Gastrointestinal issue 02/08/12
cyanocobalamin (vitamin B-12) 1,000 mcg tablet 1,000 mcg PO DAILY Supplement 05/04/22
finasteride 5 mg tablet 5 mg PO DAILY Urinary issue 05/04/22
gabapentin 100 mg capsule 100 mg PO DAILY Pain 05/04/22
pravastatin 40 mg tablet 40 mg PO DAILY High cholesterol 05/04/22
cholecalciferol (vitamin D3) 25 mcg (1,000 unit) tablet (Vitamin D3) 25 mcg PO DAILY Supplement 07/29/22
amlodipine 5 mg tablet 5 mg PO BID 03/04/24
furosemide 80 mg tablet 80 mg PO SUMOWEFR 03/04/24
losartan 100 mg tablet 100 mg PO DAILY 03/04/24
terazosin 1 mg capsule 1 mg PO HS 03/04/24
aspirin 81 mg tablet,delayed release 81 mg PO DAILY 30 days #30 tabs 06/19/24
Review of Systems
-
History Source: Patient
A 12 point ROS was completed and negative except as noted: Yes
Constitutional: Denies Fever or Chills
Respiratory: Denies Cough or Trouble Breathing
Cardiac: Denies Chest Pain or Palpitations
Physical Exam
Vital Signs
Vital Signs
Temp Pulse Resp BP Pulse Ox
98.4 F 64 18 168/76 98
01/29/25 12:06 01/29/25 14:22 01/29/25 14:22 01/29/25 14:22 01/29/25 14:22
Physical Exam
General: Comfortable and Conversant
HEENT: Anicteric and Moist mucous membranes
Respiratory: Clear and Non Labored Respirations
Cardiac: S1/S2 and Regular Rhythm
GI: Soft and Non Tender
Rectal: Deferred by Provider
Musculoskeletal: No Clubbing, No Cyanosis and Other (LUE Fistula without palpable thrill)
Skin: Warm and Dry
Neuro: Awake, Alert and Nonfocal/grossly intact
Psych: Calm
Laboratory Results
-
01/29/25 14:11
Laboratory Results
Total Bilirubin Cancelled 01/29/25 14:11
AST Cancelled 01/29/25 14:11
ALT Cancelled 01/29/25 14:11
Alkaline Phosphatase Cancelled 01/29/25 14:11
Hemodialysis Access Ultrasound:
Left brachiocephalic fistula is thrombosed. There is a small stump patent fistula near the anastomosis, best seen on images 8-10. No thrombus demonstrated within the left subclavian vein.
Data Reviewed
-
Ultrasound: Report Reviewed by me
Lab Data: Labs Reviewed by me
Impression/Plan
-
Thrombosed Left Upper Extremity AV Fistula
-Consult Vascular Surgery
-Planning for OR today for endovascular vs open thrombectomy
ESRD on HD ([facility])
-Consult Nephrology
-Await BMP for potassium level
-Continue Lasix on non-dialysis days
Hypercalcemia
-Check ionized calcium and PTH level
Essential Hypertension
-Continue amlodipine, losartan and terazosin
Hyperlipidemia
-Continue pravastatin
Diabetes Mellitus, Type II
-Check HgbA1c
-Monitors sugars and continue coverage insulin
BPH
-Continue finasteride
DVT proph: SC Heparin
Code Status: Full Code
--- NOTE | 2025-01-29 15:05 | W.PN.UPDATE ---
Update Note
Progress Note Update
This note serves as an addendum to the H&P by submarine element coordinator Esha CORNEJO
HPI
89M former smoker, former ETOH use disorder
PHX: Known L arm AVF for HD(TTS) dependent ESRD, HTN , hyperlipidemia, diabetes, diabetic neuropathy and BPH
- presents with malfunctioning left upper extremity AV fistula. P
- Last HD on Monday
- yesterday he was unable to have dialysis due to malfunctioning AV fistula.
ROS
denies shortness of breath or lower extremity edema.
Relevant VS
Temp Pulse Resp BP Pulse Ox
98.4 F 64 18 168/76 98
01/29/25 12:06 01/29/25 14:22 01/29/25 14:22 01/29/25 14:22 01/29/25 14:22
PE
Gen: Thin, suspect cognitive dysfunction
HEENT: symmetric , Nl fluent speech
Neck: supple
Lungs:CTA
Cor:RRR S1 S2
Abdomen:�soft ,
COMBER OPERATOR: NFND
MS: no edema
Psych: Nl mood abut anxious
Relevant data�
Laboratory Tests
01/29/25 01/29/25
14:11 14:35
WBC 5.1
Hgb 13.4
Plt Count 167
Potassium 4.5
BUN 76 H
Creatinine 8.4 H*
eGFR 5.60
Calcium 11.3 H
Total Bilirubin 0.6
Albumin 3.8
US Hemodialysis Graft/Fistula: INDICATIONS: clotted fistula
- Left brachiocephalic fistula is thrombosed.
- There is a small stump patent fistula near the anastomosis, best seen on images 8-10.
- No thrombus demonstrated within the left subclavian vein.
ASSESSMENT & PLAN
L UEX Thrombosed Fistula
-Consult Vascular Surgery
-Planning for OR today for endovascular vs open thrombectomy
ESRD on HD ([facility])
-Consult Nephrology
-Await BMP for potassium level
-Continue Lasix on non-dialysis days
Essential Hypertension
-Continue amlodipine and losartan
Hyperlipidemia
-Continue pravastatin
Diabetes Mellitus, Type II
-Check HgbA1c
-Monitors sugars and continue coverage insulin
BPH
-Continue finasteride
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
DVT Px: SQH
Code: Full
IP MS
[2025-01-29 15:07] LABS: ALT (SGPT) < 10 U/L (0-50); AST (SGOT) 19 U/L (17-59); Albumin 3.8 g/dl (3.5-5.0); Alkaline Phosphatase 64 U/L (38-126); Blood Urea Nitrogen 76 mg/dl (9-20); Calcium 11.3 mg/dl (8.4-10.2); Carbon Dioxide 27 mmol/L (22-30); Chloride 99 mmol/L (98-107); Glucose 111 mg/dl (70-99); Potassium 4.5 mmol/L (3.5-5.1); Sodium 136 mmol/L (135-145); Total Protein 7.1 g/dl (6.3-8.2); eGFR 5.60
--- NOTE | 2025-01-29 15:38 | W.CON.NEPH ---
Consultation
-
Date/Time Consultation Requested: 01/29/2025 2:00 PM
Date/Time Consultation Performed: 01/29/2025 2:00 PM
Requesting Provider: Dr. Rubin
Performing Provider: Dr. Serrano
Reason for Consultation: End-stage renal disease
Medical History
-
Chief Complaint: End-stage renal disease
History of Present Illness:
This is an 89-year-old gentleman who has end-stage renal disease on hemodialysis at [facility] Saturdays. He has a history of hypertension maintained on amlodipine, losartan and terazosin. He still is nonoliguric and takes
Lasix 80 mg 4 days a weekHe is maintained. He is maintained on statin therapy for dyslipidemia. He has a history of diabetes however he does not appear to be on diabetic therapy. He is maintained on gabapentin for neuropathy. He presented to the
hospital for clotted left upper extremity AV fistula. Nephrology was consulted for end-stage renal disease management
Past Medical History
ESRD, hypertension, diabetes mellitus type 2, left upper extremity AV fistula, secondary hyperparathyroidism, hyperlipidemia, neuropathy, BPH
Social History
Tobacco: Former Smoker
Alcohol: None
Drug: None
Family History
Family History: Not Pertinent
Allergies / Home Medications
Allergy/AdvReac Type Severity Reaction Status Date / Time
No Known Allergies Allergy Verified 01/29/25 12:09
�Medication �Instructions �Recorded �Confirmed �Type
pantoprazole 40 mg tablet,delayed 40 mg PO DAILY Gastrointestinal 02/08/12 01/29/25 History
release issue
cyanocobalamin (vitamin B-12) 1,000 mcg PO DAILY Supplement 05/04/22 01/29/25 History
1,000 mcg tablet
finasteride 5 mg tablet 5 mg PO DAILY Urinary issue 05/04/22 01/29/25 History
gabapentin 100 mg capsule 100 mg PO DAILY Pain 05/04/22 01/29/25 History
pravastatin 40 mg tablet 40 mg PO DAILY High cholesterol 05/04/22 01/29/25 History
cholecalciferol (vitamin D3) 25 25 mcg PO DAILY Supplement 07/29/22 01/29/25 History
mcg (1,000 unit) tablet (Vitamin
D3)
amlodipine 5 mg tablet 5 mg PO BID 03/04/24 01/29/25 History
furosemide 80 mg tablet 80 mg PO SUMOWEFR 03/04/24 01/29/25 History
losartan 100 mg tablet 100 mg PO DAILY 03/04/24 01/29/25 History
terazosin 1 mg capsule 1 mg PO HS 03/04/24 01/29/25 History
aspirin 81 mg tablet,delayed 81 mg PO DAILY 30 days #30 tabs 06/19/24 01/29/25 Rx
release
Review of Systems
-
History Source: Patient
All other systems: Negative unless noted
Physical Exam
Vital Signs
Vital Signs
Temp Pulse Resp BP Pulse Ox
98.4 F 64 18 168/76 98
01/29/25 12:06 01/29/25 14:22 01/29/25 14:22 01/29/25 14:22 01/29/25 14:22
Lab Results
01/29/25 14:11
01/29/25 14:35
WBC 5.1 10^3/uL (4.8-10.8) 01/29/25 14:11
RBC 4.18 10^6/uL (4.70-6.10) L 01/29/25 14:11
Hgb 13.4 g/dL (13.0-18.0) 01/29/25 14:11
Hct 38.7 % (39.0-52.0) L 01/29/25 14:11
Plt Count 167 10^3/uL (130-400) 01/29/25 14:11
Sodium 136 mmol/L (135-145) 01/29/25 14:35
Potassium 4.5 mmol/L (3.5-5.1) 01/29/25 14:35
Chloride 99 mmol/L (98-107) 01/29/25 14:35
Carbon Dioxide 27 mmol/L (22-30) 01/29/25 14:35
BUN 76 mg/dl (9-20) H 01/29/25 14:35
Creatinine 8.4 mg/dL (0.7-1.3) H* 01/29/25 14:35
eGFR 5.60 01/29/25 14:35
Glucose 111 mg/dl (70-99) H 01/29/25 14:35
Calcium 11.3 mg/dl (8.4-10.2) H 01/29/25 14:35
Albumin 3.8 g/dl (3.5-5.0) 01/29/25 14:35
Physical Exam
General: AOx3, Nontoxic , NAD
HEENT: PERRL, EOMI, Anicteric, Conjunctivae Clear, Ear/Nose Intact, Hearing Normal, Oropharynx Clear/Moist, Dentition Intact, Facial Symmetry, Neck Supple, Neck: Trachea Midline, No JVD and No Thyromegaly, no Bruits
Respiratory: Clear to auscultation bilaterally with normal lung exersion
Cardiac: S1/S2 and Regular Rate/Rhythm
Breast: Deferred by me
Abdomen: Soft, Nontender, Nondistended, Normal Bowel Sounds and No Hepatosplenomegaly
Rectal: Deferred by Provider
Genito-urinary: No Costovertebral Tenderness
Extremities: No Clubbing, No Cyanosis and No Edema
Skin: No Rash or open lesions
Neuro: Nonfocal/Grossly Intact, CN II-XII (Intact) and Strength (Musculoskeletal exam 5 out of 5 both upper and lower extremities), decreased neuro sensorium along lower extremities
Hematologic/Lymphatic: No Cervical Lymphadenopathy, No Submandibular Lymphadenopathy and No Supraclavicular Lymphadenopathy
Psych: Mood/afflect pleasant, Insight/judgement good and Appropriate
Vascular: plus 1pedal and radial pulses
Vascular Access: AVF (Left upper extremity brachiocephalic AVF with poorly auscultated bruit)
Data Reviewed
-
Ultrasound: Other (Left upper extremity AVF duplex reviewed which noted thrombosis)
Medical Tests (Nuc Med, Echo etc): Other (EKG personally reviewed normal sinus rhythm no evidence of hyperacute T waves or sine waves at 67 bpm)
Labs: Labs Reviewed by me (BMP CBC)
Old Records: Reviewed (Reviewed old nephrology consult from 11/23/2024 for end-stage renal disease)
Assessment/Plan
-
Assessment
ESRD TTS [facility]
Left brachiocephalic AV fistula thrombosis
BPH
Hypertension
Hyperlipidemia
Plan
Electrolytes are currently controlled
There is no evidence of volume overload
No acute need for dialysis today
For AV fistulogram at the direction of vascular surgery for thrombosis of AV fistula
If this cannot be salvaged a tunneled catheter will have to be provided
Dialysis will be planned tomorrow, orders provided
Maintain on fluid restriction sodium and potassium restricted diet on admission
--- NOTE | 2025-01-29 17:56 | OR.RPT ---
Operative Report
Operative Report
PROCEDURE DATE: 01/29/2025
Preoperative diagnosis:
1. End-stage renal disease on hemodialysis.
2. Thrombosed left upper extremity AV fistula.
Postoperative diagnosis: Same
Procedure:
1. Duplex assisted cannulation of the left upper extremity arteriovenous fistula outflow vein and both peripheral and central venous pacing directions.
2. Left upper extremity fistulogram and central venogram.
3. Pharmacomechanical thrombectomy of left upper extremity thrombosed AV fistula with AngioJet Solent thrombectomy catheter utilizing both power pulse spray and thrombectomy months.
4. Balloon angioplasty of outflow vein long segment with 8 mm and 6 mm angioplasty balloons.
5. Placement of [place] Viabahn 8 mm x 10 cm covered stents x 2 cephalic arch and cephalic vein outflow proximal to the arch.
6. Supervision interpretation.
Surgeon: Jose
Encoding Machine Operator: None
Complications: None
Anesthesia: Local, sedation
Fluoroscopy:
19.7 min
42 mGy
8.49 Gy.cm2
Indications for procedure:
End-stage renal disease on hemodialysis. Thrombosed AV fistula. Risk/benefit/alternatives of pharmacomechanical thrombectomy, possible angioplasty/stent, possible open thrombectomy all fully discussed. Patient understood and wished proceed.
Description of procedure:
Patient was identified, brought to the operating room. Placed on the table in the supine position. After the adequate administration of anesthesia, the patient was prepped and draped in the standard surgical fashion. A standard preoperative
timeout was undertaken and everybody was in agreement with the plan.
The immediate outflow vein of the fistula was punctured in a central facing direction after infiltration of skin and subcutaneous tissue with 1% lidocaine. This was done with a micropuncture kit under direct duplex ultrasound guidance. A 6 Pashto
sheath was then advanced over a 0.035 inch wire. Next I similarly punctured the outflow vein in the proximal upper arm in a peripheral facing direction using a micropuncture kit under direct duplex ultrasound guidance after infiltration of the skin
subcutaneous tissue with 1% lidocaine. 6 Pashto sheath was also advanced in this peripheral facing direction as well. Now I had 2 sheath access. Patient was given 4000 units of intravenous heparin. Through the venous sheath (central facing)
sheath, I advanced a glide catheter and then using a Glidewire was moderate difficulty I was able to cannulate the central veins. This proved to be somewhat challenging but was finally able to gain wire and then catheter access up to the central
veins. Occlusion seem to extend to the cephalic arch and then there is patency of the subclavian vein on central venogram. Central veins beyond here were patent. At this point I guided a flopping of hydrophilic wire into the IVC, and then
advanced my catheter and then exchanged for a Storq wire. Now from the peripheral facing sheath I then advanced a glide catheter and used a flopping of hydrophilic wire to gain wire access into the brachial artery proximal to the anastomosis.
Angiogram demonstrated patency of the brachial artery and the anastomosis to the fistula in the artery distal to the fistula. I now exchanged for a Storq wire into the proximal brachial artery.
At this point I used an AngioJet Solent catheter and advanced it up the venous side first, and then subsequently through the arterial side. As such I was able to power pulse spray 10 mg of tPA (power pulse spray mode). I allowed this to dwell for
20 minutes. Next we activated thrombectomy mode again running the catheter from both sheaths. Once I completed thrombectomy mode, I performed angiography. There was flow in the proximal segment of the outflow vein and the anastomosis was open.
But there was still hold-up/clot in the mid to beyond there. I ran the AngioJet again but still would not open up. I thought therefore there was likely stenosis. I used an 8 mm balloon as the vein was fairly enlarged to try to open it up. There
was some areas of severe stenosis but the waist resolved when I blew the balloon up. I did this through the outflow up towards the cephalic arch but not quite to that level. When I shot an angiogram here I could see that there is extravasation.
This concerned me that the vein had ruptured here. Therefore I quickly exchanged for a 7 Pashto sheath and then a 0.018 inch wire. I then placed a covered stent ([place] Viabahn 8 mm x 10 cm) in the outflow vein in the proximal upper arm into the
axillary area. This seemed to stop the extravasation, but the flow through this entire fistula was poor again. I tried running the AngioJet again. I then used a 6 mm balloon to less abrasively balloon and the entirety of the outflow all the way
through the cephalic arch. Now I appear to have a flow channel. However I felt that there was likely still persistent stenosis more centrally. I did a combination of ballooning and also using the balloon as a Michelle embolectomy catheter to try
to dislodge clot. Once I completed this I had a flow channel now. There was indeed a central stenosis beyond the existing stent that I just placed. I therefore then extended an additional 8 mm x 10 cm [place] Viabahn stent (overlapping the prior
stent I placed). This stent as noted overlapped with the prior stent, and extended just to the cephalic arch confluence with the deep vein. I post angioplastied both the stents with 7 mm angioplasty balloons. Completion angiogram now demonstrated
good thrill through the fistula. There was still some residual clot lining the ritter of the outflow vein especially in the proximal to mid arm but this thrill was now strong. Given the fact that I used the AngioJet several times and I had concerns
about doing too much and him I decided that this was actually fairly sufficient. Again as noted the thrill was now excellent and the flow was brisk on angiography. I therefore then withdrew my wires and catheters. I sequentially placed 4-0
Monocryl pursestring stitches around the sheaths and then tied them down as I remove the sheath. Manual pressure was gently applied to the sites as well. Hemostasis was achieved. There is an excellent thrill in the fistula upon completion.
The patient tolerated procedure well, and was transported recovery room in stable condition.
[2025-01-29 18:16] LABS: Glucose - Point of Care 93 mg/dl (70-99)
[2025-01-29] MEDS: NOVOLOG FLEXPEN-LOW RESISTANCE SC (20:40)
--- NOTE | 2025-01-29 21:00 | PTCARENOTE ---
Pt arrived to unit from PACU via stretcher. A&Ox3 and drowsy. Pt able to answer minimal admission questions due to drowsiness. Upon assessment, this RN noticed a large amount of sanguineous drainage from post op dressings. Left radial pulse present,
capillary refill <2 seconds, skin warm & pink. This RN applied an additional pressure dressing over original post op dressing. MATT Fuentes notified of drainage from dressings. MATT Kelsey at bedside to assess patient and change pressure
dressing over site. Pt also noted to be hypertensive with BP of 207/111. This RN advised by MATT to hold oral medications at this time due to pt's drowsiness. One time order for 40mg IV lasix placed. Refer to MAR. Plan of care ongoing.
[2025-01-29] MEDS: NORVASC PO (21:01)
[2025-01-29] MEDS: LASIX PO (21:01)
[2025-01-29] MEDS: LASIX 40 MG IV (21:02)
[2025-01-29] MEDS: HYTRIN PO (21:11)
[2025-01-29 21:22] LABS: Glucose - Point of Care 99 mg/dl (70-99)
[2025-01-30] VITALS (7 sets, daily range): BP systolic 86–163; BP diastolic 49–92
--- NOTE | 2025-01-30 | PTCARENOTE ---
Upon assessment of LUE cath site, dressing dry and intact with a small amount of sanguineous drainage on sides of dressing. MATT Fuentes notified. Advised to hold 0000 dose of heparin. Plan of care ongoing.
[2025-01-30] MEDS: HEPARIN SC ×2 (00:18→11:49)
[2025-01-30 06:00] LABS: Hematocrit 35.8 % (39.0-52.0); Hemoglobin 12.1 g/dL (13.0-18.0); Mean Corp Hgb Conc. 33.8 g/dL (33.0-37.0); Mean Corpuscular Volume 96.0 fL (80.0-94.0); Platelet Count 178 10^3/uL (130-400); Red Cell Dist. Width 14.1 % (11.5-14.5)
[2025-01-30 06:13] LABS: Calcium 11.4 mg/dl (8.4-10.2)
[2025-01-30 06:32] LABS: Vitamin D, 25-OH*** 35.7 ng/mL (30-80)
[2025-01-30 07:11] LABS: Blood Urea Nitrogen 83 mg/dl (9-20); Calcium 11.1 mg/dl (8.4-10.2); Carbon Dioxide 22 mmol/L (22-30); Chloride 100 mmol/L (98-107); Glucose 91 mg/dl (70-99); Magnesium 2.5 mg/dl (1.6-2.3); Potassium 4.9 mmol/L (3.5-5.1); Sodium 136 mmol/L (135-145); eGFR 5.29
--- NOTE | 2025-01-30 07:52 | W.PN.VS ---
Addendum entered and electronically signed by Jim Garcia MD 01/30/25 13:57:
Seen and examined with HOLLIE Hightower earlier this a.m. Agree with findings as noted below. As of this morning there is an excellent thrill in the fistula. Easily palpable outflow vein. Plan/as discussed and noted below.
Original Note:
Today's Communication / Plan
-
Seen and assessed with Dr. Garcia
Assessment/Plan
-
Postop day 1 fistula declot
Plan:
HD this a.m. via AVF
If all goes well okay for discharge from vascular standpoint
Subjective Data
-
Date of Service: January 30, 2025
Patient seen at bedside send with Dr. Garcia. Patient offers no complaints this time. No events overnight. Left upper extremity wrapped.
Objective Data
-
Vital Signs
Temp Pulse Resp BP Pulse Ox
97.2 F 67 16 163/75 98
01/30/25 07:47 01/30/25 07:47 01/30/25 07:47 01/30/25 07:47 01/30/25 07:47
Intake and Output
01/29/25 01/30/25 01/31/25
06:59 06:59 06:59
Intake Total 650 / 650
Output Total 150 / 150
Balance 500 / 500
Intake:
Oral fluids 600 / 600
IV fluids (Total) 50 / 50
NSS 50 / 50
Output:
Urine, Voided 150 / 150
Lab Results
01/30/25 05:47
01/30/25 05:47
Calcium 11.1 mg/dl (8.4-10.2) H 01/30/25 05:47
Calcium 11.4 mg/dl (8.4-10.2) H 01/30/25 05:47
Phosphorus 7.8 mg/dl (2.5-4.5) H 01/30/25 05:47
Magnesium 2.5 mg/dl (1.6-2.3) H 01/30/25 05:47
Total Bilirubin 0.6 mg/dl (0.2-1.3) 01/29/25 14:35
AST 19 U/L (17-59) 01/29/25 14:35
ALT < 10 U/L (0-50) 01/29/25 14:35
Alkaline Phosphatase 64 U/L (38-126) 01/29/25 14:35
Total Protein 7.1 g/dl (6.3-8.2) 01/29/25 14:35
Albumin 3.8 g/dl (3.5-5.0) 01/29/25 14:35
Physical Exam
-
AO x 3
No tachypnea on room air
No tachycardia
Left upper extremity soft, no drainage noted
Palpable thrill
Hand warm and pink
[2025-01-30 07:57] LABS: Glucose - Point of Care 120 mg/dl (70-99)
[2025-01-30] MEDS: NOVOLOG FLEXPEN-LOW RESISTANCE SC ×2 (08:36→12:40)
[2025-01-30] MEDS: ASPIR LOW (ENTERIC COATED) 81 MG PO (08:36)
[2025-01-30] MEDS: PRAVACHOL 40 MG PO (08:36)
[2025-01-30] MEDS: NEURONTIN 100 MG PO (08:36)
[2025-01-30] MEDS: PROSCAR 5 MG PO (08:37)
[2025-01-30] MEDS: MANNITOL 25% 12.5 GRAMS IV (09:10)
[2025-01-30 09:18] LABS: Glycohemoglobin (HgbA1c) 5.5 % (4.0-5.9)
[2025-01-30 10:41] LABS: Glucose - Point of Care 131 mg/dl (70-99)
[2025-01-30 11:38] LABS: Hematocrit 31.3 % (39.0-52.0); Hemoglobin 10.7 g/dL (13.0-18.0); Mean Corp Hgb Conc. 34.2 g/dL (33.0-37.0); Mean Corpuscular Volume 94.0 fL (80.0-94.0); Platelet Count 152 10^3/uL (130-400); Red Cell Dist. Width 14.1 % (11.5-14.5)
--- NOTE | 2025-01-30 11:44 | PTCARENOTE ---
1045 - Pt with sudden change in behavior/mental status at this time. While receiving HD, pt groaning and restless in bed. When asked what's wrong, pt unable to answer. BS, vitals and EKG stable. Pt continues not to acknowledge questions being asked
or follow directions, continually attempting to get up out of bed. Hospitlaist to bedside - ordered CT head, CBC, BMP, Mag, UA. Pt eventually verbalized need to go to the bathroom but was unable to void. Bladder scanned for 415 - straight cath for
400 - UA sent from that. HD completed, pt to go to CT now ([id number]).
[2025-01-30] MEDS: COZAAR PO (11:49)
[2025-01-30] MEDS: NORVASC PO ×2 (11:49→21:32)
[2025-01-30 12:04] LABS: ALT (SGPT) 10 U/L (0-50); AST (SGOT) 32 U/L (17-59); Albumin 3.5 g/dl (3.5-5.0); Alkaline Phosphatase 65 U/L (38-126); Calcium 8.2 mg/dl (8.4-10.2); Carbon Dioxide 28 mmol/L (22-30); Chloride 98 mmol/L (98-107); Estimated Creatinine Clearance 16 ml/min; Glucose 128 mg/dl (70-99); Magnesium 1.9 mg/dl (1.6-2.3); Potassium 3.4 mmol/L (3.5-5.1); Sodium 133 mmol/L (135-145); Total Protein 6.5 g/dl (6.3-8.2); eGFR 21.84
[2025-01-30 12:18] LABS: Blood Urea Nitrogen 25 mg/dl (9-20)
[2025-01-30 12:18] LABS: Urine Character Clear (Clear)
--- NOTE | 2025-01-30 12:28 | W.PN.NEPH.HD ---
Assessment
-
Seen on dialysis blood pressure soft. Treatment cut short just slightly as patient was getting restless and agitated.
Progress Note - Hemodialysis
-
Date of Service: January 30, 2025
Duration: 30 minutes and 3 hours
Potassium Bath: 3
Calcium Bath: 2.5
Opti-Dialyzer: 160
Ultrafiltration: Other (kg)
Blood Flow: 400
Dialysate Flow: 600
Heparin: no
EPO: no
[2025-01-30] MEDS: TYLENOL 650 MG PO ×2 (13:31→18:51)
--- NOTE | 2025-01-30 13:59 | PTCARENOTE ---
Pt remains confused but now able to verbalize needs and answer questions. C/o L shoulder and neck pain, PRN tylenol provided. Reported feeling hungry - lunch rdered. Dgtr present at bedside and updated; concerned with pt's confusion. Pt less
restless from earlier today and redirectable now - able to participate in conversation and with some recall of earlier events today.
--- NOTE | 2025-01-30 14:02 | W.PN.HOSP.TC ---
Today's Communication/Plan
-
monitor mental status
HD
Assessment / Plan
Assessment / Plan
Physical Exam
General: Comfortable and Conversant
HEENT: Anicteric and Moist mucous membranes
Respiratory: Clear and Non Labored Respirations
Cardiac: S1/S2 and Regular Rhythm
GI: Soft and Non Tender
Rectal: Deferred by Provider
Musculoskeletal: No Clubbing, No Cyanosis and Other (LUE Fistula without palpable thrill)
Skin: Warm and Dry
Neuro: Awake, Alert and Nonfocal/grossly intact
Psych: Calm
Thrombosed Left Upper Extremity AV Fistula
-fistula declot Post Op Day 1
-Did well today on HD
ESRD on HD ([facility])
Hyponatremia
Hypokalemia
-Consult Nephrology
-Monitor
-Continue Lasix on non-dialysis days
#Acute Metabolic Encephalopathy
- likely related to HD, fluctuations - improved later on
-CT Head, UA negative
-Cont to Monitor
Hypercalcemia
-Check ionized calcium and PTH level
#Elevated Troponin
-Likely related to nonischemic myocardial injury
-related to ESRD
Essential Hypertension
-Continue amlodipine, losartan and terazosin
Hyperlipidemia
-Continue pravastatin
Diabetes Mellitus, Type II
-Check HgbA1c: 5.5
-Monitors sugars and continue coverage insulin
BPH
-Continue finasteride
DVT proph: SC Heparin
Code Status: Full Code
Anticipated Discharge: Within 24 hours
Subjective/Interval History
-
Date of Service: January 30, 2025
Altered today during dialysis, UA, CT unremarkable
Objective Data
-
Labs:
Laboratory Results
01/30/25 01/30/25 01/30/25
05:47 05:47 11:29
WBC 8.4
Hgb 12.1 L
Hct 35.8 L
Plt Count 178
Sodium 136 133 L
Potassium 4.9 3.4 L D
Chloride 100 98
Carbon Dioxide 22 28
BUN 83 H 25 H
Creatinine 8.8 H* 2.7 H
Glucose 91 128 H
Calcium 11.1 H 11.4 H 8.2 L D
Total Bilirubin 1.3
AST 32
ALT 10
Alkaline Phosphatase 65
01/30/25
11:35
WBC 7.7
Hgb 10.7 L
Hct 31.3 L
Plt Count 152
Sodium
Potassium
Chloride
Carbon Dioxide
BUN
Creatinine
Glucose
Calcium
Total Bilirubin
AST
ALT
Alkaline Phosphatase
Vital Signs:
Vital Signs
Temp Pulse Resp BP Pulse Ox
97.5 F 88 18 135/86 98
01/30/25 11:00 01/30/25 11:00 01/30/25 11:00 01/30/25 11:00 01/30/25 11:00
I&O
01/29/25 01/30/25 01/31/25
06:59 06:59 06:59
Intake Total 650 / 650
Output Total 150 / 150
Balance 500 / 500
Review of Systems
-
History Source: Patient
All other systems: Not reviewed unless documented
Data Reviewed
-
Labs: Labs Reviewed by me
[2025-01-30] MEDS: HEPARIN 5000 UNITS SC ×2 (15:09→23:19)
--- NOTE | 2025-01-30 15:41 | CM ---
patient seen at bedside
IA completed - spoke with son Ammon
OR 01/29-Thrombosed left upper extremity AV fistula
HD, monitor ms
patient son states he rec HD at [facility] in [place] - 6:45am
confirmed with Nikki at [facility] & updated
states BCT on & and then on Sat he or his sister transports to HD
Patient lives with his in split level home
PLOF: Independent with walker, wheelchair
son states has phone # for [facility] as he stated looking at getting cg
DME: Walker, wheelchair
denies VN/rehab
PLAN: home, with return to outpatient HD at [facility]
Larry soto) [phone] Fax #: [phone]
[2025-01-30 16:02] LABS: COVID-19 Antigen Negative (Negative)
[2025-01-30 16:25] LABS: Glucose - Point of Care 217 mg/dl (70-99)
[2025-01-30 18:15] LABS: Glucose - Point of Care 185 mg/dl (70-99)
[2025-01-30] MEDS: NOVOLOG FLEXPEN-LOW RESISTANCE 1 UNITS SC (18:49)
[2025-01-30 21:30] LABS: Glucose - Point of Care 186 mg/dl (70-99)
[2025-01-30] MEDS: HYTRIN 1 MG PO (21:35)
[2025-01-31] VITALS (12 sets, daily range): BP systolic 98–143; BP diastolic 43–75; BMI 19.0; BMI 18.8
[2025-01-31 07:44] LABS: Glucose - Point of Care 145 mg/dl (70-99)
[2025-01-31] MEDS: NOVOLOG FLEXPEN-LOW RESISTANCE SC ×3 (08:42→16:00)
[2025-01-31 09:03] LABS: Hematocrit 31.4 % (39.0-52.0); Hemoglobin 10.8 g/dL (13.0-18.0); Mean Corp Hgb Conc. 34.4 g/dL (33.0-37.0); Mean Corpuscular Volume 93.5 fL (80.0-94.0); Platelet Count 146 10^3/uL (130-400); Red Cell Dist. Width 13.8 % (11.5-14.5)
[2025-01-31] MEDS: NORVASC PO ×2 (09:28→10:18)
[2025-01-31] MEDS: ASPIR LOW (ENTERIC COATED) PO ×2 (09:33→10:18)
[2025-01-31] MEDS: NEURONTIN PO ×2 (09:33→10:18)
[2025-01-31] MEDS: COZAAR PO ×2 (09:33→10:18)
[2025-01-31] MEDS: PROSCAR PO ×2 (09:33→10:16)
[2025-01-31] MEDS: HEPARIN 5000 UNITS SC ×2 (09:33→16:00)
[2025-01-31] MEDS: PRAVACHOL PO ×2 (09:33→10:19)
[2025-01-31] MEDS: TYLENOL PO (09:35)
[2025-01-31] MEDS: LASIX PO ×2 (09:35→10:18)
[2025-01-31 09:38] LABS: ALT (SGPT) 12 U/L (0-50); AST (SGOT) 26 U/L (17-59); Albumin 3.7 g/dl (3.5-5.0); Alkaline Phosphatase 64 U/L (38-126); Blood Urea Nitrogen 53 mg/dl (9-20); Calcium 9.6 mg/dl (8.4-10.2); Carbon Dioxide 28 mmol/L (22-30); Chloride 95 mmol/L (98-107); Estimated Creatinine Clearance 7 ml/min; Glucose 117 mg/dl (70-99); Potassium 4.8 mmol/L (3.5-5.1); Sodium 134 mmol/L (135-145); Total Protein 6.6 g/dl (6.3-8.2); eGFR 8.91
[2025-01-31 09:58] LABS: Glucose - Point of Care 134 mg/dl (70-99)
[2025-01-31 10:24] LABS: Venous Blood Gas B.E. 4.9 mmol/L (-4 to +4); Venous Blood Gas O2 Sat % 99.3 %
--- NOTE | 2025-01-31 10:47 | RR ---
A Rapid Response was called on this patient, please see Rapid Response form.
This RN woke patient and conversed at about 9:45am and conversed regarding breakfast order. Patient was able to state that he is in [facility] and give preferences. Meds discussed and pt requested tylenol for back pain. At about 10:15am
RN returned to room to medicate patient. He appeared to be sleeping but when RN attempted to arouse him he opened eyes and began to retch and moan. Initially totally unresponsive with stenal rub. Rapid response called about 10:20am.
Staff obtained VS, EKG, and POC glucose, all stable WNL. VBG sent. Patient remained minimally responsive to sternal rub opening eyes briefly. Not responding to simple commands or questions. Attending provider and ICU nurses present. Provider
ordered transfer to higher level of care for closer observation.
[2025-01-31 10:58] LABS: Troponin I 0.559 ng/ml
--- NOTE | 2025-01-31 11:06 | PTCARENOTE ---
Pt received from rapid response. Transferred to [id number] as IMU overflow. Pt lethargic and nauseated. VSS.
[2025-01-31] MEDS: ZOFRAN 4 MG IV (11:30)
[2025-01-31 12:28] LABS: Glucose - Point of Care 142 mg/dl (70-99)
[2025-01-31] MEDS: LR 500 IV (12:29)
--- NOTE | 2025-01-31 14:11 | W.PN.HOSP.TC ---
Today's Communication/Plan
-
Zofran
LR bolus
MRI Brain
Troponins
GOC convo
Assessment / Plan
Assessment / Plan
Physical Exam
General: Comfortable and Conversant
HEENT: Anicteric and Moist mucous membranes
Respiratory: Clear and Non Labored Respirations
Cardiac: S1/S2 and Regular Rhythm
GI: Soft and Non Tender
Rectal: Deferred by Provider
Musculoskeletal: No Clubbing, No Cyanosis and Other (LUE Fistula without palpable thrill)
Skin: Warm and Dry
Neuro: Awake, Alert and Nonfocal/grossly intact
Psych: Calm
Thrombosed Left Upper Extremity AV Fistula
-fistula declot Post Op Day 2
-Did well today on HD
ESRD on HD ([facility])
Hyponatremia
Hypokalemia
-Consult Nephrology
-Monitor
-Continue Lasix on non-dialysis days
#Acute Metabolic Encephalopathy
- likely related to HD, fluctuations - improved later on; reoccured again with retching 01/31
-CT Head, UA negative
CT head 01/31 negative again; with ams - obtain MRI;
KUB unremarkable
Zofran prn
Trend Troponins - no obvious ischemic events noted on EKG - if uptrending - start hep ggt and cards consult
-Cont to Monitor
#Nausea
-no diarrhea
-F/u trops
-zofran
-ctm
-kub unremarkable
-if continued - will need ct imaging
Hypercalcemia
-Check ionized calcium and PTH level
#Elevated Troponin
-Likely related to nonischemic myocardial injury
-related to ESRD
Essential Hypertension
-Continue amlodipine, losartan and terazosin
Hyperlipidemia
-Continue pravastatin
Diabetes Mellitus, Type II
-Check HgbA1c: 5.5
-Monitors sugars and continue coverage insulin
BPH
-Continue finasteride
DVT proph: SC Heparin
Code Status: Full Code
Total time spent on today's encounter was 51 minutes which included time spent in counseling the patient/family regarding diagnosis and treatment plan as listed above, goals of care, and symptom management. Case was discussed with nursing staff,
specialists, and care coordinators/case management. All labs and imaging personally reviewed by me. Remainder the time spent in detailed review of previous records, lab data, imaging, and other medical provider documentation.
Anticipated Discharge: > 48 hours
Subjective/Interval History
-
Date of Service: January 31, 2025
patient was unresponsive briefly, lethargic - occurred when dry retching.
Objective Data
-
Labs:
Laboratory Results
01/31/25
08:53
WBC 5.0
Hgb 10.8 L
Hct 31.4 L
Plt Count 146
Sodium 134 L
Potassium 4.8 D
Chloride 95 L
Carbon Dioxide 28
BUN 53 H
Creatinine 5.7 H*
Glucose 117 H
Calcium 9.6
Total Bilirubin 0.8
AST 26
ALT 12
Alkaline Phosphatase 64
Vital Signs:
Vital Signs
Temp Pulse Resp BP Pulse Ox
98 F 79 16 116/63 98
01/31/25 10:37 01/31/25 07:26 01/31/25 07:26 01/31/25 07:26 01/31/25 07:26
I&O
01/30/25 01/31/25 02/01/25
06:59 06:59 06:59
Intake Total 650 / 650 780 / 780
Output Total 150 / 150 925 / 925
Balance 500 / 500 -145 / -145
Review of Systems
-
History Source: Patient
All other systems: Not reviewed unless documented
Physical Exam
-
General: No Apparent Distress
HEENT: Normocephalic
GI: Soft, Nontender and Nondistended
Musculoskeletal: No Clubbing, No Cyanosis and No Edema
Psych: Calm
Data Reviewed
-
Diagnostic Radiology: Report Reviewed by me
CT Scan: Report Reviewed by me
Labs: Labs Reviewed by me
--- NOTE | 2025-01-31 15:36 | W.PN.NEPH.PH ---
Today's Communication / Plan
-
HD tomorrow
Assessment/Plan
-
Assessment
ESRD TTS [facility]
Left brachiocephalic AV fistula thrombosis
BPH
Hypertension
Hyperlipidemia
Plan
HD tomorrow
MRI
-
-
Date of Service: January 31, 2025
CC / HPI / ROS
-
Chief Complaint:
ESRD
History of Present Illness:
tolerated HD yesterday
BP stable
awake, answers some questions
Review of Systems:
no CP/SOB
Labs
-
Labs:
WBC 5.0 10^3/uL (4.8-10.8) 01/31/25 08:53
RBC 3.36 10^6/uL (4.70-6.10) L 01/31/25 08:53
Hgb 10.8 g/dL (13.0-18.0) L 01/31/25 08:53
Hct 31.4 % (39.0-52.0) L 01/31/25 08:53
Plt Count 146 10^3/uL (130-400) 01/31/25 08:53
Sodium 134 mmol/L (135-145) L 01/31/25 08:53
Potassium 4.8 mmol/L (3.5-5.1) D 01/31/25 08:53
Chloride 95 mmol/L (98-107) L 01/31/25 08:53
Carbon Dioxide 28 mmol/L (22-30) 01/31/25 08:53
BUN 53 mg/dl (9-20) H 01/31/25 08:53
Creatinine 5.7 mg/dL (0.7-1.3) H* 01/31/25 08:53
eGFR 8.91 01/31/25 08:53
Glucose 117 mg/dl (70-99) H 01/31/25 08:53
Calcium 9.6 mg/dl (8.4-10.2) 01/31/25 08:53
Phosphorus 7.8 mg/dl (2.5-4.5) H 01/30/25 05:47
Albumin 3.7 g/dl (3.5-5.0) 01/31/25 08:53
Physical Exam
-
Vital Signs:
Vital Signs
Temp Pulse Resp BP Pulse Ox
99.4 F 79 16 116/63 98
01/31/25 15:15 01/31/25 07:26 01/31/25 07:26 01/31/25 07:26 01/31/25 07:26
Cardiovascular:: Regular rate and rhythm
Respiratory:: Bilateral: Coarse
Lung Excursion:: Normal
Abdomen:: Nontender and Soft
Bowel Sounds:: Normal
Extremity Edema:: None: Bilateral:
--- NOTE | 2025-01-31 15:38 | CM ---
patient chart reviewed
Rapid response called this am
transferred to ICU
MRI brain, GOC convo
PLAN; TBD, CM to continue to follow
[2025-01-31] MEDS: TYLENOL 650 MG PO (15:57)
[2025-01-31 16:10] LABS: Troponin I 0.468 ng/ml
[2025-01-31 16:11] LABS: Glucose - Point of Care 143 mg/dl (70-99)
[2025-01-31 18:18] LABS: Urine Character Clear (Clear)
[2025-01-31 18:40] LABS: Urine Squamous Cell 0-2 /LPF (Few); Urine White Cell 16-20 /HPF (0-5)
[2025-01-31] MEDS: NORVASC 5 MG PO (19:54)
[2025-01-31 22:19] LABS: Glucose - Point of Care 228 mg/dl (70-99)
[2025-01-31] MEDS: HYTRIN 1 MG PO (22:24)
[2025-01-31 22:35] LABS: Troponin I 0.407 ng/ml
[2025-02-01] VITALS (30 sets, daily range): BP systolic 96–156; BP diastolic 47–112; BMI 18.9
[2025-02-01] MEDS: HEPARIN 5000 UNITS SC ×2 (00:45→16:21)
--- NOTE | 2025-02-01 05:38 | PTCARENOTE ---
Pt drowsy but easily arousable to verbal stimuli/soft touch. Ox2, disoriented to time. Forgetful at times. YA x4. No urine output. bladder scan at 03:00, 112ml.
[2025-02-01 06:13] LABS: ALT (SGPT) 10 U/L (0-50); AST (SGOT) 21 U/L (17-59); Albumin 3.4 g/dl (3.5-5.0); Alkaline Phosphatase 56 U/L (38-126); Blood Urea Nitrogen 61 mg/dl (9-20); Calcium 10.1 mg/dl (8.4-10.2); Carbon Dioxide 27 mmol/L (22-30); Chloride 99 mmol/L (98-107); Estimated Creatinine Clearance 6 ml/min; Glucose 99 mg/dl (70-99); Potassium 4.5 mmol/L (3.5-5.1); Sodium 134 mmol/L (135-145); Total Protein 6.3 g/dl (6.3-8.2); eGFR 7.61
[2025-02-01 06:24] LABS: Troponin I 0.436 ng/ml
[2025-02-01 06:37] LABS: Hematocrit 26.1 % (39.0-52.0); Hemoglobin 8.9 g/dL (13.0-18.0); Mean Corp Hgb Conc. 34.1 g/dL (33.0-37.0); Mean Corpuscular Volume 95.6 fL (80.0-94.0); Platelet Count 155 10^3/uL (130-400); Red Cell Dist. Width 13.9 % (11.5-14.5)
[2025-02-01] MEDS: NOVOLOG FLEXPEN-LOW RESISTANCE SC ×2 (07:50→12:17)
[2025-02-01] MEDS: HEPARIN SC (07:51)
[2025-02-01] MEDS: PRAVACHOL 40 MG PO (07:53)
[2025-02-01] MEDS: NEURONTIN 100 MG PO (07:53)
[2025-02-01] MEDS: PROSCAR 5 MG PO (07:53)
--- NOTE | 2025-02-01 08:00 | PTCARENOTE ---
Received [facility] from [facility] assessment as charted. patient starting dialysis, holdin BP meds.
[2025-02-01 08:19] LABS: Glucose - Point of Care 95 mg/dl (70-99)
[2025-02-01] MEDS: RETACRIT 6000 UNITS IV (11:06)
--- NOTE | 2025-02-01 11:17 | W.PN.NEPH.HD ---
Assessment
-
Pt seen on HD. no complaints. VSS, access ok
Progress Note - Hemodialysis
-
Date of Service: February 01, 2025
Duration: 30 minutes and 3 hours
Potassium Bath: 2
Calcium Bath: 2.5
Opti-Dialyzer: 160
Ultrafiltration: Other (2kg)
Blood Flow: 400
Dialysate Flow: 600
Heparin: 0
EPO: 0
--- NOTE | 2025-02-01 11:18 | PTCARENOTE ---
Patient tolerating dialysis, may be downgraded to tele after treatment.
[2025-02-01 11:57] LABS: Glucose - Point of Care 75 mg/dl (70-99)
[2025-02-01] MEDS: NORVASC 5 MG PO ×2 (13:00→20:06)
[2025-02-01] MEDS: ASPIR LOW (ENTERIC COATED) 81 MG PO (13:01)
[2025-02-01] MEDS: STERILE WATER FOR INJECTION 10 ML IV (13:01)
[2025-02-01] MEDS: COZAAR 100 MG PO (13:01)
[2025-02-01] MEDS: TYLENOL 650 MG PO (13:01)
[2025-02-01] MEDS: ROCEPHIN 1000 MG IV (13:02)
--- NOTE | 2025-02-01 13:25 | PTCARENOTE ---
Patient tolerated HD. CHG bath completed. Repositioned patient for lunch, family at bedside.
--- NOTE | 2025-02-01 15:06 | W.PN.HOSP.TC ---
Today's Communication/Plan
-
monitor off HD
anticipate dc in 24 hours if no further changes in mental status
Assessment / Plan
Assessment / Plan
Physical Exam
General: Comfortable and Conversant
HEENT: Anicteric and Moist mucous membranes
Respiratory: Clear and Non Labored Respirations
Cardiac: S1/S2 and Regular Rhythm
GI: Soft and Non Tender
Rectal: Deferred by Provider
Musculoskeletal: No Clubbing, No Cyanosis and Other (LUE Fistula without palpable thrill)
Skin: Warm and Dry
Neuro: Awake, Alert and Nonfocal/grossly intact
Psych: Calm
Thrombosed Left Upper Extremity AV Fistula
-fistula declot Post Op
-Did well today on HD
ESRD on HD ([facility])
Hyponatremia
Hypokalemia
-Consult Nephrology
-Monitor
-Continue Lasix on non-dialysis days
#Acute Metabolic Encephalopathy, resolved
-possibly 2/2 to UTI
- likely related to HD, fluctuations - improved later on; reoccurred again with retching 01/31; now improved again after recurrence; Of note, these episodes have happened in the past
-CT Head, UA negative
CT head 01/31 negative again; with ams
KUB unremarkable
Zofran prn
Trend Troponins -0.5 peak; no chest pain. No longer need to trend; no obvious skin changes on EKG
-Cont to Monitor
-If recurrent again - will need neurology work up including possible EEG; no focal deficits found
#Nausea, resolved
-no diarrhea
-F/u trops
-zofran
-ctm
-kub unremarkable
-if continued - will need ct imaging
Hypercalcemia
-resolved
#Elevated Troponin
-Likely related to nonischemic myocardial injury
-related to ESRD
Essential Hypertension
-Continue amlodipine, losartan and terazosin
Hyperlipidemia
-Continue pravastatin
Diabetes Mellitus, Type II
-Check HgbA1c: 5.5
-Monitors sugars and continue coverage insulin
BPH
-Continue finasteride
DVT proph: SC Heparin
Code Status: Full Code
Anticipated Discharge: 24 - 48 hours
Subjective/Interval History
-
Date of Service: February 01, 2025
Mental status has improved today
Objective Data
-
Labs:
Laboratory Results
02/01/25 02/01/25
05:05 06:28
WBC Cancelled 12.3 H
Hgb Cancelled 8.9 L
Hct Cancelled 26.1 L
Plt Count Cancelled 155
Sodium 134 L
Potassium 4.5
Chloride 99
Carbon Dioxide 27
BUN 61 H
Creatinine 6.5 H*
Glucose 99
Calcium 10.1
Total Bilirubin 0.7
AST 21
ALT 10
Alkaline Phosphatase 56
Vital Signs:
Vital Signs
Temp Pulse Resp BP Pulse Ox
96.4 F L 71 19 125/105 100
02/01/25 12:43 02/01/25 14:00 02/01/25 14:00 02/01/25 14:00 02/01/25 13:00
I&O
01/31/25 02/01/25 02/02/25
06:59 06:59 06:59
Intake Total 780 / 780 500 / 500 240 / 240
Output Total 925 / 925
Balance -145 / -145 500 / 500 240 / 240
Review of Systems
-
History Source: Patient
All other systems: Not reviewed unless documented
Data Reviewed
-
Diagnostic Radiology: Report Reviewed by me
CT Scan: Report Reviewed by me
Labs: Labs Reviewed by me
[2025-02-01 16:38] LABS: Glucose - Point of Care 180 mg/dl (70-99)
[2025-02-01] MEDS: NOVOLOG FLEXPEN-LOW RESISTANCE 1 UNITS SC (16:43)
--- NOTE | 2025-02-01 17:44 | PTCARENOTE ---
Patient is now tele status. still has episodes of confusion on how he got to hospital, but able to make needs known. bed alarm on and call barry within reach.
[2025-02-01] MEDS: HYTRIN 1 MG PO (20:06)
[2025-02-01] MEDS: CHLORASEPTIC/SORE THROAT SPRAY 2 SPRAY PO (20:07)
[2025-02-01 21:43] LABS: Glucose - Point of Care 126 mg/dl (70-99)
[2025-02-02] VITALS (12 sets, daily range): BP systolic 117–168; BP diastolic 52–128; PULSE 70; BMI 18.6
[2025-02-02] MEDS: HEPARIN 5000 UNITS SC ×2 (00:35→08:09)
[2025-02-02] MEDS: TYLENOL 650 MG PO ×2 (02:35→08:20)
[2025-02-02 05:16] LABS: Hematocrit 28.4 % (39.0-52.0); Hemoglobin 9.8 g/dL (13.0-18.0); Mean Corp Hgb Conc. 34.5 g/dL (33.0-37.0); Mean Corpuscular Volume 94.0 fL (80.0-94.0); Platelet Count 158 10^3/uL (130-400); Red Cell Dist. Width 13.4 % (11.5-14.5)
[2025-02-02 05:38] LABS: ALT (SGPT) 11 U/L (0-50); AST (SGOT) 19 U/L (17-59); Albumin 3.2 g/dl (3.5-5.0); Alkaline Phosphatase 73 U/L (38-126); Blood Urea Nitrogen 30 mg/dl (9-20); Calcium 9.1 mg/dl (8.4-10.2); Carbon Dioxide 31 mmol/L (22-30); Chloride 94 mmol/L (98-107); Estimated Creatinine Clearance 11 ml/min; Glucose 136 mg/dl (70-99); Potassium 3.7 mmol/L (3.5-5.1); Sodium 131 mmol/L (135-145); Total Protein 6.1 g/dl (6.3-8.2); eGFR 14.05
--- NOTE | 2025-02-02 08:04 | PTCARENOTE ---
0700 in bed; AAO x 3 BP via RT upper arm: 148/98 ; NSR [address] activities. Accucheck 125; Good appetite. Vascular check WNL. Left upper arm AV fistula +bruit and thrill; covered post dialysis pressure dressing
[2025-02-02] MEDS: NOVOLOG FLEXPEN-LOW RESISTANCE SC (08:07)
[2025-02-02] MEDS: ASPIR LOW (ENTERIC COATED) 81 MG PO (08:09)
[2025-02-02] MEDS: COZAAR 100 MG PO (08:13)
[2025-02-02] MEDS: PROSCAR 5 MG PO (08:13)
[2025-02-02] MEDS: NORVASC 5 MG PO (08:13)
[2025-02-02] MEDS: PRAVACHOL 40 MG PO (08:13)
[2025-02-02] MEDS: NEURONTIN 100 MG PO (08:13)
[2025-02-02] MEDS: LASIX 80 MG PO (08:18)
[2025-02-02 08:20] LABS: Glucose - Point of Care 125 mg/dl (70-99)
--- NOTE | 2025-02-02 09:49 | W.PN.NEPH.PH ---
Today's Communication / Plan
-
HD monday
Assessment/Plan
-
Assessment
ESRD TTS [facility]
Left brachiocephalic AV fistula thrombosis
BPH
Hypertension ,variable
Hyperlipidemia
Plan
HD monday
-
-
Date of Service: February 02, 2025
CC / HPI / ROS
-
Chief Complaint:
ESRD
History of Present Illness:
tolerated HD yesterday
BP stable
awake, feels woozy
Review of Systems:
no CP/SOB
Labs
-
Labs:
WBC 7.6 10^3/uL (4.8-10.8) 02/02/25 04:50
RBC 3.02 10^6/uL (4.70-6.10) L 02/02/25 04:50
Hgb 9.8 g/dL (13.0-18.0) L 02/02/25 04:50
Hct 28.4 % (39.0-52.0) L 02/02/25 04:50
Plt Count 158 10^3/uL (130-400) 02/02/25 04:50
Sodium 131 mmol/L (135-145) L 02/02/25 04:50
Potassium 3.7 mmol/L (3.5-5.1) 02/02/25 04:50
Chloride 94 mmol/L (98-107) L 02/02/25 04:50
Carbon Dioxide 31 mmol/L (22-30) H 02/02/25 04:50
BUN 30 mg/dl (9-20) H 02/02/25 04:50
Creatinine 3.9 mg/dL (0.7-1.3) H 02/02/25 04:50
eGFR 14.05 02/02/25 04:50
Glucose 136 mg/dl (70-99) H 02/02/25 04:50
Calcium 9.1 mg/dl (8.4-10.2) 02/02/25 04:50
Phosphorus 7.8 mg/dl (2.5-4.5) H 01/30/25 05:47
Albumin 3.2 g/dl (3.5-5.0) L 02/02/25 04:50
Physical Exam
-
Vital Signs:
Vital Signs
Temp Pulse Resp BP Pulse Ox
97.5 F 76 18 168/128 100
02/02/25 08:01 02/02/25 08:18 02/01/25 22:00 02/02/25 08:18 02/01/25 13:00
Cardiovascular:: Regular rate and rhythm
Respiratory:: Bilateral: Coarse
Lung Excursion:: Normal
Abdomen:: Nontender and Soft
Bowel Sounds:: Normal
Extremity Edema:: None: Bilateral:
[2025-02-02 11:18] LABS: Glucose - Point of Care 202 mg/dl (70-99)
[2025-02-02] MEDS: NOVOLOG FLEXPEN-LOW RESISTANCE 2 UNITS SC (12:08)
--- NOTE | 2025-02-02 12:21 | W.PN.HOSP.TC ---
Addendum entered and electronically signed by Moo Whitten MD 02/02/25 14:48:
[id number]
Original Note:
Today's Communication/Plan
-
f/u neurology, pcp, vascular, HD outpt
May need EEG and MRI outpatient if continued changes in mental status; Has been lucid >48 hours
Assessment / Plan
Assessment / Plan
Physical Exam
General: Comfortable and Conversant
HEENT: Anicteric and Moist mucous membranes
Respiratory: Clear and Non Labored Respirations
Cardiac: S1/S2 and Regular Rhythm
GI: Soft and Non Tender
Rectal: Deferred by Provider
Musculoskeletal: No Clubbing, No Cyanosis and Other (LUE Fistula without palpable thrill)
Skin: Warm and Dry
Neuro: Awake, Alert and Nonfocal/grossly intact
Psych: Calm
Thrombosed Left Upper Extremity AV Fistula
-fistula declot Post Op
-Did well today on HD
ESRD on HD ([facility])
Hyponatremia
Hypokalemia
-Consult Nephrology
-Monitor
-Continue Lasix on non-dialysis days
#Acute Metabolic Encephalopathy, resolved
-possibly 2/2 to UTI
- likely related to HD, fluctuations - improved later on; reoccurred again with retching 01/31; now improved again after recurrence; Of note, these episodes have happened in the past after reinitiation of dialysis
-CT Head, UA negative
CT head 01/31 negative again; with ams
KUB unremarkable
Zofran prn
Trend Troponins -0.5 peak; no chest pain. No longer need to trend; no obvious skin changes on EKG
-Cont to Monitor
-If recurrent again - will need neurology work up including possible EEG; no focal deficits found; has been stable; follow-up neurology outpatient
#Nausea, resolved
-no diarrhea
-F/u trops
-zofran
-ctm
-kub unremarkable
Hypercalcemia
-resolved
#Elevated Troponin
-Likely related to nonischemic myocardial injury
-related to ESRD
Essential Hypertension
-Continue amlodipine, losartan and terazosin
Hyperlipidemia
-Continue pravastatin
Diabetes Mellitus, Type II
-Check HgbA1c: 5.5
-Monitors sugars and continue coverage insulin
BPH
-Continue finasteride
DVT proph: SC Heparin
Code Status: Full Code
More than 30 minutes spent in discharge including
Final examination of the patient
Summarizing hospital stay
Instructions for continuing care to all relevant caregivers
Preparation of discharge records, prescriptions, and referral forms
Total time spent (in minutes): 36
Anticipated Discharge: Today
Subjective/Interval History
-
Date of Service: February 02, 2025
Mental status clear
Objective Data
-
Labs:
Laboratory Results
02/02/25
04:50
WBC 7.6
Hgb 9.8 L
Hct 28.4 L
Plt Count 158
Sodium 131 L
Potassium 3.7
Chloride 94 L
Carbon Dioxide 31 H
BUN 30 H
Creatinine 3.9 H
Glucose 136 H
Calcium 9.1
Total Bilirubin 0.5
AST 19
ALT 11
Alkaline Phosphatase 73
Vital Signs:
Vital Signs
Temp Pulse Resp BP Pulse Ox
97.5 F 67 11 137/57 100
02/02/25 08:01 02/02/25 10:00 02/02/25 07:00 02/02/25 10:00 02/01/25 13:00
I&O
02/01/25 02/02/25 02/03/25
06:59 06:59 06:59
Intake Total 500 / 500 240 / 240 240 / 240
Output Total 100 / 100 500 / 500 200 / 200
Balance 400 / 400 -260 / -260 40 / 40
Review of Systems
-
History Source: Patient
All other systems: Not reviewed unless documented
Data Reviewed
-
Diagnostic Radiology: Report Reviewed by me
CT Scan: Report Reviewed by me
Labs: Labs Reviewed by me
--- NOTE | 2025-02-02 12:23 | W.DS.TRANS ---
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
-
Discharge Instructions:
Discharge Diagnosis/Procedures #Acute Metabolic Encephalopathy, resolved
Fistula declot
Diet As tolerated,Low Sodium
Activity No strenuous activity
Driving Restrictions No driving for 24 hours
Bathing Restrictions OK to Shower
Blood Work cbc and bmp in 3 days
Others Tests Further imaging/testing if continued sensorium/
mental status changes
Instructions:
Stand-Alone Forms: Vascular Surg Discharge Instr
Changes to Home Medications: No
Discharge Medications:
DC Medications w/original date entered in [facility]
pantoprazole 40 mg tablet,delayed release 40 mg PO DAILY Gastrointestinal issue 02/08/12
cyanocobalamin (vitamin B-12) 1,000 mcg tablet 1,000 mcg PO DAILY Supplement 05/04/22
finasteride 5 mg tablet 5 mg PO DAILY Urinary issue 05/04/22
gabapentin 100 mg capsule 100 mg PO DAILY Pain 05/04/22
pravastatin 40 mg tablet 40 mg PO DAILY High cholesterol 05/04/22
cholecalciferol (vitamin D3) 25 mcg (1,000 unit) tablet (Vitamin D3) 25 mcg PO DAILY Supplement 07/29/22
amlodipine 5 mg tablet 5 mg PO BID Blood Pressure 03/04/24
furosemide 80 mg tablet 80 mg PO SUMOWEFR Fluid Retention/Swelling 03/04/24
losartan 100 mg tablet 100 mg PO DAILY Blood Pressure 03/04/24
terazosin 1 mg capsule 1 mg PO HS Urinary Issue/BP 03/04/24
aspirin 81 mg tablet,delayed release 81 mg PO DAILY 30 days #30 tabs 06/19/24
Home Medication Changes
na
Pending Results: No
--- NOTE | 2025-02-02 14:25 | PTCARENOTE ---
Discharge:
Patient discharge home. Transportation provided by patient's son. Discharge instructions including medication regiment and follow-up appointments with patient and his son. Both confirmed an understanding of all discharge instructions. All peripheral
lines x 2 removed and 2x 2 applied. patient;s belongings: cell phone and personal cane send home with patient.
--- NOTE | 2025-02-02 14:53 | CM ---
Patient was seen by physical therapy and plan is to home with visiting nurses, options reviewed with patient and patient has selected [facility].
[facility]
== END 2025-02-02 14:34 | disposition home health service (06) | DRG 252 ==
LOC: ICU 15:00
PROVIDERS: Internal Medicine Nephrology; Physician Assistant; Physician Assistant Medical; Specialist; ADMITTING PHYSICIAN Internal Medicine; ATTENDING PHYSICIAN Internal Medicine; CONSULT PHYSICIAN Specialist; EMERGENCY PHYSICIAN Emergency Medicine; OTHER PHYSICIAN Surgery Vascular Surgery
PROC: 057F3DZ Dilation of Left Cephalic Vein with Intraluminal Device, Percutaneous Approach (ICD-10-PCS; 2025-01-29)
PROC: 05CF3ZZ Extirpation of Matter from Left Cephalic Vein, Percutaneous Approach (ICD-10-PCS; 2025-01-29)
PROC: 3E03317 Introduction of Other Thrombolytic into Peripheral Vein, Percutaneous Approach (ICD-10-PCS; 2025-01-29)
PROC: 5A1D70Z Performance of Urinary Filtration, Intermittent, Less than 6 Hours Per Day (ICD-10-PCS; 2025-01-30)
DX: T82.868A Thrombosis due to vascular prosthetic devices, implants and grafts, initial encounter (principal); G93.41 Metabolic encephalopathy; N18.6 End stage renal disease; I12.0 Hypertensive chronic kidney disease with stage 5 chronic kidney disease or end stage renal disease; N25.81 Secondary hyperparathyroidism of renal origin; E87.1 Hypo-osmolality and hyponatremia; I5A Non-ischemic myocardial injury (non-traumatic); T82.858A Stenosis of other vascular prosthetic devices, implants and grafts, initial encounter; Y83.2 Surgical operation with anastomosis, bypass or graft as the cause of abnormal reaction of the patient, or of later complication, without mention of misadventure at the time of the procedure; Z99.2 Dependence on renal dialysis; E87.6 Hypokalemia; E83.52 Hypercalcemia; R11.0 Nausea; E11.22 Type 2 diabetes mellitus with diabetic chronic kidney disease; E11.40 Type 2 diabetes mellitus with diabetic neuropathy, unspecified; E78.00 Pure hypercholesterolemia, unspecified; N40.0 Benign prostatic hyperplasia without lower urinary tract symptoms; D63.1 Anemia in chronic kidney disease; Z87.891 Personal history of nicotine dependence; Z11.52 Encounter for screening for COVID-19; Z79.82 Long term (current) use of aspirin; Z79.84 Long term (current) use of oral hypoglycemic drugs
CPT/HCPCS: 36906; 70450; 74022; 80048; 80053; 81003; 81015; 82306; 82330; 82805; 82962; 83036; 83735; 83970; 84100; 84484; 85027; 87086; 87502; 87811; 93005; 93990; 97163; 99285; C1725; C1757; C1769; C1874; C1894; J2997; P9047; Q5106; Q9967